=== PATIENT | male | born 1960 | race Caucasian/White ===

== ENCOUNTER 2017-12-21 18:37 | Observation (INO) | payer MEDICARE ==
[2017-12-21] MEDS ORDERED: NITRO-BID 2% UD PACKETS TOP ONE (19:12)
--- NOTE | 2017-12-21 19:18 | ERPHSYRPT ---
- History of Present Illness Time Seen by Provider: 12/21/17 19:06 Historian: patient Exam Limitations: no limitations Patient Subjective Stated Complaint: pt brought to ed from home by [facility] -pt reports sudden onset of sob and chest pain beginning a few hrs ago worsening with movement-pt reports he took nitro x 5 before calling ems Triage Nursing Assessment: pt pink warm and [id number] easy and nonlabored- pt speaking in complete sentences-lung sounds diminished but equal bilateral- cap refill wnl-radial pulse regular and strong Physician History: Pt started c/o right sided chest pressure about 1.5 hours ago, when watching TV. He states the pain was radiating to his jaw, developed SOB, denies productive cough, fever, nausea, vomiting, other complaints. He was picked up by EMS, he was recently hospitalized in [facility] for Pneumonia, currently on Levaquin.He took 5 NTG at home, before called 911, and 2 baby ASA, EMS gave him Morphine, relived him temporarily. H looks comfortable, not diaphoretic, no sign of severe distress. Timing/Duration: hour(s) (1,5) Activities at Onset: rest Quality: pressure Location: other (right anterior) Modifying Factors: Improves With: nothing Associated Symptoms: shortness of breath Prior Chest Pain/Cardiac Workup: recently seen/treated, recent hospitalization Nitro Today/Relief: 0.4 mg x 4, no relief Aspirin Treatment Today: 81 mg x 2 Allergies/Adverse Reactions: carisoprodol [Carisoprodol] Allergy (Unknown, Verified 12/21/17 18:50) ketorolac Allergy (Unknown, Verified 12/21/17 18:50) Home Medications: Furosemide 40 mg [Lasix 40 MG] 40 mg PO DAILY 11/28/11 [History] Alprazolam 1 mg [Xanax 1 mg] 1 mg PO Q6H PRN PRN 05/13/13 [History] Cyclobenzaprine HCl 10 mg [Cyclobenzaprine 10 MG] 10 mg PO [id number] PRN [History] Tamsulosin HCl 0.4 mg [Flomax 0.4 MG] 0.4 mg PO DAILY 05/13/13 [History] Fluticasone/Salmeterol [Advair 250-50 Diskus] 1 puff IH BID 07/11/13 [History] Omeprazole [Prilosec] 20 mg PO DAILY 07/11/13 [History] Aspirin [Aspirin EC] 81 mg PO DAILY 11/30/14 [History] Carvedilol 3.125 mg [Coreg 3.125 MG] 3.125 mg PO BID 11/30/14 [History] Digoxin 0.125 mg Tablet [Lanoxin 0.125MG TABLET] 125 mcg PO DAILY [History] Eplerenone 25 mg PO DAILY 11/30/14 [History] Lisinopril [Zestril] 2.5 mg PO DAILY 11/30/14 [History] Pravastatin Sodium 40 mg PO HS 11/30/14 [History] Apixaban [Eliquis] 5 mg PO BID 12/25/15 [History] Hydromorphone HCl 4 mg [Dilaudid 4 MG Tab] 4 mg PO Q4HPRN PRN 12/25/15 [ History] Hx Tetanus, Diphtheria Vaccination/Date Given: Yes Hx Influenza Vaccination/Date Given: No Hx Pneumococcal Vaccination/Date Given: No Immunizations Up to Date: Yes - Review of Systems Constitutional: No Symptoms Respiratory: Dyspnea Cardiac: Chest Pain, No Edema All Other Systems: Reviewed and Negative - Past Medical History Pertinent Past Medical History: Yes Neurological History: Migraines, Stroke, TIA ENT History: Cataracts Cardiac History: Arrhythmia, Congestive Heart Failure, Coronary Artery Disease, High Cholesterol, Hypertension, Myocardial Infarction ([place]) Respiratory History: Asthma, Bronchitis, CHF, COPD, Pneumonia, Pulmonary Embolism Endocrine Medical History: No Pertinent History Musculoskeletal History: No Pertinent History GI Medical History: No Pertinent History History: Other Psycho-Social History: Anxiety Male Reproductive Disorders: No Pertinent History, Prostate Problems Other Medical History: Renal Failure, Urinary retention - Past Surgical History Past Surgical History: Yes Neuro Surgical History: No Pertinent History Cardiac: CABG, Cardiac Catheterization, Cardiac Stent, Internal Defibrillator, Pacemaker Respiratory: No Pertinent History Gastrointestinal: Appendectomy Genitourinary: No Pertinent History Musculoskeletal: No Pertinent History Male Surgical History: No Pertinent History Other Surgical History: abscess I&D--RT AXILLA, bypass x2 - Social History Smoking Status: Current every day smoker How long have you smoked: "40 years" Exposure to second hand smoke: Yes Drug Use: none Patient Lives Alone: No - Nursing Vital Signs Nursing Vital Signs: Initial Vital Signs Temperature 98.5 F 12/21/17 18:45 Pulse Rate 72 12/21/17 18:45 Respiratory Rate 18 12/21/17 18:45 Blood Pressure 138/89 12/21/17 18:45 O2 Sat by Pulse Oximetry 95 12/21/17 18:45 Pain Scale Pain Intensity 7 - Physical Exam General Appearance: no apparent distress Eye Exam: eyes nml inspection Ears, Nose, Throat Exam: normal ENT inspection, moist mucous membranes Neck Exam: normal inspection, non-tender, supple, No carotid bruit, No JVD Respiratory Exam: normal breath sounds, lungs clear, airway intact, No chest tenderness, No respiratory distress Cardiovascular Exam: regular rate/rhythm, normal heart sounds, normal peripheral pulses, No murmur Gastrointestinal/Abdomen Exam: soft, normal bowel sounds, No tenderness, No distention, No mass, No guarding Back Exam: normal inspection, No CVA tenderness Extremity Exam: normal inspection, No calf tenderness, No rebeca's sign, No pedal edema Neurologic Exam: alert, oriented x 3, normal mood/affect Skin Exam: normal color, warm, dry, No rash Lymphatic Exam: No adenopathy SpO2 Interpretation: normal SpO2: 95 Oxygen Delivery: Room Air - Course Nursing assessment & vital signs reviewed: Yes EKG Interpreted by Me: RATE (69/min), Other (paced) - Radiology Exams Chest X-ray Interpretation: Interpreted by me, Negative - CT Exams Chest CT Interpretation: Negative, Tele-radiologist Report Ordered Tests: Active Orders 24 hr Category Date Time Status Office Electrician STAT Care 12/21/17 18:58 Active EKG-ER Only STAT Care 12/21/17 18:57 Active IV Insertion STAT Care 12/21/17 18:57 Active Pulse Oximetry (ED) STAT Care 12/21/17 18:57 Active CHEST 1 VIEW (PORTABLE) Stat Exams 12/21/17 18:58 Taken CHEST WITH CONTRAST [CT] Stat Exams 12/21/17 20:59 Taken CBC W DIFF Stat Lab 12/21/17 18:57 Completed CMP Stat Lab 12/21/17 19:45 Completed D-DIMER QUANTITATION Stat Lab 12/21/17 19:45 Completed Manual Differential NC Stat Lab 12/21/17 18:57 Completed NT PRO BNP Stat Lab 12/21/17 19:45 Completed PROTIME WITH INR Stat Lab 12/21/17 19:45 Completed PTT Stat Lab 12/21/17 19:45 Completed TROPONIN Q3H Lab 12/21/17 19:45 Completed TROPONIN Q3H Lab 12/21/17 22:00 Ordered TROPONIN Q3H Lab 12/22/17 01:00 Ordered TROPONIN Q3H Lab 12/22/17 04:00 Ordered TROPONIN Q3H Lab 12/22/17 07:00 Ordered Urine Triage Profile Stat Lab 12/21/17 20:44 Completed Medication Summary Generic Name Dose Route Start Last Admin Trade Name Freq PRN Reason Stop Dose Admin Aspirin 162 mg 12/22/17 10:00 Baby Aspirin 81 Mg Chew PO 01/21/18 09:59 QAM OWEN Discontinued Medications Generic Name Dose Route Start Last Admin Trade Name Freq PRN Reason Stop Dose Admin Fentanyl Citrate 75 mcg 12/21/17 19:40 12/21/17 20:02 Sublimaze 100 Mcg/2 Ml IV 12/21/17 19:41 75 mcg STAT ONE Administration Fentanyl Citrate Confirm 12/21/17 20:00 Sublimaze 100 Mcg/2 Ml Administered 12/21/17 20:01 Dose 100 mcg .ROUTE .STK-MED ONE Morphine Sulfate 4 mg 12/21/17 21:49 12/21/17 21:52 Morphine Sulfate 4 Mg Inj IV 12/21/17 21:50 4 mg STAT ONE Administration Morphine Sulfate Confirm 12/21/17 21:51 Morphine Sulfate 4 Mg Inj Administered 12/21/17 21:52 Dose 4 mg .ROUTE .STK-MED ONE Nitroglycerin 1 gm 12/21/17 19:12 12/21/17 19:32 Nitro-Bid 2% Ud Packets TOP 12/21/17 19:13 1 gm STAT ONE Administration Nitroglycerin Confirm 12/21/17 19:32 Nitro-Bid 2% Ud Packets Administered 12/21/17 19:33 Dose 1 gm .ROUTE .STK-MED ONE Lab/Rad Data: Laboratory Result Diagrams 12/21/17 18:57 12/21/17 19:45 Laboratory Results 12/21/17 12/21/17 12/21/17 Range/Units 20:44 19:45 19:45 WBC (4.0-10.5) K/mm3 RBC (4.1-5.6) M/mm3 Hgb (12.5-18.0) gm/dl Hct (42-50) % MCV (78-100) fl MCH (26-32) pg MCHC (32-36) g/dl RDW (11.5-14.0) % Plt Count (150-450) K/mm3 MPV (6-9.5) fl Absolute Granulocytes (1.4-6.9) PT 13.1 H (8.83-12.87) SECONDS INR 1.13 (0.8-3.0) APTT (24.1-36.1) SECONDS D-Dimer (215-500) ng/mL Sodium (137-145) mmol/L Potassium (3.5-5.1) mmol/L Chloride (98-107) mmol/L Carbon Dioxide (22-30) mmol/L Anion Gap (5-15) MEQ/L BUN (9-20) mg/dL Creatinine (0.66-1.25) mg/dL Estimated GFR ML/MIN Glucose (74-106) mg/dL Calcium (8.4-10.2) mg/dL Total Bilirubin (0.2-1.3) mg/dL AST (17-59) U/L ALT (0-50) U/L Alkaline Phosphatase (38-126) U/L Troponin I 0.012 (0.000-0.034) ng/mL NT-Pro-B Natriuret Pep (0-900) pg/mL Serum Total Protein (6.3-8.2) g/dL Albumin (3.5-5.0) g/dL Urine Opiates Level POSITIVE (NEGATIVE) Ur Methadone NEGATIVE (NEGATIVE) Urine Barbiturates NEGATIVE (NEGATIVE) Ur Phencyclidine (PCP) NEGATIVE (NEGATIVE) Urine Amphetamine NEGATIVE (NEGATIVE) U Benzodiazepine Level POSITIVE (NEGATIVE) Urine Cocaine NEGATIVE (NEGATIVE) Urine Marijuana (THC) NEGATIVE (NEGATIVE) 12/21/17 12/21/17 12/21/17 Range/Units 19:45 19:45 18:57 WBC 9.7 (4.0-10.5) K/mm3 RBC 5.80 H (4.1-5.6) M/mm3 Hgb 17.0 (12.5-18.0) gm/dl Hct 50.3 H (42-50) % MCV 86.7 (78-100) fl MCH 29.3 (26-32) pg MCHC 33.8 (32-36) g/dl RDW 16.8 H (11.5-14.0) % Plt Count 122 L (150-450) K/mm3 MPV 9.2 (6-9.5) fl Absolute Granulocytes 6.30 (1.4-6.9) PT (8.83-12.87) SECONDS INR (0.8-3.0) APTT 36.6 H (24.1-36.1) SECONDS D-Dimer 772 H* (215-500) ng/mL Sodium 139 (137-145) mmol/L Potassium 5.6 H (3.5-5.1) mmol/L Chloride 103 (98-107) mmol/L Carbon Dioxide 28 (22-30) mmol/L Anion Gap 13.2 (5-15) MEQ/L BUN 36 H (9-20) mg/dL Creatinine 1.30 H (0.66-1.25) mg/dL Estimated GFR > 60.0 ML/MIN Glucose 95 (74-106) mg/dL Calcium 9.8 (8.4-10.2) mg/dL Total Bilirubin 0.60 (0.2-1.3) mg/dL AST 29 (17-59) U/L ALT 24 (0-50) U/L Alkaline Phosphatase 62 (38-126) U/L Troponin I (0.000-0.034) ng/mL NT-Pro-B Natriuret Pep 593 (0-900) pg/mL Serum Total Protein 8.4 H (6.3-8.2) g/dL Albumin 4.5 (3.5-5.0) g/dL Urine Opiates Level (NEGATIVE) Ur Methadone (NEGATIVE) Urine Barbiturates (NEGATIVE) Ur Phencyclidine (PCP) (NEGATIVE) Urine Amphetamine (NEGATIVE) U Benzodiazepine Level (NEGATIVE) Urine Cocaine (NEGATIVE) Urine Marijuana (THC) (NEGATIVE) - Progress Progress: improved Air Movement: good Progress Note: 05/30/18 22:[address] Hoang Casper, discussed our findings and this patients current condition, he states he fired him from their practice, and asked me to contact the physician superintendent radio communications. I called Dr Hull discussed all these with him he agreed to admit him for observation, patient was informed and agreed, He was given Fentanyl and Morphine for his pain and 2 baby ASA. He has been stable. Blood Culture(s) Obtained: No Antibiotics given: No Discussed with DrNicole: Kurtis Frazier Will see patient in: hospital (observation) Counseled pt/family regarding: lab results, diagnosis, need for follow-up, rad results - Departure Time of Disposition: 22:55 Departure Disposition: Observation Clinical Impression: Atypical chest pain Condition: Stable Critical Care Time: No Referrals: MAHNAZ LEOS [Primary Care Provider] - Instructions: Atypical Chest Pain
[2017-12-21] MEDS ORDERED: NITRO-BID 2% UD PACKETS ONE (19:32)
[2017-12-21] MEDS ORDERED: SUBLIMAZE 100 MCG/2 ML IV ONE (19:40)
[2017-12-21 19:53] LABS: Hematocrit 50.3 % (42-50); Mean Cell Volume 86.7 fl (78-100); Mean Corpuscular Hemoglobin 29.3 pg (26-32); Mean Corpuscular Hgb Concent. 33.8 g/dl (32-36); Mean Platelet Volume 9.2 fl (6-9.5); Platelet Count 122 K/mm3 (150-450); Red Cell Distribution Width 16.8 % (11.5-14.0); White Blood Count 9.7 K/mm3 (4.0-10.5)
[2017-12-21] MEDS ORDERED: SUBLIMAZE 100 MCG/2 ML ONE (20:00)
[2017-12-21 20:36] LABS: INR 1.13 (0.8-3.0)
[2017-12-21 20:39] LABS: PTT 36.6 SECONDS (24.1-36.1)
[2017-12-21 20:45] LABS: ALBUMIN 4.5 g/dL (3.5-5.0); ALKALINE PHOSPHATASE 62 U/L (38-126); ANION GAP 13.2 MEQ/L (5-15); BLOOD UREA NITROGEN 36 mg/dL (9-20); CHLORIDE 103 mmol/L (98-107); Calcium 9.8 mg/dL (8.4-10.2); Carbon Dioxide 28 mmol/L (22-30); Glucose 95 mg/dL (74-106); Potassium 5.6 mmol/L (3.5-5.1); SGOT/AST 29 U/L (17-59); SGPT/ALT 24 U/L (0-50); SODIUM 139 mmol/L (137-145); Total Protein 8.4 g/dL (6.3-8.2)
[2017-12-21 20:54] LABS: NT PRO BNP 593 pg/mL (0-900)
[2017-12-21 21:24] LABS: Amphetamine,Urine NEGATIVE (NEGATIVE); Barbiturate,Urine NEGATIVE (NEGATIVE); Benzodiazepine,Urine POSITIVE (NEGATIVE); Cocaine,Urine NEGATIVE (NEGATIVE); Methadone,Urine NEGATIVE (NEGATIVE); Opiate,Urine POSITIVE (NEGATIVE); PCP,Urine NEGATIVE (NEGATIVE); THC,Urine NEGATIVE (NEGATIVE)
[2017-12-21] MEDS ORDERED: MORPHINE SULFATE 4 MG INJ IV ONE (21:49)
[2017-12-21] MEDS ORDERED: MORPHINE SULFATE 4 MG INJ ONE (21:51)
[2017-12-21] MEDS ORDERED: MILK OF MAGNESIA 30 ML PO PRN (22:56)
[2017-12-21] MEDS ORDERED: MAALOX ES 30 ML UNIT DOSE PO PRN (22:56)
[2017-12-21] MEDS ORDERED: Senokot-S Tablet PO PRN (22:56)
[2017-12-21] MEDS ORDERED: TYLENOL 325 MG PO PRN (22:56)
[2017-12-21] MEDS ORDERED: Zofran 4 MG/2 ML VIAL IV PRN (22:56)
[2017-12-21 23:35] LABS: BAND 4 % (0.0-2.0); Eosinophil 3 % (0.00-3.0); Lymphocytes 20 % (24-44); Monocyte 7 % (0.0-12.0); Neutrophils 66 % (36.-66.); Total Cells Counted 100
[2017-12-21 23:36] LABS: Platelet Estimate NORMAL (NORMAL)
[2017-12-22] MEDS: MORPHINE SULFATE 4 MG INJ IV PRN ×3 (01:58→10:07)
[2017-12-22] MEDS ORDERED: Nitrostat 0.4 MG Tablet SL PRN (04:17)
[2017-12-22 05:34] LABS: Risk Ratio 3.9
[2017-12-22 07:15] VITALS: BP 126/74; PULSE 77
[2017-12-22 07:21] VITALS: O2SAT 98
--- NOTE | 2017-12-22 08:35 | PCM.SSS ---
History of Present Illness - Chief Complaint Chief Complaint: Chest pain History of Present Illness: is a 57 year old male with no local physician who according to the ER doctor was recently dismissed by Dr Cheema for leaving [facility] , following leaving there he went to [facility] and was admitted for a lung infection according to patient. He developed chest pain last night at rest after dinner, there was no shortness of breath or diaphoresis, he denies nausea. Pain is better today, he described it as a tightness. He follows with Dr Salguero and has a history of CAD s/p CABG he claims has had CABG on 3 different occaisons. - Review of Systems Constitutional: No Fever, No Chills Respiratory: No Cough, No Short Of Breath Cardiac: Chest Pain Abdominal/Gastrointestinal: No Abdominal Pain, No Nausea, No Vomiting, No Diarrhea Genitourinary Symptoms: No Dysuria Skin: No Rash All Other Systems: Reviewed and Negative Medications & Allergies Home Medications: Home Medication List Furosemide 40 mg [Lasix 40 MG] 40 mg PO DAILY 11/28/11 [History Confirmed 12/21/17] Alprazolam 1 mg [Xanax 1 mg] 1 mg PO Q6H PRN PRN 05/13/13 [History Confirmed 12/21/17] Cyclobenzaprine HCl 10 mg [Cyclobenzaprine 10 MG] 10 mg PO [id number] PRN [History Confirmed 12/21/17] Tamsulosin HCl 0.4 mg [Flomax 0.4 MG] 0.4 mg PO DAILY 05/13/13 [History Confirmed 12/21/17] Fluticasone/Salmeterol [Advair 250-50 Diskus] 1 puff IH BID 07/11/13 [History Confirmed 12/21/17] Omeprazole [Prilosec] 20 mg PO DAILY 07/11/13 [History Confirmed 12/21/17] Aspirin [Aspirin EC] 81 mg PO DAILY 11/30/14 [History Confirmed 12/21/17] Carvedilol 3.125 mg [Coreg 3.125 MG] 3.125 mg PO BID 11/30/14 [History Confirmed 12/21/17] Digoxin 0.125 mg Tablet [Lanoxin 0.125MG TABLET] 125 mcg PO DAILY [History Confirmed 12/21/17] Eplerenone 25 mg PO DAILY 11/30/14 [History Confirmed 12/21/17] Lisinopril [Zestril] 2.5 mg PO DAILY 11/30/14 [History Confirmed 12/21/17] Pravastatin Sodium 40 mg PO HS 11/30/14 [History Confirmed 12/21/17] Apixaban [Eliquis 5 mg Tablet] 5 mg PO BID 12/25/15 [History Confirmed ] Hydromorphone HCl 4 mg [Dilaudid 4 MG Tab] 4 mg PO Q4HPRN PRN 12/25/15 [ History Confirmed 12/21/17] Allergies/Adverse Reactions: Allergies Allergy/AdvReac Type Severity Reaction Status Date / Time carisoprodol [Carisoprodol] Allergy Unknown Verified 12/21/17 18:50 ketorolac Allergy Unknown Verified 12/21/17 18:50 - Past Medical History Past Medical History: Yes Neurological History: Migraines, Stroke, TIA ENT History: Cataracts Cardiac History: Arrhythmia, Congestive Heart Failure, Coronary Artery Disease, High Cholesterol, Hypertension, Myocardial Infarction ([place]) Respiratory History: Asthma, Bronchitis, CHF, COPD, Pneumonia, Pulmonary Embolism Endocrine Medical History: No Pertinent History Musculoskelatal History: Arthritis GI Medical History: No Pertinent History History: No Pertinent History Pyscho-Social History: Anxiety, Depression Male Reproductive Disorders: No Pertinent History Comment: Renal Failure, Urinary retention - Past Surgical History Past Surgical History: Yes Neuro Surgical History: No Pertinent History Cardiac History: CABG, Cardiac Catheterization, Cardiac Stent, Internal Defibrillator, Pacemaker Respiratory Surgery: No Pertinent History GI Surgical History: Appendectomy Genitourinary Surgical Hx: No Pertinent History Musculskeletal Surgical Hx: No Pertinent History Male Surgical History: No Pertinent History Other Surgical History: bypass x 3 - Social History Smoking Status: Current every day smoker How long have you smoked: "40 years" Exposure to second hand smoke: Yes Alcohol: Rarely Drug Use: marijuana - Physical Exam Vital Signs: Vital Signs - 24 hr Temp Pulse Pulse Resp BP Pulse Ox 12/22/17 07:20 77 18 98 12/22/17 07:14 98 F 77 20 126/74 97 12/22/17 04:57 96 12/22/17 04:15 97.9 F 80 18 149/81 94 L 12/22/17 01:10 79 16 96 12/22/17 00:04 94 L 12/21/17 23:39 97.7 F 70 14 139/81 94 L 12/21/17 22:57 70 16 133/99 97 12/21/17 22:56 95 12/21/17 21:57 73 18 137/64 96 12/21/17 21:52 70 28 H 135/72 95 12/21/17 20:51 68 18 140/76 97 12/21/17 19:50 98.5 F 77 17 172/76 91 L 12/21/17 19:33 70 18 130/82 97 12/21/17 18:59 95 12/21/17 18:45 98.5 F 70 72 18 138/89 95 General Appearance: no apparent distress, alert Neurologic Exam: alert, oriented x 3, cooperative, normal mood/affect, nml cerebellar function, nml station & gait, sensation nml, No motor deficits Eye Exam: PERRL/EOMI, eyes nml inspection Respiratory Exam: normal breath sounds, lungs clear, No respiratory distress Cardiovascular Exam: regular rate/rhythm, normal heart sounds, normal peripheral pulses Gastrointestinal/Abdomen Exam: soft, normal bowel sounds, No tenderness, No mass Back Exam: normal inspection, normal range of motion, No CVA tenderness, No vertebral tenderness Extremity Exam: normal inspection, normal range of motion, pelvis stable Skin Exam: normal color, warm, dry, No rash Results - Labs Lab/Micro Results: Lab Results-Last 24 Hours 12/22/17 12/22/17 12/22/17 Range/Units 02:00 05:00 05:00 Troponin I 0.015 0.014 (0.000-0.034) ng/mL Triglycerides 75 (30-150) mg/dL Cholesterol 164 (50-200) mg/dL LDL Cholesterol 103 H (30-100) mg/dL HDL Cholesterol 42 (40-60) mg/dL Heart Disease Risk Ratio 3.9 - Other Procedures and Tests Respiratory Therapy 12/23/17 05:00 EKG ROUTINE 12/24/17 05:00 EKG ROUTINE 12/25/17 05:00 EKG ROUTINE Assessment/Plan (1) Atypical chest pain Current Visit: Yes Status: Acute Assessment & Plan: EKG with bifascicular block, no acute changes. NM has been ruled out and patient is feeling better at this time. advised he needs to followup with Dr Justina RUST for further care Code(s): R07.89 - OTHER CHEST PAIN (2) COPD (chronic obstructive pulmonary disease) Current Visit: No Status: Chronic (3) Chronic pain Current Visit: No Status: Chronic Qualifiers: Chronic pain type: chronic pain syndrome Qualified Code(s): G89.4 - Chronic pain syndrome Code(s): G89.29 - OTHER CHRONIC PAIN (4) Hypertension Current Visit: No Status: Chronic Qualifiers: Hypertension type: essential hypertension Qualified Code(s): I10 - Essential (primary) hypertension Code(s): I10 - ESSENTIAL (PRIMARY) HYPERTENSION Hospital Summary - Vitals & Intake/Output Vital Signs: Vital Signs Temperature 98 F 12/22/17 07:14 Pulse Rate 77 12/22/17 07:20 Respiratory Rate 18 12/22/17 07:20 Blood Pressure 126/74 12/22/17 07:14 O2 Sat by Pulse Oximetry 98 12/22/17 07:20 Intake & Output: Intake & Output 12/19/17 12/20/17 12/21/17 12/22/17 11:59 11:59 11:59 11:59 Intake Total 200 Output Total 700 Balance -500 Weight 77.8 kg - Lab Result Diagrams: 12/21/17 18:57 12/21/17 19:45 Lab Results-Last 24 Hrs: Lab Results-Last 24 Hours 12/22/17 12/22/17 12/22/17 Range/Units 02:00 05:00 05:00 Troponin I 0.015 0.014 (0.000-0.034) ng/mL Triglycerides 75 (30-150) mg/dL Cholesterol 164 (50-200) mg/dL LDL Cholesterol 103 H (30-100) mg/dL HDL Cholesterol 42 (40-60) mg/dL Heart Disease Risk Ratio 3.9 - Procedures and Test Procedures and Tests throughout Hospitalization: Therapy Orders & Screens 12/21/17 23:58 Smoking Cessation Education ONCE Comment: Diagnosis: Chest pain Smoking Status: Current every day smoker How long have you smoked: "40 years" Have you smoked in the past 12 months: Yes Approximately how many cigarettes per day: 4 Do you dip or chew tobacco: No If,Former Smoker,when did you quit: 6 WEEKS 12/22/17 02:42 EKG ROUTINE Comment: Diagnosis: Chest pain 12/23/17 05:00 EKG ROUTINE Comment: Diagnosis: Chest pain 12/24/17 05:00 EKG ROUTINE Comment: Diagnosis: Chest pain 12/25/17 05:00 EKG ROUTINE Comment: Diagnosis: Chest pain - Discharge Disposition: Home, Self-Care Condition: Stable Prescriptions: Continue Furosemide 40 mg [Lasix 40 MG] 40 mg PO DAILY Tamsulosin HCl 0.4 mg [Flomax 0.4 MG] 0.4 mg PO DAILY Cyclobenzaprine HCl 10 mg [Cyclobenzaprine 10 MG] 10 mg PO [id number] PRN PRN Reason: Muscle Spasms Alprazolam 1 mg [Xanax 1 mg] 1 mg PO Q6H PRN PRN PRN Reason: Anxiety Omeprazole [Prilosec] 20 mg PO DAILY Fluticasone/Salmeterol [Advair 250-50 Diskus] 1 puff IH BID Digoxin 0.125 mg Tablet [Lanoxin 0.125MG TABLET] 125 mcg PO DAILY Lisinopril [Zestril] 2.5 mg PO DAILY Carvedilol 3.125 mg [Coreg 3.125 MG] 3.125 mg PO BID Eplerenone 25 mg PO DAILY Aspirin [Aspirin EC] 81 mg PO DAILY Pravastatin Sodium 40 mg PO HS Apixaban [Eliquis 5 mg Tablet] 5 mg PO BID Hydromorphone HCl 4 mg [Dilaudid 4 MG Tab] 4 mg PO Q4HPRN PRN PRN Reason: Pain Additional Instructions: resume all home meds as directed, Dr Hull will not fill dilaudid or xanax prescriptions but if you would like to followup since you have no current primary physician he will see you in the office. otherwise you will need to find a new provider to fill these prescriptions. Follow up with: HELIO SALGUERO [CONSULTING PHYSICIAN] - 1 Week
--- NOTE | 2017-12-22 09:58 | XRAY ---
Exam: AP upright portable chest film from 12/21/2017. Comparison: AP upright portable chest film from 01/13/2016. Indication: Chest pain, previous CABG, pacemaker. Findings: The heart size is probably at the upper limits of normal on this AP portable film. There is evidence of prior CABG with midline sternotomy. I also see a cardiac valve replacement (probably aortic) representing no change. The edgardo and mediastinal structures appear unremarkable. A left-sided cardiac pacemaker/AICD is seen with [address], one lead tip in the projection of the right atrium and 2-lead tips in the projection of the right ventricle. This is unchanged. There is average inflation of the lungs. A few small scattered bilateral calcified granulomas are again seen. No vascular congestion, Judie B lines, or pleural fluid is seen. There is no pneumothorax. No acute osseous process is seen. A couple surgical clips are again seen just inferior to the lateral aspect of the right clavicle. EKG leads are noted in place. Impression: 1. The heart size appears towards the upper limits of normal representing no change from 01/13/2016. No heart failure, pneumonia, or other acute cardiopulmonary disease is seen. 2. Status post CABG and probable aortic valve replacement. Left-sided cardiac pacemaker/AICD is again seen representing no change. 3. Some small scattered calcified granulomas are seen within each lung field, stable.
[2017-12-22] MEDS ORDERED: ECOTRIN 81 MG PO SCH (10:00)
[2017-12-22] MEDS ORDERED: Ecotrin 325 MG PO SCH (10:00)
[2017-12-22] MEDS ORDERED: BABY ASPIRIN 81 MG CHEW PO SCH (10:00)
[2017-12-22] MEDS ORDERED: Pepcid 20 MG VIAL IV SCH (10:00)
--- NOTE | 2017-12-22 22:51 | XRAY ---
Exam: CT of the chest with IV contrast from 12/21/2017. Comparison: AP portable chest film from 12/21/[address] of the chest with IV contrast from 11/28/2011.. Indication: Chest pain, elevated d-dimer. Technique: Axial post IV contrast images were obtained through the chest both during and following automated injection of 80 cc of Isovue-370 contrast material using the PE protocol. Reconstructed coronal MIP images were created and reviewed. Findings: I again see evidence of prior CABG with midline sternotomy. There appears to be mitral valve replacement as well as a left-sided cardiac pacemaker/AICD with [address] The vessels enhance well. I see no filling defects within the pulmonary arteries to suggest clot/emboli. The thoracic aorta reveals no evidence of aneurysm or dissection. Coronary artery vascular calcification is seen. The main pulmonary artery trunk measures up to 3.5 cm in diameter. Correlate clinically regarding pulmonary artery hypertension. There is moderate atherosclerotic vascular disease within the distal descending thoracic aorta and proximal abdominal aorta. Small bilateral perihilar granulomatous calcifications are seen. There also some scattered bilateral peripheral calcified granulomas within the lung [place]. Small lymph nodes are seen within the edgardo which I believe are reactive. I see no air space infiltrates, vascular congestion, pneumothorax, or pleural fluid. No abnormal soft tissue lung nodules are seen. The trachea and major central branching bronchi appear open. The upper abdomen reveals no acute process. The adrenal glands appear of normal size. The spleen measures 13.5 cm in greatest transverse dimension which is borderline increased. Fluid and secretions are seen within the stomach lumen. The skeleton reveals no acute fractures or aggressive bone lesion. Impression: 1. No findings of acute pulmonary embolism are seen. 2. Status post CABG, mitral valve replacement, and left-sided cardiac pacemaker/AICD. 3. Old healed granulomatous disease. 4. The main pulmonary artery trunk appears prominent measuring up to 3.5 cm in diameter. Correlate clinically regarding pulmonary artery hypertension. 5. No active lung disease is seen. 6. Borderline splenomegaly.
== END 2017-12-22 10:25 | disposition home or self-care (01) ==
LOC: ED 18:37 → MED SURG 23:20
PROVIDERS: ADMIT Family Medicine; ATTEND Family Medicine
DX: R07.89 Other chest pain (principal); J44.9 Chronic obstructive pulmonary disease, unspecified; G89.4 Chronic pain syndrome; G89.29 Other chronic pain; I10 Essential (primary) hypertension; I25.810 Atherosclerosis of coronary artery bypass graft(s) without angina pectoris; Z79.899 Other long term (current) drug therapy; I50.9 Heart failure, unspecified; Z86.711 Personal history of pulmonary embolism; M19.90 Unspecified osteoarthritis, unspecified site; F41.8 Other specified anxiety disorders; Z79.01 Long term (current) use of anticoagulants
CPT/HCPCS: 36415; 71045; 71260; 80053; 80061; 80307; 83721; 83880; 84484; 85025; 85379; 85610; 85730; 93005; 93041; 93268; 94760; 96372; 96374; 96375; 99285; J2270; J3010; A9270-GY; G0378

== ENCOUNTER 2018-01-15 01:39 | Observation (INO) | payer MEDICARE ==
[2018-01-15] MEDS ORDERED: Nitrostat 0.4 MG (ED) SL ONE ×2 (02:47→02:52)
[2018-01-15 02:54] LABS: BASOPHIL % 0.4 % (0.0-0.4); Basophil (Absolute #) 0.03 (0-0.4); Eosinophil % 3.9 % (0.00-5.0); Eosinophil (Absolute #) 0.28 (0-0.5); Granulocyte Absolute (ANC) 5.09 (1.4-6.9); Granulocytes % 71.1 % (36.0-66.0); Hematocrit 43.3 % (42-50); Hemoglobin 14.7 gm/dl (12.5-18.0); Lymphocyte (Absolute #) 1.05 (1.0-4.6); Lymphocytes % 14.6 % (24.0-44.0); Mean Cell Volume 86.9 fl (78-100); Mean Corpuscular Hemoglobin 29.5 pg (26-32); Mean Corpuscular Hgb Concent. 33.9 g/dl (32-36); Mean Platelet Volume 9.5 fl (6-9.5); Monocyte (Absolute #) 0.72 (0.0-1.3); Platelet Count 132 K/mm3 (150-450); Red Blood Count 4.98 M/mm3 (4.1-5.6); Red Cell Distribution Width 15.1 % (11.5-14.0); White Blood Count 7.2 K/mm3 (4.0-10.5)
[2018-01-15 03:06] LABS: INR 1.27 (0.8-3.0)
[2018-01-15 03:10] LABS: ALBUMIN 4.5 g/dL (3.5-5.0); ALKALINE PHOSPHATASE 67 U/L (38-126); ANION GAP 14.2 MEQ/L (5-15); BLOOD UREA NITROGEN 18 mg/dL (9-20); CHLORIDE 107 mmol/L (98-107); CK-Creatinine Phosphokinase 28 U/L (55-170); Calcium 9.9 mg/dL (8.4-10.2); Carbon Dioxide 26 mmol/L (22-30); Creatinine 1 0.78 mg/dL (0.66-1.25); Glucose 96 mg/dL (74-106); Potassium 4.5 mmol/L (3.5-5.1); SGOT/AST 17 U/L (17-59); SGPT/ALT 13 U/L (0-50); SODIUM 142 mmol/L (137-145); Total Protein 8.3 g/dL (6.3-8.2)
[2018-01-15 03:18] LABS: NT PRO BNP 1250 pg/mL (0-900)
--- NOTE | 2018-01-15 03:44 | ERPHSYRPT ---
- History of Present Illness Time Seen by Provider: 01/15/18 02:22 Historian: patient Exam Limitations: no limitations Patient Subjective Stated Complaint: pt arrived to ED via ambulance. pt comes in with c/o left sided weakness. pt hx of stroke affecting the left sided. pt presents with left sided weakness. no facial droop. some left arm drift noted. left sided hand resolution rep weaker than right and left sided foot push weaker than right. pt is alert and oriented x3. some confusion noted but pt is oriented quickly. PERRLA. Triage Nursing Assessment: see above. Physician History: Pt states, he started c/o facial numbness, left arm weakness, and pain around his pacemaker 1.5 hours before coming. He took 2 SL NTG and called 911. He denies visual changes, no slurred speech, nausea, vomiting, SOB, other complaints. He smokes, has extensive cardiac history. He was admitted here 3 weeks ago with chest pain for observation. He states he has a history of subdural hematoma in the past, did not require surgery. Timing/Duration: hour(s) (1.5) Activities at Onset: rest Quality: sharpness Location: other (left chest, around pacemaker) Chest Pain Radiation: no radiation Severity of Pain-Max: moderate Severity of Pain-Current: moderate Modifying Factors: Improves With: nothing Associated Symptoms: weakness Prior Chest Pain/Cardiac Workup: cardiac cath Nitro Today/Relief: 0.4 mg x 2 Aspirin Treatment Today: no aspirin today Allergies/Adverse Reactions: carisoprodol [Carisoprodol] Allergy (Unknown, Verified 12/21/17 18:50) ketorolac Allergy (Unknown, Verified 12/21/17 18:50) Home Medications: Furosemide 40 mg [Lasix 40 MG] 40 mg PO DAILY 11/28/11 [History] Alprazolam 1 mg [Xanax 1 mg] 1 mg PO Q6H PRN PRN 05/13/13 [History] Cyclobenzaprine HCl 10 mg [Cyclobenzaprine 10 MG] 10 mg PO [id number] PRN [History] Tamsulosin HCl 0.4 mg [Flomax 0.4 MG] 0.4 mg PO DAILY 05/13/13 [History] Fluticasone/Salmeterol [Advair 250-50 Diskus] 1 puff IH BID 07/11/13 [History] Omeprazole [Prilosec] 20 mg PO DAILY 07/11/13 [History] Aspirin [Aspirin EC] 81 mg PO DAILY 11/30/14 [History] Carvedilol 3.125 mg [Coreg 3.125 MG] 3.125 mg PO BID 11/30/14 [History] Digoxin 0.125 mg Tablet [Lanoxin 0.125MG TABLET] 125 mcg PO DAILY [History] Eplerenone 25 mg PO DAILY 11/30/14 [History] Lisinopril [Zestril] 2.5 mg PO DAILY 11/30/14 [History] Pravastatin Sodium 40 mg PO HS 11/30/14 [History] Apixaban [Eliquis 5 mg Tablet] 5 mg PO BID 12/25/15 [History] Hydromorphone HCl 4 mg [Dilaudid 4 MG Tab] 4 mg PO Q4HPRN PRN 12/25/15 [ History] Hx Tetanus, Diphtheria Vaccination/Date Given: Yes Hx Influenza Vaccination/Date Given: No Hx Pneumococcal Vaccination/Date Given: No Immunizations Up to Date: Yes - Review of Systems Constitutional: No Symptoms Respiratory: No Symptoms Cardiac: Chest Pain Neurological: Parasthesia All Other Systems: Reviewed and Negative - Past Medical History Pertinent Past Medical History: Yes Neurological History: Migraines, Stroke, TIA ENT History: Cataracts Cardiac History: Arrhythmia, Congestive Heart Failure, Coronary Artery Disease, High Cholesterol, Hypertension, Myocardial Infarction ([place]) Respiratory History: Asthma, Bronchitis, CHF, COPD, Pneumonia, Pulmonary Embolism Endocrine Medical History: No Pertinent History Musculoskeletal History: Arthritis GI Medical History: No Pertinent History History: No Pertinent History Psycho-Social History: Anxiety, Depression Male Reproductive Disorders: No Pertinent History Other Medical History: Renal Failure, Urinary retention - Past Surgical History Past Surgical History: Yes Neuro Surgical History: No Pertinent History Cardiac: CABG, Cardiac Catheterization, Cardiac Stent, Internal Defibrillator, Pacemaker Respiratory: No Pertinent History Gastrointestinal: Appendectomy Genitourinary: No Pertinent History Musculoskeletal: No Pertinent History Male Surgical History: No Pertinent History Other Surgical History: bypass x 3 - Social History Smoking Status: Current every day smoker How long have you smoked: "40 years" Exposure to second hand smoke: Yes Drug Use: marijuana, methamphetamines Patient Lives Alone: Yes - Nursing Vital Signs Nursing Vital Signs: Initial Vital Signs Temperature 98.1 F 01/15/18 01:40 Pulse Rate 72 01/15/18 01:40 Respiratory Rate 20 01/15/18 01:40 Blood Pressure 161/98 01/15/18 01:40 O2 Sat by Pulse Oximetry 100 01/15/18 01:40 Pain Scale Pain Intensity 8 - Physical Exam General Appearance: no apparent distress Eye Exam: PERRL/EOMI, eyes nml inspection Ears, Nose, Throat Exam: normal ENT inspection, pharynx normal, moist mucous membranes Neck Exam: normal inspection, non-tender, supple, No mass, No carotid bruit, No JVD, No lymphadenopathy Respiratory Exam: normal breath sounds, lungs clear, airway intact, No chest tenderness Cardiovascular Exam: regular rate/rhythm, normal heart sounds, normal peripheral pulses, other (no chest wall tenderness, edema, or redness.), No murmur Gastrointestinal/Abdomen Exam: soft, normal bowel sounds, No tenderness, No distention, No mass, No guarding, No pulsatile mass Back Exam: normal inspection, No CVA tenderness Extremity Exam: normal inspection, No rebeca's sign, No pedal edema Neurologic Exam: alert, oriented x 3, cooperative, normal mood/affect Skin Exam: normal color, warm, dry, No rash Lymphatic Exam: No adenopathy SpO2 Interpretation: normal SpO2: 99 Oxygen Delivery: Room Air - Course Nursing assessment & vital signs reviewed: Yes EKG Interpreted by Me: RATE (70/min), Other (paced rhythm) - Radiology Exams Chest X-ray Interpretation: Interpreted by me, Negative - CT Exams Head CT Interpretation: Negative, Tele-radiologist Report Ordered Tests: Active Orders 24 hr Category Date Time Status Business Transformation Manager STAT Care 01/15/18 02:48 Active EKG-ER Only STAT Care 01/15/18 02:47 Active IV Insertion STAT Care 01/15/18 02:47 Active Oxygen-ED Only NASAL CANNULA 2 lpm Care 01/15/18 02:47 Active CHEST 1 VIEW (PORTABLE) Stat Exams 01/15/18 02:47 Taken HEAD WITHOUT CONTRAST [CT] Stat Exams 01/15/18 02:48 Taken CBC W DIFF Stat Lab 01/15/18 02:45 Completed CK-Creatinine Phosphokinase Stat Lab 01/15/18 02:45 Completed CMP Stat Lab 01/15/18 02:45 Completed Erythrocyte Sedimentation Rate Stat Lab 01/15/18 02:45 Completed NT PRO BNP Stat Lab 01/15/18 02:45 Completed PROTIME WITH INR Stat Lab 01/15/18 02:45 Completed TROPONIN Q3H Lab 01/15/18 02:45 Completed TROPONIN Q3H Lab 01/15/18 06:00 Ordered TROPONIN Q3H Lab 01/15/18 09:00 Ordered TROPONIN Q3H Lab 01/15/18 12:00 Ordered TROPONIN Q3H Lab 01/15/18 15:00 Ordered Urine Triage Profile Stat Lab 01/15/18 02:47 Uncollected Medication Summary Discontinued Medications Generic Name Dose Route Start Last Admin Trade Name Freq PRN Reason Stop Dose Admin Fentanyl Citrate 50 mcg 01/15/18 03:46 01/15/18 03:57 Sublimaze 100 Mcg/2 Ml IV 01/15/18 03:47 50 mcg STAT ONE Administration Fentanyl Citrate Confirm 01/15/18 03:52 Sublimaze 100 Mcg/2 Ml Administered 01/15/18 03:53 Dose 100 mcg .ROUTE .STK-MED ONE Nitroglycerin 0.4 mg 01/15/18 02:47 01/15/18 02:54 Nitrostat 0.4 Mg (Ed) SL 01/15/18 02:48 Not Given STAT ONE Nitroglycerin Confirm 01/15/18 02:52 Nitrostat 0.4 Mg (Ed) Administered 01/15/18 02:53 Dose 0.4 mg SL .STK-MED ONE Ondansetron HCl 4 mg 01/15/18 03:46 01/15/18 03:57 Zofran 4 Mg/2 Ml Vial IV 01/15/18 03:47 4 mg STAT ONE Administration Ondansetron HCl Confirm 01/15/18 03:51 Zofran 4 Mg/2 Ml Vial Administered 01/15/18 03:52 Dose 4 mg .ROUTE .STK-MED ONE Lab/Rad Data: Laboratory Result Diagrams 01/15/18 02:45 01/15/18 02:45 Laboratory Results 06/01/15/18 01/15/18 Range/Units 02:45 02:45 02:45 WBC (4.0-10.5) K/mm3 RBC (4.1-5.6) M/mm3 Hgb (12.5-18.0) gm/dl Hct (42-50) % MCV (78-100) fl MCH (26-32) pg MCHC (32-36) g/dl RDW (11.5-14.0) % Plt Count (150-450) K/mm3 MPV (6-9.5) fl Gran % (36.0-66.0) % Eos # (Auto) (0-0.5) Absolute Lymphs (auto) (1.0-4.6) Absolute Monos (auto) (0.0-1.3) Lymphocytes % (24.0-44.0) % Monocytes % (0.0-12.0) % Eosinophils % (0.00-5.0) % Basophils % (0.0-0.4) % Absolute Granulocytes (1.4-6.9) Basophils # (0-0.4) ESR 11 (0-15) mm/hr PT 14.8 H (8.83-12.87) SECONDS INR 1.27 (0.8-3.0) Sodium (137-145) mmol/L Potassium (3.5-5.1) mmol/L Chloride (98-107) mmol/L Carbon Dioxide (22-30) mmol/L Anion Gap (5-15) MEQ/L BUN (9-20) mg/dL Creatinine (0.66-1.25) mg/dL Estimated GFR ML/MIN Glucose (74-106) mg/dL Calcium (8.4-10.2) mg/dL Total Bilirubin (0.2-1.3) mg/dL AST (17-59) U/L ALT (0-50) U/L Alkaline Phosphatase (38-126) U/L Creatine Kinase (55-170) U/L Troponin I < 0.012 (0.000-0.034) ng/mL NT-Pro-B Natriuret Pep (0-900) pg/mL Serum Total Protein (6.3-8.2) g/dL Albumin (3.5-5.0) g/dL 01/15/18 01/15/18 Range/Units 02:45 02:45 WBC 7.2 (4.0-10.5) K/mm3 RBC 4.98 (4.1-5.6) M/mm3 Hgb 14.7 (12.5-18.0) gm/dl Hct 43.3 (42-50) % MCV 86.9 (78-100) fl MCH 29.5 (26-32) pg MCHC 33.9 (32-36) g/dl RDW 15.1 H (11.5-14.0) % Plt Count 132 L (150-450) K/mm3 MPV 9.5 (6-9.5) fl Gran % 71.1 H (36.0-66.0) % Eos # (Auto) 0.28 (0-0.5) Absolute Lymphs (auto) 1.05 (1.0-4.6) Absolute Monos (auto) 0.72 (0.0-1.3) Lymphocytes % 14.6 L (24.0-44.0) % Monocytes % 10.0 (0.0-12.0) % Eosinophils % 3.9 (0.00-5.0) % Basophils % 0.4 (0.0-0.4) % Absolute Granulocytes 5.09 (1.4-6.9) Basophils # 0.03 (0-0.4) ESR (0-15) mm/hr PT (8.83-12.87) SECONDS INR (0.8-3.0) Sodium 142 (137-145) mmol/L Potassium 4.5 (3.5-5.1) mmol/L Chloride 107 (98-107) mmol/L Carbon Dioxide 26 (22-30) mmol/L Anion Gap 14.2 (5-15) MEQ/L BUN 18 (9-20) mg/dL Creatinine 0.78 (0.66-1.25) mg/dL Estimated GFR > 60.0 ML/MIN Glucose 96 (74-106) mg/dL Calcium 9.9 (8.4-10.2) mg/dL Total Bilirubin 0.90 (0.2-1.3) mg/dL AST 17 (17-59) U/L ALT 13 (0-50) U/L Alkaline Phosphatase 67 (38-126) U/L Creatine Kinase 28 L (55-170) U/L Troponin I (0.000-0.034) ng/mL NT-Pro-B Natriuret Pep 1250 H (0-900) pg/mL Serum Total Protein 8.3 H (6.3-8.2) g/dL Albumin 4.5 (3.5-5.0) g/dL - Progress Progress: improved Air Movement: good Progress Note: 01/15/18 04:26 Pt is still c/o recurrent pain in his pacemaker area, no difficulty breathing, he remains nonfocal, he pulls himself up grabbing the bedrail, when sitting up. I called Dr Yusuf, covering Dr Hopkins, discussed our results and patient's current condition, he agreed to admit him for observation. Pt was informed, he agreed. Blood Culture(s) Obtained: No Antibiotics given: No Discussed with : Paramjit Will see patient in: hospital (observation) Counseled pt/family regarding: lab results, diagnosis, rad results - Departure Time of Disposition: 04:28 Departure Disposition: Observation Clinical Impression: Atypical chest pain TIA (transient ischemic attack) Qualifiers: Transient cerebral ischemia type: unspecified Qualified Code(s): G45.9 - Transient cerebral ischemic attack, unspecified Condition: Stable Critical Care Time: No Referrals: BONIFACIO HOPKINS MD [Primary Care Provider] -
[2018-01-15] MEDS ORDERED: Zofran 4 MG/2 ML VIAL IV ONE (03:46)
[2018-01-15] MEDS ORDERED: SUBLIMAZE 100 MCG/2 ML IV ONE (03:46)
[2018-01-15] MEDS ORDERED: Zofran 4 MG/2 ML VIAL ONE (03:51)
[2018-01-15] MEDS ORDERED: SUBLIMAZE 100 MCG/2 ML ONE (03:52)
[2018-01-15] MEDS ORDERED: TYLENOL 325 MG PO PRN (04:29)
[2018-01-15] MEDS ORDERED: MAALOX ES 30 ML UNIT DOSE PO PRN (04:29)
[2018-01-15] MEDS ORDERED: Zofran 4 MG/2 ML VIAL IV PRN (04:29)
[2018-01-15] MEDS ORDERED: Senokot-S Tablet PO PRN (04:29)
[2018-01-15] MEDS ORDERED: MILK OF MAGNESIA 30 ML PO PRN (04:29)
[2018-01-15 06:11] LABS: Amphetamine,Urine NEGATIVE (NEGATIVE); Barbiturate,Urine NEGATIVE (NEGATIVE); Benzodiazepine,Urine NEGATIVE (NEGATIVE); Cocaine,Urine NEGATIVE (NEGATIVE); Methadone,Urine NEGATIVE (NEGATIVE); Opiate,Urine NEGATIVE (NEGATIVE); PCP,Urine NEGATIVE (NEGATIVE); THC,Urine NEGATIVE (NEGATIVE)
--- NOTE | 2018-01-15 07:37 | XRAY ---
Indication: Left-sided weakness. Confusion. Multiple contiguous axial images obtained through the head without contrast. Comparison: November 26, 2014. No acute intracranial hemorrhage, abnormal extra-axial fluid collection, or mass effect. Fourth ventricle is midline without hydrocephalus. Bony calvarium intact. Visualized paranasal sinuses and mastoid air cells are clear. Impression: Stable negative CT head without contrast exam. Comment: Preliminary interpretation was made by [facility]. No discrepancy. CTDI 69.11
--- NOTE | 2018-01-15 07:39 | XRAY ---
Indication: Chest pain. Comparison: December 21, 2017. Portable chest remains clear with CABG surgery and left-sided AICD. Heart is not enlarged for AP portable technique. No new/acute findings.
[2018-01-15] MEDS: Advair Hfa 115/21 Common canister IH SCH ×2 (08:53→19:01)
[2018-01-15] MEDS ORDERED: Ecotrin 325 MG PO SCH (10:00)
[2018-01-15] MEDS ORDERED: TYLENOL EXTRA STRENGTH 500 MG PO PRN (10:45)
[2018-01-15] MEDS ORDERED: MOTRIN 600 MG PO PRN (11:20)
[2018-01-15] MEDS: ELIQUIS 2.5 MG TABLET PO SCH ×2 (11:31→22:05)
[2018-01-15] MEDS: Coreg 3.125 MG PO SCH ×2 (11:31→22:06)
[2018-01-15] MEDS: ENTRESTO 49 MG-51 MG TABLET PO SCH ×2 (11:35→22:04)
[2018-01-15] MEDS ORDERED: Flomax 0.4 MG PO SCH (12:00)
[2018-01-15] MEDS ORDERED: Lanoxin 0.125MG TABLET PO SCH (12:00)
[2018-01-15] MEDS ORDERED: ECOTRIN 81 MG PO SCH (12:00)
[2018-01-15] MEDS ORDERED: NON-FORMULARY ITEM (Sacubitril/Valsartan [Entresto 24 Mg-26 Mg Tablet] 1 EACH) PO SCH (22:00)
[2018-01-15] MEDS ORDERED: ZOCOR 20MG PO SCH (22:00)
[2018-01-15] MEDS ORDERED: NON-FORMULARY ITEM (Pravastatin Sodium [Pravastatin Sodium] 40 MG) PO SCH (22:00)
[2018-01-16 02:58] VITALS: O2SAT 96
[2018-01-16 04:57] VITALS: BP 126/62; PULSE 69
--- NOTE | 2018-01-16 10:52 | HP ---
CHIEF COMPLAINT: Left-sided weakness and chest pain. HISTORY OF PRESENT ILLNESS: The patient is a 57 year-old white male patient with history of previous CVA years ago which had left him with some minimal left-sided weakness. The patient reports he has been foggy headed recently and began having problems with increasing problems with weakness in the left arm and left leg as well as headache. He also reports he has been having problems with some chest discomfort. He reports previous history of having three different surgeries for bypass in the past beginning in 1997 when he was 37 years old. He reports a strong family history of coronary artery disease as well. The patient had taken two sublingual nitroglycerin at home and called 911 and was taken to the emergency room. After evaluation in the emergency room, the patient apparently told the emergency room physician that his numbness had resolved. He now tells me that that was not the case that his symptoms have continued since approximately midnight and it is now 1000 hours. The patient reports that he is somewhat dizzy and foggy headed at this point in time. He has not specifically told anything about any chest pain or pressure at this point. He is complaining of some left leg pain holding his left groin reporting that he is having pain all up and down his leg. PAST MEDICAL/SURGICAL HISTORY: Appendectomy. He has a defibrillator pacemaker implanted. He had problems previously with renal failure and urinary retention. HOME MEDICATIONS: Currently include alprazolam 1 mg every six hours PRN, Eliquis, aspirin, Coreg 3.125 mg b.i.d., cyclobenzaprine 10 mg every 12 hours PRN, digoxin 0.125 mg daily, Advair 250/50 mg, Lasix 40 mg daily, Dilaudid 4 mg every four hours PRN and Pravastatin 40 mg at night, Entresto 24/26 mg b.i.d., Tamsulosin 0.4 mg. ALLERGIES: CARISOPRODOL, KETOROLAC. FAMILY HISTORY: The patient reports he lives alone. He is disabled. SOCIAL HISTORY: The patient is a smoker who reports that he just drinks rarely now. The nurses tell me that the patient has history of methamphetamine use but he is currently negative on his urine drug screen. PHYSICAL EXAMINATION: His vital signs showed a temperature 98.1F, pulse 72, respiratory rate 20, blood pressure 161/98. O2 saturation 100%. HEENT: Appears to be normocephalic and atraumatic. Pupils equal round reactive to light. Extraocular movements appear to be intact. Oropharynx is slightly dry. His face appears to be symmetrical. NECK: Without lymphadenopathy or thyromegaly and appears to move well. CHEST: Currently clear to auscultation. HEART: Appears to be regular and on EKG it is a paced rhythm. ABDOMEN: Soft. No palpable masses are felt. EXTREMITIES: There is no obvious clubbing, cyanosis or edema. NEUROLOGIC: The patient is currently alert and oriented x3. He does have apparent left arm drift and upon lifting the leg from the bed he has apparent weakness in the left leg compared to the right. He is unable to reach his knee with his heel on the left leg but is able to on the right and cerebellar function on the right appears to be normal. The left is difficult to test due to his inability to get his heel on his knee. He is not tested for gait as he reports he has been having problems with falling. LAB DATA AND TESTS: Thus far show troponins less than 0.012. His urine drug screen was entirely negative including benzodiazepine and narcotics which apparently he takes at home. He may well be out of his medications as he has been fired by his usual primary care doctor, Dr. Na Cheema. His laboratory studies show glucose 96, BUN 18, creatinine 0.78. His electrolytes are normal. CPK 28. ProBNP was elevated at 1,250 with up to 900 being normal in our laboratory. The patient's international normalized ratio was 1.27. His CBC was normal with white blood cell count 7,200, hemoglobin 14.7 and PLT count slightly low 132,000. His CT scan of the brain was stable, negative without contrast exam. There is no mention of any previous lacunar infarcts or anything otherwise to indicate that he had a previous CVA. Chest x-ray shows changes with the AICD and coronary artery bypass graft changes. ASSESSMENT: A patient with left-sided partial hemiparesis whether the patient is malignant or not is difficult to say at this time. He reports he is trying to get in to see Dr. Hull to be his primary care doctor as he currently is without a physician as he has been fired by his previous doctor as mentioned above. We will attempt to obtain a tele-neurology consultation to assess damage present and any ongoing treatment plan. He is already on anticoagulant therapy. The patient cannot have MRI due to the hardware in his chest. We will continue his usual medications presently as stated above in his medicine list. We will check a digoxin level as I do not believe it had been checked earlier. We will monitor him for changes throughout his stay with neural status checks followed routinely. We will continue to monitor his troponins to be sure that there is no elevation there.
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
== END 2018-01-16 06:25 | disposition left against medical advice (07) ==
LOC: ED 01:39 → MED SURG 04:55
PROVIDERS: ADMIT Family Medicine; ATTEND Family Medicine
DX: G81.94 Hemiplegia, unspecified affecting left nondominant side (principal); I25.810 Atherosclerosis of coronary artery bypass graft(s) without angina pectoris; Z86.73 Personal history of transient ischemic attack (TIA), and cerebral infarction without residual deficits; R29.6 Repeated falls; Z95.810 Presence of automatic (implantable) cardiac defibrillator; Z79.01 Long term (current) use of anticoagulants; Z79.899 Other long term (current) drug therapy; R07.9 Chest pain, unspecified
CPT/HCPCS: 36000; 36415; 70450; 71045; 80053; 80162; 80307; 82550; 83880; 84484; 85025; 85610; 85652; 93005; 93041; 93268; 94640; 94760; 96374; 96375; 99285; J2405; J3010; A9270-GY; G0378

== ENCOUNTER 2018-09-18 10:51 | Inpatient (IN) | payer MEDICARE ==
[2018-09-18] MEDS ORDERED: DUONEB 0.5-3 MG/3 ml Neb IH ONE ×2 (11:20→11:28)
[2018-09-18 11:54] LABS: Lactic Acid 2.2 (0.4-2.0)
[2018-09-18] MEDS ORDERED: PROVENTIL 2.5 MG/3 ML NEB IH ONE ×2 (12:39→13:17)
[2018-09-18] MEDS ORDERED: Sodium Chloride 0.9% 1000 ML 1,000 ML IV STA (12:39)
[2018-09-18] MEDS ORDERED: solu-MEDROL 125 MG IV ONE (12:46)
--- NOTE | 2018-09-18 12:46 | ERPHSYRPT ---
- History of Present Illness Time Seen by Provider: 09/18/18 12:42 Source: patient Exam Limitations: no limitations Patient Subjective Stated Complaint: SHORTNESS OF BREATH, INCREASE IN COUGHING. STARTED GETTING WORSE YESTERDAY. PRODUCTIVE COUGH WITH YELLOW SPUTUM. ALL OVER ACHING AND FATIGUE. DENIES DIARRHEA. NAUSEA VOMITING SINCE YEST. EVENING. LAST VOMIT EARLIER THIS AM. Triage Nursing Assessment: PT WORKING TO BREATH, FREQUENT DRY COUGH, AUDIBLE WHEEZING. COARSE BREATH SOUNDS. Physician History: 57-year-old white male with history of migraines, CVA, TIA, cataracts, asthma, bronchitis, CHF. Arrives with complaint of chronic shortness of breath he states is worse since 2 days ago he was seen at [facility] yesterday states he continues to wheeze. He is not sure what medications he was prescribed he states he has not filled this. Past medical history includes migraines, stroke, TIA, cataracts, asthma, bronchitis, congestive heart failure, COPD, pneumonia, pulmonary embolism, arrhythmia, coronary artery disease, hyperlipidemia, myocardial infarction, arthritis, renal failure, urinary retention. Past surgical history includes CABG, cardiac catheter, cardiac stents, internal defibrillator, pacer, appendectomy, CABG 3, surgery left leg secondary to a brown recluse bite. Past surgical history includes marijuana and methamphetamines Timing/Duration: other (Chronic worse past 3 days) Activities at Onset: none Severity of Dyspnea-Max: moderate Severity of Dyspnea-Current: moderate Possible Cause: frequent episodes Modifying Factors: Improves With: nothing Associated Symptoms: constant, cough, wheezing, productive cough, No intermittent, No anxiety, No chest pain/discomfort, No edema, No fever, No insomnia, No loss of appetite, No lightheadedness, No weakness, No ankle swelling, No chills, No hemoptysis, No calf pain, No dizziness, No heaviness, No heart racing, No lightheadedness, No leg swelling, No muscle spasms feet, No muscle spasms hands, No painful breathing, No sweating, No tightness, No tingling face, No tingling hands International travel in last 2 weeks: No Allergies/Adverse Reactions: carisoprodol [Carisoprodol] Allergy (Unknown, Verified 12/21/17 18:50) ketorolac Allergy (Unknown, Verified 12/21/17 18:50) Home Medications: Furosemide 40 mg [Lasix 40 MG] 40 mg PO DAILY 11/28/11 [History] Alprazolam 1 mg [Xanax 1 mg] 1 mg PO Q6H PRN PRN 05/13/13 [History] Cyclobenzaprine HCl 10 mg [Cyclobenzaprine 10 MG] 10 mg PO [id number] PRN [History] Tamsulosin HCl 0.4 mg [Flomax 0.4 MG] 0.4 mg PO DAILY 05/13/13 [History] Fluticasone/Salmeterol [Advair 250-50 Diskus] 1 puff IH BID 07/11/13 [History] Aspirin [Aspirin EC] 81 mg PO DAILY 11/30/14 [History] Carvedilol 3.125 mg [Coreg 3.125 MG] 3.125 mg PO BID 11/30/14 [History] Digoxin 0.125 mg Tablet [Lanoxin 0.125MG TABLET] 125 mcg PO DAILY [History] Pravastatin Sodium 40 mg PO HS 11/30/14 [History] Apixaban [Eliquis 5 mg Tablet] 5 mg PO BID 12/25/15 [History] Hydromorphone HCl 4 mg [Dilaudid 4 MG Tab] 4 mg PO Q4HPRN PRN 12/25/15 [ History] Sacubitril/Valsartan [Entresto 24 mg-26 mg Tablet] 1 each PO BID 01/15/18 [ History] Hx Tetanus, Diphtheria Vaccination/Date Given: Yes Hx Influenza Vaccination/Date Given: No Hx Pneumococcal Vaccination/Date Given: No - Review of Systems Constitutional: No Fever, No Chills Eyes: No Symptoms Ears, Nose, & Throat: No Symptoms Respiratory: Cough, Dyspnea, Wheezing Cardiac: No Chest Pain, No Edema, No Syncope Abdominal/Gastrointestinal: No Abdominal Pain, No Nausea, No Vomiting, No Diarrhea Genitourinary Symptoms: No Dysuria Musculoskeletal: No Back Pain, No Neck Pain Skin: No Rash Neurological: No Dizziness, No Focal Weakness, No Sensory Changes Psychological: No Symptoms Endocrine: No Symptoms All Other Systems: Reviewed and Negative - Past Medical History Pertinent Past Medical History: Yes Neurological History: Migraines, Stroke, TIA ENT History: Cataracts Cardiac History: Arrhythmia, Congestive Heart Failure, Coronary Artery Disease, High Cholesterol, Hypertension, Myocardial Infarction (SD) Respiratory History: Asthma, Bronchitis, CHF, COPD, Pneumonia, Pulmonary Embolism Endocrine Medical History: No Pertinent History Musculoskeletal History: Arthritis GI Medical History: No Pertinent History History: No Pertinent History Psycho-Social History: No Pertinent History Male Reproductive Disorders: No Pertinent History Other Medical History: Renal Failure, Urinary retention - Past Surgical History Past Surgical History: Yes Neuro Surgical History: No Pertinent History Cardiac: CABG, Cardiac Catheterization, Cardiac Stent, Internal Defibrillator, Pacemaker Respiratory: No Pertinent History Gastrointestinal: Appendectomy Genitourinary: No Pertinent History Musculoskeletal: No Pertinent History Male Surgical History: No Pertinent History Other Surgical History: bypass x 3, surgery to left leg after bite from brown recluse - Social History Smoking Status: Current every day smoker How long have you smoked: "40 years" Exposure to second hand smoke: Yes Drug Use: marijuana, methamphetamines Patient Lives Alone: Yes - Nursing Vital Signs Nursing Vital Signs: Initial Vital Signs Temperature 98.5 F 09/18/18 10:53 Pulse Rate 72 09/18/18 10:53 Respiratory Rate 28 H 09/18/18 10:53 Blood Pressure 113/63 09/18/18 10:53 O2 Sat by Pulse Oximetry 96 09/18/18 10:53 Pain Scale Pain Intensity 4 - Physical Exam General Appearance: mild distress, alert Eye Exam: PERRL/EOMI Ears, Nose, Throat Exam: hearing grossly normal, normal ENT inspection, normal pharynx, No abnormal TM (R), No abnormal TM (L), No sinus pain/drainage, No hearing decreased, No nasal congestion, No pharyngeal erythema, No tonsillar exudate Neck Exam: normal inspection, supple Respiratory Exam: airway intact, diminished breath sounds, No chest tenderness, No lungs clear, No respiratory distress, No crackles/rales, No rhonchi, No wheezing, No pleural rub Cardiovascular/Chest Exam: normal heart sounds, regular rate/rhythm Abdominal/Gastrointestinal Exam: soft, No tenderness, No distention, No mass Extremity Exam: non-tender, normal range of motion, normal inspection, no calf tenderness, no pedal edema Peripheral Pulses Exam: dorsalis-pedis (R): 2+, dorsalis-pedis (L): 2+ Neurologic Exam: alert, oriented x 3, cooperative, client renewal specialist II-XII nml as tested, sensation nml, No motor deficits Skin Exam: normal color, warm, No dry SpO2 Interpretation: normal (96%) SpO2: 96 - Course Nursing assessment & vital signs reviewed: Yes EKG Interpreted by Me: RATE (70 bpm), Other (EKG: Atrial paced rhythm, 70 bpm, left axis garrison incomplete right bundleblock no acute ST or T wave changes, compared to January 15, 2018) - Radiology Exams Chest X-ray Interpretation: Discussed w/ radiologist (Chest x-ray: Impression: Stable nonacute chest with chronic features.) Ordered Tests: Active Orders 24 hr Category Date Time Status Linter Drier Operator STAT Care 09/18/18 12:40 Active EKG-ER Only STAT Care 09/18/18 12:39 Active IV Insertion STAT Care 09/18/18 12:39 Active CHEST 1 VIEW (PORTABLE) Stat Exams 09/18/18 12:40 Completed BLOOD CULTURE Stat Lab 09/18/18 13:40 Received CBC W DIFF Stat Lab 09/18/18 12:40 Completed CMP Stat Lab 09/18/18 12:40 Completed CULTURE,SPUTUM Stat Lab 09/18/18 12:40 Uncollected D-DIMER QUANTITATION Stat Lab 09/18/18 12:40 Completed Lactic Acid Stat Lab 09/18/18 11:52 Completed Lactic Acid Stat Lab 09/18/18 13:29 Results NT PRO BNP Stat Lab 09/18/18 12:40 Completed TROPONIN Q3H Lab 09/18/18 12:40 Completed TROPONIN Q3H Lab 09/18/18 15:45 Ordered TROPONIN Q3H Lab 09/18/18 18:45 Ordered TROPONIN Q3H Lab 09/18/18 21:45 Ordered TROPONIN Q3H Lab 09/19/18 00:45 Ordered VENOUS BLOOD GAS Stat Lab 09/18/18 13:29 Completed Pulse Oximetry ROUTINE RT 09/18/18 11:37 Active Respiratory Nebulizer STAT RT 09/18/18 12:41 Completed Respiratory Therapy Assessment DAILY RT 09/19/18 11:20 Active Medication Summary Discontinued Medications Generic Name Dose Route Start Last Admin Trade Name Freq PRN Reason Stop Dose Admin Albuterol Sulfate 2.5 mg 09/18/18 12:39 09/18/18 13:23 Proventil 2.5 Mg/3 Ml Neb IH 09/18/18 12:40 2.5 mg STAT ONE Administration Albuterol Sulfate Confirm 09/18/18 13:17 Proventil 2.5 Mg/3 Ml Neb Administered 09/18/18 13:18 Dose 2.5 mg IH .STK-MED ONE Albuterol/Ipratropium Confirm 09/18/18 11:28 Duoneb 0.5-3 Mg/3 Ml Neb Administered 09/18/18 11:29 Dose 3 ml IH .STK-MED ONE Albuterol/Ipratropium 3 ml 09/18/18 11:20 09/18/18 11:38 Duoneb 0.5-3 Mg/3 Ml Neb IH 09/18/18 11:21 3 ml STAT ONE Administration Sodium Chloride 1,000 mls @ 999 mls/hr 09/18/18 12:39 09/18/18 14:49 Sodium Chloride 0.9% 1000 Ml IV 09/18/18 13:39 Infused .Q1H1M STA Infusion Sodium Chloride Confirm 09/18/18 13:28 Sodium Chloride 0.9% 1000 Ml Administered 09/18/18 13:29 Dose 1,000 mls @ ud .ROUTE .STK-MED ONE Ceftriaxone Sodium/Dextrose 1 g in 50 mls @ 100 mls/hr 09/18/18 13:32 14:49 Rocephin 1 Gm-D5w 50 Ml Bag IV 09/18/18 14:01 Infused STAT STA Infusion Ceftriaxone Sodium/Dextrose Confirm 09/18/18 13:52 Rocephin 1 Gm-D5w 50 Ml Bag Administered 09/18/18 13:53 Dose 1 g in 50 mls @ ud IV .STK-MED ONE Methylprednisolone Sodium Succinate 125 mg 09/18/18 12:46 09/18/18 13:29 Solu-Medrol 125 Mg IV 09/18/18 12:47 125 mg STAT ONE Administration Methylprednisolone Sodium Succinate Confirm 09/18/18 13:28 Solu-Medrol 125 Mg Administered 09/18/18 13:29 Dose 125 mg .ROUTE .STK-MED ONE Lab/Rad Data: Laboratory Result Diagrams 09/18/18 12:40 09/18/18 12:40 Laboratory Results 09/18/18 09/18/18 09/18/18 Range/Units 13:29 13:29 12:40 WBC (4.0-10.5) K/mm3 RBC (4.1-5.6) M/mm3 Hgb (12.5-18.0) gm/dl Hct (42-50) % MCV (78-100) fl MCH (26-32) pg MCHC (32-36) g/dl RDW (11.5-14.0) % Plt Count (150-450) K/mm3 MPV (6-9.5) fl Gran % (36.0-66.0) % Eos # (Auto) (0-0.5) Absolute Lymphs (auto) (1.0-4.6) Absolute Monos (auto) (0.0-1.3) Lymphocytes % (24.0-44.0) % Monocytes % (0.0-12.0) % Eosinophils % (0.00-5.0) % Basophils % (0.0-0.4) % Absolute Granulocytes (1.4-6.9) Basophils # (0-0.4) D-Dimer (215-500) ng/mL pO2/FiO2 Ratio 21.0 % VBG pH 7.37 (7.32-7.42) VBG pCO2 at Pat Temp 38 L (42-55) mm/Hg VBG pO2 at Pat Temp 33 (25-40) mm/Hg VBG HCO3 22.0 (22-28) meq/L VBG O2 Sat (Vicki) 70.9 L (95-100) VBG Base Excess -2.9 L (-2.0-2.0) VBG Hemoglobin 13.0 VBG Carboxyhemoglobin 4.4 (0.0-6.9) % T HGB POC Potassium 4.5 (3.5-5.1) Sodium (137-145) mmol/L Potassium (3.5-5.1) mmol/L Chloride (98-107) mmol/L Carbon Dioxide (22-30) mmol/L Anion Gap (5-15) MEQ/L BUN (9-20) mg/dL Creatinine (0.66-1.25) mg/dL Estimated GFR ML/MIN Glucose (74-106) mg/dL Lactic Acid 1.9 (0.4-2.0) Calcium (8.4-10.2) mg/dL Total Bilirubin (0.2-1.3) mg/dL AST (17-59) U/L ALT (0-50) U/L Alkaline Phosphatase (38-126) U/L Troponin I 0.013 (0.000-0.034) ng/mL NT-Pro-B Natriuret Pep (0-900) pg/mL Serum Total Protein (6.3-8.2) g/dL Albumin (3.5-5.0) g/dL 09/18/18 09/18/18 09/18/18 Range/Units 12:40 12:40 12:40 WBC 4.6 (4.0-10.5) K/mm3 RBC 4.51 (4.1-5.6) M/mm3 Hgb 12.4 L (12.5-18.0) gm/dl Hct 38.5 L (42-50) % MCV 85.4 (78-100) fl MCH 27.4 (26-32) pg MCHC 32.2 (32-36) g/dl RDW 15.6 H (11.5-14.0) % Plt Count 102 L (150-450) K/mm3 MPV 9.7 H (6-9.5) fl Gran % 67.1 H (36.0-66.0) % Eos # (Auto) 0.12 (0-0.5) Absolute Lymphs (auto) 0.68 L (1.0-4.6) Absolute Monos (auto) 0.67 (0.0-1.3) Lymphocytes % 14.9 L (24.0-44.0) % Monocytes % 14.7 H (0.0-12.0) % Eosinophils % 2.6 (0.00-5.0) % Basophils % 0.7 (0.0-0.4) % Absolute Granulocytes 3.06 (1.4-6.9) Basophils # 0.03 (0-0.4) D-Dimer 745 H* (215-500) ng/mL pO2/FiO2 Ratio % VBG pH (7.32-7.42) VBG pCO2 at Pat Temp (42-55) mm/Hg VBG pO2 at Pat Temp (25-40) mm/Hg VBG HCO3 (22-28) meq/L VBG O2 Sat (Vicki) (95-100) VBG Base Excess (-2.0-2.0) VBG Hemoglobin VBG Carboxyhemoglobin (0.0-6.9) % T HGB POC Potassium (3.5-5.1) Sodium 133 L (137-145) mmol/L Potassium 4.6 (3.5-5.1) mmol/L Chloride 101 (98-107) mmol/L Carbon Dioxide 21 L (22-30) mmol/L Anion Gap 15.8 H (5-15) MEQ/L BUN 19 (9-20) mg/dL Creatinine 0.69 (0.66-1.25) mg/dL Estimated GFR > 60.0 ML/MIN Glucose 85 (74-106) mg/dL Lactic Acid (0.4-2.0) Calcium 8.9 (8.4-10.2) mg/dL Total Bilirubin 1.10 (0.2-1.3) mg/dL AST 29 (17-59) U/L ALT 22 (0-50) U/L Alkaline Phosphatase 67 (38-126) U/L Troponin I (0.000-0.034) ng/mL NT-Pro-B Natriuret Pep 1890 H (0-900) pg/mL Serum Total Protein 7.4 (6.3-8.2) g/dL Albumin 3.9 (3.5-5.0) g/dL 09/18/18 Range/Units 11:52 WBC (4.0-10.5) K/mm3 RBC (4.1-5.6) M/mm3 Hgb (12.5-18.0) gm/dl Hct (42-50) % MCV (78-100) fl MCH (26-32) pg MCHC (32-36) g/dl RDW (11.5-14.0) % Plt Count (150-450) K/mm3 MPV (6-9.5) fl Gran % (36.0-66.0) % Eos # (Auto) (0-0.5) Absolute Lymphs (auto) (1.0-4.6) Absolute Monos (auto) (0.0-1.3) Lymphocytes % (24.0-44.0) % Monocytes % (0.0-12.0) % Eosinophils % (0.00-5.0) % Basophils % (0.0-0.4) % Absolute Granulocytes (1.4-6.9) Basophils # (0-0.4) D-Dimer (215-500) ng/mL pO2/FiO2 Ratio % VBG pH (7.32-7.42) VBG pCO2 at Pat Temp (42-55) mm/Hg VBG pO2 at Pat Temp (25-40) mm/Hg VBG HCO3 (22-28) meq/L VBG O2 Sat (Vicki) (95-100) VBG Base Excess (-2.0-2.0) VBG Hemoglobin VBG Carboxyhemoglobin (0.0-6.9) % T HGB POC Potassium (3.5-5.1) Sodium (137-145) mmol/L Potassium (3.5-5.1) mmol/L Chloride (98-107) mmol/L Carbon Dioxide (22-30) mmol/L Anion Gap (5-15) MEQ/L BUN (9-20) mg/dL Creatinine (0.66-1.25) mg/dL Estimated GFR ML/MIN Glucose (74-106) mg/dL Lactic Acid 2.2 H (0.4-2.0) Calcium (8.4-10.2) mg/dL Total Bilirubin (0.2-1.3) mg/dL AST (17-59) U/L ALT (0-50) U/L Alkaline Phosphatase (38-126) U/L Troponin I (0.000-0.034) ng/mL NT-Pro-B Natriuret Pep (0-900) pg/mL Serum Total Protein (6.3-8.2) g/dL Albumin (3.5-5.0) g/dL - Progress Progress: improved Air Movement: fair Progress Note: 09/18/18 13:34 Patient with mildly elevated d-dimer of 750. Patient's CTA of the chest is reviewed from [facility] obtained yesterday impression no pulmonary embolism. Patient with venous ultrasound of the leg on the left done yesterday at [facility] impression no femoral or popliteal venous thrombosis patient's impression at [facility] yesterday chest pain described as pressure, acute bronchitis, acute nontraumatic pain in the left lower extremity, COPD, depression, high blood pressure Patient was prescribed Zithromax and Tessalon Perles he was instructed to follow -up with his family physician today Patient has been given Solu-Medrol here in the emergency room today chest x-ray no acute disease processes noted patient with a frequent cough he was given DuoNeb albuterol treatment. Patient with EKG with no acute changes labs essentially normal except elevated BNP of 1890 patient does not exhibit failure on chest x-ray troponin was within normal limits as well as chemistry with the exception of a mild sodium of 133. Will reevaluate patient after breathing treatment he does not appear to be in acute distress but exhibits coughing when I walk in and try to examine him. 09/18/18 13:38 Patient did have an elevated lactate of 2.2 in the emergency room however he ate does not appear to be septic he is afebrile he has good vitals good perfusion to all extremities pulse oximetry is 94%. 09/18/18 14:51 Patient appears to be improved after DuoNeb treatment and Solu-Medrol and IV fluids lactate is down to 1.9. Patient was coughing rather loudly he stated that his a cough and shortness of breath or causing his abdomen to hurt he does have a history of substance abuse. I listened to the patient he discussed it seemed to be more clear at this time he does not appear to be in acute distress but states he is a short of breath. I've discussed the case with Dr. Dueñas will place the patient on observation continue IV antibiotics, Zithromax, continue Solu-Medrol, continue duo neb treatments. Admission Will be shortness of breath and COPD with exacerbation. - Departure Time of Disposition: 14:52 Departure Disposition: Observation Clinical Impression: Shortness of breath COPD (chronic obstructive pulmonary disease) Qualifiers: COPD type: COPD with acute exacerbation Qualified Code(s): J44.1 - Chronic obstructive pulmonary disease with (acute) exacerbation Condition: Fair Critical Care Time: No Referrals: DOCTOR,NO FAMILY [Primary Care Provider] - Instructions: Chronic Obstructive Pulmonary Disease
[2018-09-18 13:02] LABS: BASOPHIL % 0.7 % (0.0-0.4); Basophil (Absolute #) 0.03 (0-0.4); Eosinophil % 2.6 % (0.00-5.0); Eosinophil (Absolute #) 0.12 (0-0.5); Granulocyte Absolute (ANC) 3.06 (1.4-6.9); Granulocytes % 67.1 % (36.0-66.0); Hematocrit 38.5 % (42-50); Hemoglobin 12.4 gm/dl (12.5-18.0); Lymphocyte (Absolute #) 0.68 (1.0-4.6); Lymphocytes % 14.9 % (24.0-44.0); Mean Cell Volume 85.4 fl (78-100); Mean Corpuscular Hgb Concent. 32.2 g/dl (32-36); Mean Platelet Volume 9.7 fl (6-9.5); Monocyte (Absolute #) 0.67 (0.0-1.3); Monocytes % 14.7 % (0.0-12.0); Platelet Count 102 K/mm3 (150-450); Red Blood Count 4.51 M/mm3 (4.1-5.6); Red Cell Distribution Width 15.6 % (11.5-14.0); White Blood Count 4.6 K/mm3 (4.0-10.5)
--- NOTE | 2018-09-18 13:07 | XRAY ---
Indication: Severe cough and short of breath. Comparison: January 15, 2018. Portable chest remains clear again with incidental calcified granulomas. Heart is not enlarged for AP portable technique again demonstrating cardiothoracic surgery and left-sided AICD. Bony thorax intact again with right clavicular surgical clips. No new/acute findings. Impression: Stable nonacute chest with chronic features.
[2018-09-18 13:08] LABS: Mean Corpuscular Hemoglobin 27.4 pg (26-32)
[2018-09-18 13:14] LABS: ALBUMIN 3.9 g/dL (3.5-5.0); ALKALINE PHOSPHATASE 67 U/L (38-126); ANION GAP 15.8 MEQ/L (5-15); BLOOD UREA NITROGEN 19 mg/dL (9-20); CHLORIDE 101 mmol/L (98-107); Calcium 8.9 mg/dL (8.4-10.2); Carbon Dioxide 21 mmol/L (22-30); Creatinine 1 0.69 mg/dL (0.66-1.25); Glucose 85 mg/dL (74-106); NT PRO BNP 1890 pg/mL (0-900); Potassium 4.6 mmol/L (3.5-5.1); SGOT/AST 29 U/L (17-59); SGPT/ALT 22 U/L (0-50); SODIUM 133 mmol/L (137-145); Total Protein 7.4 g/dL (6.3-8.2)
[2018-09-18] MEDS ORDERED: Sodium Chloride 0.9% 1000 ML 1,000 ML ONE (13:28)
[2018-09-18] MEDS ORDERED: solu-MEDROL 125 MG ONE (13:28)
[2018-09-18] MEDS ORDERED: ROCEPHIN 1 Gm-D5w 50 ml Bag** 1 G/50 ML IVPB IV STA (13:32)
[2018-09-18] MEDS ORDERED: ROCEPHIN 1 Gm-D5w 50 ml Bag** 1 G/50 ML IVPB IV ONE (13:52)
[2018-09-18 13:53] LABS: VBG BASE EXCESS -2.9 (-2.0-2.0); VBG CARBOXYHEMOGLOBIN 4.4 % T HGB (0.0-6.9); VBG O2 SATURATION 70.9 (95-100); VBG POTASSIUM 4.5 (3.5-5.1); VBG pH 7.37 (7.32-7.42)
[2018-09-18 13:58] LABS: Lactic Acid 1.9 (0.4-2.0)
[2018-09-18] MEDS: DUONEB 0.5-3 MG/3 ml Neb IH SCH ×3 (15:30→22:57)
[2018-09-18] MEDS: Robitussin 100 MG/5 ML PO PRN ×2 (16:32→21:04)
[2018-09-18] MEDS ORDERED: Ambien 5 MG Tablet PO PRN (17:01)
[2018-09-18] MEDS ORDERED: Dilaudid 4 MG Tab PO PRN (17:14)
[2018-09-18] MEDS ORDERED: Cyclobenzaprine 10 MG PO PRN (17:14)
[2018-09-18] MEDS: TYLENOL 325 MG PO PRN (17:51)
[2018-09-18] MEDS: Tessalon Perles 100 MG PO PRN (17:52)
[2018-09-18] MEDS: solu-MEDROL 125 MG IV SCH (17:52)
[2018-09-18] MEDS ORDERED: ADVAIR 250-50 DISKUS 14 DOSE IH SCH (22:00)
[2018-09-18] MEDS ORDERED: ELIQUIS 2.5 MG TABLET PO SCH (22:00)
[2018-09-18] MEDS ORDERED: NON-FORMULARY ITEM (Pravastatin Sodium [Pravastatin Sodium] 40 MG) PO SCH (22:00)
[2018-09-18] MEDS ORDERED: NON-FORMULARY ITEM (Apixaban*** [Eliquis 5 Mg Tablet***] 5 MG) PO SCH (22:00)
[2018-09-18] MEDS ORDERED: NON-FORMULARY ITEM (Sacubitril/Valsartan [Entresto 24 Mg-26 Mg Tablet] 1 EACH) PO SCH (22:00)
[2018-09-18] MEDS: Coreg 3.125 MG PO SCH (22:05)
[2018-09-18] MEDS: ZOCOR 20MG PO SCH (22:06)
[2018-09-18] MEDS: ENTRESTO 49 MG-51 MG TABLET PO SCH (22:06)
[2018-09-18] MEDS: Advair Hfa 115/21 Common canister IH SCH (22:56)
[2018-09-19] MEDS: solu-MEDROL 125 MG IV SCH ×4 (00:43→17:42)
[2018-09-19] MEDS: Robitussin 100 MG/5 ML PO PRN ×4 (01:30→17:42)
[2018-09-19] MEDS: Tessalon Perles 100 MG PO PRN ×3 (02:29→19:38)
[2018-09-19] MEDS: DUONEB 0.5-3 MG/3 ml Neb IH SCH ×6 (03:37→23:14)
[2018-09-19 05:55] LABS: Hematocrit 36.8 % (42-50); Hemoglobin 11.7 gm/dl (12.5-18.0); Mean Cell Volume 86.4 fl (78-100); Mean Corpuscular Hgb Concent. 31.8 g/dl (32-36); Mean Platelet Volume 9.9 fl (6-9.5); Platelet Count 84 K/mm3 (150-450); Red Blood Count 4.26 M/mm3 (4.1-5.6); White Blood Count 2.9 K/mm3 (4.0-10.5)
[2018-09-19 06:02] LABS: Mean Corpuscular Hemoglobin 27.4 pg (26-32)
[2018-09-19 06:09] LABS: ALBUMIN 3.7 g/dL (3.5-5.0); ALKALINE PHOSPHATASE 59 U/L (38-126); ANION GAP 12.2 MEQ/L (5-15); BLOOD UREA NITROGEN 16 mg/dL (9-20); CHLORIDE 103 mmol/L (98-107); Calcium 8.8 mg/dL (8.4-10.2); Carbon Dioxide 25 mmol/L (22-30); Glucose 161 mg/dL (74-106); Potassium 4.6 mmol/L (3.5-5.1); SGOT/AST 27 U/L (17-59); SGPT/ALT 24 U/L (0-50); SODIUM 136 mmol/L (137-145)
[2018-09-19] MEDS: TYLENOL 325 MG PO PRN ×3 (06:33→19:38)
[2018-09-19 07:27] LABS: Slide Review YES
--- NOTE | 2018-09-19 07:49 | HP ---
HISTORY OF PRESENT ILLNESS: This is a 57 year-old patient who presented to the emergency department who does not have a local physician and I am covering for patients who do not have a local physician. The emergency room doctor reported he had a cough that was severe, some tachypnea that improved with treatment in the emergency department. The patient reports he has had symptoms for months. The emergency room doctor reported he was in the [facility] yesterday and had a negative contrasted chest CT as well as negative Doppler's of his lower extremities there. The patient reports that his primary care doctor is Dr. Marissa Espinal in [place] but that he has not seen her in a while. He reports the cough got worse and is nonstop that he reports as nonproductive. He reports when asked if he had a fever that he is burning up and then freezing. He has had no sick contacts. He lives alone. He continues to smoke five to six cigarettes per day. He declines a nicotine patch at this time. He reports he is disabled due to his heart condition and his chemical inspector is Dr. Horn. He is unsure when he took all of his medications but states he had some leftover from a hospital stay but is due to have some filled now. REVIEW OF SYSTEMS: He reports some vomiting, normal urination. He reports the continued cough and shortness of breath. He reports chest pain with the cough as well as abdominal pain where he has an umbilical hernia when he coughs. He is asking for Tylenol for the pain. PAST MEDICAL HISTORY: Coronary artery disease status post bypass. According to his chest x-ray he has a defibrillator in place. He is on medications that are consistent with him having congestive heart failure. Chronic obstructive pulmonary disease. Hyperlipidemia. PAST SURGICAL HISTORY: Bypass three different times he reports. Appendectomy. SOCIAL HISTORY: He denies alcohol. He said he smokes five cigarettes a day. He lives alone on Disability. FAMILY HISTORY: His mother is and had heart problems. His father is living and has heart problems. PHYSICAL EXAMINATION: VITAL SIGNS: Temperature current 98.4F, temperature max 98.5F, heart rate 70 to 79, respiratory rate 22 to 38 currently 26, blood pressure 113 to 153 over 63 to 72, weight 79.2 kg. Oxygen saturation 94 to 96% on room air to 2 liters nasal cannula. GENERAL: The patient is sitting up in bed. He has his supper in front of him. He is taking bites of this and in between his bites he is coughing. No coughing was appreciated before I entered the room or after I left the room. At times his speech is hard to understand but then he will slow down and I can understand what he is saying. CVS: He has a regular rate and rhythm. No murmurs, gallops or rubs are appreciated. CHEST: Distant breath sounds. No crackles. No wheezes. Equal breath sounds. Mild tachypnea. No retractions. ABDOMEN: Soft, hypoactive bowel sounds. He has an umbilical hernia that is palpable. EXTREMITIES: No clubbing, cyanosis or edema. SKIN: Warm, dry and intact. LABORATORY DATA AND TESTS: White blood cell count 4.6, hemoglobin 12.4, PLT count 102,000. D-dimer 745. Venous blood gas pH 7.37, pCO2 38. Sodium 133, carbon dioxide 21. Two troponins have been negative. BNP 1,890. Chest x-ray was read as no acute disease. Please see the radiologist dictation for that full report. EKG was a paced rhythm with a rate of 70. ASSESSMENT AND PLAN: 1) CHRONIC OBSTRUCTIVE PULMONARY DISEASE: He has been started on ceftriaxone, IV steroids, breathing treatments, oxygen, will continue with supportive care. I have also ordered cough medicine for him. Overall the patient's prognosis is poor and guarded due to his chronic condition and noncompliance. 2) CORONARY ARTERY DISEASE: His chemical inspector, Dr. Horn, was contacted. Per the nurses confirmed that he was on the current cardiac medications that are on his medication list and will plan to continue those. Will check a digoxin level. 3) TOBACCO ABUSE: The patient will need to be counseled the need to quit smoking.
--- NOTE | 2018-09-19 08:32 | PCM.NOTE ---
Date and Time: 09/19/18825 Subjective Assessment: Patient reports he was coughing last night when he got up to use the bathroom and fell and hit his head. He had a CT of his head that was negative for any acute change. He denies constipation. He is asking for cough medication with codiene. He does not think the ambien contributed to his fall. He reports he coughed up some sputum finally and collected that and gave it to the nurse. He was able to eat a little breakfast and then "lost his air". - Review of Systems Constitutional: No Symptoms Eyes: No Symptoms Ears, Nose, & Throat: No Symptoms Respiratory: Cough, Short Of Breath Cardiac: No Symptoms Abdominal/Gastrointestinal: No Symptoms Genitourinary Symptoms: No Symptoms Skin: Other (multiple excoriated lesions on his forearms bilat) Objective Exam General Appearance: no apparent distress, alert Neurologic Exam: alert, cooperative, normal mood/affect Skin Exam: normal color, warm, dry, other (multiple excoriations on forearms bilat) Respiratory Exam: other (distant breath sounds, very frequent cough), No respiratory distress, No accessory muscle use, No crackles/rales, No rhonchi, No wheezing, No stridor Cardiovascular Exam: regular rate/rhythm, No murmur, No friction rub, No gallop Gastrointestinal/Abdomen Exam: soft, normal bowel sounds, No tenderness, No distention, No mass Extremity Exam: normal inspection, other (no c/c/e) OBJECTIVE DATA Vital Signs: Vital Signs - 24 hr Temp Pulse Resp BP Pulse Ox 09/19/18 07:08 97.8 F 72 20 116/65 99 09/19/18 04:00 20 09/19/18 03:58 97.1 F 69 28 H 133/71 92 L 09/19/18 00:00 97.8 F 72 28 H 142/74 96 09/18/18 20:00 97.6 F 73 32 H 136/71 92 L 09/18/18 18:56 94 L 09/18/18 17:49 96 09/18/18 16:00 98.9 F 81 24 156/80 93 L 09/18/18 15:37 79 26 H 94 L 09/18/18 15:22 98.4 F 79 26 H 128/72 94 L 09/18/18 14:53 96 09/18/18 14:51 79 38 H 128/72 92 L 09/18/18 14:23 69 24 100 09/18/18 13:09 98.4 F 72 18 153/88 92 L 09/18/18 11:59 73 22 113/63 09/18/18 11:43 98.5 F 70 30 H 113/63 96 09/18/18 11:37 70 30 H 96 09/18/18 10:53 98.5 F 72 28 H 113/63 96 Oxygen-Last 24 hours O2 Percentage 3 Liters = 32% O2 Percentage 2 Liters = 28% Pain Assessment - Last Documented Pain Intensity 6 Pain Scale Used 0-10 Pain Scale Intake and Output: Intake & Output 09/17/18 09/18/18 09/19/18 09/20/18 06:59 06:59 06:59 06:59 Intake Total 1119 Output Total 350 Balance 769 Weight 79.5 kg Lab Results: Lab Results-Last 24 Hours 09/18/18 09/18/18 09/18/18 Range/Units 11:52 12:40 12:40 WBC 4.6 (4.0-10.5) K/mm3 RBC 4.51 (4.1-5.6) M/mm3 Hgb 12.4 L (12.5-18.0) gm/dl Hct 38.5 L (42-50) % MCV 85.4 (78-100) fl MCH 27.4 (26-32) pg MCHC 32.2 (32-36) g/dl RDW 15.6 H (11.5-14.0) % Plt Count 102 L (150-450) K/mm3 MPV 9.7 H (6-9.5) fl Gran % 67.1 H (36.0-66.0) % Eos # (Auto) 0.12 (0-0.5) Absolute Lymphs (auto) 0.68 L (1.0-4.6) Absolute Monos (auto) 0.67 (0.0-1.3) Lymphocytes % 14.9 L (24.0-44.0) % Monocytes % 14.7 H (0.0-12.0) % Eosinophils % 2.6 (0.00-5.0) % Basophils % 0.7 (0.0-0.4) % Absolute Granulocytes 3.06 (1.4-6.9) Basophils # 0.03 (0-0.4) D-Dimer (215-500) ng/mL pO2/FiO2 Ratio % VBG pH (7.32-7.42) VBG pCO2 at Pat Temp (42-55) mm/Hg VBG pO2 at Pat Temp (25-40) mm/Hg VBG HCO3 (22-28) meq/L VBG O2 Sat (Vicki) (95-100) VBG Base Excess (-2.0-2.0) VBG Hemoglobin VBG Carboxyhemoglobin (0.0-6.9) % T HGB POC Potassium (3.5-5.1) Sodium 133 L (137-145) mmol/L Potassium 4.6 (3.5-5.1) mmol/L Chloride 101 (98-107) mmol/L Carbon Dioxide 21 L (22-30) mmol/L Anion Gap 15.8 H (5-15) MEQ/L BUN 19 (9-20) mg/dL Creatinine 0.69 (0.66-1.25) mg/dL Estimated GFR > 60.0 ML/MIN Glucose 85 (74-106) mg/dL Lactic Acid 2.2 H (0.4-2.0) Calcium 8.9 (8.4-10.2) mg/dL Total Bilirubin 1.10 (0.2-1.3) mg/dL AST 29 (17-59) U/L ALT 22 (0-50) U/L Alkaline Phosphatase 67 (38-126) U/L Troponin I (0.000-0.034) ng/mL NT-Pro-B Natriuret Pep 1890 H (0-900) pg/mL Serum Total Protein 7.4 (6.3-8.2) g/dL Albumin 3.9 (3.5-5.0) g/dL Digoxin (0.8-1.9) ng/mL Slides for Path Review 09/18/18 09/18/18 09/18/18 Range/Units 12:40 12:40 13:29 WBC (4.0-10.5) K/mm3 RBC (4.1-5.6) M/mm3 Hgb (12.5-18.0) gm/dl Hct (42-50) % MCV (78-100) fl MCH (26-32) pg MCHC (32-36) g/dl RDW (11.5-14.0) % Plt Count (150-450) K/mm3 MPV (6-9.5) fl Gran % (36.0-66.0) % Eos # (Auto) (0-0.5) Absolute Lymphs (auto) (1.0-4.6) Absolute Monos (auto) (0.0-1.3) Lymphocytes % (24.0-44.0) % Monocytes % (0.0-12.0) % Eosinophils % (0.00-5.0) % Basophils % (0.0-0.4) % Absolute Granulocytes (1.4-6.9) Basophils # (0-0.4) D-Dimer 745 H* (215-500) ng/mL pO2/FiO2 Ratio 21.0 % VBG pH 7.37 (7.32-7.42) VBG pCO2 at Pat Temp 38 L (42-55) mm/Hg VBG pO2 at Pat Temp 33 (25-40) mm/Hg VBG HCO3 22.0 (22-28) meq/L VBG O2 Sat (Vicki) 70.9 L (95-100) VBG Base Excess -2.9 L (-2.0-2.0) VBG Hemoglobin 13.0 VBG Carboxyhemoglobin 4.4 (0.0-6.9) % T HGB POC Potassium 4.5 (3.5-5.1) Sodium (137-145) mmol/L Potassium (3.5-5.1) mmol/L Chloride (98-107) mmol/L Carbon Dioxide (22-30) mmol/L Anion Gap (5-15) MEQ/L BUN (9-20) mg/dL Creatinine (0.66-1.25) mg/dL Estimated GFR ML/MIN Glucose (74-106) mg/dL Lactic Acid (0.4-2.0) Calcium (8.4-10.2) mg/dL Total Bilirubin (0.2-1.3) mg/dL AST (17-59) U/L ALT (0-50) U/L Alkaline Phosphatase (38-126) U/L Troponin I 0.013 (0.000-0.034) ng/mL NT-Pro-B Natriuret Pep (0-900) pg/mL Serum Total Protein (6.3-8.2) g/dL Albumin (3.5-5.0) g/dL Digoxin (0.8-1.9) ng/mL Slides for Path Review 09/18/18 09/18/18 09/18/18 Range/Units 13:29 15:45 18:53 WBC (4.0-10.5) K/mm3 RBC (4.1-5.6) M/mm3 Hgb (12.5-18.0) gm/dl Hct (42-50) % MCV (78-100) fl MCH (26-32) pg MCHC (32-36) g/dl RDW (11.5-14.0) % Plt Count (150-450) K/mm3 MPV (6-9.5) fl Gran % (36.0-66.0) % Eos # (Auto) (0-0.5) Absolute Lymphs (auto) (1.0-4.6) Absolute Monos (auto) (0.0-1.3) Lymphocytes % (24.0-44.0) % Monocytes % (0.0-12.0) % Eosinophils % (0.00-5.0) % Basophils % (0.0-0.4) % Absolute Granulocytes (1.4-6.9) Basophils # (0-0.4) D-Dimer (215-500) ng/mL pO2/FiO2 Ratio % VBG pH (7.32-7.42) VBG pCO2 at Pat Temp (42-55) mm/Hg VBG pO2 at Pat Temp (25-40) mm/Hg VBG HCO3 (22-28) meq/L VBG O2 Sat (Vicki) (95-100) VBG Base Excess (-2.0-2.0) VBG Hemoglobin VBG Carboxyhemoglobin (0.0-6.9) % T HGB POC Potassium (3.5-5.1) Sodium (137-145) mmol/L Potassium (3.5-5.1) mmol/L Chloride (98-107) mmol/L Carbon Dioxide (22-30) mmol/L Anion Gap (5-15) MEQ/L BUN (9-20) mg/dL Creatinine (0.66-1.25) mg/dL Estimated GFR ML/MIN Glucose (74-106) mg/dL Lactic Acid 1.9 (0.4-2.0) Calcium (8.4-10.2) mg/dL Total Bilirubin (0.2-1.3) mg/dL AST (17-59) U/L ALT (0-50) U/L Alkaline Phosphatase (38-126) U/L Troponin I 0.013 < 0.012 (0.000-0.034) ng/mL NT-Pro-B Natriuret Pep (0-900) pg/mL Serum Total Protein (6.3-8.2) g/dL Albumin (3.5-5.0) g/dL Digoxin (0.8-1.9) ng/mL Slides for Path Review 09/18/18 09/18/18 09/19/18 Range/Units 18:53 22:30 00:53 WBC (4.0-10.5) K/mm3 RBC (4.1-5.6) M/mm3 Hgb (12.5-18.0) gm/dl Hct (42-50) % MCV (78-100) fl MCH (26-32) pg MCHC (32-36) g/dl RDW (11.5-14.0) % Plt Count (150-450) K/mm3 MPV (6-9.5) fl Gran % (36.0-66.0) % Eos # (Auto) (0-0.5) Absolute Lymphs (auto) (1.0-4.6) Absolute Monos (auto) (0.0-1.3) Lymphocytes % (24.0-44.0) % Monocytes % (0.0-12.0) % Eosinophils % (0.00-5.0) % Basophils % (0.0-0.4) % Absolute Granulocytes (1.4-6.9) Basophils # (0-0.4) D-Dimer (215-500) ng/mL pO2/FiO2 Ratio % VBG pH (7.32-7.42) VBG pCO2 at Pat Temp (42-55) mm/Hg VBG pO2 at Pat Temp (25-40) mm/Hg VBG HCO3 (22-28) meq/L VBG O2 Sat (Vicki) (95-100) VBG Base Excess (-2.0-2.0) VBG Hemoglobin VBG Carboxyhemoglobin (0.0-6.9) % T HGB POC Potassium (3.5-5.1) Sodium (137-145) mmol/L Potassium (3.5-5.1) mmol/L Chloride (98-107) mmol/L Carbon Dioxide (22-30) mmol/L Anion Gap (5-15) MEQ/L BUN (9-20) mg/dL Creatinine (0.66-1.25) mg/dL Estimated GFR ML/MIN Glucose (74-106) mg/dL Lactic Acid (0.4-2.0) Calcium (8.4-10.2) mg/dL Total Bilirubin (0.2-1.3) mg/dL AST (17-59) U/L ALT (0-50) U/L Alkaline Phosphatase (38-126) U/L Troponin I < 0.012 < 0.012 (0.000-0.034) ng/mL NT-Pro-B Natriuret Pep (0-900) pg/mL Serum Total Protein (6.3-8.2) g/dL Albumin (3.5-5.0) g/dL Digoxin < 0.4 L (0.8-1.9) ng/mL Slides for Path Review 09/19/18 09/19/18 Range/Units 05:34 05:34 WBC 2.9 L (4.0-10.5) K/mm3 RBC 4.26 (4.1-5.6) M/mm3 Hgb 11.7 L (12.5-18.0) gm/dl Hct 36.8 L (42-50) % MCV 86.4 (78-100) fl MCH 27.4 (26-32) pg MCHC 31.8 L (32-36) g/dl RDW 15.0 H (11.5-14.0) % Plt Count 84 L (150-450) K/mm3 MPV 9.9 H (6-9.5) fl Gran % (36.0-66.0) % Eos # (Auto) (0-0.5) Absolute Lymphs (auto) (1.0-4.6) Absolute Monos (auto) (0.0-1.3) Lymphocytes % (24.0-44.0) % Monocytes % (0.0-12.0) % Eosinophils % (0.00-5.0) % Basophils % (0.0-0.4) % Absolute Granulocytes (1.4-6.9) Basophils # (0-0.4) D-Dimer (215-500) ng/mL pO2/FiO2 Ratio % VBG pH (7.32-7.42) VBG pCO2 at Pat Temp (42-55) mm/Hg VBG pO2 at Pat Temp (25-40) mm/Hg VBG HCO3 (22-28) meq/L VBG O2 Sat (Vicki) (95-100) VBG Base Excess (-2.0-2.0) VBG Hemoglobin VBG Carboxyhemoglobin (0.0-6.9) % T HGB POC Potassium (3.5-5.1) Sodium 136 L (137-145) mmol/L Potassium 4.6 (3.5-5.1) mmol/L Chloride 103 (98-107) mmol/L Carbon Dioxide 25 (22-30) mmol/L Anion Gap 12.2 (5-15) MEQ/L BUN 16 (9-20) mg/dL Creatinine 0.60 L (0.66-1.25) mg/dL Estimated GFR > 60.0 ML/MIN Glucose 161 H (74-106) mg/dL Lactic Acid (0.4-2.0) Calcium 8.8 (8.4-10.2) mg/dL Total Bilirubin 0.70 (0.2-1.3) mg/dL AST 27 (17-59) U/L ALT 24 (0-50) U/L Alkaline Phosphatase 59 (38-126) U/L Troponin I (0.000-0.034) ng/mL NT-Pro-B Natriuret Pep (0-900) pg/mL Serum Total Protein 7.0 (6.3-8.2) g/dL Albumin 3.7 (3.5-5.0) g/dL Digoxin (0.8-1.9) ng/mL Slides for Path Review YES Radiology Exams: Radiology Procedures Category Date Time Status CHEST 1 VIEW (PORTABLE) Stat Exams 09/18/18 12:40 Completed HEAD WITHOUT CONTRAST [CT] Stat Exams 09/19/18 01:35 Taken Assessment/Plan (1) COPD with exacerbation Current Visit: Yes Status: Acute Assessment & Plan: Continue ceftriaxone; check pertussis PCR and Legionella Ab. Continue IV steriods. After pertussis PCR obtained, will start azithromycin. He was prescribed azithromycin in ER at [facility] on 09/17/18 but it is unclear if he started this medication; Continue breathing treatments and oxygen. Consult laser set up operator. Prognosis is guarded given severity of medical problems and history of noncompliance. Code(s): J44.1 - CHRONIC OBSTRUCTIVE PULMONARY DISEASE W (ACUTE) EXACERBATION (2) CAD (coronary artery disease) Current Visit: Yes Status: Acute Assessment & Plan: Nurses report they called Dr. Horn yesterday and he confirmed his cardiac medications. Case discussed with Dr. Horn today. Code(s): I25.10 - ATHSCL HEART DISEASE OF [place] CORONARY ARTERY W/O ANG PCTRS (3) Chronic anticoagulation Current Visit: Yes Status: Acute Assessment & Plan: Holding eliquis today and most likely will restart tomorrow. Code(s): Z79.01 - INTERMEDIATE (CURRENT) USE OF ANTICOAGULANTS (4) Fall Current Visit: Yes Status: Acute Assessment & Plan: Head CT negative; patient now wearing bed alarm and is agreeable to asking for help when he gets up. Code(s): W19.XXXA - UNSPECIFIED FALL, INITIAL ENCOUNTER (5) Thrombocytopenia Current Visit: Yes Status: Acute Assessment & Plan: Will hold his Eliquis today with recent fall and thrombocytopenia and plan to restart tomorrow. Discussed with his auxiliary engineer, Dr. Horn. (6) Leukopenia Current Visit: Yes Status: Acute Qualifiers: Neutropenia type: due to infection Assessment & Plan: Most likely due to infection. Will continue to monitor. Code(s): D72.819 - DECREASED WHITE BLOOD CELL COUNT, UNSPECIFIED (7) Anemia Current Visit: Yes Status: Acute Qualifiers: Anemia type: unspecified type Qualified Code(s): D64.9 - Anemia, unspecified Code(s): D64.9 - ANEMIA, UNSPECIFIED
--- NOTE | 2018-09-19 08:42 | XRAY ---
Indication: Forehead injury following fall. Multiple contiguous axial images obtained through the head without contrast. Comparison: January 15, 2018. Stable age-related global atrophy and minimal periventricular degenerative micro-ischemia. No acute intracranial hemorrhage, abnormal extra-axial fluid collection, or mass effect. Fourth ventricle is midline without hydrocephalus. Bony calvarium intact. Visualized paranasal sinuses and mastoid air cells are clear. Impression: Normal aging brain including atrophy and degenerative micro-ischemia. No new or acute intracranial abnormalities. Comment: Preliminary interpretation was made by [facility]. No discrepancy. CT DI 50.38
[2018-09-19] MEDS ORDERED: BABY ASPIRIN 81 MG CHEW PO SCH (10:00)
[2018-09-19] MEDS ORDERED: Flomax 0.4 MG PO SCH (10:00)
[2018-09-19] MEDS: Flomax 0.4 MG PO SCH (10:32)
[2018-09-19] MEDS: ROCEPHIN 1 Gm-D5w 50 ml Bag** 1 G/50 ML IVPB IV SCH (10:32)
[2018-09-19] MEDS: Zithromax 500 MG/ 250 ML NaCl Premix 500 MG/250 ML IVPB IV SCH (10:32)
[2018-09-19] MEDS: Coreg 3.125 MG PO SCH ×2 (10:33→20:55)
[2018-09-19] MEDS: Lanoxin 0.125MG TABLET PO SCH (10:34)
[2018-09-19] MEDS: Aldactone 25 MG PO SCH (10:34)
[2018-09-19] MEDS: ECOTRIN 81 MG PO SCH (10:34)
[2018-09-19] MEDS: Lasix 40 MG PO SCH (10:35)
[2018-09-19] MEDS: Advair Hfa 115/21 Common canister IH SCH ×2 (10:37→20:05)
[2018-09-19] MEDS: ENTRESTO 49 MG-51 MG TABLET PO SCH ×2 (11:03→20:56)
[2018-09-19] MEDS ORDERED: BUSPAR 5 MG PO ONE (15:16)
[2018-09-19] MEDS: ZOCOR 20MG PO SCH (20:55)
[2018-09-19] MEDS ORDERED: Tums EX 750 MG PO SCH (22:00)
[2018-09-19] MEDS ORDERED: Tums EX 750 MG ONE (22:04)
[2018-09-19] MEDS: Pepcid 20 MG PO SCH (22:05)
[2018-09-19] MEDS ORDERED: Tums EX 750 MG PO PRN (22:10)
[2018-09-20] MEDS: solu-MEDROL 125 MG IV SCH ×5 (02:04→23:57)
[2018-09-20] MEDS: DUONEB 0.5-3 MG/3 ml Neb IH SCH ×6 (02:09→22:45)
[2018-09-20] MEDS: Robitussin 100 MG/5 ML PO PRN ×2 (03:25→10:24)
[2018-09-20 06:20] LABS: BASOPHIL % 0.2 % (0.0-0.4); Basophil (Absolute #) 0.01 (0-0.4); Eosinophil (Absolute #) 0 (0-0.5); Granulocyte Absolute (ANC) 5.59 (1.4-6.9); Granulocytes % 85.3 % (36.0-66.0); Hematocrit 39.5 % (42-50); Hemoglobin 12.4 gm/dl (12.5-18.0); Lymphocyte (Absolute #) 0.49 (1.0-4.6); Lymphocytes % 7.5 % (24.0-44.0); Mean Cell Volume 86.6 fl (78-100); Mean Corpuscular Hgb Concent. 31.4 g/dl (32-36); Mean Platelet Volume 10.1 fl (6-9.5); Monocyte (Absolute #) 0.46 (0.0-1.3); Platelet Count 103 K/mm3 (150-450); Red Blood Count 4.56 M/mm3 (4.1-5.6); White Blood Count 6.6 K/mm3 (4.0-10.5)
[2018-09-20 06:23] LABS: Mean Corpuscular Hemoglobin 27.1 pg (26-32)
[2018-09-20 06:31] LABS: ANION GAP 11.5 MEQ/L (5-15); BLOOD UREA NITROGEN 19 mg/dL (9-20); CHLORIDE 102 mmol/L (98-107); Calcium 8.9 mg/dL (8.4-10.2); Carbon Dioxide 26 mmol/L (22-30); Creatinine 1 0.58 mg/dL (0.66-1.25); Glucose 179 mg/dL (74-106); Potassium 4.4 mmol/L (3.5-5.1); SODIUM 135 mmol/L (137-145)
[2018-09-20] MEDS: Advair Hfa 115/21 Common canister IH SCH ×2 (06:47→18:54)
[2018-09-20] MEDS: TYLENOL 325 MG PO PRN (06:54)
--- NOTE | 2018-09-20 08:40 | PCM.NOTE ---
Date and Time: 09/20/18834 Subjective Assessment: Patient reports that he continues to have a dry nonproductive cough. He reported to RT that he has oxygen 3 L NC that he wears at home as needed. I was not aware of this before. He can't tell me who prescribes this for him. He reports he is going to be looking for a new doctor. He denies any pain of his head or headache after his fall [address] Cheema has been consulted and staff reports he may be here today to see the patient. RT reports he is wearing oxymask instead of nasal cannula because this is what he prefers to wear. - Review of Systems Constitutional: No Symptoms Eyes: No Symptoms Ears, Nose, & Throat: No Symptoms Respiratory: Cough, Short Of Breath Cardiac: No Symptoms Abdominal/Gastrointestinal: Other (pain around his umbilical hernia when he coughs) Genitourinary Symptoms: No Symptoms Musculoskeletal: No Symptoms Skin: No Symptoms Neurological: No Symptoms Objective Exam General Appearance: no apparent distress, alert Neurologic Exam: alert, cooperative, normal mood/affect Skin Exam: normal color, warm, dry, No rash Respiratory Exam: other (few scattered wheezes, distant breath sounds, no crackles, no tachypnea, no retractions, on oxy mask), No respiratory distress, No accessory muscle use, No stridor Cardiovascular Exam: regular rate/rhythm, No murmur, No friction rub, No gallop Gastrointestinal/Abdomen Exam: soft, normal bowel sounds, No tenderness, No distention, No mass Extremity Exam: normal inspection, other (no c/c/e; sintia hose in place) OBJECTIVE DATA Vital Signs: Vital Signs - 24 hr Temp Pulse Resp BP BP Pulse Ox 09/20/18 08:00 97.8 F 78 24 143/64 98 09/20/18 06:52 78 24 98 09/20/18 04:00 24 09/20/18 03:57 97.9 F 69 26 H 121/61 94 L 09/20/18 02:10 69 26 H 94 L 09/20/18 00:00 18 09/19/18 20:05 70 26 H 95 09/19/18 20:00 97.7 F 80 18 101/56 99 09/19/18 16:00 16 09/19/18 15:56 97.7 F 77 16 126/57 94 L 09/19/18 14:00 99 09/19/18 12:00 22 09/19/18 11:23 97.5 F 72 93 H 115/57 91 L 09/19/18 10:34 72 116/65 09/19/18 10:25 71 18 95 Oxygen-Last 24 hours O2 Percentage 4 Liters = 36% O2 Percentage 4 Liters = 36% O2 Percentage 3 Liters = 32% O2 Percentage 4 Liters = 36% Oxygen Flowrate (L/min)-RT 4 Pain Assessment - Last Documented Pain Intensity 6 Pain Scale Used FLACC Intake and Output: Intake & Output 09/18/18 09/19/18 09/20/18 09/21/18 06:59 06:59 06:59 06:59 Intake Total 1119 2200 500 Output Total 350 2498 Balance 769 -298 500 Weight 79.5 kg Lab Results: Lab Results-Last 24 Hours 09/20/18 09/20/18 Range/Units 05:52 05:52 WBC 6.6 (4.0-10.5) K/mm3 RBC 4.56 (4.1-5.6) M/mm3 Hgb 12.4 L (12.5-18.0) gm/dl Hct 39.5 L (42-50) % MCV 86.6 (78-100) fl MCH 27.1 (26-32) pg MCHC 31.4 L (32-36) g/dl RDW 15.0 H (11.5-14.0) % Plt Count 103 L (150-450) K/mm3 MPV 10.1 H (6-9.5) fl Gran % 85.3 H (36.0-66.0) % Eos # (Auto) 0 (0-0.5) Absolute Lymphs (auto) 0.49 L (1.0-4.6) Absolute Monos (auto) 0.46 (0.0-1.3) Lymphocytes % 7.5 L (24.0-44.0) % Monocytes % 7.0 (0.0-12.0) % Eosinophils % 0.0 (0.00-5.0) % Basophils % 0.2 (0.0-0.4) % Absolute Granulocytes 5.59 (1.4-6.9) Basophils # 0.01 (0-0.4) Sodium 135 L (137-145) mmol/L Potassium 4.4 (3.5-5.1) mmol/L Chloride 102 (98-107) mmol/L Carbon Dioxide 26 (22-30) mmol/L Anion Gap 11.5 (5-15) MEQ/L BUN 19 (9-20) mg/dL Creatinine 0.58 L (0.66-1.25) mg/dL Estimated GFR > 60.0 ML/MIN Glucose 179 H (74-106) mg/dL Calcium 8.9 (8.4-10.2) mg/dL Radiology Exams: Radiology Procedures Category Date Time Status CHEST 1 VIEW (PORTABLE) Stat Exams 09/18/18 12:40 Completed HEAD WITHOUT CONTRAST [CT] Stat Exams 09/19/18 01:35 Completed Multi-Disciplinary Progress Notes: Multi-Disciplinary Progress Notes 09/19/18 09:04 Pharmacy Note by CLEAN OUT DRILLER HELPER,PHARM Please be aware of interaction between azithromycin and digoxin. Coadministration may increase digoxin levels. Current level is low at <0.04 ( 0.8-1.9). Yordan Atwood - mixer pigment. Initialized on 09/19/18 09:04 - END OF NOTE Assessment/Plan (1) COPD with exacerbation Current Visit: Yes Status: Acute Assessment & Plan: Continue with ceftriaxone Day 3 and azithromycin Day 2; continue with IV steroids; continue with oxygen; continue with breathing treatments; pertussis pcr sent out and legionella antigen sent out; Chest CT from OSH on 09/17/18 was read as tree-in-bud opacity in both lower lobes as well as the right middle lobe and mild centrilobular and paraseptal pulmonary emphysema (the full report is his paper chart). Dr. Jeromy Cheema has been consulted. Code(s): J44.1 - CHRONIC OBSTRUCTIVE PULMONARY DISEASE W (ACUTE) EXACERBATION (2) CAD (coronary artery disease) Current Visit: Yes Status: Acute Assessment & Plan: Restart Eliquis today and continue other home medications for CAD per Dr. Horn. Code(s): I25.10 - ATHSCL HEART DISEASE OF [place] CORONARY ARTERY W/O ANG PCTRS (3) Chronic anticoagulation Current Visit: Yes Status: Acute Code(s): Z79.01 - DEVOPS CONSULTANT (CURRENT) USE OF ANTICOAGULANTS (4) Fall Current Visit: Yes Status: Acute Assessment & Plan: Continue fall precautions. Code(s): W19.XXXA - UNSPECIFIED FALL, INITIAL ENCOUNTER (5) Thrombocytopenia Current Visit: Yes Status: Acute Assessment & Plan: Improved today so will restart Eliquis. (6) Leukopenia Current Visit: Yes Status: Acute Qualifiers: Neutropenia type: due to infection Code(s): D72.819 - DECREASED WHITE BLOOD CELL COUNT, UNSPECIFIED (7) Anemia Current Visit: Yes Status: Acute Qualifiers: Anemia type: unspecified type Qualified Code(s): D64.9 - Anemia, unspecified Assessment & Plan: Stable; will follow CBC's daily. Code(s): D64.9 - ANEMIA, UNSPECIFIED (8) Paroxysmal A-fib Current Visit: Yes Status: Acute Assessment & Plan: Rate controlled. Restarting Eliquis today. Code(s): I48.0 - PAROXYSMAL ATRIAL FIBRILLATION
[2018-09-20] MEDS: Tessalon Perles 100 MG PO PRN ×2 (08:58→20:28)
[2018-09-20] MEDS: BUSPAR 5 MG PO PRN ×2 (08:58→20:27)
[2018-09-20 09:07] LABS: Bordetella Pertussis Source: Naso Swb
[2018-09-20 10:20] LABS: Slide Review 1 YES
[2018-09-20] MEDS: ELIQUIS 2.5 MG TABLET PO SCH ×2 (10:21→20:28)
[2018-09-20] MEDS: Lanoxin 0.125MG TABLET PO SCH (10:21)
[2018-09-20] MEDS: ECOTRIN 81 MG PO SCH (10:22)
[2018-09-20] MEDS: ENTRESTO 49 MG-51 MG TABLET PO SCH ×2 (10:22→20:28)
[2018-09-20] MEDS: Lasix 40 MG PO SCH (10:22)
[2018-09-20] MEDS: Flomax 0.4 MG PO SCH (10:22)
[2018-09-20] MEDS: Pepcid 20 MG PO SCH ×2 (10:22→20:28)
[2018-09-20] MEDS: Aldactone 25 MG PO SCH (10:22)
[2018-09-20] MEDS: ROCEPHIN 1 Gm-D5w 50 ml Bag** 1 G/50 ML IVPB IV SCH (10:22)
[2018-09-20] MEDS: Coreg 3.125 MG PO SCH ×2 (10:23→20:28)
[2018-09-20] MEDS: Zithromax 500 MG/ 250 ML NaCl Premix 500 MG/250 ML IVPB IV SCH (11:23)
[2018-09-20 14:10] LABS: Bordetella Pertussis Negative (Negative)
[2018-09-20] MEDS: Ativan 1 MG PO PRN ×2 (14:50→21:08)
[2018-09-20] MEDS: NORCO 5/325 MG PO PRN ×2 (14:56→21:08)
[2018-09-20] MEDS: ZOCOR 20MG PO SCH (20:28)
[2018-09-21] MEDS: DUONEB 0.5-3 MG/3 ml Neb IH SCH ×7 (02:56→23:01)
[2018-09-21] MEDS: Ativan 1 MG PO PRN ×2 (03:02→09:04)
[2018-09-21] MEDS: NORCO 5/325 MG PO PRN ×2 (03:02→09:04)
[2018-09-21 06:01] LABS: Hematocrit 38.6 % (42-50); Hemoglobin 12.2 gm/dl (12.5-18.0); Mean Cell Volume 86.2 fl (78-100); Mean Corpuscular Hemoglobin 27.2 pg (26-32); Mean Corpuscular Hgb Concent. 31.6 g/dl (32-36); Mean Platelet Volume 10.3 fl (6-9.5); Platelet Count 100 K/mm3 (150-450); Red Blood Count 4.48 M/mm3 (4.1-5.6); White Blood Count 6.4 K/mm3 (4.0-10.5)
[2018-09-21] MEDS: solu-MEDROL 125 MG IV SCH ×4 (06:14→23:53)
[2018-09-21 06:19] LABS: ANION GAP 11.2 MEQ/L (5-15); BLOOD UREA NITROGEN 23 mg/dL (9-20); CHLORIDE 102 mmol/L (98-107); Calcium 8.8 mg/dL (8.4-10.2); Carbon Dioxide 27 mmol/L (22-30); Creatinine 1 0.56 mg/dL (0.66-1.25); Glucose 154 mg/dL (74-106); Potassium 4.2 mmol/L (3.5-5.1); SODIUM 136 mmol/L (137-145)
[2018-09-21] MEDS: Advair Hfa 115/21 Common canister IH SCH ×3 (07:06→23:01)
[2018-09-21 07:59] LABS: BAND 4 % (0.0-2.0); Lymphocytes 7 % (24-44); Monocyte 7 % (0.0-12.0); Neutrophils 82 % (36.-66.); Nucleated Red Blood Cell 1 %; Total Cells Counted 100
[2018-09-21 08:00] LABS: Platelet Estimate DECREASED (NORMAL)
[2018-09-21] MEDS: Robitussin 100 MG/5 ML PO PRN (08:12)
--- NOTE | 2018-09-21 08:28 | CONS ---
CONSULT DATE: 09/20/2018 REASON FOR CONSULT: Evaluation of shortness of breath, chronic obstructive pulmonary disease. HISTORY: Maciej Fleming is a 57 year-old male with long history of chronic obstructive pulmonary disease, who has been hospitalized with complaints of cough, shortness of breath and wheezing. The patient reports that he was treated at [facility] Emergency Room two days prior to this admission. He was treated in the usual manner with some clinical improvement. However his symptoms became worse leading to another hospitalization. The patient has been having intractable episodes of dry nonproductive cough with wheezing. He does report significant chest pain from prolonged coughing bouts. Despite being on medication he continued to remain shortness of breath at rest. PAST MEDICAL HISTORY: Positive chronic obstructive pulmonary disease, coronary artery disease for which he sees Dr. Horn. He has had a defibrillator placed. History of hyperlipidemia. PAST SURGICAL HISTORY: Appendectomy. Open heart surgery. PERSONAL AND SOCIAL HISTORY: Patient unfortunately continues to smoke half a pack of cigarettes per day. MEDICATIONS: Home and current medications are reviewed. ALLERGIES: ALLERGIES REVIEWED. PHYSICAL EXAMINATION: This is a middle aged male who appears uncomfortable due to pleuritic pain and ongoing coughing episodes. Vital signs noted. HEENT: Normocephalic. Oral exam is limited. NECK: Supple. CVS: First and second heart sounds are normal, regular, rhythmic. RESPIRATORY: Shows diminished breath sounds, bilateral rhonchi are heard. ABDOMEN: Soft. EXTREMITIES: No edema is noted. LABORATORY DATA AND TESTS: White blood cell count 6.6, hemoglobin 12.4, hematocrit 39.5, PLT 108,000. Sodium 135, potassium 4.4, chloride 102, bicarb 26, glucose 179, BUN [address] head was noted. Chest x-ray 09/18/2018 did not show any acute details. ASSESSMENT: This is a 57 year old man admitted with: 1) Chronic obstructive pulmonary disease with exacerbation. 2) Acute bronchitis. 3) Hypoxemia. 4) Coronary artery disease. 5) Nicotine addiction. RECOMMENDATIONS: I agree with present treatment. Place the patient on BiPAP to alleviate work of breathing. Will start the patient is on Ativan 1 mg every six hours PRN to improve compliance with BiPAP. [place] 5/325 mg 1 tablet p.o. every six hours PRN for pleuritic pain. Need for complete smoking cessation was stressed. Continue other supportive care, will continue to follow. PFT as an outpatient at a later date. Thank you for allowing me to participate in the care of Maciej Fleming.
--- NOTE | 2018-09-21 08:36 | PCM.NOTE ---
Date and Time: 09/21/18829 Subjective Assessment: Dr. Cheema saw the patient yesterday and started him on bipap. He reports this seemed to help overnight. He was started on norco and ativan by Dr. Cheema. His nurse from yesterday reports he was asking for something stronger than [place]. He reports his appetite is good and no constipation. He continues to have a dry cough that his hard to stop. - Review of Systems Constitutional: No Symptoms Eyes: No Symptoms Ears, Nose, & Throat: No Symptoms Respiratory: Cough, Short Of Breath, Wheezing Cardiac: No Symptoms Abdominal/Gastrointestinal: No Symptoms Genitourinary Symptoms: No Symptoms Musculoskeletal: No Symptoms Skin: No Symptoms Objective Exam General Appearance: no apparent distress, alert Neurologic Exam: alert, cooperative, normal mood/affect Skin Exam: normal color, warm, dry, No rash Respiratory Exam: other (distant equal breath sounds with scattered wheezes, no crackles, no rhonchi) Cardiovascular Exam: regular rate/rhythm, normal heart sounds, No murmur, No friction rub, No gallop Gastrointestinal/Abdomen Exam: soft, normal bowel sounds, other (umbilical hernia), No tenderness OBJECTIVE DATA Vital Signs: Vital Signs - 24 hr Temp Pulse Resp BP BP Pulse Ox 09/21/18 07:59 70 18 137/72 93 L 09/21/18 07:56 18 09/21/18 07:10 70 18 98 09/21/18 05:52 99 09/21/18 04:00 97.6 F 70 13 163/92 99 09/21/18 03:12 70 17 99 09/21/18 01:34 96 09/21/18 00:00 97.8 F 69 22 136/81 96 09/20/18 23:12 72 22 99 09/20/18 22:00 95 09/20/18 20:00 97.6 F 72 22 115/56 95 09/20/18 18:55 70 20 92 L 09/20/18 16:00 98.1 F 80 22 126/71 95 09/20/18 15:11 69 22 98 09/20/18 14:00 93 L 09/20/18 12:00 98 F 83 24 135/69 93 L 09/20/18 10:50 83 24 93 L 09/20/18 10:21 78 143/68 09/20/18 10:00 98 Oxygen-Last 24 hours O2 Percentage 3 Liters = 32% O2 Percentage 3 Liters = 32% O2 Percentage 4 Liters = 36% Oxygen Flowrate (L/min)-RT 3 Oxygen Flowrate (L/min)-RT 4 Oxygen Flowrate (L/min)-RT 4 Pain Assessment - Last Documented Pain Intensity 6 Pain Scale Used 0-10 Pain Scale,FLACC Intake and Output: Intake & Output 09/19/18 09/20/18 09/21/18 09/22/18 06:59 06:59 06:59 06:59 Intake Total 1119 2200 2300 240 Output Total 350 2498 1100 Balance 769 -298 1200 240 Weight 79.5 kg 82 kg 83.7 kg Lab Results: Lab Results-Last 24 Hours 09/19/18 09/20/18 09/21/18 Range/Units 10:46 05:52 05:40 WBC 6.4 (4.0-10.5) K/mm3 RBC 4.48 (4.1-5.6) M/mm3 Hgb 12.2 L (12.5-18.0) gm/dl Hct 38.6 L (42-50) % MCV 86.2 (78-100) fl MCH 27.2 (26-32) pg MCHC 31.6 L (32-36) g/dl RDW 15.0 H (11.5-14.0) % Plt Count 100 L (150-450) K/mm3 MPV 10.3 H (6-9.5) fl Segmented Neutrophils 82 H (36.-66.) % Band Neutrophils 4 H (0.0-2.0) % Lymphocytes (Manual) 7 L (24-44) % Monocytes (Manual) 7 (0.0-12.0) % Nucleated RBCs 1 % Platelet Estimate DECREASED (NORMAL) RBC Morphology NORMAL Sodium (137-145) mmol/L Potassium (3.5-5.1) mmol/L Chloride (98-107) mmol/L Carbon Dioxide (22-30) mmol/L Anion Gap (5-15) MEQ/L BUN (9-20) mg/dL Creatinine (0.66-1.25) mg/dL Estimated GFR ML/MIN Glucose (74-106) mg/dL Calcium (8.4-10.2) mg/dL [place] pertussis Spec Source [place] Swb B. pertussis DNA (PCR) Negative (Negative) Slides for Path Review YES 09/21/18 Range/Units 05:40 WBC (4.0-10.5) K/mm3 RBC (4.1-5.6) M/mm3 Hgb (12.5-18.0) gm/dl Hct (42-50) % MCV (78-100) fl MCH (26-32) pg MCHC (32-36) g/dl RDW (11.5-14.0) % Plt Count (150-450) K/mm3 MPV (6-9.5) fl Segmented Neutrophils (36.-66.) % Band Neutrophils (0.0-2.0) % Lymphocytes (Manual) (24-44) % Monocytes (Manual) (0.0-12.0) % Nucleated RBCs % Platelet Estimate (NORMAL) RBC Morphology Sodium 136 L (137-145) mmol/L Potassium 4.2 (3.5-5.1) mmol/L Chloride 102 (98-107) mmol/L Carbon Dioxide 27 (22-30) mmol/L Anion Gap 11.2 (5-15) MEQ/L BUN 23 H (9-20) mg/dL Creatinine 0.56 L (0.66-1.25) mg/dL Estimated GFR > 60.0 ML/MIN Glucose 154 H (74-106) mg/dL Calcium 8.8 (8.4-10.2) mg/dL [place] pertussis Spec Source B. pertussis DNA (PCR) (Negative) Slides for Path Review Assessment/Plan (1) COPD with exacerbation Current Visit: Yes Status: Acute Assessment & Plan: Continue cetfriaxone Day 4 and azithromycin Day 3. His pertussis test came back negative. Legionella test is still pending. Continue IV steroids, breathing treatments and oxygen. Continue bipap per Dr. Cheema's recommendation. Is overall prognosis is guarded and poor given his chronic multiple medical problems and history of noncompliance as well as continued tobacco use. Code(s): J44.1 - CHRONIC OBSTRUCTIVE PULMONARY DISEASE W (ACUTE) EXACERBATION (2) CAD (coronary artery disease) Current Visit: Yes Status: Acute Assessment & Plan: Continue home medications; patient reports he will need refills on his cardiac medications. 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 Code(s): W19.XXXA - UNSPECIFIED FALL, INITIAL ENCOUNTER (5) Thrombocytopenia Current Visit: Yes Status: Acute Assessment & Plan: Platelet count stable at 100,000. No signs of bleeding. (6) Leukopenia Current Visit: Yes Status: Resolved Qualifiers: Neutropenia type: due to infection Assessment & Plan: WBC count is in normal range now. Code(s): D72.819 - DECREASED WHITE BLOOD CELL COUNT, UNSPECIFIED (7) Anemia Current Visit: Yes Status: Acute Qualifiers: Anemia type: unspecified type Qualified Code(s): D64.9 - Anemia, unspecified Assessment & Plan: Stable at this time. Code(s): D64.9 - ANEMIA, UNSPECIFIED (8) Paroxysmal A-fib Current Visit: Yes Status: Acute Assessment & Plan: Continue anticoagulation. Code(s): I48.0 - PAROXYSMAL ATRIAL FIBRILLATION
[2018-09-21] MEDS: Aldactone 25 MG PO SCH (09:05)
[2018-09-21] MEDS: Pepcid 20 MG PO SCH ×2 (09:05→21:26)
[2018-09-21] MEDS: Lanoxin 0.125MG TABLET PO SCH (09:06)
[2018-09-21] MEDS: ELIQUIS 2.5 MG TABLET PO SCH ×2 (09:06→21:26)
[2018-09-21] MEDS: Flomax 0.4 MG PO SCH (09:06)
[2018-09-21] MEDS: Coreg 3.125 MG PO SCH ×2 (09:06→21:26)
[2018-09-21] MEDS: ECOTRIN 81 MG PO SCH (09:06)
[2018-09-21] MEDS: Lasix 40 MG PO SCH (09:06)
[2018-09-21] MEDS: ENTRESTO 49 MG-51 MG TABLET PO SCH ×2 (09:07→21:26)
[2018-09-21] MEDS: Colace 100 MG PO SCH ×2 (09:07→21:30)
[2018-09-21] MEDS: Zithromax 500 MG/ 250 ML NaCl Premix 500 MG/250 ML IVPB IV SCH (09:08)
[2018-09-21] MEDS: ROCEPHIN 1 Gm-D5w 50 ml Bag** 1 G/50 ML IVPB IV SCH (09:08)
[2018-09-21] MEDS: Tessalon Perles 100 MG PO PRN (13:00)
--- NOTE | 2018-09-21 14:40 | PROG NOTE ---
HISTORY: The patient was seen yesterday treated with BiPAP. He did use BiPAP for about six hours last night and reports improvement in shortness of breath. Pleuritic pain has also resolved. Sitting in chair, awake, comfortable. PHYSICAL EXAMINATION: Vital signs noted. CVS: First and second heart sounds are normal, regular, rhythmic. RESPIRATORY: Shows diminished breath sounds. ABDOMEN: Soft. ASSESSMENT: This is a 57 year old male admitted with: 1) Acute on chronic respiratory failure. 2) Chronic obstructive pulmonary disease with exacerbation. 3) Acute bronchitis. RECOMMENDATIONS: 1) Advised to discontinue Ativan and [place]. 2) Continue bronchodilators, reduce steroids, increase ambulation. The patient is not keen on using BiPAP anymore. Will plan to discharge when okay with primary care physician possibly in the next day or so.
[2018-09-21] MEDS: TYLENOL 325 MG PO PRN (15:25)
[2018-09-21] MEDS: BUSPAR 5 MG PO PRN (21:26)
[2018-09-21] MEDS: ZOCOR 20MG PO SCH (21:26)
[2018-09-22] MEDS: Robitussin 100 MG/5 ML PO PRN ×2 (02:48→08:01)
[2018-09-22] MEDS: DUONEB 0.5-3 MG/3 ml Neb IH SCH (03:32)
[2018-09-22] MEDS: solu-MEDROL 125 MG IV SCH (04:58)
[2018-09-22 07:30] VITALS: BP 118/72; PULSE 69; O2SAT 95
[2018-09-22] MEDS: BUSPAR 5 MG PO PRN (08:00)
--- NOTE | 2018-09-22 08:32 | PCM.DCORD ---
- Discharge Discharge Date: 09/22/18 Disposition: Home, Self-Care Condition: Good Prescriptions: New Apixaban [Eliquis] 5 mg PO BID #14 tablet Cefdinir [Omnicef] 300 mg PO BID #12 capsule Pravastatin Sodium [Pravachol] 40 mg PO DAILY #7 tablet Acetaminophen 325 mg [Tylenol 325 mg] 650 mg PO Q4H PRN PRN tablet PRN Reason: Pain And/Or Fever Continue Tamsulosin HCl 0.4 mg [Flomax 0.4 MG] 0.4 mg PO DAILY Cyclobenzaprine HCl 10 mg [Cyclobenzaprine 10 MG] 10 mg PO [id number] PRN PRN Reason: Muscle Spasms Fluticasone/Salmeterol [Advair 250-50 Diskus] 1 puff IH BID Aspirin [Aspirin EC] 81 mg PO DAILY Spironolactone 25 mg [Aldactone 25 MG] 25 mg PO DAILY #7 tablet Carvedilol 3.125 mg [Coreg 3.125 MG] 3.125 mg PO BID #14 tablet Sacubitril/Valsartan [Entresto 24 mg-26 mg Tablet] 1 each PO BID #14 tablet Digoxin 0.125 mg Tablet [Lanoxin 0.125MG TABLET] 125 mcg PO DAILY #7 tablet Furosemide 40 mg [Lasix 40 MG] 40 mg PO DAILY #7 tablet Discontinued Pravastatin Sodium 40 mg PO HS Apixaban [Eliquis 5 mg Tablet] 5 mg PO BID Hydromorphone HCl 4 mg [Dilaudid 4 MG Tab] 4 mg PO Q4HPRN PRN PRN Reason: Pain Instructions: Quitting Smoking, Exacerbation of COPD (DC) Follow up with: HELIO SALGUERO [CONSULTING PHYSICIAN] - 1 Week JORGE LEOS [ACTIVE STAFF] - 1 Week ROSITA SANTIAGO MD [NON-STAFF PHY W/O PRIVILEGES] - 1 Week
[2018-09-22] MEDS: Zithromax 500 MG/ 250 ML NaCl Premix 500 MG/250 ML IVPB IV SCH (09:24)
[2018-09-22] MEDS: ROCEPHIN 1 Gm-D5w 50 ml Bag** 1 G/50 ML IVPB IV SCH (09:24)
[2018-09-22] MEDS: Lasix 40 MG PO SCH (09:31)
[2018-09-22] MEDS: Lanoxin 0.125MG TABLET PO SCH (09:31)
[2018-09-22] MEDS: ENTRESTO 49 MG-51 MG TABLET PO SCH (09:31)
[2018-09-22] MEDS: Colace 100 MG PO SCH (09:31)
[2018-09-22] MEDS: ECOTRIN 81 MG PO SCH (09:31)
[2018-09-22] MEDS: Flomax 0.4 MG PO SCH (09:31)
[2018-09-22] MEDS: Pepcid 20 MG PO SCH (09:31)
[2018-09-22] MEDS: Aldactone 25 MG PO SCH (09:32)
[2018-09-22] MEDS: Coreg 3.125 MG PO SCH (09:32)
[2018-09-22] MEDS: ELIQUIS 2.5 MG TABLET PO SCH (09:32)
--- NOTE | 2018-09-22 14:55 | DS ---
DISCHARGE DIAGNOSES: 1) CHRONIC OBSTRUCTIVE PULMONARY DISEASE WITH EXACERBATION. 2) CORONARY ARTERY DISEASE. 3) CHRONIC ANTICOAGULATION. 4) FALL. 5) THROMBOCYTOPENIA. 6) LEUKOPENIA. 7) ANEMIA. 8) PAROXYSMAL ATRIAL FIBRILLATION. 9) TOBACCO ABUSE. DISCHARGE PHYSICAL EXAMINATION: VITALS: Temperature current 97.9F, temperature max 98.2F, heart rate 67 to 73, respiratory rate 18 to 20, blood pressure 118 to 122 over 65 to 72. Oxygen saturation 95 to 97% on room air. GENERAL: The patient was sitting up in his chair in no acute distress. He was alert, oriented and answering questions. He had some coughing after taking deep breaths for his lung sounds. CVS: His heart had a regular rate and rhythm. No murmurs, gallops or rubs are appreciated. CHEST: Scattered expiratory wheezes throughout but equal breath sounds. No tachypnea. No retractions. ABDOMEN: Soft, nontender, nondistended with normal bowel sounds. EXTREMITIES: No clubbing, cyanosis or edema. SKIN: Warm, dry and intact. HOSPITAL COURSE: 1) CHRONIC OBSTRUCTIVE PULMONARY DISEASE WITH EXACERBATION: He has been on IV steroids since his admission as well as breathing treatments and oxygen as needed. After Dr. Agustin Cheema, Traffic Signal Technician, was consulted and saw the patient ordered BiPAP which according to Dr. Cheema's notes he tolerated for about six hours. The patient has also been on ceftriaxone at the start of his hospitalization and then on the second day they added azithromycin. I am sending him home to finish a course of Cefdinir. I offered prednisone for the patient as an outpatient but he stated that this never helps and he has bottles of this at home and he will just throw it away if I give it to him. The patient was placed on BiPAP. Dr. Agustin Cheema had ordered hydrocodone as well as benzodiazepine but this was discontinued yesterday. The patient said that he is not receiving any pain medicine. The patient had told us that he has oxygen at home so he may use that as needed. 2) CORONARY ARTERY DISEASE: I did speak to the patient's risk management intern, Dr. Horn, and he confirmed that he is on his current medications. The patient reports he does not have any of these medications left and he is needing refills. I told him I could give him a seven day supply and he would need to follow up with his risk management intern, 3) CHRONIC ANTICOAGULATION: He is on this for paroxysmal atrial fibrillation. His Eliquis was held for one day when his platelet count was down to 84,000 and then came back up to 103,000 which is where he runs normally. The patient refused blood work on the day of discharge. 4) FALL: During his hospitalization he had a fall. He was noncompliant when wearing his monitor and got up to use the bathroom by himself. Because he was anticoagulated and had hit his head he had a head CT that did not read any acute abnormality. He had no further falls during his hospitalization. 5) THROMBOCYTOPENIA: His platelet count was stable at 100,000 with no signs of bleeding. 6) LEUKOPENIA: His white blood cell count was back in the normal range the day before discharge. 7) ANEMIA: His hemoglobin was 12.2 on 09/21/2018. 8) PAROXYSMAL ATRIAL FIBRILLATION: He has an atrial pacemaker. His rate was controlled during the hospitalization. He was continued on his home medication. His digoxin level was low on admission so we are unsure if was actually taking this medicine at home but Dr. Horn states he is supposed to be on it at home so again I sent seven days' worth of his cardiac medications and he will need to follow up with Dr. Horn. 9) HISTORY OF ILLICIT DRUG USE: At the time of discharge the patient was upset that he was not getting any pain medicine. He had asked for Toradol but I explained to him that he is on a blood thinner so we cannot give him Toradol because it is a nonsteroidal anti-inflammatory. Dr. Cheema discontinued the hydrocodone that he had ordered for while he was on the BiPAP. The patient was upset and stated that he would just go down the street and buy heroin there. I did not discuss this with him further as the patient was agitated and the patient was stable for discharge today. Dr. Cheema noted when he saw him yesterday that he could be discharged when the primary care doctor felt like he was ready to be discharged. 10) TOBACCO ABUSE: The patient was counseled that it would be best for his breathing if stopped smoking. DISCHARGE MEDICATIONS: Please see the discharge order. FOLLOW UP: He is to follow up with his primary care doctor, Dr. Cheema and Dr. Horn. DISPOSITION: The patient was discharged to home in good condition.
== END 2018-09-22 09:35 | disposition home or self-care (01) | DRG 190 ==
LOC: ED 10:51 → MED SURG 15:20 → OBSVTOIN 09-20 08:35
PROVIDERS: ADMIT Internal Medicine; ATTEND Internal Medicine
DX: J44.1 Chronic obstructive pulmonary disease with (acute) exacerbation (principal); J96.20 Acute and chronic respiratory failure, unspecified whether with hypoxia or hypercapnia; I50.9 Heart failure, unspecified; J20.9 Acute bronchitis, unspecified; I25.10 Atherosclerotic heart disease of native coronary artery without angina pectoris; G43.909 Migraine, unspecified, not intractable, without status migrainosus; Z86.73 Personal history of transient ischemic attack (TIA), and cerebral infarction without residual deficits; F17.200 Nicotine dependence, unspecified, uncomplicated; Z79.899 Other long term (current) drug therapy; Z79.01 Long term (current) use of anticoagulants; R79.1 Abnormal coagulation profile; Z95.0 Presence of cardiac pacemaker; R07.9 Chest pain, unspecified; R10.9 Unspecified abdominal pain; D69.6 Thrombocytopenia, unspecified; D64.9 Anemia, unspecified; D72.819 Decreased white blood cell count, unspecified; E78.5 Hyperlipidemia, unspecified; I48.0 Paroxysmal atrial fibrillation; K42.9 Umbilical hernia without obstruction or gangrene; W01.10XA Fall on same level from slipping, tripping and stumbling with subsequent striking against unspecified object, initial encounter; Y93.E8 Activity, other personal hygiene; Y92.230 Patient room in hospital as the place of occurrence of the external cause; Z95.1 Presence of aortocoronary bypass graft
CPT/HCPCS: 36000; 36415; 70450; 71045; 80048; 80053; 80162; 82805; 83605; 83880; 84484; 85025; 85027; 85379; 87040; 87070; 87798; 87899; 93005; 93041; 93268; 94002; 94003; 94150; 94640; 94760; 94762; 96360; 96361; 96365; 96374; 96375; 99285; G0378; J0456; J0696; J2930; J7609; A9270-GY

== ENCOUNTER 2019-02-03 17:30 | Emergency (ER) | payer MEDICARE ==
[2019-02-03] MEDS ORDERED: DUONEB 0.5-3 MG/3 ml Neb IH ONE ×2 (17:33→18:01)
[2019-02-03] MEDS ORDERED: BABY ASPIRIN 81 MG CHEW PO ONE (17:47)
[2019-02-03] MEDS ORDERED: Nitrostat 0.4 MG (ED) SL ONE ×4 (17:47→19:13)
[2019-02-03 17:49] LABS: A-aADO2 68; ABG HEMOGLOBIN 15.9; ABG POTASSIUM 4.5 (3.5-5.1); ABG SITE RIGHT BRACHIAL; ARTERIAL BLD GAS O2 SATURATION 100.2 % (95-100); ARTERIAL BLOOD GAS FIO2 40 %; ARTERIAL BLOOD GAS PCO2 38 mmHg (35-45); ARTERIAL BLOOD GAS PO2 170 mmHg (75-100); ARTERIAL BLOOD GAS pH 7.43 (7.35-7.45); CARBOXYHEMOGLOBIN 4.9 % THgb (0.0-6.9); HCO3- 25.2 (22-28); HGB O2 SAT 93.9 g/dF (94-100); Methhemoglobin 1.4 % (1.4-1.5); paO2 pAO1 0.71
[2019-02-03 17:53] VITALS: PULSE 70
[2019-02-03 17:54] LABS: BASOPHIL % 0.9 % (0.0-0.4); Basophil (Absolute #) 0.08 (0-0.4); Eosinophil % 2.8 % (0.00-5.0); Eosinophil (Absolute #) 0.24 (0-0.5); Granulocyte Absolute (ANC) 5.42 (1.4-6.9); Granulocytes % 62.6 % (36.0-66.0); Hematocrit 46.8 % (42-50); Hemoglobin 15.5 gm/dl (12.5-18.0); Lymphocyte (Absolute #) 1.81 (1.0-4.6); Lymphocytes % 20.9 % (24.0-44.0); Mean Corpuscular Hgb Concent. 33.1 g/dl (32-36); Mean Platelet Volume 8.9 fl (6-9.5); Monocyte (Absolute #) 1.11 (0.0-1.3); Monocytes % 12.8 % (0.0-12.0); Platelet Count 105 K/mm3 (150-450); Red Blood Count 5.64 M/mm3 (4.1-5.6); Red Cell Distribution Width 16.2 % (11.5-14.0); White Blood Count 8.7 K/mm3 (4.0-10.5)
[2019-02-03] MEDS ORDERED: Sodium Chloride 0.9% 1000 ML 1,000 ML IV SCH (18:00)
[2019-02-03 18:13] LABS: Mean Corpuscular Hemoglobin 27.4 pg (26-32)
[2019-02-03 18:16] LABS: INR 1.2 (0.8-3.0); PROTIME 13.6 SECONDS (8.83-12.87)
[2019-02-03] MEDS ORDERED: Sodium Chloride 0.9% 1000 ML 1,000 ML ONE (18:16)
[2019-02-03] MEDS ORDERED: BABY ASPIRIN 81 MG CHEW ONE (18:16)
[2019-02-03 18:27] LABS: ALBUMIN 4.5 g/dL (3.5-5.0); ALKALINE PHOSPHATASE 57 U/L (38-126); ANION GAP 12.7 MEQ/L (5-15); BLOOD UREA NITROGEN 17 mg/dL (9-20); CHLORIDE 109 mmol/L (98-107); Calcium 9.6 mg/dL (8.4-10.2); Carbon Dioxide 23 mmol/L (22-30); Creatinine 1 0.61 mg/dL (0.66-1.25); Glucose 113 mg/dL (74-106); NT PRO BNP 675 pg/mL (0-900); Potassium 4.6 mmol/L (3.5-5.1); SGOT/AST 51 U/L (17-59); SGPT/ALT 29 U/L (0-50); SODIUM 141 mmol/L (137-145); Total Protein 8.3 g/dL (6.3-8.2)
[2019-02-03] MEDS ORDERED: NITRO-BID 2% UD PACKETS TOP ONE (18:56)
[2019-02-03 19:10] LABS: Appearance CLEAR (CLEAR); Bilirubin NEGATIVE (NEGATIVE); Blood NEGATIVE Ery/ul (0-5); Glucose NEGATIVE (NEGATIVE); Ketones NEGATIVE (NEGATIVE); Leukocyte Esterase NEGATIVE (NEGATIVE); Nitrite NEGATIVE (NEGATIVE); Protein,Urine Dip NEGATIVE (Negative); Specific Gravity 1.015 (1.005-1.025); Urobilinogen 2 mg/dL (0-1)
[2019-02-03] MEDS ORDERED: NITRO-BID 2% UD PACKETS ONE (19:13)
[2019-02-03 19:15] LABS: Bacteria NONE SEEN /HPF (NEGATIVE)
[2019-02-03] MEDS ORDERED: Zofran 4 MG/2 ML VIAL IV ONE (19:16)
[2019-02-03] MEDS ORDERED: MORPHINE SULFATE 2 MG INJ IV ONE (19:17)
[2019-02-03 19:22] LABS: Amphetamine,Urine NEGATIVE (NEGATIVE); Barbiturate,Urine NEGATIVE (NEGATIVE); Benzodiazepine,Urine NEGATIVE (NEGATIVE); Cocaine,Urine NEGATIVE (NEGATIVE); Methadone,Urine NEGATIVE (NEGATIVE); Opiate,Urine POSITIVE (NEGATIVE); PCP,Urine NEGATIVE (NEGATIVE); THC,Urine NEGATIVE (NEGATIVE)
[2019-02-03] MEDS ORDERED: Zofran 4 MG/2 ML VIAL ONE (19:32)
[2019-02-03] MEDS ORDERED: MORPHINE SULFATE 2 MG INJ ONE (19:33)
[2019-02-03 20:25] VITALS: BP 112/68; O2SAT 96
--- NOTE | 2019-02-03 20:46 | ERPHSYRPT ---
- History of Present Illness Time Seen by Provider: 02/03/19 18:15 Source: patient Exam Limitations: clinical condition Patient Subjective Stated Complaint: SOB Triage Nursing Assessment: Patient brought back to ED via W/C and transferred self to bed. Patient complains of SOB for 45 minutes prior to coming in. Patient also complains of chest pain 5/10 with numbness to right arm. Patient's lungs clear a/p syd. Accessory muscle use. JVD noted. Heart tones audible. Physician History: PATIENT WITH A HISTORY OF COPD, CHF, PULMONARY EMBOLISM, CORONARY ARTERY DISEASE , INSERTION CORONARY STENTS, PACEMAKER, DEFIBRILLATORY COMPLAINS OF ACUTE ONSET OF DYSPNEA AND A PRODUCTIVE COUGH, ASSOCIATED WITH ANTERIOR CHEST PAIN PAIN SCALE 5/10. TOOK NITROGLYCERIN X 1 AT HOME. RECENTLY HOSPITALIZED AT [facility] 1 WEEK AGO FOR CONGESTIVE HEART FAILURE AND CHEST PAIN. HAS HISTORY OF CVA WITH LEFT SIDED RESIDUAL WEAKNESS. NOW COMPLAINS OF LEFT SIDED NUMBNESS, DENIES SLURRED SPEECH, OR BLURRED VISION. Timing/Duration: today Activities at Onset: none Severity of Dyspnea-Max: moderate Severity of Dyspnea-Current: moderate Possible Cause: occasional episodes Modifying Factors: Improves With: activity Associated Symptoms: chest pain/discomfort, heaviness (LEFT SIDED NUMBNESS) International travel in last 2 weeks: No Allergies/Adverse Reactions: carisoprodol [Carisoprodol] Allergy (Unknown, Verified 02/03/19 17:38) ketorolac Allergy (Unknown, Verified 02/03/19 17:38) Home Medications: Cyclobenzaprine HCl 10 mg [Cyclobenzaprine 10 MG] 10 mg PO [id number] PRN [History] Tamsulosin HCl 0.4 mg [Flomax 0.4 MG] 0.4 mg PO DAILY 05/13/13 [History] Fluticasone/Salmeterol [Advair 250-50 Diskus] 1 puff IH BID 07/11/13 [History] Aspirin [Aspirin EC] 81 mg PO DAILY 11/30/14 [History] Hx Tetanus, Diphtheria Vaccination/Date Given: Yes Hx Influenza Vaccination/Date Given: No Hx Pneumococcal Vaccination/Date Given: No Immunizations Up to Date: Yes - Review of Systems Constitutional: No Fever, No Chills Eyes: No Symptoms Ears, Nose, & Throat: No Symptoms Respiratory: Cough, Dyspnea Cardiac: Chest Pain, No Edema, No Syncope Abdominal/Gastrointestinal: No Symptoms, No Abdominal Pain, No Nausea, No Vomiting, No Diarrhea Genitourinary Symptoms: No Symptoms, No Dysuria Musculoskeletal: No Symptoms, No Back Pain, No Neck Pain Skin: No Symptoms, No Rash Neurological: Sensory Changes, No Dizziness, No Focal Weakness Psychological: No Symptoms Endocrine: No Symptoms All Other Systems: Reviewed and Negative - Past Medical History Pertinent Past Medical History: Yes Neurological History: Migraines, Stroke, TIA ENT History: Cataracts Cardiac History: Arrhythmia, Congestive Heart Failure, Coronary Artery Disease, High Cholesterol, Hypertension, Myocardial Infarction ([place]) Respiratory History: Asthma, Bronchitis, CHF, COPD, Pneumonia, Pulmonary Embolism Endocrine Medical History: No Pertinent History Musculoskeletal History: Arthritis GI Medical History: No Pertinent History History: No Pertinent History Psycho-Social History: Anxiety, Depression Male Reproductive Disorders: No Pertinent History Other Medical History: CABG , FEM POP IN THE LAST 10 YRS - Past Surgical History Past Surgical History: Yes Neuro Surgical History: No Pertinent History Cardiac: CABG, Cardiac Catheterization, Cardiac Stent, Internal Defibrillator, Pacemaker Respiratory: No Pertinent History Gastrointestinal: Appendectomy Genitourinary: No Pertinent History Musculoskeletal: No Pertinent History Male Surgical History: No Pertinent History Other Surgical History: bypass x 3, surgery to left leg after bite from brown recluse - Social History Smoking Status: Current every day smoker How long have you smoked: years Exposure to second hand smoke: Yes Drug Use: marijuana Patient Lives Alone: Yes - Nursing Vital Signs Nursing Vital Signs: Initial Vital Signs Temperature 98.1 F 02/03/19 17:44 Pulse Rate 70 02/03/19 17:44 Respiratory Rate 20 02/03/19 17:44 Blood Pressure 143/80 02/03/19 17:44 O2 Sat by Pulse Oximetry 97 02/03/19 17:44 Pain Scale Pain Intensity 0 - Physical Exam General Appearance: no apparent distress, alert Eye Exam: PERRL/EOMI Ears, Nose, Throat Exam: hearing grossly normal Neck Exam: normal inspection, supple Respiratory Exam: normal breath sounds, other (NO WHEEZES OR RHONCHI) Cardiovascular/Chest Exam: normal heart sounds, regular rate/rhythm Abdominal/Gastrointestinal Exam: soft, normal bowel sounds, No tenderness, No distention, No mass Extremity Exam: non-tender, normal range of motion, normal inspection, no calf tenderness, no pedal edema Peripheral Pulses Exam: carotid (R): 2+, carotid (L): 2+, femoral (R): 2+, femoral (L): 2+, dorsalis-pedis (R): 2+, dorsalis-pedis (L): 2+ Neurologic Exam: alert, oriented x 3, cooperative, [employer] principal II-XII nml as tested, sensation nml, other (NIH STROKE SCALE 1, NO SENSORY OR MOTOR DEFICITS), No motor deficits Skin Exam: normal color, warm, No dry SpO2 Interpretation: normal SpO2: 96 - Course EKG Interpreted by Me: RATE, Sinus Rhythm (ATRIAL PACEMAKER RATE 70) - Radiology Exams Chest X-ray Interpretation: Interpreted by me (VENOUS HILAR CONGESTION, NO INFILTRATES ) - CT Exams Head CT Interpretation: Tele-radiologist Report, No/Intracranial Hemorrhag Ordered Tests: Active Orders 24 hr Category Date Time Status Certified Bench Jeweler Technician STAT Care 02/03/19 17:48 Active EKG-ER Only STAT Care 02/03/19 17:47 Active Oxygen-ED Only Nasal Cannula 2 lpm Care 02/03/19 17:47 Active CHEST 1 VIEW (PORTABLE) Stat Exams 02/03/19 17:48 Taken HEAD WITHOUT CONTRAST [CT] Stat Exams 02/03/19 17:49 Taken ABG [ARTERIAL BLOOD GASES] Stat Lab 02/03/19 17:43 Completed CBC W DIFF Stat Lab 02/03/19 17:50 Completed CMP Stat Lab 02/03/19 17:50 Completed NT PRO BNP Stat Lab 02/03/19 17:50 Completed PROTIME WITH INR Stat Lab 02/03/19 17:50 Completed TROPONIN Q3H Lab 02/03/19 17:50 Completed TROPONIN Q3H Lab 02/03/19 21:00 Ordered TROPONIN Q3H Lab 02/04/19 00:00 Ordered TROPONIN Q3H Lab 02/04/19 03:00 Ordered TROPONIN Q3H Lab 02/04/19 06:00 Ordered UA W/RFX UR CULTURE Stat Lab 02/03/19 19:04 Completed Urine Triage Profile Stat Lab 02/03/19 19:04 Completed Peak Expiratory Flow Rate ONCE RT 02/03/19 18:02 Completed Respiratory Therapy Assessment DAILY RT 02/03/19 18:02 Completed Medication Summary Generic Name Dose Route Start Last Admin Trade Name Freq PRN Reason Stop Dose Admin Sodium Chloride 1,000 mls @ 50 mls/hr 02/03/19 18:00 02/03/19 18:20 Sodium Chloride 0.9% 1000 Ml IV 03/05/19 17:59 50 mls/hr .Q20H OWEN Administration Discontinued Medications Generic Name Dose Route Start Last Admin Trade Name Freq PRN Reason Stop Dose Admin Albuterol/Ipratropium Confirm 02/03/19 17:33 Duoneb 0.5-3 Mg/3 Ml Neb Administered 02/03/19 17:34 Dose 3 ml IH .STK-MED ONE Albuterol/Ipratropium 3 ml 02/03/19 18:01 Duoneb 0.5-3 Mg/3 Ml Neb IH 02/03/19 18:02 STAT ONE Aspirin 324 mg 02/03/19 17:47 02/03/19 18:22 Baby Aspirin 81 Mg Chew PO 02/03/19 17:48 324 mg STAT ONE Administration Aspirin Confirm 02/03/19 18:16 Baby Aspirin 81 Mg Chew Administered 02/03/19 18:17 Dose 324 mg .ROUTE .STK-MED ONE Morphine Sulfate 1 mg 02/03/19 19:17 02/03/19 19:37 Morphine Sulfate 2 Mg Inj IV 02/03/19 19:18 1 mg STAT ONE Administration Morphine Sulfate Confirm 02/03/19 19:33 Morphine Sulfate 2 Mg Inj Administered 02/03/19 19:34 Dose 2 mg .ROUTE .STK-MED ONE Nitroglycerin 0.4 mg 02/03/19 17:47 02/03/19 18:23 Nitrostat 0.4 Mg (Ed) SL 02/03/19 17:48 0.4 mg STAT ONE Administration Nitroglycerin Confirm 02/03/19 18:16 Nitrostat 0.4 Mg (Ed) Administered 02/03/19 18:17 Dose 0.4 mg SL .STK-MED ONE Nitroglycerin 0.4 mg 02/03/19 18:56 02/03/19 19:17 Nitrostat 0.4 Mg (Ed) SL 02/03/19 18:57 0.4 mg STAT ONE Administration Nitroglycerin 1 gm 02/03/19 18:56 02/03/19 19:16 Nitro-Bid 2% Ud Packets TOP 02/03/19 18:57 1 gm STAT ONE Administration Nitroglycerin Confirm 02/03/19 19:13 Nitro-Bid 2% Ud Packets Administered 02/03/19 19:14 Dose 1 gm .ROUTE .STK-MED ONE Nitroglycerin Confirm 02/03/19 19:13 Nitrostat 0.4 Mg (Ed) Administered 02/03/19 19:14 Dose 0.4 mg SL .STK-MED ONE Ondansetron HCl 4 mg 02/03/19 19:16 02/03/19 19:38 Zofran 4 Mg/2 Ml Vial IV 02/03/19 19:17 4 mg STAT ONE Administration Ondansetron HCl Confirm 02/03/19 19:32 Zofran 4 Mg/2 Ml Vial Administered 02/03/19 19:33 Dose 4 mg .ROUTE .STK-MED ONE Lab/Rad Data: Laboratory Result Diagrams 02/03/19 17:50 02/03/19 17:50 Laboratory Results 02/03/19 02/03/19 02/03/19 Range/Units 19:04 19:04 17:50 WBC (4.0-10.5) K/mm3 RBC (4.1-5.6) M/mm3 Hgb (12.5-18.0) gm/dl Hct (42-50) % MCV (78-100) fl MCH (26-32) pg MCHC (32-36) g/dl RDW (11.5-14.0) % Plt Count (150-450) K/mm3 MPV (6-9.5) fl Gran % (36.0-66.0) % Eos # (Auto) (0-0.5) Absolute Lymphs (auto) (1.0-4.6) Absolute Monos (auto) (0.0-1.3) Lymphocytes % (24.0-44.0) % Monocytes % (0.0-12.0) % Eosinophils % (0.00-5.0) % Basophils % (0.0-0.4) % Absolute Granulocytes (1.4-6.9) Basophils # (0-0.4) PT (8.83-12.87) SECONDS INR (0.8-3.0) Puncture Site pCO2 (35-45) mmHg pO2 (75-100) mmHg Base Excess (-2.0-2.0) O2 Saturation (94-100) g/dF ABG pH (7.35-7.45) ABG HCO3 (22-28) ABG O2 Sat (Measured) (95-100) % Lorenzo Test A-a Gradient a/A Ratio Hemoglobin Carboxyhemoglobin (0.0-6.9) % THgb Methemoglobin (1.4-1.5) % Potassium (3.5-5.1) Temperature C POC O2 Flow Rate % Sodium (137-145) mmol/L Chloride (98-107) mmol/L Carbon Dioxide (22-30) mmol/L Anion Gap (5-15) MEQ/L BUN (9-20) mg/dL Creatinine (0.66-1.25) mg/dL Estimated GFR ML/MIN Glucose (74-106) mg/dL Calcium (8.4-10.2) mg/dL Total Bilirubin (0.2-1.3) mg/dL AST (17-59) U/L ALT (0-50) U/L Alkaline Phosphatase (38-126) U/L Troponin I < 0.012 (0.000-0.034) ng/mL NT-Pro-B Natriuret Pep (0-900) pg/mL Serum Total Protein (6.3-8.2) g/dL Albumin (3.5-5.0) g/dL Urine Color YELLOW (YELLOW) Urine Appearance CLEAR (CLEAR) Urine pH 7.0 (5-6) Ur Specific [place] 1.015 (1.005-1.025) Urine Protein NEGATIVE (Negative) Urine Ketones NEGATIVE (NEGATIVE) Urine Blood NEGATIVE (0-5) Jono/ul Urine Nitrite NEGATIVE (NEGATIVE) Urine Bilirubin NEGATIVE (NEGATIVE) Urine Urobilinogen 2 (0-1) mg/dL Ur Leukocyte Esterase NEGATIVE (NEGATIVE) Urine WBC (Auto) NONE (0-5) /HPF Urine RBC (Auto) NONE (0-2) /HPF U Epithel Cells (Auto) NONE (FEW) /HPF Urine Bacteria (Auto) NONE SEEN (NEGATIVE) /HPF Urine Culture Reflexed NO (NO) Urine Glucose NEGATIVE (NEGATIVE) mg/dL Urine Opiates Level POSITIVE (NEGATIVE) Ur Methadone NEGATIVE (NEGATIVE) Urine Barbiturates NEGATIVE (NEGATIVE) Ur Phencyclidine (PCP) NEGATIVE (NEGATIVE) Urine Amphetamine NEGATIVE (NEGATIVE) U Benzodiazepine Level NEGATIVE (NEGATIVE) Urine Cocaine NEGATIVE (NEGATIVE) Urine Marijuana (THC) NEGATIVE (NEGATIVE) 02/03/19 02/03/19 02/03/19 Range/Units 17:50 17:50 17:50 WBC 8.7 (4.0-10.5) K/mm3 RBC 5.64 H (4.1-5.6) M/mm3 Hgb 15.5 (12.5-18.0) gm/dl Hct 46.8 (42-50) % MCV 83.0 (78-100) fl MCH 27.4 (26-32) pg MCHC 33.1 (32-36) g/dl RDW 16.2 H (11.5-14.0) % Plt Count 105 L (150-450) K/mm3 MPV 8.9 (6-9.5) fl Gran % 62.6 (36.0-66.0) % Eos # (Auto) 0.24 (0-0.5) Absolute Lymphs (auto) 1.81 (1.0-4.6) Absolute Monos (auto) 1.11 (0.0-1.3) Lymphocytes % 20.9 L (24.0-44.0) % Monocytes % 12.8 H (0.0-12.0) % Eosinophils % 2.8 (0.00-5.0) % Basophils % 0.9 (0.0-0.4) % Absolute Granulocytes 5.42 (1.4-6.9) Basophils # 0.08 (0-0.4) PT 13.6 H (8.83-12.87) SECONDS INR 1.20 (0.8-3.0) Puncture Site pCO2 (35-45) mmHg pO2 (75-100) mmHg Base Excess (-2.0-2.0) O2 Saturation (94-100) g/dF ABG pH (7.35-7.45) ABG HCO3 (22-28) ABG O2 Sat (Measured) (95-100) % Lorenzo Test A-a Gradient a/A Ratio Hemoglobin Carboxyhemoglobin (0.0-6.9) % THgb Methemoglobin (1.4-1.5) % Potassium 4.6 (3.5-5.1) Temperature C POC O2 Flow Rate % Sodium 141 (137-145) mmol/L Chloride 109 H (98-107) mmol/L Carbon Dioxide 23 (22-30) mmol/L Anion Gap 12.7 (5-15) MEQ/L BUN 17 (9-20) mg/dL Creatinine 0.61 L (0.66-1.25) mg/dL Estimated GFR > 60.0 ML/MIN Glucose 113 H (74-106) mg/dL Calcium 9.6 (8.4-10.2) mg/dL Total Bilirubin 0.80 (0.2-1.3) mg/dL AST 51 (17-59) U/L ALT 29 (0-50) U/L Alkaline Phosphatase 57 (38-126) U/L Troponin I (0.000-0.034) ng/mL NT-Pro-B Natriuret Pep 675 (0-900) pg/mL Serum Total Protein 8.3 H (6.3-8.2) g/dL Albumin 4.5 (3.5-5.0) g/dL Urine Color (YELLOW) Urine Appearance (CLEAR) Urine pH (5-6) Ur Specific [place] (1.005-1.025) Urine Protein (Negative) Urine Ketones (NEGATIVE) Urine Blood (0-5) Jono/ul Urine Nitrite (NEGATIVE) Urine Bilirubin (NEGATIVE) Urine Urobilinogen (0-1) mg/dL Ur Leukocyte Esterase (NEGATIVE) Urine WBC (Auto) (0-5) /HPF Urine RBC (Auto) (0-2) /HPF U Epithel Cells (Auto) (FEW) /HPF Urine Bacteria (Auto) (NEGATIVE) /HPF Urine Culture Reflexed (NO) Urine Glucose (NEGATIVE) mg/dL Urine Opiates Level (NEGATIVE) Ur Methadone (NEGATIVE) Urine Barbiturates (NEGATIVE) Ur Phencyclidine (PCP) (NEGATIVE) Urine Amphetamine (NEGATIVE) U Benzodiazepine Level (NEGATIVE) Urine Cocaine (NEGATIVE) Urine Marijuana (THC) (NEGATIVE) 02/03/19 Range/Units 17:43 WBC (4.0-10.5) K/mm3 RBC (4.1-5.6) M/mm3 Hgb (12.5-18.0) gm/dl Hct (42-50) % MCV (78-100) fl MCH (26-32) pg MCHC (32-36) g/dl RDW (11.5-14.0) % Plt Count (150-450) K/mm3 MPV (6-9.5) fl Gran % (36.0-66.0) % Eos # (Auto) (0-0.5) Absolute Lymphs (auto) (1.0-4.6) Absolute Monos (auto) (0.0-1.3) Lymphocytes % (24.0-44.0) % Monocytes % (0.0-12.0) % Eosinophils % (0.00-5.0) % Basophils % (0.0-0.4) % Absolute Granulocytes (1.4-6.9) Basophils # (0-0.4) PT (8.83-12.87) SECONDS INR (0.8-3.0) Puncture Site RIGHT BRACHIAL pCO2 38 (35-45) mmHg pO2 170 H* (75-100) mmHg Base Excess 1.0 (-2.0-2.0) O2 Saturation 93.9 L (94-100) g/dF ABG pH 7.43 (7.35-7.45) ABG HCO3 25.2 (22-28) ABG O2 Sat (Measured) 100.2 H (95-100) % Lorenzo Test NOT APPLICABLE A-a Gradient 68 a/A Ratio 0.71 Hemoglobin 15.9 Carboxyhemoglobin 4.9 (0.0-6.9) % THgb Methemoglobin 1.4 (1.4-1.5) % Potassium 4.5 (3.5-5.1) Temperature 37.0 C POC O2 Flow Rate 40 % Sodium (137-145) mmol/L Chloride (98-107) mmol/L Carbon Dioxide (22-30) mmol/L Anion Gap (5-15) MEQ/L BUN (9-20) mg/dL Creatinine (0.66-1.25) mg/dL Estimated GFR ML/MIN Glucose (74-106) mg/dL Calcium (8.4-10.2) mg/dL Total Bilirubin (0.2-1.3) mg/dL AST (17-59) U/L ALT (0-50) U/L Alkaline Phosphatase (38-126) U/L Troponin I (0.000-0.034) ng/mL NT-Pro-B Natriuret Pep (0-900) pg/mL Serum Total Protein (6.3-8.2) g/dL Albumin (3.5-5.0) g/dL Urine Color (YELLOW) Urine Appearance (CLEAR) Urine pH (5-6) Ur Specific [place] (1.005-1.025) Urine Protein (Negative) Urine Ketones (NEGATIVE) Urine Blood (0-5) Jono/ul Urine Nitrite (NEGATIVE) Urine Bilirubin (NEGATIVE) Urine Urobilinogen (0-1) mg/dL Ur Leukocyte Esterase (NEGATIVE) Urine WBC (Auto) (0-5) /HPF Urine RBC (Auto) (0-2) /HPF U Epithel Cells (Auto) (FEW) /HPF Urine Bacteria (Auto) (NEGATIVE) /HPF Urine Culture Reflexed (NO) Urine Glucose (NEGATIVE) mg/dL Urine Opiates Level (NEGATIVE) Ur Methadone (NEGATIVE) Urine Barbiturates (NEGATIVE) Ur Phencyclidine (PCP) (NEGATIVE) Urine Amphetamine (NEGATIVE) U Benzodiazepine Level (NEGATIVE) Urine Cocaine (NEGATIVE) Urine Marijuana (THC) (NEGATIVE) - Progress Progress: improved Progress Note: 02/03/19 20:49 ALL LAB TEST REVIEWED AND ARE NORMAL, ARTERIAL BLOOD GAS, NEGATIVE TROPONIN, Discussed with DrNicole: Other (DISCUSSED WITH DR LEMA AT 1945 ACCEPTS TRANSFER TO [facility]IA [facility]) - Departure Departure Disposition: Transfer Clinical Impression: ACUTE CHEST PAIN, EXACERBATION COPD, TRANSIENT ISCHEMIC ATTACK Clinical Impression: (Ruled Out): TIA due to embolism Condition: Stable Critical Care Time: No Referrals: HELIO SALGUERO [Primary Care Provider] -
--- NOTE | 2019-02-04 07:33 | XRAY ---
Indication: Left-sided numbness. Short of breath. Multiple contiguous axial images obtained through the head without contrast. Comparison: September 19, 2018. Minimal motion artifact. Stable age-appropriate global atrophy, minimal periventricular degenerative micro-ischemia, and small focus inferior right temporal lobe encephalomalacia. No acute intracranial hemorrhage, abnormal extra-axial fluid collection, or mass effect. Fourth ventricle is midline without hydrocephalus. Bony calvarium intact. Visualized paranasal sinuses and mastoid air cells are clear. Impression: Stable aging brain including atrophy and degenerative micro-ischemia. Also stable inferior right temporal lobe encephalomalacia either from old injury or infarct. No new or acute intracranial abnormalities. Comment: Preliminary interpretation was made by [facility]. No discrepancy. CTDI 69.11
--- NOTE | 2019-02-04 07:35 | XRAY ---
Indication: Short of breath. Comparison: September 18, 2018. Portable apical lordotic chest remains clear again with incidental calcified granulomas. Heart is not enlarged for AP portable technique again demonstrating cardiac valvular replacement surgery and left-sided AICD. No new/acute findings.
== END 2019-02-03 21:18 | disposition short-term general hospital (02) ==
LOC: ED 17:30
DX: R07.89 Other chest pain (principal); J44.1 Chronic obstructive pulmonary disease with (acute) exacerbation; G45.9 Transient cerebral ischemic attack, unspecified; F41.8 Other specified anxiety disorders; I50.9 Heart failure, unspecified; E78.00 Pure hypercholesterolemia, unspecified; Z86.711 Personal history of pulmonary embolism; M19.90 Unspecified osteoarthritis, unspecified site; Z79.899 Other long term (current) drug therapy
CPT/HCPCS: 36415; 36600; 70450; 71045; 80053; 80307; 81001; 82375; 82803; 83880; 84484; 85025; 85610; 93005; 93041; 94150; 94640; 96360; 96361; 96374; 96375; 99285; J2270; J2405; A9270-GY

== ENCOUNTER 2019-08-22 05:43 | Emergency (ER) | payer MEDICARE ==
[2019-08-22] MEDS ORDERED: DUONEB 0.5-3 MG/3 ml Neb IH ONE ×2 (05:54→05:58)
[2019-08-22] MEDS ORDERED: PROVENTIL 2.5 MG/3 ML NEB IH ONE ×3 (05:54→06:04)
[2019-08-22] MEDS ORDERED: DELTASONE 20 MG PO ONE (06:05)
--- NOTE | 2019-08-22 06:05 | ERPHSYRPT ---
- History of Present Illness Time Seen by Provider: 08/22/19 06:01 Source: patient, EMS Exam Limitations: no limitations Physician History: The patient is a 58-year-old man with a past medical history significant for COPD, ongoing cigarette use which he currently is smoking 6 cigarettes a day, CAD, atrial fibrillation, anemia, leukopenia, thrombocytopenia, chronic falls and anti-coagulation with a pacer than presents with a chief complaint of dyspnea. Onset reported as last night. He had secondary complaints of abdominal pain in addition to a syncopal episode and fall this evening. Of note, the patient was transported by EMS and reportedly picked him up from home. He recently had some unspecified abdominal surgery which is believed to be a hernia repair on July 31, 2019. He became short of breath using his supplemental oxygen, specifically 2 L per minute via nasal cannula. He also endorses having a productive cough and when she's been coughing of yellow 10 sputum. He denies fever, chills, chest pain but reports that he passed out at least twice a night once moving from a chair to their a counter of bed. Of note, the patient was a poor historian. He complained of abdominal pain mainly to his surgical wound and is unknown he supposed to followup to have the veronique removed. Informed me that they send him home with only "11 pills" which she finished and reportedly has not been taking any pain medicine at home after this because it "doesn't work". Allergies/Adverse Reactions: carisoprodol [Carisoprodol] Allergy (Unknown, Verified 08/22/19 05:47) ketorolac Allergy (Unknown, Verified 08/22/19 05:47) Home Medications: Cyclobenzaprine HCl 10 mg [Cyclobenzaprine 10 MG] 10 mg PO [id number] PRN [History] Tamsulosin HCl 0.4 mg [Flomax 0.4 MG] 0.4 mg PO DAILY 05/13/13 [History] Fluticasone/Salmeterol [Advair 250-50 Diskus] 1 puff IH BID 07/11/13 [History] Aspirin [Aspirin EC] 81 mg PO DAILY 11/30/14 [History] Hx Tetanus, Diphtheria Vaccination/Date Given: Yes Hx Influenza Vaccination/Date Given: No Hx Pneumococcal Vaccination/Date Given: No - Review of Systems Constitutional: No Fever, No Chills Eyes: No Symptoms Respiratory: Cough, Dyspnea, Dyspnea on Exertion ([place]) Cardiac: Syncope, No Chest Pain, No Edema, No Palpitations Abdominal/Gastrointestinal: Abdominal Pain, No Nausea, No Vomiting, No Constipation, No Hematemesis, No Hematochezia Genitourinary Symptoms: No Symptoms Musculoskeletal: No Symptoms Skin: No Symptoms Neurological: No Symptoms Psychological: No Symptoms Endocrine: No Symptoms Hematologic/Lymphatic: No Symptoms Immunological/Allergic: No Symptoms All Other Systems: Reviewed and Negative - Past Medical History Pertinent Past Medical History: Yes Neurological History: Migraines, Stroke, TIA ENT History: Cataracts Cardiac History: Arrhythmia, Congestive Heart Failure, Coronary Artery Disease, High Cholesterol, Hypertension, Myocardial Infarction ([place]) Respiratory History: Asthma, Bronchitis, CHF, COPD, Pneumonia, Pulmonary Embolism Endocrine Medical History: No Pertinent History Musculoskeletal History: Arthritis GI Medical History: No Pertinent History History: No Pertinent History Psycho-Social History: Anxiety, Depression Male Reproductive Disorders: No Pertinent History Other Medical History: CABG , FEM POP IN THE LAST 10 YRS - Past Surgical History Past Surgical History: Yes Neuro Surgical History: No Pertinent History Cardiac: CABG, Cardiac Catheterization, Cardiac Stent, Internal Defibrillator, Pacemaker Respiratory: No Pertinent History Gastrointestinal: Appendectomy Genitourinary: No Pertinent History Musculoskeletal: No Pertinent History Male Surgical History: No Pertinent History Other Surgical History: bypass x 3, surgery to left leg after bite from brown recluse - Social History Smoking Status: Current every day smoker How long have you smoked: years Exposure to second hand smoke: Yes Drug Use: marijuana Patient Lives Alone: Yes - Nursing Vital Signs Nursing Vital Signs: Initial Vital Signs Temperature 98.1 F 08/22/19 05:48 Pulse Rate 70 08/22/19 05:48 Respiratory Rate 22 08/22/19 05:48 Blood Pressure 146/93 08/22/19 05:48 O2 Sat by Pulse Oximetry 99 08/22/19 05:48 Pain Scale Pain Intensity 8 - Physical Exam General Appearance: mild distress Eye Exam: PERRL/EOMI, EOM palsy/anisocoria Ears, Nose, Throat Exam: normal ENT inspection, TMs normal, pharyngeal erythema , tonsillar exudate, No TM abnormal (L) Neck Exam: normal inspection, non-tender, supple, No meningismus Respiratory Exam: respiratory distress, diminished breath sounds, wheezing ( Tachypnea, diminished lung sounds bilaterally with fine expiratory wheezing bilaterally), No chest tenderness Cardiovascular Exam: regular rate/rhythm, normal heart sounds, normal peripheral pulses, capillary refill <2 sec, No murmur, No friction rub, No edema Gastrointestinal/Abdomen Exam: soft, tenderness, other (4-5 cm surical wound noted to midline abdominal wall with surgical veronique present. Mild surronding erythma with no fluctuance or purulent drainage noted.) Extremity Exam: normal inspection, other (No asymmetric lower extremity edema, calf tenderness, or swelling to suggest DVT), No joint swelling, No tenderness Neurologic Exam: alert, oriented x 3, cooperative Skin Exam: normal color, warm, dry, No rash O2 Delivery: Room Air - Course EKG Interpreted by Me: RATE, Other (Paced rhythm, vent rate 70 bpm, DC interval 208 ms, QRS duration 114 ms, QT/QTc 424/455 ms) - CT Exams Head CT Interpretation: Other (No acute findings other than mild paranasal sinus disease. Stable small right temporal lobe encephalomalacia from old infarct/ injury. No acute findings. ) Ordered Tests: Medication Summary Discontinued Medications Generic Name Dose Route Start Last Admin Trade Name Freq PRN Reason Stop Dose Admin Hydrocodone Bitart/Acetaminophen 2 tab 08/22/19 06:06 08/22/19 06:10 [place] 5/325 Mg PO 08/22/19 06:07 2 tab STAT ONE Administration Hydrocodone Bitart/Acetaminophen Confirm 08/22/19 06:09 [place] 5/325 Mg Administered 08/22/19 06:10 Dose 2 tab .ROUTE .STK-MED ONE Albuterol Sulfate Confirm 08/22/19 05:54 Proventil 2.5 Mg/3 Ml Neb Administered 08/22/19 05:55 Dose 5 mg IH .STK-MED ONE Albuterol Sulfate 2.5 mg 08/22/19 05:58 08/22/19 06:05 Proventil 2.5 Mg/3 Ml Neb IH 08/22/19 05:59 2.5 mg STAT ONE Administration Albuterol Sulfate 2.5 mg 08/22/19 06:04 08/22/19 06:05 Proventil 2.5 Mg/3 Ml Neb IH 08/22/19 06:05 2.5 mg STAT ONE Administration Albuterol/Ipratropium Confirm 08/22/19 05:54 Duoneb 0.5-3 Mg/3 Ml Neb Administered 08/22/19 05:55 Dose 3 ml IH .STK-MED ONE Albuterol/Ipratropium 3 ml 08/22/19 05:58 08/22/19 05:58 Duoneb 0.5-3 Mg/3 Ml Neb IH 08/22/19 05:59 3 ml STAT ONE Administration Doxycycline Hyclate 100 mg 08/22/19 06:06 08/22/19 06:10 Vibramycin 100 Mg PO 08/22/19 06:07 100 mg STAT ONE Administration Doxycycline Hyclate Confirm 08/22/19 06:09 Vibramycin 100 Mg Administered 08/22/19 06:10 Dose 100 mg .ROUTE .STK-MED ONE Prednisone 40 mg 08/22/19 06:05 08/22/19 06:10 Deltasone 20 Mg PO 08/22/19 06:06 40 mg STAT ONE Administration Prednisone Confirm 08/22/19 06:09 Deltasone 20 Mg Administered 08/22/19 06:10 Dose 40 mg .ROUTE .STK-MED ONE Lab/Rad Data: Laboratory Result Diagrams 08/22/19 06:15 08/22/19 06:15 Laboratory Results 08/22/19 08/22/19 Range/Units 06:15 06:15 WBC 3.8 L (4.0-10.5) K/mm3 RBC 4.32 (4.1-5.6) M/mm3 Hgb 12.5 (12.5-18.0) gm/dl Hct 38.1 L (42-50) % MCV 88.2 (78-100) fl MCH 28.9 (26-32) pg MCHC 32.8 (32-36) g/dl RDW 16.8 H (11.5-14.0) % Plt Count 80 L (150-450) K/mm3 MPV 10.9 (7.5-11.0) fl Gran % 56.6 (36.0-66.0) % Eos # (Auto) 0.39 (0-0.5) Absolute Lymphs (auto) 0.66 L (1.0-4.6) Absolute Monos (auto) 0.55 (0.0-1.3) Lymphocytes % 17.6 L (24.0-44.0) % Monocytes % 14.6 H (0.0-12.0) % Eosinophils % 10.4 H (0.00-5.0) % Basophils % 0.8 (0.0-0.4) % Absolute Granulocytes 2.13 (1.4-6.9) Segmented Neutrophils 63 (36.-66.) % Band Neutrophils 4 H (0.0-2.0) % Lymphocytes (Manual) 13 L (24-44) % Monocytes (Manual) 10 (0.0-12.0) % Eosinophils (Manual) 9 H (0.00-3.0) % Basophils (Manual) 1 (0.0-1.0) % Basophils # 0.03 (0-0.4) Toxic Granulation 1+ Platelet Estimate DECREASED (NORMAL) RBC Morphology ABNORMAL Anisocytosis 1+ Sodium 141 (137-145) mmol/L Potassium 4.3 (3.5-5.1) mmol/L Chloride 107 (98-107) mmol/L Carbon Dioxide 29 (22-30) mmol/L Anion Gap 10.2 (5-15) MEQ/L BUN 11 (9-20) mg/dL Creatinine 0.67 (0.66-1.25) mg/dL Estimated GFR > 60.0 ML/MIN Glucose 86 (74-106) mg/dL Calcium 9.1 (8.4-10.2) mg/dL Troponin I < 0.012 (0.000-0.034) ng/mL NT-Pro-B Natriuret Pep 3800 H (0-900) pg/mL - Progress Progress: improved Progress Note: 08/22/19 06:52 the patient's nurse informing that the patient is refusing his CT of his chest and is refusing to wear his oxygen. I spoke to the patient about this and he is angry that he is not getting any "stronger" pain medication and then when he was given, specifically are clear. He was experiencing abdominal pain and I told him it was likely from his COPD exacerbation and cough and the fact that his tachypnea and a fever to wear his oxygen he would be short of breath and therefore he would have to breathes fast and therefore he would hurt so bad. The patient seemed to become agitated and is said "I'm done with this" and started to rip off his leads and monitoring devices. He stated he wanted to leave and was willing to leave the emergency department against medical advice. 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 He agreed that his IV and jumped up out of the bed and quickly put his shoes on after getting dressed. I tried to speak with the patient about completing his workup and discussing risks of him refusing his workup to include . The patient did not want any of it. He then walked out of the emergency department lobby yelling obscenities at me. Until he gets in the lobby quietly but he waited for the nurse to contact his [id number] who he provided a contact information for her to provide transportation. I informed him that if he change his mind and wanted to complete his workup in the emergency department he could do so. I reviewed his EMR and it appears he had a hospital admission in 08/2018-2018 in which a similar incident was described regarding pain medication. 08/22/19 07:29 [facility] records from [facility] were faxed to our facility. It appears the patient had an exploratory laparotomy and repair of an umbilical hernia on July 31, 2019. This is deep to the evidence of a strangulate hernia seen on CT that was performed in then emergency department. insect was reviewed it appears the patient had 11 oxycodone prescribed on August 04, 2019. 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 08/23/19 16:07 Counseled pt/family regarding: rad results - Departure Departure Disposition: AMA Clinical Impression: COPD with exacerbation, Post-operative pain, Syncope, Leukopenia, Thrombocytopenia Condition: Stable Critical Care Time: No Referrals: HELIO SALGUERO [Primary Care Provider] - Instructions: Chronic Obstructive Pulmonary Disease
[2019-08-22] MEDS ORDERED: NORCO 5/325 MG PO ONE (06:06)
[2019-08-22] MEDS ORDERED: Vibramycin 100 MG PO ONE (06:06)
[2019-08-22] MEDS ORDERED: Vibramycin 100 MG ONE (06:09)
[2019-08-22] MEDS ORDERED: DELTASONE 20 MG ONE (06:09)
[2019-08-22] MEDS ORDERED: NORCO 5/325 MG ONE (06:09)
[2019-08-22 06:27] LABS: Absolute Neutrophil Ct (ANC) 2.13 (1.4-6.9); BASOPHIL % 0.8 % (0.0-0.4); Basophil (Absolute #) 0.03 (0-0.4); Eosinophil % 10.4 % (0.00-5.0); Eosinophil (Absolute #) 0.39 (0-0.5); Hematocrit 38.1 % (42-50); Hemoglobin 12.5 gm/dl (12.5-18.0); Lymphocyte (Absolute #) 0.66 (1.0-4.6); Lymphocytes % 17.6 % (24.0-44.0); Mean Cell Volume 88.2 fl (78-100); Mean Corpuscular Hemoglobin 28.9 pg (26-32); Mean Corpuscular Hgb Concent. 32.8 g/dl (32-36); Mean Platelet Volume 10.9 fl (7.5-11.0); Monocyte (Absolute #) 0.55 (0.0-1.3); Monocytes % 14.6 % (0.0-12.0); Neutrophil % 56.6 % (36.0-66.0); Platelet Count 80 K/mm3 (150-450); Red Blood Count 4.32 M/mm3 (4.1-5.6); Red Cell Distribution Width 16.8 % (11.5-14.0); White Blood Count 3.8 K/mm3 (4.0-10.5)
[2019-08-22 06:51] VITALS: BP 151/86; PULSE 70; O2SAT 94
[2019-08-22 06:51] LABS: ANION GAP 10.2 MEQ/L (5-15); BLOOD UREA NITROGEN 11 mg/dL (9-20); CHLORIDE 107 mmol/L (98-107); Calcium 9.1 mg/dL (8.4-10.2); Carbon Dioxide 29 mmol/L (22-30); Creatinine 1 0.67 mg/dL (0.66-1.25); Glucose 86 mg/dL (74-106); NT PRO BNP 3800 pg/mL (0-900); Potassium 4.3 mmol/L (3.5-5.1); SODIUM 141 mmol/L (137-145)
[2019-08-22 06:52] LABS: TROPONIN < 0.012 ng/mL (0.000-0.034)
[2019-08-22 07:10] LABS: ANISOCYTOSIS 1+; BAND 4 % (0.0-2.0); Basophil 1 % (0.0-1.0); Eosinophil 9 % (0.00-3.0); Lymphocytes 13 % (24-44); Monocyte 10 % (0.0-12.0); Neutrophils 63 % (36.-66.); Platelet Estimate DECREASED (NORMAL); Total Cells Counted 100; Toxic Granulation 1+
--- NOTE | 2019-08-22 08:42 | XRAY ---
Indication: Status post fall. Current blood thinner therapy. Multiple contiguous axial images obtained through the head without contrast. Comparison: February 03, 2019. Stable age-appropriate global atrophy, minimal periventricular degenerative micro-ischemia, and small focus inferior right temporal lobe encephalomalacia. No acute intracranial hemorrhage, abnormal extra-axial fluid collection, or mass effect. Fourth ventricle is midline without hydrocephalus. Bony calvarium intact. There is now mild mucosal thickening of both ethmoid and both maxillary sinuses without fluid leveling. Mastoid air cells are clear. Impression: 1. New paranasal sinus disease. 2. No acute intracranial abnormalities. 3. Stable atrophy and degenerative micro-ischemia within normal limits for patient's age. 4. Stable right temporal lobe encephalomalacia from old injury/infarct.
== END 2019-08-22 07:11 | disposition left against medical advice (07) ==
LOC: ED 05:43
DX: J44.1 Chronic obstructive pulmonary disease with (acute) exacerbation (principal); G89.18 Other acute postprocedural pain; R55 Syncope and collapse; D72.819 Decreased white blood cell count, unspecified; D69.6 Thrombocytopenia, unspecified; Z72.0 Tobacco use; I25.10 Atherosclerotic heart disease of native coronary artery without angina pectoris; Z86.79 Personal history of other diseases of the circulatory system; R29.6 Repeated falls; I50.9 Heart failure, unspecified; E78.00 Pure hypercholesterolemia, unspecified; Z95.810 Presence of automatic (implantable) cardiac defibrillator; Z79.82 Long term (current) use of aspirin; Z79.899 Other long term (current) drug therapy; Z86.73 Personal history of transient ischemic attack (TIA), and cerebral infarction without residual deficits
CPT/HCPCS: 36000; 36415; 70450; 80048; 83880; 84484; 85025; 93005; 93041; 94640; 94760; 99284; J7609; A9270-GY

== ENCOUNTER 2020-05-06 11:55 | Emergency (ER) | payer MEDICARE ==
[2020-05-06] MEDS ORDERED: BRETHINE 1 MG/ML ONE (11:58)
[2020-05-06] MEDS ORDERED: DUONEB 0.5-3 MG/3 ml Neb IH ONE (12:02)
[2020-05-06] MEDS ORDERED: solu-MEDROL 125 MG IV ONE (12:03)
[2020-05-06] MEDS ORDERED: PROVENTIL 2.5 MG/3 ML NEB IH ONE (12:06)
[2020-05-06] MEDS ORDERED: solu-MEDROL 125 MG ONE (12:25)
[2020-05-06 12:29] LABS: A-aADO2 592; ABG HEMOGLOBIN 16.2; ABG POTASSIUM 4.2 (3.5-5.1); ARTERIAL BLD GAS O2 SATURATION 68.3 % (95-100); ARTERIAL BLOOD GAS BASE EXCESS 3.6 (-2.0-2.0); ARTERIAL BLOOD GAS FIO2 100 %; ARTERIAL BLOOD GAS PCO2 63 mmHg (35-45); CARBOXYHEMOGLOBIN 3.9 % THgb (0.0-6.9); HCO3- 31.7 (22-28); HGB O2 SAT 65.1 g/dF (94-100); Methhemoglobin 0.8 % (1.4-1.5); paO2 pAO1 0.07
[2020-05-06] MEDS ORDERED: Lasix 40 MG/4 ML IV ONE (12:29)
[2020-05-06] MEDS ORDERED: Lasix 40 MG/4 ML ONE (12:29)
[2020-05-06 12:30] LABS: ARTERIAL BLOOD GAS PO2 42 mmHg (75-100)
[2020-05-06 12:31] LABS: ARTERIAL BLOOD GAS pH 7.31 (7.35-7.45)
[2020-05-06] MEDS ORDERED: Ntg 0.2MG/Ml in D5W GLASS*** 250 ML IV PRN (12:32)
[2020-05-06] MEDS ORDERED: Ntg 0.2MG/Ml in D5W GLASS*** 250 ML IV ONE (12:32)
[2020-05-06] MEDS ORDERED: PROVENTIL Solution 2.5 MG/0.5 ML IH ONE (12:34)
[2020-05-06 12:43] LABS: Absolute Neutrophil Ct (ANC) 11.88 (1.4-6.9); BASOPHIL % 0.3 % (0.0-0.4); Basophil (Absolute #) 0.04 (0-0.4); Eosinophil (Absolute #) 0.15 (0-0.5); Hematocrit 49.1 % (42-50); Hemoglobin 15.2 gm/dl (12.5-18.0); Mean Cell Volume 90.6 fl (78-100); Monocyte (Absolute #) 1.01 (0.0-1.3); Neutrophil % 82.7 % (36.0-66.0); Platelet Count 106 K/mm3 (150-450); Red Blood Count 5.42 M/mm3 (4.1-5.6); Red Cell Distribution Width 18.4 % (11.5-14.0); White Blood Count 14.4 K/mm3 (4.0-10.5)
[2020-05-06] MEDS ORDERED: BRETHINE 1 MG/ML SQ ONE (12:52)
--- NOTE | 2020-05-06 12:55 | XRAY ---
Indication: Short of breath. Comparison: February 03, 2019. Portable chest now demonstrates cardiomegaly, central vascular prominence, diffuse pulmonary edema, and small bibasilar effusions favoring cardiac decompensation. Superimposed pneumonia not completely excluded. Again incidental mitral valve replacement surgery and left AICD.
[2020-05-06 13:02] LABS: ALBUMIN 4.7 g/dL (3.5-5.0); ALKALINE PHOSPHATASE 75 U/L (38-126); ANION GAP 13.5 MEQ/L (5-15); BLOOD UREA NITROGEN 22 mg/dL (9-20); CHLORIDE 103 mmol/L (98-107); Calcium 9.3 mg/dL (8.4-10.2); Carbon Dioxide 28 mmol/L (22-30); Creatinine 1 0.76 mg/dL (0.66-1.25); EST GLOMERULAR FILTRATION RATE > 60.0 ML/MIN; Glucose 149 mg/dL (74-106); MAGNESIUM 1.9 mg/dL (1.6-2.3); NT PRO BNP 3600 pg/mL (0-900); Potassium 4.2 mmol/L (3.5-5.1); SGOT/AST 27 U/L (17-59); SGPT/ALT 16 U/L (0-50); SODIUM 140 mmol/L (137-145); Total Protein 8.7 g/dL (6.3-8.2)
[2020-05-06 13:03] LABS: INFLUENZA A NEGATIVE (NEGATIVE); INFLUENZA B NEGATIVE (NEGATIVE); RESPIRATORY SYNCTIAL VIRUS NEGATIVE (Negative)
[2020-05-06] MEDS ORDERED: MORPHINE SULFATE 4 MG INJ IV ONE (13:11)
[2020-05-06] MEDS ORDERED: MORPHINE SULFATE 4 MG INJ ONE (13:11)
--- NOTE | 2020-05-06 13:12 | ERPHSYRPT ---
- History of Present Illness Time Seen by Provider: 05/06/20 12:00 Source: patient Patient Subjective Stated Complaint: shortness of breath Triage Nursing Assessment: Pt brought in by EMS, pt sob, pt sitting on side of bed and is agitated and very uncooperative, reports having pain in between the back shoulder blades and in his left chest, lung sounds wheezy and crackles, skin n/w/d, tachycardic, hypertensive, tachypnea Physician History: Patient is a 59-year-old male presents to our ED for evaluation of shortness of breath. Patient presented to our ED via EMS. Patient states shortness of breath started approximately 2 days ago and progressively worsened. Patient has a history of congestive heart failure. He is currently on Eliquis. Symptoms are moderate in intensity. EMS administered DuoNeb which slightly improved symptoms. Patient is very agitated. Patient is moving around in room and difficult to perform assessment and obtain HPI. HPI therefore limited. Symptoms are moderate in intensity. Exertion worsens symptoms. Patient voices pain to left chest area. Pain radiating to back. No trauma. No fever. No nausea or vomiting. Patient is a smoker. Timing/Duration: day(s) (2 days ago) Severity: moderate Modifying Factors: Improves With: movement Associated Symptoms: shortness of breath, cough, chest pain, No rash, No syncope Allergies/Adverse Reactions: carisoprodol [Carisoprodol] Allergy (Unknown, Verified 08/22/19 05:47) ketorolac Allergy (Unknown, Verified 08/22/19 05:47) Home Medications: Cyclobenzaprine HCl 10 mg [Cyclobenzaprine 10 MG] 10 mg PO [id number] PRN 05/13/13 [History] Tamsulosin HCl 0.4 mg [Flomax 0.4 MG] 0.4 mg PO DAILY 05/13/13 [History] Fluticasone/Salmeterol [Advair 250-50 Diskus] 1 puff IH BID 07/11/13 [History] Aspirin [Aspirin EC] 81 mg PO DAILY 11/30/14 [History] Hx Tetanus, Diphtheria Vaccination/Date Given: Yes Hx Influenza Vaccination/Date Given: No Hx Pneumococcal Vaccination/Date Given: No Travel Risk - International Travel Have you traveled outside of the country in past 3 weeks: No - Coronavirus Screening Are you exhibiting any of the following symptoms?: Yes Symptoms: Fever, Cough: New Onset Close contact with a COVID-19 positive Pt in past 14-21 Days: No - Review of Systems All Other Systems: Unable due to condition - Past Medical History Pertinent Past Medical History: Yes Neurological History: Migraines, Stroke, TIA ENT History: Cataracts Cardiac History: Arrhythmia, Congestive Heart Failure, Coronary Artery Disease, High Cholesterol, Hypertension, Myocardial Infarction ([place]) Respiratory History: Asthma, Bronchitis, CHF, COPD, Pneumonia, Pulmonary Embolism Endocrine Medical History: No Pertinent History Musculoskeletal History: Arthritis GI Medical History: No Pertinent History History: No Pertinent History Psycho-Social History: Anxiety, Depression Male Reproductive Disorders: No Pertinent History Other Medical History: CABG , FEM POP IN THE LAST 10 YRS - Past Surgical History Past Surgical History: Yes Neuro Surgical History: No Pertinent History Cardiac: CABG, Cardiac Catheterization, Cardiac Stent, Internal Defibrillator, Pacemaker Respiratory: No Pertinent History Gastrointestinal: Appendectomy Genitourinary: No Pertinent History Musculoskeletal: No Pertinent History Male Surgical History: No Pertinent History Other Surgical History: bypass x 3, surgery to left leg after bite from brown recluse - Social History Smoking Status: Current every day smoker How long have you smoked: years Exposure to second hand smoke: Yes Drug Use: marijuana Patient Lives Alone: Yes - Nursing Vital Signs Nursing Vital Signs: Initial Vital Signs Temperature 99.2 F 05/06/20 11:59 Pulse Rate 74 05/06/20 11:59 Respiratory Rate 52 H 05/06/20 11:59 Blood Pressure 207/136 05/06/20 11:59 O2 Sat by Pulse Oximetry 95 05/06/20 11:59 Pain Scale Pain Intensity 10 - Physical Exam General Appearance: moderate distress, alert Eye Exam: PERRL/EOMI, eyes nml inspection Ears, Nose, Throat Exam: normal ENT inspection, TMs normal, pharynx normal, moist mucous membranes Neck Exam: normal inspection, non-tender, supple, full range of motion Respiratory Exam: normal breath sounds, lungs clear, No respiratory distress Cardiovascular Exam: regular rate/rhythm, normal heart sounds, normal peripheral pulses Gastrointestinal/Abdomen Exam: soft, normal bowel sounds, No tenderness, No mass Back Exam: normal inspection, normal range of motion, No CVA tenderness, No vert ebral tenderness Extremity Exam: normal inspection, normal range of motion, pelvis stable, other (Negative Homans sign. 1+ pitting edema bilaterally.) Neurologic Exam: alert, oriented x 3, cooperative, normal mood/affect, nml cerebellar function, nml station & gait, sensation nml, No motor deficits Skin Exam: normal color, warm, dry, No rash Lymphatic Exam: No adenopathy SpO2 Interpretation: normal SpO2: 95 O2 Delivery: Non-rebreather - Course Nursing assessment & vital signs reviewed: Yes EKG Interpreted by Me: RATE ([id number]), Sinus Rhythm, Left Trinidad Deviation, NORMAL INTERVALS, Other (ECG time was somewhat delayed as patient was moving and uncooperative with initial ECGs.) Ordered Tests: Active Orders 24 hr Category Date Time Status Form Coverer STAT Care 05/06/20 12:01 Active EKG-ER Only STAT Care 05/06/20 12:00 Active IV Insertion STAT Care 05/06/20 12:00 Active Pulse Oximetry (ED) STAT Care 05/06/20 12:00 Active CHEST 1 VIEW (PORTABLE) Stat Exams 05/06/20 12:01 Completed ARTERIAL BLOOD GASES Stat Lab 05/06/20 12:00 Results BLOOD CULTURE Stat Lab 05/06/20 12:23 Received CBC W DIFF Stat Lab 05/06/20 12:15 Completed CMP Stat Lab 05/06/20 12:15 Completed D-DIMER QUANTITATIVE Stat Lab 05/06/20 12:15 Completed MAGNESIUM Stat Lab 05/06/20 12:15 Completed NT PRO BNP Stat Lab 05/06/20 12:15 Completed TROPONIN Q3H Lab 05/06/20 12:15 Completed TROPONIN Q3H Lab 05/06/20 15:00 Ordered TROPONIN Q3H Lab 05/06/20 18:00 Ordered TROPONIN Q3H Lab 05/06/20 21:00 Ordered TROPONIN Q3H Lab 05/07/20 00:00 Ordered UA W/RFX UR CULTURE Stat Lab 05/06/20 12:15 Completed Respiratory Therapy Assessment DAILY RT 05/06/20 12:34 Active Medication Summary Generic Name Dose Route Start Last Admin Trade Name Freq PRN Reason Stop Dose Admin Nitroglycerin/Dextrose 250 mls @ 1.5 mls/hr 05/06/20 12:32 05/06/20 13:33 Ntg 0.2mg/Ml In D5w Glass IV 06/05/20 12:31 5 mcg/min .Q24H PRN 1.5 mls/hr CHEST PAIN Titration Protocol 5 MCG/MIN Discontinued Medications Generic Name Dose Route Start Last Admin Trade Name Ludivina PRN Reason Stop Dose Admin Albuterol Sulfate Confirm 05/06/20 12:06 Proventil 2.5 Mg/3 Ml Neb Administered 05/06/20 12:07 Dose 2.5 mg IH .STK-MED ONE Albuterol Sulfate 2.5 mg 05/06/20 12:34 05/06/20 12:35 Proventil Solution 2.5 Mg/0.5 Ml IH 05/06/20 12:35 2.5 mg STAT ONE Administration Albuterol/Ipratropium 3 ml 05/06/20 12:02 05/06/20 12:56 Duoneb 0.5-3 Mg/3 Ml Neb IH 05/06/20 12:03 Not Given STAT ONE Furosemide 40 mg 05/06/20 12:29 05/06/20 12:44 Lasix 40 Mg/4 Ml IV 05/06/20 12:30 40 mg STAT ONE Administration Furosemide Confirm 05/06/20 12:29 Lasix 40 Mg/4 Ml Administered 05/06/20 12:30 Dose 40 mg .ROUTE .STK-MED ONE Methylprednisolone Sodium Succinate 125 mg 05/06/20 12:03 05/06/20 12:27 Solu-Medrol 125 Mg IV 05/06/20 12:04 125 mg STAT ONE Administration Methylprednisolone Sodium Succinate Confirm 05/06/20 12:25 Solu-Medrol 125 Mg Administered 05/06/20 12:26 Dose 125 mg .ROUTE .STK-MED ONE Morphine Sulfate 4 mg 05/06/20 13:11 05/06/20 13:13 Morphine Sulfate 4 Mg Inj IV 05/06/20 13:12 4 mg STAT ONE Administration Morphine Sulfate Confirm 05/06/20 13:11 Morphine Sulfate 4 Mg Inj Administered 05/06/20 13:12 Dose 4 mg .ROUTE .STK-MED ONE Terbutaline Sulfate 0.25 mg 05/06/20 12:52 05/06/20 12:55 Brethine 1 Mg/Ml SQ 05/06/20 12:53 0.25 mg STAT ONE Administration Lab/Rad Data: Laboratory Result Diagrams 05/06/20 12:15 05/06/20 12:15 Laboratory Results 05/06/20 05/06/20 05/06/20 Range/Units 12:15 12:15 12:15 WBC (4.0-10.5) K/mm3 RBC (4.1-5.6) M/mm3 Hgb (12.5-18.0) gm/dl Hct (42-50) % MCV (78-100) fl MCH (26-32) pg MCHC (32-36) g/dl RDW (11.5-14.0) % Plt Count (150-450) K/mm3 MPV (7.5-11.0) fl Gran % (36.0-66.0) % Eos # (Auto) (0-0.5) Absolute Lymphs (auto) (1.0-4.6) Absolute Monos (auto) (0.0-1.3) Lymphocytes % (24.0-44.0) % Monocytes % (0.0-12.0) % Eosinophils % (0.00-5.0) % Basophils % (0.0-0.4) % Absolute Granulocytes (1.4-6.9) Basophils # (0-0.4) D-Dimer 2629 H* (215-500) ng/mL Puncture Site pCO2 (35-45) mmHg pO2 (75-100) mmHg Base Excess (-2.0-2.0) O2 Saturation (94-100) g/dF ABG pH (7.35-7.45) ABG HCO3 (22-28) ABG O2 Sat (Measured) (95-100) % Lorenzo Test A-a Gradient a/A Ratio Hemoglobin Carboxyhemoglobin (0.0-6.9) % THgb Methemoglobin (1.4-1.5) % Potassium (3.5-5.1) Temperature C POC O2 Flow Rate % Sodium (137-145) mmol/L Chloride (98-107) mmol/L Carbon Dioxide (22-30) mmol/L Anion Gap (5-15) MEQ/L BUN (9-20) mg/dL Creatinine (0.66-1.25) mg/dL Estimated GFR ML/MIN Glucose (74-106) mg/dL Calcium (8.4-10.2) mg/dL Magnesium (1.6-2.3) mg/dL Total Bilirubin (0.2-1.3) mg/dL AST (17-59) U/L ALT (0-50) U/L Alkaline Phosphatase (38-126) U/L Troponin I (0.000-0.034) ng/mL NT-Pro-B Natriuret Pep (0-900) pg/mL Serum Total Protein (6.3-8.2) g/dL Albumin (3.5-5.0) g/dL Urine Color YELLOW (YELLOW) Urine Appearance CLEAR (CLEAR) Urine pH 5.0 (5-6) Ur Specific Pyote 1.010 (1.005-1.025) Urine Protein NEGATIVE (Negative) Urine Ketones NEGATIVE (NEGATIVE) Urine Blood MODERATE (0-5) Jono/ul Urine Nitrite NEGATIVE (NEGATIVE) Urine Bilirubin NEGATIVE (NEGATIVE) Urine Urobilinogen NEGATIVE (0-1) mg/dL Ur Leukocyte Esterase NEGATIVE (NEGATIVE) Urine WBC (Auto) 0-2 (0-5) /HPF Urine RBC (Auto) NONE (0-2) /HPF U Epithel Cells (Auto) NONE (FEW) /HPF Urine Bacteria (Auto) NONE (NEGATIVE) /HPF Urine Mucus (Auto) SLIGHT (NEGATIVE) /HPF Urine Culture Reflexed NO (NO) Urine Glucose NEGATIVE (NEGATIVE) mg/dL Influenza Type A Ag NEGATIVE (NEGATIVE) Influenza Type B Ag NEGATIVE (NEGATIVE) RSV (PCR) NEGATIVE (Negative) 05/06/20 05/06/20 05/06/20 Range/Units 12:15 12:15 12:15 WBC 14.4 H (4.0-10.5) K/mm3 RBC 5.42 (4.1-5.6) M/mm3 Hgb 15.2 (12.5-18.0) gm/dl Hct 49.1 (42-50) % MCV 90.6 (78-100) fl MCH 28.0 (26-32) pg MCHC 31.0 L (32-36) g/dl RDW 18.4 H (11.5-14.0) % Plt Count 106 L (150-450) K/mm3 MPV 10.0 (7.5-11.0) fl Gran % 82.7 H (36.0-66.0) % Eos # (Auto) 0.15 (0-0.5) Absolute Lymphs (auto) 1.30 (1.0-4.6) Absolute Monos (auto) 1.01 (0.0-1.3) Lymphocytes % 9.0 L (24.0-44.0) % Monocytes % 7.0 (0.0-12.0) % Eosinophils % 1.0 (0.00-5.0) % Basophils % 0.3 (0.0-0.4) % Absolute Granulocytes 11.88 H (1.4-6.9) Basophils # 0.04 (0-0.4) D-Dimer (215-500) ng/mL Puncture Site pCO2 (35-45) mmHg pO2 (75-100) mmHg Base Excess (-2.0-2.0) O2 Saturation (94-100) g/dF ABG pH (7.35-7.45) ABG HCO3 (22-28) ABG O2 Sat (Measured) (95-100) % Lorenzo Test A-a Gradient a/A Ratio Hemoglobin Carboxyhemoglobin (0.0-6.9) % THgb Methemoglobin (1.4-1.5) % Potassium 4.2 (3.5-5.1) Temperature C POC O2 Flow Rate % Sodium 140 (137-145) mmol/L Chloride 103 (98-107) mmol/L Carbon Dioxide 28 (22-30) mmol/L Anion Gap 13.5 (5-15) MEQ/L BUN 22 H (9-20) mg/dL Creatinine 0.76 (0.66-1.25) mg/dL Estimated GFR > 60.0 ML/MIN Glucose 149 H (74-106) mg/dL Calcium 9.3 (8.4-10.2) mg/dL Magnesium 1.9 (1.6-2.3) mg/dL Total Bilirubin 1.10 (0.2-1.3) mg/dL AST 27 (17-59) U/L ALT 16 (0-50) U/L Alkaline Phosphatase 75 (38-126) U/L Troponin I < 0.012 (0.000-0.034) ng/mL NT-Pro-B Natriuret Pep 3600 H (0-900) pg/mL Serum Total Protein 8.7 H (6.3-8.2) g/dL Albumin 4.7 (3.5-5.0) g/dL Urine Color (YELLOW) Urine Appearance (CLEAR) Urine pH (5-6) Ur Specific Pyote (1.005-1.025) Urine Protein (Negative) Urine Ketones (NEGATIVE) Urine Blood (0-5) Jono/ul Urine Nitrite (NEGATIVE) Urine Bilirubin (NEGATIVE) Urine Urobilinogen (0-1) mg/dL Ur Leukocyte Esterase (NEGATIVE) Urine WBC (Auto) (0-5) /HPF Urine RBC (Auto) (0-2) /HPF U Epithel Cells (Auto) (FEW) /HPF Urine Bacteria (Auto) (NEGATIVE) /HPF Urine Mucus (Auto) (NEGATIVE) /HPF Urine Culture Reflexed (NO) Urine Glucose (NEGATIVE) mg/dL Influenza Type A Ag (NEGATIVE) Influenza Type B Ag (NEGATIVE) RSV (PCR) (Negative) 05/06/20 Range/Units 12:00 WBC (4.0-10.5) K/mm3 RBC (4.1-5.6) M/mm3 Hgb (12.5-18.0) gm/dl Hct (42-50) % MCV (78-100) fl MCH (26-32) pg MCHC (32-36) g/dl RDW (11.5-14.0) % Plt Count (150-450) K/mm3 MPV (7.5-11.0) fl Gran % (36.0-66.0) % Eos # (Auto) (0-0.5) Absolute Lymphs (auto) (1.0-4.6) Absolute Monos (auto) (0.0-1.3) Lymphocytes % (24.0-44.0) % Monocytes % (0.0-12.0) % Eosinophils % (0.00-5.0) % Basophils % (0.0-0.4) % Absolute Granulocytes (1.4-6.9) Basophils # (0-0.4) D-Dimer (215-500) ng/mL Puncture Site Pending pCO2 63 H* (35-45) mmHg pO2 42 L* (75-100) mmHg Base Excess 3.6 H (-2.0-2.0) O2 Saturation 65.1 L (94-100) g/dF ABG pH 7.31 L (7.35-7.45) ABG HCO3 31.7 H* (22-28) ABG O2 Sat (Measured) 68.3 L (95-100) % Lorenzo Test Pending A-a Gradient 592 a/A Ratio 0.07 Hemoglobin 16.2 Carboxyhemoglobin 3.9 (0.0-6.9) % THgb Methemoglobin 0.8 L (1.4-1.5) % Potassium 4.2 (3.5-5.1) Temperature 37.0 C POC O2 Flow Rate 100 % Sodium (137-145) mmol/L Chloride (98-107) mmol/L Carbon Dioxide (22-30) mmol/L Anion Gap (5-15) MEQ/L BUN (9-20) mg/dL Creatinine (0.66-1.25) mg/dL Estimated GFR ML/MIN Glucose (74-106) mg/dL Calcium (8.4-10.2) mg/dL Magnesium (1.6-2.3) mg/dL Total Bilirubin (0.2-1.3) mg/dL AST (17-59) U/L ALT (0-50) U/L Alkaline Phosphatase (38-126) U/L Troponin I (0.000-0.034) ng/mL NT-Pro-B Natriuret Pep (0-900) pg/mL Serum Total Protein (6.3-8.2) g/dL Albumin (3.5-5.0) g/dL Urine Color (YELLOW) Urine Appearance (CLEAR) Urine pH (5-6) Ur Specific Pyote (1.005-1.025) Urine Protein (Negative) Urine Ketones (NEGATIVE) Urine Blood (0-5) Jono/ul Urine Nitrite (NEGATIVE) Urine Bilirubin (NEGATIVE) Urine Urobilinogen (0-1) mg/dL Ur Leukocyte Esterase (NEGATIVE) Urine WBC (Auto) (0-5) /HPF Urine RBC (Auto) (0-2) /HPF U Epithel Cells (Auto) (FEW) /HPF Urine Bacteria (Auto) (NEGATIVE) /HPF Urine Mucus (Auto) (NEGATIVE) /HPF Urine Culture Reflexed (NO) Urine Glucose (NEGATIVE) mg/dL Influenza Type A Ag (NEGATIVE) Influenza Type B Ag (NEGATIVE) RSV (PCR) (Negative) - Progress Progress: improved Progress Note: 05/06/20 14:01 Patient improved after administration of Lasix and nitroglycerin drip. Troponin negative. 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 Chest x-ray shows pulmonary congestion and cardiomegaly. D-dimer positive however patient on Eliquis. We attempted to do a CTA of his chest however patient unable to lay flat due to orthopnea. Mild thrombocytopenia. Case discussed with Dr. Pérez at [facility] who accepts transfer. Plan of care discussed with patient. He agrees to transfer to [facility] for further evaluation and treatment. Counseled pt/family regarding: lab results, diagnosis, rad results, smoking cessation - Departure Departure Disposition: Transfer Clinical Impression: CHF (congestive heart failure), Respiratory distress, Elevated d-dimer, Leukocytosis, Cardiomegaly, Pulmonary edema, Thrombocytopenia Condition: Stable Critical Care Time: Yes Critical Care Time(excluding separately billable procedures): Critical 75-104 mins Referrals: HELIO SALGUERO [Primary Care Provider] - Instructions: Heart Failure
[2020-05-06 13:19] VITALS: BP 167/113; PULSE 99
[2020-05-06 13:31] LABS: Appearance CLEAR (CLEAR); Bilirubin NEGATIVE (NEGATIVE); Blood MODERATE Ery/ul (0-5); Glucose NEGATIVE (NEGATIVE); Ketones NEGATIVE (NEGATIVE); Leukocyte Esterase NEGATIVE (NEGATIVE); Mucus SLIGHT /HPF (NEGATIVE); Nitrite NEGATIVE (NEGATIVE); Protein,Urine Dip NEGATIVE (Negative); Urobilinogen NEGATIVE mg/dL (0-1); WBC 0-2 /HPF (0-5)
[2020-05-06 13:38] VITALS: O2SAT 95
[2020-05-12 11:47] LABS: ABG SITE UNKNOW
[2020-05-12 11:48] LABS: ALLEN TEST OK? NO
== END 2020-05-06 13:56 | disposition home or self-care (01) ==
LOC: ED 11:55
DX: I50.9 Heart failure, unspecified (principal); R06.03 Acute respiratory distress; R79.89 Other specified abnormal findings of blood chemistry; D72.829 Elevated white blood cell count, unspecified; I51.7 Cardiomegaly; R05 Cough; J81.1 Chronic pulmonary edema; R07.9 Chest pain, unspecified; D69.6 Thrombocytopenia, unspecified; Z72.0 Tobacco use; Z79.899 Other long term (current) drug therapy; Z95.810 Presence of automatic (implantable) cardiac defibrillator; Z79.01 Long term (current) use of anticoagulants
CPT/HCPCS: 36000; 36415; 36600; 71045; 80053; 81001; 82375; 82803; 83735; 83880; 84484; 85025; 85379; 87040; 87631; 93005; 93041; 94640; 94760; 96365; 96374; 96375; 99285; J1940; J2270; J2930; J7609; U0003; A9270-GY

== ENCOUNTER 2020-05-21 09:15 | Emergency (ER) | payer MEDICARE ==
[2020-05-21] MEDS ORDERED: Nitrostat 0.4 MG (ED) SL ONE ×2 (09:21→09:43)
--- NOTE | 2020-05-21 09:21 | ERPHSYRPT ---
- History of Present Illness Time Seen by Provider: 05/21/20 09:20 Source: patient Exam Limitations: clinical condition Physician History: This is a 59-year-old white male who presents agitated slightly uncooperative with shortness of air and chest pain complaints. Patient was seen here on 05/06/2020 with similar complaints and was transferred to [facility] in [facility] for diagnosis of chest pain and respiratory distress. Patient states that his symptoms have recurred and worsened over the last few days. He complains of left anterior chest pain without radiation and shortness of air. Patient is on Eliquis. Patient has a history of congestive heart failure, COPD, peripheral vascular disease, CVA, TIA, coronary artery disease, hypertension and myocardial infarction as well as pulmonary embolism. Patient underwent a CABG in 1997 and again in 2009. He had cardiac stents in place. He is undergone a femoralpopliteal bypass within the last 10 years. Patient continues to smoke cigarettes daily. His microwave remote sensing scientist is Dr. Salguero Timing/Duration: day(s) (Few days) Activities at Onset: none Severity of Dyspnea-Max: moderate Severity of Dyspnea-Current: moderate Possible Cause: occasional episodes, smoke exposure Modifying Factors: Improves With: coughing Associated Symptoms: cough, chest pain/discomfort Allergies/Adverse Reactions: carisoprodol [Carisoprodol] Allergy (Unknown, Verified 05/21/20 09:26) ketorolac Allergy (Unknown, Verified 05/21/20 09:26) Home Medications: Cyclobenzaprine HCl 10 mg [Cyclobenzaprine 10 MG] 10 mg PO [id number] PRN 05/13/13 [History] Tamsulosin HCl 0.4 mg [Flomax 0.4 MG] 0.4 mg PO DAILY 05/13/13 [History] Fluticasone/Salmeterol [Advair 250-50 Diskus] 1 puff IH BID 07/11/13 [History] Aspirin [Aspirin EC] 81 mg PO DAILY 11/30/14 [History] Hx Tetanus, Diphtheria Vaccination/Date Given: Yes Hx Influenza Vaccination/Date Given: No Hx Pneumococcal Vaccination/Date Given: No Travel Risk - International Travel Have you traveled outside of the country in past 3 weeks: No - Coronavirus Screening Are you exhibiting any of the following symptoms?: No Symptoms: Cough: New Onset, Shortness of Breath Close contact with a COVID-19 positive Pt in past 14-21 Days: No - Review of Systems Constitutional: No Symptoms Eyes: No Symptoms Ears, Nose, & Throat: No Symptoms Respiratory: Cough, Dyspnea Cardiac: Chest Pain Abdominal/Gastrointestinal: No Symptoms Genitourinary Symptoms: No Symptoms Musculoskeletal: No Symptoms Skin: No Symptoms Neurological: No Symptoms Psychological: No Symptoms Endocrine: No Symptoms Hematologic/Lymphatic: No Symptoms Immunological/Allergic: No Symptoms All Other Systems: Reviewed and Negative - Past Medical History Pertinent Past Medical History: Yes Neurological History: Migraines, Stroke, TIA ENT History: Cataracts Cardiac History: Arrhythmia, Congestive Heart Failure, Coronary Artery Disease, High Cholesterol, Hypertension, Myocardial Infarction (DC) Respiratory History: Asthma, Bronchitis, CHF, COPD, Pneumonia, Pulmonary Embolism Endocrine Medical History: No Pertinent History Musculoskeletal History: Arthritis GI Medical History: No Pertinent History History: No Pertinent History Psycho-Social History: Anxiety, Depression Male Reproductive Disorders: No Pertinent History Other Medical History: CABG , FEM POP IN THE LAST 10 YRS - Past Surgical History Past Surgical History: Yes Neuro Surgical History: No Pertinent History Cardiac: CABG, Cardiac Catheterization, Cardiac Stent, Internal Defibrillator, Pacemaker Respiratory: No Pertinent History Gastrointestinal: Appendectomy Genitourinary: No Pertinent History Musculoskeletal: No Pertinent History Male Surgical History: No Pertinent History Other Surgical History: bypass x 3, surgery to left leg after bite from brown recluse - Social History Smoking Status: Current every day smoker How long have you smoked: years Exposure to second hand smoke: Yes Drug Use: marijuana Patient Lives Alone: Yes - Nursing Vital Signs Nursing Vital Signs: Initial Vital Signs Temperature 97.6 F 05/21/20 09:17 Pulse Rate 70 05/21/20 09:17 Respiratory Rate 38 H 05/21/20 09:17 Blood Pressure 137/76 05/21/20 09:17 O2 Sat by Pulse Oximetry 97 05/21/20 09:17 Pain Scale Pain Intensity 5 - Physical Exam General Appearance: moderate distress, alert, anxiety Eye Exam: PERRL/EOMI, eyes nml inspection Ears, Nose, Throat Exam: hearing grossly normal, normal ENT inspection, normal pharynx Neck Exam: normal inspection, non-tender, supple, full range of motion Respiratory Exam: normal breath sounds, chest tenderness, lungs clear, respiratory distress, airway intact Cardiovascular/Chest Exam: normal heart sounds, regular rate/rhythm, normal peripheral pulses Abdominal/Gastrointestinal Exam: soft, normal bowel sounds, No tenderness Rectal Exam: not done Extremity Exam: non-tender, normal range of motion, normal inspection Neurologic Exam: alert, oriented x 3, cooperative, inventory technician II-XII nml as tested, normal mood/affect, nml cerebellar function, nml station & gait, sensation nml Skin Exam: normal color, warm, dry Lymphatic Exam: No adenopathy SpO2 Interpretation: normal O2 Delivery: Room Air - Course Nursing assessment & vital signs reviewed: Yes EKG Interpreted by Me: RATE (70), Other (Atrial paced complexes. Nonspecific interventricular conduction delay. Nonspecific T abnormalities in the lateral leads. When compared to EKG dated 05/06/2020, there is resolution of ta chycardia, resolution of left axis deviation and resolution of Q waves in the lateral leads.) Ordered Tests: Active Orders 24 hr Category Date Time Status Property Insurance Inspector STAT Care 05/21/20 09:25 Active EKG-ER Only STAT Care 05/21/20 09:21 Active IV Insertion STAT Care 05/21/20 09:21 Active Pulse Oximetry (ED) STAT Care 05/21/20 09:21 Active CHEST 1 VIEW (PORTABLE) Stat Exams 05/21/20 09:24 Completed CHEST WITH CONTRAST [CT] Stat Exams 05/21/20 12:11 Completed BLOOD CULTURE Stat Lab 05/21/20 09:50 Received CBC W DIFF Stat Lab 05/21/20 09:25 Completed CMP Stat Lab 05/21/20 09:25 Completed D-DIMER QUANTITATIVE Stat Lab 05/21/20 09:25 Completed Lactic Acid Stat Lab 05/21/20 09:28 Completed MAGNESIUM Stat Lab 05/21/20 09:25 Completed NT PRO BNP Stat Lab 05/21/20 09:25 Completed PROTIME WITH INR Stat Lab 05/21/20 09:25 Completed TROPONIN Q3H Lab 05/21/20 11:15 Completed TROPONIN Q3H Lab 05/21/20 13:15 Completed TROPONIN Q3H Lab 05/21/20 17:45 Ordered TROPONIN Q3H Lab 05/21/20 20:45 Ordered TROPONIN Q3H Lab 05/21/20 23:45 Ordered VENOUS BLOOD GAS Stat Lab 05/21/20 09:28 Completed BiPap/CPAP STAT RT 05/21/20 09:56 Active Respiratory MDI UD RT 05/21/20 09:59 Active Respiratory Therapy Assessment DAILY RT 05/21/20 09:57 Active Medication Summary Generic Name Dose Route Start Last Admin Trade Name Ludivina PRN Reason Stop Dose Admin Albuterol Sulfate 4 puff 05/21/20 09:55 05/21/20 09:20 Ventolin Common Canister IH 06/20/20 09:54 4 puff Q4H PRN PRN Administration SHORTNESS OF BREATH/WHEEZING Discontinued Medications Generic Name Dose Route Start Last Admin Trade Name Freq PRN Reason Stop Dose Admin Furosemide 40 mg 05/21/20 10:34 05/21/20 10:49 Lasix 40 Mg/4 Ml IV 05/21/20 10:35 40 mg STAT ONE Administration Furosemide Confirm 05/21/20 10:47 Lasix 40 Mg/4 Ml Administered 05/21/20 10:48 Dose 40 mg .ROUTE .STK-MED ONE Morphine Sulfate 4 mg 05/21/20 09:43 05/21/20 09:56 Morphine Sulfate 4 Mg Inj IV 05/21/20 09:44 4 mg STAT ONE Administration Morphine Sulfate Confirm 05/21/20 09:53 Morphine Sulfate 4 Mg Inj Administered 05/21/20 09:54 Dose 4 mg .ROUTE .STK-MED ONE Morphine Sulfate 4 mg 05/21/20 10:43 05/21/20 10:50 Morphine Sulfate 4 Mg Inj IV 05/21/20 10:44 4 mg STAT ONE Administration Morphine Sulfate Confirm 05/21/20 10:46 Morphine Sulfate 4 Mg Inj Administered 05/21/20 10:47 Dose 4 mg .ROUTE .STK-MED ONE Nitroglycerin 0.4 mg 05/21/20 09:21 05/21/20 09:41 Nitrostat 0.4 Mg (Ed) SL 05/21/20 09:22 0.4 mg STAT ONE Administration Nitroglycerin Confirm 05/21/20 09:43 Nitrostat 0.4 Mg (Ed) Administered 05/21/20 09:44 Dose 0.4 mg SL .STK-MED ONE Ondansetron HCl 4 mg 05/21/20 09:43 05/21/20 09:56 Zofran 4 Mg/2 Ml Vial IV 05/21/20 09:44 4 mg STAT ONE Administration Ondansetron HCl Confirm 05/21/20 09:53 Zofran 4 Mg/2 Ml Vial Administered 05/21/20 09:54 Dose 4 mg .ROUTE .STK-MED ONE Lab/Rad Data: Laboratory Result Diagrams 05/21/20 09:25 05/21/20 09:25 Laboratory Results 05/21/20 05/21/20 05/21/20 Range/Units 13:15 11:15 09:28 WBC (4.0-10.5) K/mm3 RBC (4.1-5.6) M/mm3 Hgb (12.5-18.0) gm/dl Hct (42-50) % MCV (78-100) fl MCH (26-32) pg MCHC (32-36) g/dl RDW (11.5-14.0) % Plt Count (150-450) K/mm3 MPV (7.5-11.0) fl Gran % (36.0-66.0) % Eos # (Auto) (0-0.5) Absolute Lymphs (auto) (1.0-4.6) Absolute Monos (auto) (0.0-1.3) Lymphocytes % (24.0-44.0) % Monocytes % (0.0-12.0) % Eosinophils % (0.00-5.0) % Basophils % (0.0-0.4) % Absolute Granulocytes (1.4-6.9) Basophils # (0-0.4) PT (8.83-12.87) SECONDS INR (0.8-3.0) D-Dimer (215-500) ng/mL pO2/FiO2 Ratio 21.0 % VBG pH 7.40 (7.32-7.42) VBG pCO2 at Pat Temp 41 L (42-55) mm/Hg VBG pO2 at Pat Temp 37 (25-40) mm/Hg VBG HCO3 25.4 (22-28) meq/L VBG O2 Sat (Vicki) 66.4 L (95-100) VBG Base Excess 0.5 (-2.0-2.0) VBG Hemoglobin 12.2 VBG Carboxyhemoglobin 4.4 (0.0-6.9) % T HGB POC Potassium 4.1 (3.5-5.1) Sodium (137-145) mmol/L Potassium (3.5-5.1) mmol/L Chloride (98-107) mmol/L Carbon Dioxide (22-30) mmol/L Anion Gap (5-15) MEQ/L BUN (9-20) mg/dL Creatinine (0.66-1.25) mg/dL Estimated GFR ML/MIN Glucose (74-106) mg/dL Lactic Acid (0.4-2.0) Calcium (8.4-10.2) mg/dL Magnesium (1.6-2.3) mg/dL Total Bilirubin (0.2-1.3) mg/dL AST (17-59) U/L ALT (0-50) U/L Alkaline Phosphatase (38-126) U/L Troponin I 0.012 0.015 (0.000-0.034) ng/mL NT-Pro-B Natriuret Pep (0-900) pg/mL Serum Total Protein (6.3-8.2) g/dL Albumin (3.5-5.0) g/dL Slides for Path Review 05/21/20 05/21/20 05/21/20 Range/Units 09:28 09:25 09:25 WBC (4.0-10.5) K/mm3 RBC (4.1-5.6) M/mm3 Hgb (12.5-18.0) gm/dl Hct (42-50) % MCV (78-100) fl MCH (26-32) pg MCHC (32-36) g/dl RDW (11.5-14.0) % Plt Count (150-450) K/mm3 MPV (7.5-11.0) fl Gran % (36.0-66.0) % Eos # (Auto) (0-0.5) Absolute Lymphs (auto) (1.0-4.6) Absolute Monos (auto) (0.0-1.3) Lymphocytes % (24.0-44.0) % Monocytes % (0.0-12.0) % Eosinophils % (0.00-5.0) % Basophils % (0.0-0.4) % Absolute Granulocytes (1.4-6.9) Basophils # (0-0.4) PT 15.0 H (8.83-12.87) SECONDS INR 1.32 (0.8-3.0) D-Dimer 854 H* (215-500) ng/mL pO2/FiO2 Ratio % VBG pH (7.32-7.42) VBG pCO2 at Pat Temp (42-55) mm/Hg VBG pO2 at Pat Temp (25-40) mm/Hg VBG HCO3 (22-28) meq/L VBG O2 Sat (Vicki) (95-100) VBG Base Excess (-2.0-2.0) VBG Hemoglobin VBG Carboxyhemoglobin (0.0-6.9) % T HGB POC Potassium (3.5-5.1) Sodium 136 L (137-145) mmol/L Potassium 4.2 (3.5-5.1) mmol/L Chloride 106 (98-107) mmol/L Carbon Dioxide 24 (22-30) mmol/L Anion Gap 10.4 (5-15) MEQ/L BUN 15 (9-20) mg/dL Creatinine 0.80 (0.66-1.25) mg/dL Estimated GFR > 60.0 ML/MIN Glucose 106 (74-106) mg/dL Lactic Acid 1.2 (0.4-2.0) Calcium 9.0 (8.4-10.2) mg/dL Magnesium 2.0 (1.6-2.3) mg/dL Total Bilirubin 1.00 (0.2-1.3) mg/dL AST 23 (17-59) U/L ALT 17 (0-50) U/L Alkaline Phosphatase 69 (38-126) U/L Troponin I (0.000-0.034) ng/mL NT-Pro-B Natriuret Pep 2360 H (0-900) pg/mL Serum Total Protein 6.9 (6.3-8.2) g/dL Albumin 3.7 (3.5-5.0) g/dL Slides for Path Review 05/21/20 Range/Units 09:25 WBC 6.6 (4.0-10.5) K/mm3 RBC 4.08 L (4.1-5.6) M/mm3 Hgb 11.5 L (12.5-18.0) gm/dl Hct 36.4 L (42-50) % MCV 89.2 (78-100) fl MCH 28.2 (26-32) pg MCHC 31.6 L (32-36) g/dl RDW 16.4 H (11.5-14.0) % Plt Count 76 L (150-450) K/mm3 MPV 9.2 (7.5-11.0) fl Gran % 71.3 H (36.0-66.0) % Eos # (Auto) 0.13 (0-0.5) Absolute Lymphs (auto) 0.82 L (1.0-4.6) Absolute Monos (auto) 0.88 (0.0-1.3) Lymphocytes % 12.4 L (24.0-44.0) % Monocytes % 13.4 H (0.0-12.0) % Eosinophils % 2.0 (0.00-5.0) % Basophils % 0.9 (0.0-0.4) % Absolute Granulocytes 4.70 (1.4-6.9) Basophils # 0.06 (0-0.4) PT (8.83-12.87) SECONDS INR (0.8-3.0) D-Dimer (215-500) ng/mL pO2/FiO2 Ratio % VBG pH (7.32-7.42) VBG pCO2 at Pat Temp (42-55) mm/Hg VBG pO2 at Pat Temp (25-40) mm/Hg VBG HCO3 (22-28) meq/L VBG O2 Sat (Vicki) (95-100) VBG Base Excess (-2.0-2.0) VBG Hemoglobin VBG Carboxyhemoglobin (0.0-6.9) % T HGB POC Potassium (3.5-5.1) Sodium (137-145) mmol/L Potassium (3.5-5.1) mmol/L Chloride (98-107) mmol/L Carbon Dioxide (22-30) mmol/L Anion Gap (5-15) MEQ/L BUN (9-20) mg/dL Creatinine (0.66-1.25) mg/dL Estimated GFR ML/MIN Glucose (74-106) mg/dL Lactic Acid (0.4-2.0) Calcium (8.4-10.2) mg/dL Magnesium (1.6-2.3) mg/dL Total Bilirubin (0.2-1.3) mg/dL AST (17-59) U/L ALT (0-50) U/L Alkaline Phosphatase (38-126) U/L Troponin I (0.000-0.034) ng/mL NT-Pro-B Natriuret Pep (0-900) pg/mL Serum Total Protein (6.3-8.2) g/dL Albumin (3.5-5.0) g/dL Slides for Path Review YES - Progress Progress: improved, re-examined Air Movement: good Progress Note: 05/21/20 12:45 Chest x-ray shows diminished vascular congestion, diminished pulmonary edema, diminished bibasilar effusions when compared to x-ray that was performed within the last 2 weeks 05/21/20 13:24 CAT scan of the chest with contrast reveals negative pulmonary emboli. cardiomegaly, pulmonary edema and bilateral pleural effusions are present. Clinically, the patient states he is improving. 05/21/20 14:[address] Salguero, the microwave remote sensing scientist that the patient states is his microwave remote sensing scientist. I reviewed the patient history, condition, laboratory results and x-ray and CTA of the chest findings. Medical Support Specialist states that if the patient feels comfortable going home he feels that that is reasonable. Patient has had 2 troponins within the normal limits. The patient's symptoms have significantly improved. He has no significant pain at this time per his report. His vital signs are stable. He is oxygenating well on room air. It is recommended that the patient increase his Lasix to 40 mg orally twice a day. He is to call his microwave remote sensing scientist office tomorrow to make arrangements for follow-up appointment. Blood Culture(s) Obtained: No Antibiotics given: No Counseled pt/family regarding: lab results, diagnosis, rad results - Departure Departure Disposition: Home Clinical Impression: Chest pain, CHF (congestive heart failure) Condition: Stable Critical Care Time: No Referrals: HELIO SALGUERO [CONSULTING PHYSICIAN] - Instructions: Heart Failure Additional Instructions: Increase your furosemide (Lasix) to 40 mg orally twice a day. Call your microwave remote sensing scientist office tomorrow morning and make arranges for follow-up appointment. Return to the emergency department if symptoms worsen. Take all your other medications as prescribed.
[2020-05-21 09:34] LABS: VBG BASE EXCESS 0.5 (-2.0-2.0); VBG CARBOXYHEMOGLOBIN 4.4 % T HGB (0.0-6.9); VBG HCO3- 25.4 meq/L (22-28); VBG HEMOGLOBIN 12.2; VBG O2 SATURATION 66.4 (95-100); VBG POTASSIUM 4.1 (3.5-5.1); VBG pH 7.4 (7.32-7.42)
[2020-05-21] MEDS ORDERED: Zofran 4 MG/2 ML VIAL IV ONE (09:43)
[2020-05-21] MEDS ORDERED: MORPHINE SULFATE 4 MG INJ IV ONE ×2 (09:43→10:43)
[2020-05-21 09:47] LABS: BASOPHIL % 0.9 % (0.0-0.4); Basophil (Absolute #) 0.06 (0-0.4); Eosinophil (Absolute #) 0.13 (0-0.5); Hematocrit 36.4 % (42-50); Hemoglobin 11.5 gm/dl (12.5-18.0); Lymphocyte (Absolute #) 0.82 (1.0-4.6); Lymphocytes % 12.4 % (24.0-44.0); Mean Cell Volume 89.2 fl (78-100); Mean Corpuscular Hemoglobin 28.2 pg (26-32); Mean Corpuscular Hgb Concent. 31.6 g/dl (32-36); Mean Platelet Volume 9.2 fl (7.5-11.0); Monocyte (Absolute #) 0.88 (0.0-1.3); Monocytes % 13.4 % (0.0-12.0); Neutrophil % 71.3 % (36.0-66.0); Platelet Count 76 K/mm3 (150-450); Red Blood Count 4.08 M/mm3 (4.1-5.6); Red Cell Distribution Width 16.4 % (11.5-14.0); White Blood Count 6.6 K/mm3 (4.0-10.5)
[2020-05-21 09:53] LABS: INR 1.32 (0.8-3.0)
[2020-05-21] MEDS ORDERED: Zofran 4 MG/2 ML VIAL ONE (09:53)
[2020-05-21] MEDS ORDERED: MORPHINE SULFATE 4 MG INJ ONE ×2 (09:53→10:46)
[2020-05-21] MEDS ORDERED: VENTOLIN COMMON CANISTER IH PRN (09:55)
--- NOTE | 2020-05-21 09:56 | XRAY ---
Indication: Chest pain and short of breath. Comparison: May 06, 2020. Portable chest again demonstrates cardiomegaly with mitral valve replacement surgery and left AICD. Interval diminished vascular congestion, pulmonary edema, and bibasilar effusions with small residual left effusion. No new cardiopulmonary abnormalities.
[2020-05-21 10:06] LABS: ALBUMIN 3.7 g/dL (3.5-5.0); ALKALINE PHOSPHATASE 69 U/L (38-126); ANION GAP 10.4 MEQ/L (5-15); BLOOD UREA NITROGEN 15 mg/dL (9-20); CHLORIDE 106 mmol/L (98-107); Carbon Dioxide 24 mmol/L (22-30); EST GLOMERULAR FILTRATION RATE > 60.0 ML/MIN; Glucose 106 mg/dL (74-106); NT PRO BNP 2360 pg/mL (0-900); Potassium 4.2 mmol/L (3.5-5.1); SGOT/AST 23 U/L (17-59); SGPT/ALT 17 U/L (0-50); SODIUM 136 mmol/L (137-145); Slide Review 1 YES; Total Protein 6.9 g/dL (6.3-8.2)
[2020-05-21] MEDS ORDERED: Lasix 40 MG/4 ML IV ONE (10:34)
[2020-05-21] MEDS ORDERED: Lasix 40 MG/4 ML ONE (10:47)
--- NOTE | 2020-05-21 13:14 | XRAY ---
Indication: Short of breath and chest pain. Elevated d-dimer. Multiple contiguous axial images obtained through the chest using 80 cc Isovue 370 contrast and PE protocol. Comparison: December 21, 2017. There is good opacification of the pulmonary arteries to include the lobar and segmental branches. Again no pulmonary embolus. Heart remains enlarged again with mitral valve replacement surgery and left-sided AICD. Aorta remains mildly atherosclerotic without aneurysm/dissection. Stable mediastinal and bilateral hilar calcified nodes. No pathologic mediastinal/hilar lymphadenopathy. Lungs demonstrates new diffuse pulmonary edema and small bilateral effusions. There remains stable incidental tiny calcified granulomas bilaterally. Bony thorax intact again with sternotomy wires and bilateral gynecomastia. Limited upper abdomen again demonstrate splenomegaly today measuring 15 cm. Impression: 1. Continued negative pulmonary embolus. 2. New cardiomegaly, pulmonary edema, and bilateral effusions favoring cardiac decompensation. Superimposed pneumonia not completely excluded. 3. Again incidental postsurgical changes, bilateral gynecomastia, splenomegaly, and old granulomatous disease.
[2020-05-21 14:42] VITALS: BP 156/90; PULSE 68; O2SAT 94
== END 2020-05-21 15:02 | disposition home or self-care (01) ==
LOC: ED 09:15
DX: R07.9 Chest pain, unspecified (principal); I50.9 Heart failure, unspecified; I25.10 Atherosclerotic heart disease of native coronary artery without angina pectoris; Z95.810 Presence of automatic (implantable) cardiac defibrillator
CPT/HCPCS: 36000; 36415; 71045; 71260; 80053; 82805; 83605; 83735; 83880; 84484; 85025; 85379; 85610; 87040; 93005; 93041; 94002; 94640; 94760; 96374; 96375; 96376; 99284; J1940; J2270; J2405; A9270-GY

== ENCOUNTER 2020-07-20 05:44 | Observation (INO) | payer MEDICARE ==
--- NOTE | 2020-07-20 06:14 | ERPHSYRPT ---
- History of Present Illness Source: patient Exam Limitations: no limitations Patient Subjective Stated Complaint: "I can't breath." Triage Nursing Assessment: Patient reported a three day onset of shortness of breath and cough. Patient reported significant cardiac history along with significant respiratory history. Reported a dry hacking cough with associated chest pressure. Denied any sputum production. Reports Timing/Duration: day(s) Cough Quality/Degree: dry cough Possible Cause: occasional episodes Modifying Factors: Improves With: albuterol inhaler, coughing, oxygen Associated Symptoms: cough, shortness of breath Hx Tetanus, Diphtheria Vaccination/Date Given: Yes Hx Influenza Vaccination/Date Given: No Hx Pneumococcal Vaccination/Date Given: No <MARTY KERR - Last Filed: 07/20/20 06:52> <SUNDAY EPPS - Last Filed: 07/20/20 16:50> - History of Present Illness Time Seen by Provider: 07/20/20 06:09 Physician History: pt has had three day hx of cough with SObreath , and also has chest pressure and hx CAD and COPD , no known COvid or exposures; (MARTY KERR) Allergies/Adverse Reactions: carisoprodol [Carisoprodol] Allergy (Unknown, Verified 07/20/20 05:51) ketorolac Allergy (Unknown, Verified 07/20/20 05:51) Home Medications: Tamsulosin HCl 0.4 mg [Flomax 0.4 MG] 0.4 mg PO DAILY 05/13/13 [History] Fluticasone/Salmeterol [Advair 250-50 Diskus] 1 puff IH BID 07/11/13 [History] Aspirin [Aspirin EC] 81 mg PO DAILY 11/30/14 [History] Albuterol Common Canister [Ventolin Common Canister] 2 puff IH Q4HPRN PRN 07/20/20 [History] Atorvastatin Calcium 40 mg PO HS 07/20/20 [History] Cyclobenzaprine HCl [Flexeril] 10 mg PO HS 07/20/20 [History] Duloxetine HCl 60 mg PO DAILY 07/20/20 [History] Furosemide 40 mg [Lasix 40 MG] 40 mg PO BID 07/20/20 [History] Isosorbide Mononitrate 30 mg [Imdur 30 MG] 30 mg PO DAILY 07/20/20 [History] Lisinopril 5 mg [Zestril 5 MG] 5 mg PO DAILY 07/20/20 [History] Meclizine HCl 25 mg [Antivert 25 mg] 25 mg PO Q8H 07/20/20 [History] Nitroglycerin 0.4 mg Tablet [Nitrostat 0.4 MG Tablet] 0.4 mg SL UD PRN 07/20/20 [History] Omeprazole 40 mg PO DAILY 07/20/20 [History] Quetiapine Fumarate 25 mg [Seroquel 25 MG] 0.5 tab PO HS 07/20/20 [History] Spironolactone 25 mg [Aldactone 25 MG] 0.5 tab PO DAILY 07/20/20 [History] Thiamine HCl [B-1] 100 mg PO DAILY 07/20/20 [History] Travel Risk - International Travel Have you traveled outside of the country in past 3 weeks: No - Coronavirus Screening Are you exhibiting any of the following symptoms?: No Close contact with a COVID-19 positive Pt in past 14-21 Days: No <MARTY KERR - Last Filed: 07/20/20 06:52> - Review of Systems Constitutional: No Fever, No Chills Eyes: No Symptoms Ears, Nose, & Throat: No Symptoms Respiratory: Cough, Dyspnea Cardiac: Chest Pain, No Edema, No Syncope Abdominal/Gastrointestinal: No Abdominal Pain, No Nausea, No Vomiting, No Diarrhea Genitourinary Symptoms: No Dysuria Musculoskeletal: No Back Pain, No Neck Pain Skin: No Rash Neurological: No Dizziness, No Focal Weakness, No Sensory Changes Psychological: No Symptoms Endocrine: No Symptoms All Other Systems: Reviewed and Negative <MARTY KERR - Last Filed: 07/20/20 06:52> - Past Medical History Pertinent Past Medical History: Yes Neurological History: Migraines, Stroke, TIA ENT History: Cataracts Cardiac History: Arrhythmia, Congestive Heart Failure, Coronary Artery Disease, High Cholesterol, Hypertension, Myocardial Infarction (VT) Respiratory History: Asthma, Bronchitis, CHF, COPD, Pneumonia, Pulmonary Embolism Endocrine Medical History: No Pertinent History Musculoskeletal History: Arthritis GI Medical History: No Pertinent History History: No Pertinent History Psycho-Social History: Anxiety, Depression Male Reproductive Disorders: No Pertinent History Other Medical History: CABG 1997/2009, FEM POP IN THE LAST 10 YRS - Past Surgical History Past Surgical History: Yes Neuro Surgical History: No Pertinent History Cardiac: CABG, Cardiac Catheterization, Cardiac Stent, Internal Defibrillator, Pacemaker Respiratory: No Pertinent History Gastrointestinal: Appendectomy, Hernia Repair Genitourinary: No Pertinent History Musculoskeletal: No Pertinent History Male Surgical History: No Pertinent History Other Surgical History: bypass x 3, surgery to left leg after bite from brown recluse - Social History Smoking Status: Current every day smoker How long have you smoked: 45 years Exposure to second hand smoke: Yes Drug Use: methamphetamines Patient Lives Alone: No <MARTY KERR - Last Filed: 07/20/20 06:52> - Physical Exam General Appearance: mild distress, alert Eye Exam: PERRL/EOMI, eyes nml inspection Ears, Nose, Throat Exam: normal ENT inspection, TMs normal, pharynx normal, moist mucous membranes Neck Exam: normal inspection, non-tender, supple, full range of motion Respiratory Exam: normal breath sounds, lungs clear, No respiratory distress Cardiovascular Exam: regular rate/rhythm, normal heart sounds Gastrointestinal/Abdomen Exam: soft, No tenderness Rectal Exam: deferred Back Exam: normal inspection, No CVA tenderness, No vertebral tenderness Extremity Exam: normal inspection, normal range of motion Neurologic Exam: alert, oriented x 3, cooperative, normal mood/affect, sensation nml, No motor deficits Skin Exam: normal color, warm, dry, No rash Lymphatic Exam: No adenopathy SpO2: 95 <MARTY KERR - Last Filed: 07/20/20 06:52> - Nursing Vital Signs Nursing Vital Signs: Initial Vital Signs Pulse Rate 86 07/20/20 05:44 Respiratory Rate 30 H 07/20/20 05:44 Blood Pressure 179/90 07/20/20 05:44 O2 Sat by Pulse Oximetry 93 L 07/20/20 05:44 Pain Scale Pain Intensity 6 - Course Nursing assessment & vital signs reviewed: Yes EKG Interpreted by Me: Sinus Rhythm, Left [place] Deviation, Non-specific ST Changes <MARTY KERR - Last Filed: 07/20/20 06:52> - Course EKG Interpreted by Me: RATE (EKG(Nivia reading)NSR/prolonged QTc/IVCD/nonspecific T waves() - CT Exams Chest CT Interpretation: Discussed w/radiologist (Large B pleural effusions/No PE or infiltrates) <SUNDAY EPPS - Last Filed: 07/20/20 16:50> Ordered Tests: Active Orders 24 hr Category Date Time Status EKG-ER Only STAT Care 07/20/20 06:15 Completed IV Insertion STAT Care 07/20/20 06:15 Completed Oxygen-ED Only Nasal Cannula 3 lpm Care 07/20/20 06:51 Completed Low Sodium (1.5-2gram Sodium) Diet 07/20/20 Dinner Active CHEST 1 VIEW (PORTABLE) Stat Exams 07/20/20 06:17 Completed CHEST WITH CONTRAST [CT] Stat Exams 07/20/20 06:51 Completed CBC AM.LAB Lab 07/21/20 04:00 Ordered CBC W DIFF Stat Lab 07/20/20 06:15 Completed CMP AM.LAB Lab 07/22/20 04:00 Ordered CMP Routine Lab 07/20/20 06:30 Completed D-DIMER QUANTITATIVE Stat Lab 07/20/20 06:30 Completed Lactic Acid Stat Lab 07/20/20 06:15 Completed Lactic Acid Stat Lab 07/20/20 09:06 Completed NT PRO BNP AM.LAB Lab 07/21/20 04:00 Ordered NT PRO BNP Routine Lab 07/20/20 06:30 Completed TROPONIN Q3H Lab 07/20/20 06:30 Completed TROPONIN Q3H Lab 07/20/20 09:30 Completed TROPONIN Q3H Lab 07/20/20 12:25 Completed TROPONIN Q3H Lab 07/20/20 15:30 Completed TROPONIN Q3H Lab 07/20/20 18:30 Ordered UA W/RFX UR CULTURE Stat Lab 07/20/20 09:22 Completed Transfer Order Routine Transfer 07/20/20 Completed Medication Summary Generic Name Dose Route Start Last Admin Trade Name Freq PRN Reason Stop Dose Admin Albuterol Sulfate 4 puff 07/20/20 14:46 Ventolin Common Canister IH 08/19/20 14:45 Q4H PRN PRN SHORTNESS OF BREATH/WHEEZING Apixaban 5 mg 07/20/20 22:00 Eliquis 2.5 Mg Tablet PO 08/19/20 21:59 BID OWEN Aspirin 81 mg 07/21/20 10:00 Ecotrin 81 Mg PO 08/20/20 09:59 DAILY OWEN Carvedilol 3.125 mg 07/20/20 22:00 Coreg 3.125 Mg PO 08/19/20 21:59 BID OWEN Cyclobenzaprine HCl 10 mg 07/20/20 22:00 Cyclobenzaprine 10 Mg PO 08/19/20 21:59 HS OWEN Duloxetine HCl 60 mg 07/20/20 15:00 07/20/20 16:05 Cymbalta 30 Mg Capsule PO 08/19/20 14:59 60 mg DAILY OWEN Administration Furosemide 40 mg 07/20/20 17:00 07/20/20 16:05 Lasix 40 Mg PO 08/19/20 16:59 40 mg BID DIURETIC OWEN Administration Sodium Chloride 1,000 mls @ 100 mls/hr 07/20/20 06:15 07/20/20 06:27 Sodium Chloride 0.9% 1000 Ml IV 08/19/20 06:14 100 mls/hr .Q10H OWEN Administration Isosorbide Mononitrate 30 mg 07/20/20 15:00 07/20/20 16:05 Imdur 30 Mg PO 08/19/20 14:59 30 mg DAILY OWEN Administration Lisinopril 5 mg 07/20/20 15:00 07/20/20 16:05 Zestril 5 Mg PO 08/19/20 14:59 5 mg DAILY OWEN Administration Meclizine HCl 25 mg 07/20/20 15:00 07/20/20 16:05 Antivert 25 Mg PO 08/19/20 14:59 25 mg Q8HT OWEN Administration Nitroglycerin 0.4 mg 07/20/20 14:50 Nitrostat 0.4 Mg Tablet SL 08/19/20 14:49 UD PRN CHEST PAIN Pantoprazole Sodium 40 mg 07/20/20 15:00 07/20/20 16:05 Protonix 40mg Tablet PO 08/19/20 14:59 40 mg DAILY OWEN Administration Quetiapine Fumarate 12.5 mg 07/20/20 22:00 Seroquel 25 Mg PO 08/19/20 21:59 HS OWEN Fluticasone/Salmeterol 2 puff 07/20/20 19:00 Advair Hfa 115/21 Common Canister* IH 08/19/20 18:59 BIDRT OWEN Simvastatin 40 mg 07/20/20 22:00 Zocor 20mg PO 08/19/20 21:59 HS OWEN Spironolactone 12.5 mg 07/20/20 15:00 07/20/20 16:05 Aldactone 25 Mg PO 08/19/20 14:59 12.5 mg DAILY OWEN Administration Tamsulosin HCl 0.4 mg 07/20/20 15:00 07/20/20 16:05 Flomax 0.4 Mg PO 08/19/20 14:59 0.4 mg DAILY OWEN Administration Thiamine HCl 100 mg 07/20/20 15:00 07/20/20 16:04 Vitamin B-1 100 Mg PO 08/19/20 14:59 100 mg DAILY OWEN Administration Discontinued Medications Generic Name Dose Route Start Last Admin Trade Name Markq PRN Reason Stop Dose Admin Hydrocodone Bitart/Acetaminophen 10 ml 07/20/20 07:53 07/20/20 07:56 Hydrocodone-Acetamin 2.5-108/5 Ml Solution PO 07/20/20 07:54 10 ml STAT STA Administration Hydrocodone Bitart/Acetaminophen Confirm 07/20/20 07:55 Hydrocodone-Acetamin 2.5-108/5 Ml Solution Administered 07/20/20 07:56 Dose 10 ml .ROUTE .STK-MED ONE Aspirin Confirm 07/20/20 06:41 Baby Aspirin 81 Mg Chew Administered 07/20/20 06:42 Dose 324 mg .ROUTE .STK-MED ONE Aspirin 324 mg 07/20/20 06:50 07/20/20 06:54 Baby Aspirin 81 Mg Chew PO 07/20/20 06:51 324 mg STAT ONE Administration Carvedilol 6.25 mg 07/20/20 22:00 Coreg 6.25 Mg PO 08/19/20 21:59 BID OWEN Clonidine 0.2 mg 07/20/20 08:45 07/20/20 08:49 Catapres 0.1 Mg PO 07/20/20 08:46 0.2 mg STAT ONE Administration Clonidine Confirm 07/20/20 08:46 Catapres 0.1 Mg Administered 07/20/20 08:47 Dose 0.2 mg .ROUTE .STK-MED ONE Digoxin 0.5 mg 07/20/20 09:47 07/20/20 10:05 Lanoxin 0.5 Mg/2 Ml Injection IV 07/20/20 09:48 Not Given STAT ONE Digoxin Confirm 07/20/20 09:51 Lanoxin 0.5 Mg/2 Ml Injection Administered 07/20/20 09:52 Dose 0.5 mg .ROUTE .STK-MED ONE Digoxin 0.25 mg 07/20/20 09:54 07/20/20 09:56 Lanoxin 0.5 Mg/2 Ml Injection IV 07/20/20 09:55 0.25 mg STAT ONE Administration Diphenhydramine HCl 25 mg 07/20/20 06:23 07/20/20 07:17 Benadryl 50 Mg/Ml IV 07/20/20 06:24 Not Given STAT ONE Diphenhydramine HCl Confirm 07/20/20 06:29 Benadryl 50 Mg/Ml Administered 07/20/20 06:30 Dose 50 mg .ROUTE .STK-MED ONE Furosemide 20 mg 07/20/20 07:55 07/20/20 07:57 Lasix 20 Mg/2 Ml IV 07/20/20 07:56 20 mg ONCE STA Administration Furosemide Confirm 07/20/20 07:56 Lasix 40 Mg/4 Ml Administered 07/20/20 07:57 Dose 40 mg .ROUTE .STK-MED ONE Furosemide 40 mg 07/20/20 17:00 Lasix 40 Mg/4 Ml IV 08/19/20 16:59 BID DIURETIC OWEN Lorazepam 1 mg 07/20/20 07:28 07/20/20 07:33 Ativan 2 Mg/1 Ml Vial IV 07/20/20 07:29 1 mg STAT ONE Administration Lorazepam Confirm 07/20/20 07:30 Ativan 2 Mg/1 Ml Vial Administered 07/20/20 07:31 Dose 2 mg .ROUTE .STK-MED ONE Morphine Sulfate 4 mg 07/20/20 06:23 07/20/20 06:30 Morphine Sulfate 4 Mg Inj IV 07/20/20 06:24 4 mg STAT ONE Administration Morphine Sulfate Confirm 07/20/20 06:29 Morphine Sulfate 4 Mg Inj Administered 07/20/20 06:30 Dose 4 mg .ROUTE .STK-MED ONE Nitroglycerin 0.4 mg 07/20/20 06:22 07/20/20 06:28 Nitrostat 0.4 Mg (Ed) SL 07/20/20 06:23 0.4 mg STAT ONE Administration Nitroglycerin Confirm 07/20/20 06:24 Nitrostat 0.4 Mg (Ed) Administered 07/20/20 06:25 Dose 0.4 mg SL .STK-MED ONE Lab/Rad Data: Laboratory Result Diagrams 07/20/20 06:15 07/20/20 06:30 Laboratory Results 07/20/20 07/20/20 07/20/20 Range/Units 12:25 10:51 09:30 WBC (4.0-10.5) K/mm3 RBC (4.1-5.6) M/mm3 Hgb (12.5-18.0) gm/dl Hct (42-50) % MCV (78-100) fl MCH (26-32) pg MCHC (32-36) g/dl RDW (11.5-14.0) % Plt Count (150-450) K/mm3 MPV (7.5-11.0) fl Gran % (36.0-66.0) % Eos # (Auto) (0-0.5) Absolute Lymphs (auto) (1.0-4.6) Absolute Monos (auto) (0.0-1.3) Lymphocytes % (24.0-44.0) % Monocytes % (0.0-12.0) % Eosinophils % (0.00-5.0) % Basophils % (0.0-0.4) % Absolute Granulocytes (1.4-6.9) Basophils # (0-0.4) D-Dimer (215-500) ng/mL Sodium (137-145) mmol/L Potassium (3.5-5.1) mmol/L Chloride (98-107) mmol/L Carbon Dioxide (22-30) mmol/L Anion Gap (5-15) MEQ/L BUN (9-20) mg/dL Creatinine (0.66-1.25) mg/dL Estimated GFR ML/MIN Glucose (74-106) mg/dL Lactic Acid (0.4-2.0) Calcium (8.4-10.2) mg/dL Total Bilirubin (0.2-1.3) mg/dL AST (17-59) U/L ALT (0-50) U/L Alkaline Phosphatase (38-126) U/L Troponin I < 0.012 < 0.012 (0.000-0.034) ng/mL NT-Pro-B Natriuret Pep (0-900) pg/mL Serum Total Protein (6.3-8.2) g/dL Albumin (3.5-5.0) g/dL Urine Color (YELLOW) Urine Appearance (CLEAR) Urine pH (5-6) Ur Specific [place] (1.005-1.025) Urine Protein (Negative) Urine Ketones (NEGATIVE) Urine Blood (0-5) Jono/ul Urine Nitrite (NEGATIVE) Urine Bilirubin (NEGATIVE) Urine Urobilinogen (0-1) mg/dL Ur Leukocyte Esterase (NEGATIVE) Urine WBC (Auto) (0-5) /HPF Urine RBC (Auto) (0-2) /HPF U Hyaline Cast (Auto) (0-2) /LPF U Epithel Cells (Auto) (FEW) /HPF Urine Bacteria (Auto) (NEGATIVE) /HPF Urine Culture Reflexed (NO) Urine Glucose (NEGATIVE) mg/dL Digoxin (0.8-1.9) ng/mL SARS-CoV-2 (PCR) NEGATIVE (NEGATIVE) 07/20/20 07/20/20 07/20/20 Range/Units 09:22 09:06 06:30 WBC (4.0-10.5) K/mm3 RBC (4.1-5.6) M/mm3 Hgb (12.5-18.0) gm/dl Hct (42-50) % MCV (78-100) fl MCH (26-32) pg MCHC (32-36) g/dl RDW (11.5-14.0) % Plt Count (150-450) K/mm3 MPV (7.5-11.0) fl Gran % (36.0-66.0) % Eos # (Auto) (0-0.5) Absolute Lymphs (auto) (1.0-4.6) Absolute Monos (auto) (0.0-1.3) Lymphocytes % (24.0-44.0) % Monocytes % (0.0-12.0) % Eosinophils % (0.00-5.0) % Basophils % (0.0-0.4) % Absolute Granulocytes (1.4-6.9) Basophils # (0-0.4) D-Dimer (215-500) ng/mL Sodium (137-145) mmol/L Potassium (3.5-5.1) mmol/L Chloride (98-107) mmol/L Carbon Dioxide (22-30) mmol/L Anion Gap (5-15) MEQ/L BUN (9-20) mg/dL Creatinine (0.66-1.25) mg/dL Estimated GFR ML/MIN Glucose (74-106) mg/dL Lactic Acid 1.3 (0.4-2.0) Calcium (8.4-10.2) mg/dL Total Bilirubin (0.2-1.3) mg/dL AST (17-59) U/L ALT (0-50) U/L Alkaline Phosphatase (38-126) U/L Troponin I (0.000-0.034) ng/mL NT-Pro-B Natriuret Pep (0-900) pg/mL Serum Total Protein (6.3-8.2) g/dL Albumin (3.5-5.0) g/dL Urine Color STRAW (YELLOW) Urine Appearance CLEAR (CLEAR) Urine pH 5.0 (5-6) Ur Specific [place] 1.014 (1.005-1.025) Urine Protein NEGATIVE (Negative) Urine Ketones NEGATIVE (NEGATIVE) Urine Blood MODERATE (0-5) Jono/ul Urine Nitrite NEGATIVE (NEGATIVE) Urine Bilirubin NEGATIVE (NEGATIVE) Urine Urobilinogen NEGATIVE (0-1) mg/dL Ur Leukocyte Esterase NEGATIVE (NEGATIVE) Urine WBC (Auto) NONE (0-5) /HPF Urine RBC (Auto) 0-2 (0-2) /HPF U Hyaline Cast (Auto) 3-5 (0-2) /LPF U Epithel Cells (Auto) NONE (FEW) /HPF Urine Bacteria (Auto) NONE (NEGATIVE) /HPF Urine Culture Reflexed NO (NO) Urine Glucose NEGATIVE (NEGATIVE) mg/dL Digoxin < 0.4 L (0.8-1.9) ng/mL SARS-CoV-2 (PCR) (NEGATIVE) 07/20/20 07/20/20 07/20/20 Range/Units 06:30 06:30 06:15 WBC (4.0-10.5) K/mm3 RBC (4.1-5.6) M/mm3 Hgb (12.5-18.0) gm/dl Hct (42-50) % MCV (78-100) fl MCH (26-32) pg MCHC (32-36) g/dl RDW (11.5-14.0) % Plt Count (150-450) K/mm3 MPV (7.5-11.0) fl Gran % (36.0-66.0) % Eos # (Auto) (0-0.5) Absolute Lymphs (auto) (1.0-4.6) Absolute Monos (auto) (0.0-1.3) Lymphocytes % (24.0-44.0) % Monocytes % (0.0-12.0) % Eosinophils % (0.00-5.0) % Basophils % (0.0-0.4) % Absolute Granulocytes (1.4-6.9) Basophils # (0-0.4) D-Dimer 1459 H* (215-500) ng/mL Sodium 139 (137-145) mmol/L Potassium 4.0 (3.5-5.1) mmol/L Chloride 106 (98-107) mmol/L Carbon Dioxide 24 (22-30) mmol/L Anion Gap 13.5 (5-15) MEQ/L BUN 13 (9-20) mg/dL Creatinine 0.75 (0.66-1.25) mg/dL Estimated GFR > 60.0 ML/MIN Glucose 123 H (74-106) mg/dL Lactic Acid 2.2 H (0.4-2.0) Calcium 9.5 (8.4-10.2) mg/dL Total Bilirubin 1.20 (0.2-1.3) mg/dL AST 24 (17-59) U/L ALT 15 (0-50) U/L Alkaline Phosphatase 78 (38-126) U/L Troponin I < 0.012 (0.000-0.034) ng/mL NT-Pro-B Natriuret Pep 2750 H (0-900) pg/mL Serum Total Protein 8.8 H (6.3-8.2) g/dL Albumin 4.6 (3.5-5.0) g/dL Urine Color (YELLOW) Urine Appearance (CLEAR) Urine pH (5-6) Ur Specific [place] (1.005-1.025) Urine Protein (Negative) Urine Ketones (NEGATIVE) Urine Blood (0-5) Jono/ul Urine Nitrite (NEGATIVE) Urine Bilirubin (NEGATIVE) Urine Urobilinogen (0-1) mg/dL Ur Leukocyte Esterase (NEGATIVE) Urine WBC (Auto) (0-5) /HPF Urine RBC (Auto) (0-2) /HPF U Hyaline Cast (Auto) (0-2) /LPF U Epithel Cells (Auto) (FEW) /HPF Urine Bacteria (Auto) (NEGATIVE) /HPF Urine Culture Reflexed (NO) Urine Glucose (NEGATIVE) mg/dL Digoxin (0.8-1.9) ng/mL SARS-CoV-2 (PCR) (NEGATIVE) 07/20/20 Range/Units 06:15 WBC 7.2 (4.0-10.5) K/mm3 RBC 4.94 (4.1-5.6) M/mm3 Hgb 13.5 (12.5-18.0) gm/dl Hct 43.0 (42-50) % MCV 87.0 (78-100) fl MCH 27.3 (26-32) pg MCHC 31.4 L (32-36) g/dl RDW 17.0 H (11.5-14.0) % Plt Count 115 L (150-450) K/mm3 MPV 9.6 (7.5-11.0) fl Gran % 70.8 H (36.0-66.0) % Eos # (Auto) 0.27 (0-0.5) Absolute Lymphs (auto) 1.00 (1.0-4.6) Absolute Monos (auto) 0.78 (0.0-1.3) Lymphocytes % 13.9 L (24.0-44.0) % Monocytes % 10.9 (0.0-12.0) % Eosinophils % 3.8 (0.00-5.0) % Basophils % 0.6 (0.0-0.4) % Absolute Granulocytes 5.08 (1.4-6.9) Basophils # 0.04 (0-0.4) D-Dimer (215-500) ng/mL Sodium (137-145) mmol/L Potassium (3.5-5.1) mmol/L Chloride (98-107) mmol/L Carbon Dioxide (22-30) mmol/L Anion Gap (5-15) MEQ/L BUN (9-20) mg/dL Creatinine (0.66-1.25) mg/dL Estimated GFR ML/MIN Glucose (74-106) mg/dL Lactic Acid (0.4-2.0) Calcium (8.4-10.2) mg/dL Total Bilirubin (0.2-1.3) mg/dL AST (17-59) U/L ALT (0-50) U/L Alkaline Phosphatase (38-126) U/L Troponin I (0.000-0.034) ng/mL NT-Pro-B Natriuret Pep (0-900) pg/mL Serum Total Protein (6.3-8.2) g/dL Albumin (3.5-5.0) g/dL Urine Color (YELLOW) Urine Appearance (CLEAR) Urine pH (5-6) Ur Specific [place] (1.005-1.025) Urine Protein (Negative) Urine Ketones (NEGATIVE) Urine Blood (0-5) Jono/ul Urine Nitrite (NEGATIVE) Urine Bilirubin (NEGATIVE) Urine Urobilinogen (0-1) mg/dL Ur Leukocyte Esterase (NEGATIVE) Urine WBC (Auto) (0-5) /HPF Urine RBC (Auto) (0-2) /HPF U Hyaline Cast (Auto) (0-2) /LPF U Epithel Cells (Auto) (FEW) /HPF Urine Bacteria (Auto) (NEGATIVE) /HPF Urine Culture Reflexed (NO) Urine Glucose (NEGATIVE) mg/dL Digoxin (0.8-1.9) ng/mL SARS-CoV-2 (PCR) (NEGATIVE) - Progress Progress: improved, re-examined Air Movement: good Blood Culture(s) Obtained: No Antibiotics given: Yes Counseled pt/family regarding: lab results, diagnosis, need for follow-up, rad results <MARTY KERR - Last Filed: 07/20/20 06:52> - Progress Progress: improved Air Movement: good Antibiotics given: No <SUNDAY EPPS - Last Filed: 07/20/20 16:50> - Progress Progress Note: 07/20/20 06:52 pt was given NTG 0.4 x 1 in ER without improvement. Pt was given 4 x 81 mg ASA in ER. pt is being handed over to Dr. Sullivan at change of shift for completion of workup and disposition after discussion of pending studies , and pt intro. (MARTY KERR) 07/20/20 09:11 Assumed care of pt at shift change w dyspnea/cough/pleuritic chest pain. Pt has a h/o COPD/O2 at home/CABG/tobacco abuse. EKG demonstrates NSR/prolonged QTc/IVCD/nonspecific T waves/Trop neg x1/BNP elevated. 07/20/20 10:[address] Chun. Wants CV19 testing. 07/20/20 16:49 Pt improved after 20mg IV Lasix. BP improved after 0.2mg po clonidine (SUNDAY EPPS) <MARTY KERR - Last Filed: 07/20/20 06:52> - Departure Departure Disposition: Observation Critical Care Time: No <SUNDAY EPPS - Last Filed: 07/20/20 16:50> - Departure Clinical Impression: CHF (congestive heart failure) Condition: Stable
[2020-07-20] MEDS ORDERED: Nitrostat 0.4 MG (ED) SL ONE ×2 (06:22→06:24)
[2020-07-20] MEDS ORDERED: MORPHINE SULFATE 4 MG INJ IV ONE (06:23)
[2020-07-20] MEDS: Sodium Chloride 0.9% 1000 ML 1,000 ML IV SCH ×2 (06:27→17:24)
[2020-07-20] MEDS ORDERED: BENADRYL 50 MG/ML ONE (06:29)
[2020-07-20] MEDS ORDERED: MORPHINE SULFATE 4 MG INJ ONE (06:29)
[2020-07-20 06:30] LABS: Absolute Neutrophil Ct (ANC) 5.08 (1.4-6.9); BASOPHIL % 0.6 % (0.0-0.4); Basophil (Absolute #) 0.04 (0-0.4); Eosinophil % 3.8 % (0.00-5.0); Eosinophil (Absolute #) 0.27 (0-0.5); Hemoglobin 13.5 gm/dl (12.5-18.0); Lymphocytes % 13.9 % (24.0-44.0); Mean Corpuscular Hemoglobin 27.3 pg (26-32); Mean Corpuscular Hgb Concent. 31.4 g/dl (32-36); Mean Platelet Volume 9.6 fl (7.5-11.0); Monocyte (Absolute #) 0.78 (0.0-1.3); Monocytes % 10.9 % (0.0-12.0); Neutrophil % 70.8 % (36.0-66.0); Platelet Count 115 K/mm3 (150-450); Red Blood Count 4.94 M/mm3 (4.1-5.6); White Blood Count 7.2 K/mm3 (4.0-10.5)
[2020-07-20] MEDS: BENADRYL 50 MG/ML IV ONE ×2 (06:30→07:17)
[2020-07-20] MEDS ORDERED: BABY ASPIRIN 81 MG CHEW ONE (06:41)
[2020-07-20] MEDS ORDERED: BABY ASPIRIN 81 MG CHEW PO ONE (06:50)
[2020-07-20 06:56] LABS: ALBUMIN 4.6 g/dL (3.5-5.0); ALKALINE PHOSPHATASE 78 U/L (38-126); ANION GAP 13.5 MEQ/L (5-15); BLOOD UREA NITROGEN 13 mg/dL (9-20); CHLORIDE 106 mmol/L (98-107); Calcium 9.5 mg/dL (8.4-10.2); Carbon Dioxide 24 mmol/L (22-30); Creatinine 1 0.75 mg/dL (0.66-1.25); EST GLOMERULAR FILTRATION RATE > 60.0 ML/MIN; Glucose 123 mg/dL (74-106); NT PRO BNP 2750 pg/mL (0-900); SGOT/AST 24 U/L (17-59); SGPT/ALT 15 U/L (0-50); SODIUM 139 mmol/L (137-145); TROPONIN < 0.012 ng/mL (0.000-0.034); Total Protein 8.8 g/dL (6.3-8.2)
[2020-07-20] MEDS ORDERED: Ativan 2 MG/1 ML VIAL IV ONE (07:28)
[2020-07-20] MEDS ORDERED: Ativan 2 MG/1 ML VIAL ONE (07:30)
[2020-07-20] MEDS ORDERED: HYDROCODONE-ACETAMIN 2.5-108/5 ML SOLUTION PO STA (07:53)
[2020-07-20] MEDS ORDERED: HYDROCODONE-ACETAMIN 2.5-108/5 ML SOLUTION ONE (07:55)
[2020-07-20] MEDS ORDERED: Lasix 20 MG/2 ML IV STA (07:55)
[2020-07-20] MEDS ORDERED: Lasix 40 MG/4 ML ONE (07:56)
[2020-07-20] MEDS ORDERED: Catapres 0.1 MG PO ONE (08:45)
[2020-07-20] MEDS ORDERED: Catapres 0.1 MG ONE (08:46)
[2020-07-20] MEDS ORDERED: Lanoxin 0.5 MG/2 ML INJECTION IV ONE ×2 (09:47→09:54)
[2020-07-20] MEDS ORDERED: Lanoxin 0.5 MG/2 ML INJECTION ONE (09:51)
[2020-07-20 10:20] LABS: Appearance CLEAR (CLEAR); Bilirubin NEGATIVE (NEGATIVE); Blood MODERATE Ery/ul (0-5); Glucose NEGATIVE (NEGATIVE); Ketones NEGATIVE (NEGATIVE); Leukocyte Esterase NEGATIVE (NEGATIVE); Nitrite NEGATIVE (NEGATIVE); Protein,Urine Dip NEGATIVE (Negative); RBC 0-2 /HPF (0-2); Specific Gravity 1.014 (1.005-1.025); Urobilinogen NEGATIVE mg/dL (0-1)
--- NOTE | 2020-07-20 10:36 | XRAY ---
Indication: Chest pain. Elevated d-dimer. COPD.. Multiple contiguous axial images obtained through the chest using 100 cc Isovue 370 contrast and PE protocol. Comparison: May 21, 2020 There is good opacification of the pulmonary arteries including lobar and segmental branches. Again no pulmonary embolus. Heart remains enlarged again with mitral valve replacement and left AICD. Aorta remains mildly calcified without aneurysm/dissection. Stable tiny mediastinal/hilar calcified nodes. No pathologic mediastinal/hilar lymphadenopathy. Lungs demonstrates worsening pulmonary edema and marked increasing bilateral pleural effusions with bibasilar compressive atelectasis. Bony thorax intact again with sternotomy wires and bilateral gynecomastia. Limited upper abdomen again demonstrates 15 cm splenomegaly. Impression: 1. Continued negative pulmonary embolus. 2. Again cardiomegaly with worsening pulmonary edema and worsening bilateral pleural effusions favoring worsening cardiac decompensation/CHF. 3. Again incidental gynecomastia and splenomegaly. Comment: Preliminary interpretation was made by [facility]. No critical discrepancy.
--- NOTE | 2020-07-20 10:38 | XRAY ---
Indication: Short of breath. Comparison: May 21, 2020. Portable chest again demonstrates cardiomegaly with mitral valve replacement and left AICD. Worsening central vascular congestion, pulmonary edema, and bibasilar effusions favoring cardiac decompensation/CHF. Superimposed pneumonia not completely excluded.
[2020-07-20] MEDS ORDERED: VENTOLIN COMMON CANISTER IH PRN (14:46)
[2020-07-20] MEDS ORDERED: Nitrostat 0.4 MG Tablet SL PRN (14:50)
[2020-07-20] MEDS: VITAMIN B-1 100 MG PO SCH (16:04)
[2020-07-20] MEDS: Imdur 30 MG PO SCH (16:05)
[2020-07-20] MEDS: Flomax 0.4 MG PO SCH (16:05)
[2020-07-20] MEDS: ANTIVERT 25 MG PO SCH ×2 (16:05→22:39)
[2020-07-20] MEDS: Aldactone 25 MG PO SCH (16:05)
[2020-07-20] MEDS: Zestril 5 MG PO SCH (16:05)
[2020-07-20] MEDS: Cymbalta 30 MG Capsule PO SCH (16:05)
[2020-07-20] MEDS: Protonix 40MG Tablet PO SCH (16:05)
[2020-07-20] MEDS: Lasix 40 MG PO SCH (16:05)
[2020-07-20] MEDS ORDERED: Lasix 40 MG/4 ML IV SCH (17:00)
[2020-07-20] MEDS ORDERED: Cyclobenzaprine 10 MG ONE (17:50)
[2020-07-20] MEDS: Cyclobenzaprine 10 MG PO SCH (17:52)
[2020-07-20] MEDS ORDERED: GI COCKTAIL 45 ML (Maalox/Lidocaine) PO ONE (17:57)
[2020-07-20] MEDS ORDERED: XYLOCAINE VISCOUS 2% 20 ML CUP ONE (18:07)
[2020-07-20] MEDS ORDERED: MAALOX ES 30 ML UNIT DOSE ONE (18:07)
[2020-07-20] MEDS: Advair Hfa 115/21 Common canister IH SCH (19:18)
[2020-07-20] MEDS ORDERED: NON-FORMULARY ITEM (Cyclobenzaprine Hcl [Flexeril] 10 MG) PO SCH (22:00)
[2020-07-20] MEDS ORDERED: LIPITOR 40MG PO SCH (22:00)
[2020-07-20] MEDS ORDERED: Coreg 6.25 MG PO SCH (22:00)
[2020-07-20] MEDS ORDERED: NON-FORMULARY ITEM (Apixaban [Eliquis] 5 MG) PO SCH (22:00)
[2020-07-20] MEDS: TYLENOL EXTRA STRENGTH 500 MG PO PRN (22:37)
[2020-07-20] MEDS: Coreg 3.125 MG PO SCH (22:39)
[2020-07-20] MEDS: ZOCOR 20MG PO SCH (22:39)
[2020-07-20] MEDS: ELIQUIS 2.5 MG TABLET PO SCH (22:39)
[2020-07-20] MEDS: Seroquel 25 MG PO SCH (22:39)
[2020-07-21] MEDS: Sodium Chloride 0.9% 1000 ML 1,000 ML IV SCH (04:51)
[2020-07-21 04:57] LABS: Hematocrit 37.5 % (42-50); Hemoglobin 11.6 gm/dl (12.5-18.0); Mean Cell Volume 87.8 fl (78-100); Mean Corpuscular Hemoglobin 27.2 pg (26-32); Mean Corpuscular Hgb Concent. 30.9 g/dl (32-36); Mean Platelet Volume 9.5 fl (7.5-11.0); Platelet Count 87 K/mm3 (150-450); Red Blood Count 4.27 M/mm3 (4.1-5.6); Red Cell Distribution Width 16.4 % (11.5-14.0); White Blood Count 5.2 K/mm3 (4.0-10.5)
[2020-07-21 06:03] LABS: Slide Review YES
[2020-07-21] MEDS: ANTIVERT 25 MG PO SCH ×3 (06:35→22:43)
[2020-07-21] MEDS: Advair Hfa 115/21 Common canister IH SCH ×2 (06:59→19:20)
--- NOTE | 2020-07-21 09:37 | XRAY ---
Indication: Chest pain left greater than right. Comparison: CT chest one day earlier. 2 view left and right ribs remain negative for acute fracture, dislocation, or suspicious bony lesions. Stable appearing left-sided AICD, cardiomegaly with CABG/mitral valve replacement, small bilateral effusions, and scattered calcified granulomas.
[2020-07-21] MEDS ORDERED: NON-FORMULARY ITEM (Duloxetine Hcl [Duloxetine Hcl] 60 MG) PO SCH (10:00)
[2020-07-21] MEDS ORDERED: NON-FORMULARY ITEM (Omeprazole [Omeprazole] 40 MG) PO SCH ×2 (10:00)
[2020-07-21] MEDS: Coreg 3.125 MG PO SCH ×2 (10:17→22:44)
[2020-07-21] MEDS: Aldactone 25 MG PO SCH (10:17)
[2020-07-21] MEDS: Cymbalta 30 MG Capsule PO SCH (10:17)
[2020-07-21] MEDS: VITAMIN B-1 100 MG PO SCH (10:18)
[2020-07-21] MEDS: Flomax 0.4 MG PO SCH (10:18)
[2020-07-21] MEDS: Imdur 30 MG PO SCH (10:18)
[2020-07-21] MEDS: ELIQUIS 2.5 MG TABLET PO SCH ×2 (10:18→22:44)
[2020-07-21] MEDS: ECOTRIN 81 MG PO SCH (10:18)
[2020-07-21] MEDS: Protonix 40MG Tablet PO SCH (10:18)
[2020-07-21] MEDS: Lasix 40 MG PO SCH ×2 (10:18→16:30)
[2020-07-21] MEDS: Zestril 5 MG PO SCH (10:19)
--- NOTE | 2020-07-21 10:55 | XRAY ---
Indication: Chest pain. Two-dimensional gallbladder sonogram performed. Comparison: December 25, 2013. Gallbladder partially contracted with again borderline wall thickening measuring 2.8 mm. No gallstones or pericholecystic fluid. Common bile duct measures 3 mm. No intrahepatic biliary distention. Visualized portions of the liver now demonstrates fatty echogenicities without focal solid/cystic mass. No ascites. Remaining visualized pancreas and right kidney sonographically unremarkable. Right kidney measures 10 cm in length. Impression: 1. Again borderline gallbladder wall thickening without cholelithiasis or acute cholecystitis. Nuclear medicine HIDA scan may yield further information. 2. New fatty liver. 3. Remaining gallbladder sonogram is negative.
[2020-07-21] MEDS: TYLENOL EXTRA STRENGTH 500 MG PO PRN (13:07)
[2020-07-21] MEDS: Ativan 0.5 MG PO PRN (20:15)
[2020-07-21] MEDS: Seroquel 25 MG PO SCH (22:43)
[2020-07-21] MEDS: ZOCOR 20MG PO SCH (22:44)
[2020-07-21] MEDS: Cyclobenzaprine 10 MG PO SCH (22:44)
--- NOTE | 2020-07-21 22:58 | PCM.SSS ---
History of Present Illness - Chief Complaint Chief Complaint: Congestive Heart Failure Date: 07/21/20 History of Present Illness: is a 59 year old male who presented to ER C/O sob and cough and chest pressure. PMHx CAD,HTN,CHF,COPD oxygen dependent. Medications & Allergies Home Medications: Home Medication List Tamsulosin HCl 0.4 mg [Flomax 0.4 MG] 0.4 mg PO DAILY 05/13/13 [History Confirmed 07/20/20] Fluticasone/Salmeterol [Advair 250-50 Diskus] 1 puff IH BID 07/11/13 [History Confirmed 07/20/20] Aspirin [Aspirin EC] 81 mg PO DAILY 11/30/14 [History Confirmed 07/20/20] Apixaban [Eliquis] 5 mg PO BID #14 tablet 09/22/18 [Rx Confirmed 07/20/20] Carvedilol 3.125 mg [Coreg 3.125 MG] 3.125 mg PO BID #14 tablet 09/22/18 [Rx Confirmed 07/20/20] Albuterol Common Canister [Ventolin Common Canister] 2 puff IH Q4HPRN PRN 07/20/20 [History Confirmed 07/20/20] Atorvastatin Calcium 40 mg PO HS 07/20/20 [History Confirmed 07/20/20] Cyclobenzaprine HCl [Flexeril] 10 mg PO HS 07/20/20 [History Confirmed 07/20/20] Duloxetine HCl 60 mg PO DAILY 07/20/20 [History Confirmed 07/20/20] Furosemide 40 mg [Lasix 40 MG] 40 mg PO BID 07/20/20 [History Confirmed 07/20/20] Isosorbide Mononitrate 30 mg [Imdur 30 MG] 30 mg PO DAILY 07/20/20 [History Confirmed 07/20/20] Lisinopril 5 mg [Zestril 5 MG] 5 mg PO DAILY 07/20/20 [History Confirmed 07/20/20] Meclizine HCl 25 mg [Antivert 25 mg] 25 mg PO Q8H 07/20/20 [History Confirmed 07/20/20] Nitroglycerin 0.4 mg Tablet [Nitrostat 0.4 MG Tablet] 0.4 mg SL UD PRN 07/20/20 [History Confirmed 07/20/20] Omeprazole 40 mg PO DAILY 07/20/20 [History Confirmed 07/20/20] Quetiapine Fumarate 25 mg [Seroquel 25 MG] 0.5 tab PO HS 07/20/20 [History Confirmed 07/20/20] Spironolactone 25 mg [Aldactone 25 MG] 0.5 tab PO DAILY 07/20/20 [History Confirmed 07/20/20] Thiamine HCl [B-1] 100 mg PO DAILY 07/20/20 [History Confirmed 07/20/20] Allergies/Adverse Reactions: Allergies Allergy/AdvReac Type Severity Reaction Status Date / Time carisoprodol [Carisoprodol] Allergy Unknown Verified 07/20/20 05:51 ketorolac Allergy Unknown Verified 07/20/20 05:51 - Past Medical History Past Medical History: Yes Neurological History: Migraines, Stroke, TIA ENT History: Cataracts Cardiac History: Arrhythmia, Congestive Heart Failure, Coronary Artery Disease, High Cholesterol, Hypertension, Myocardial Infarction ([place]) Respiratory History: Asthma, Bronchitis, CHF, COPD, Pneumonia, Pulmonary Embolism Endocrine Medical History: No Pertinent History Musculoskelatal History: Arthritis GI Medical History: No Pertinent History History: No Pertinent History Pyscho-Social History: Anxiety, Depression Male Reproductive Disorders: No Pertinent History Comment: CABG , FEM POP IN THE LAST 10 YRS - Past Surgical History Past Surgical History: Yes Neuro Surgical History: No Pertinent History Cardiac History: CABG, Cardiac Catheterization, Cardiac Stent, Internal Defibrillator, Pacemaker Respiratory Surgery: No Pertinent History GI Surgical History: Appendectomy, Hernia Repair Genitourinary Surgical Hx: No Pertinent History Musculskeletal Surgical Hx: No Pertinent History Male Surgical History: No Pertinent History Other Surgical History: bypass x 3, surgery to left leg after bite from brown recluse - Social History Smoking Status: Current every day smoker How long have you smoked: 45 years Exposure to second hand smoke: Yes Alcohol: None Drug Use: methamphetamines - Physical Exam Vital Signs: Vital Signs - 24 hr Temp Pulse Resp BP Pulse Ox 12/28/20 20:00 97.8 F 70 24 136/70 96 07/21/20 19:20 69 20 94 L 07/21/20 16:00 98.2 F 80 21 127/73 97 07/21/20 12:00 97.8 F 70 18 139/72 97 07/21/20 08:00 98.2 F 74 22 169/100 97 07/21/20 07:01 96 07/21/20 04:00 97.6 F 69 20 134/75 91 L 07/21/20 00:00 98.0 F 69 20 112/65 91 L Results - Labs Lab/Micro Results: Lab Results-Last 24 Hours 07/21/20 07/21/20 07/21/20 Range/Units 04:37 04:37 04:37 WBC 5.2 (4.0-10.5) K/mm3 RBC 4.27 (4.1-5.6) M/mm3 Hgb 11.6 L (12.5-18.0) gm/dl Hct 37.5 L (42-50) % MCV 87.8 (78-100) fl MCH 27.2 (26-32) pg MCHC 30.9 L (32-36) g/dl RDW 16.4 H (11.5-14.0) % Plt Count 87 L (150-450) K/mm3 MPV 9.5 (7.5-11.0) fl NT-Pro-B Natriuret Pep 1270 H (0-900) pg/mL Digoxin < 0.4 L (0.8-1.9) ng/mL Slides for Path Review YES - Radiology Impressions Radiology Exams & Impressions: Radiology Procedures Category Date Time Status CHEST 1 VIEW (PORTABLE) Stat Exams 07/20/20 06:17 Completed CHEST WITH CONTRAST [CT] Stat Exams 07/20/20 06:51 Completed GALLBLADDER [US] Routine Exams 07/21/20 08:00 Completed HIDA-GALL BLADDER [NUCMED] Routine Exams 07/22/20 08:00 Ordered RIBS BILATERAL (MIN 3 VIEWS) Routine Exams 07/21/20 08:00 Completed Assessment/Plan (1) Chest pain Current Visit: No Status: Resolved Assessment & Plan: serial troponins negative Code(s): R07.9 - CHEST PAIN, UNSPECIFIED (2) CHF (congestive heart failure) Current Visit: Yes Status: Acute Code(s): I50.9 - HEART FAILURE, UNSPECIFIED (3) COPD with exacerbation Current Visit: No Status: Acute Code(s): J44.1 - CHRONIC OBSTRUCTIVE PULMONARY DISEASE W (ACUTE) EXACERBATION Hospital Summary - Hospital Course Hospital Course: Patient was admitted through ER with Chest pain . Serial troponins were not elevated. Upper abdomen was tender RUQ and epigastrum and GBUS showed no stones but chronic changes. Hida scan to be done as an outpatient. Patient is asking for IV pain meds through out his stay. He is on O2 @2/NC but required 3L/NC during his stay- COPD and CHF. He has some malfunction of his oxygen at home per his roommate . Arabella has been notified and he will be sent home on portable O2 for the trip home. He fell this morning on his way to the bathroom and nurse helped him up off the floor. He state his back hurts and left knee but he refused telling the tech he won't do the xray because they are not giving me IV pain meds... PT evaluated patient and walked with him with a walker. He has a walker and cane at home. He did well per PT. Now he says he could not do the xray because he cannot lay flat due to his breathing. - Vitals & Intake/Output Vital Signs: Vital Signs Temperature 97.8 F 07/21/20 20:00 Pulse Rate 70 07/21/20 20:00 Respiratory Rate 24 07/21/20 20:00 Blood Pressure 136/70 07/21/20 20:00 O2 Sat by Pulse Oximetry 96 07/21/20 20:00 Intake & Output: Intake & Output 07/19/20 07/20/20 07/21/20 07/22/20 11:59 11:59 11:59 11:59 Intake Total 2085 800 Output Total 850 800 Balance 1235 0 Weight 79.8 kg 80 kg - Lab Result Diagrams: 07/22/20 04:00 07/22/20 11:00 Lab Results-Last 24 Hrs: Lab Results-Last 24 Hours 07/21/20 07/21/20 07/21/20 Range/Units 04:37 04:37 04:37 WBC 5.2 (4.0-10.5) K/mm3 RBC 4.27 (4.1-5.6) M/mm3 Hgb 11.6 L (12.5-18.0) gm/dl Hct 37.5 L (42-50) % MCV 87.8 (78-100) fl MCH 27.2 (26-32) pg MCHC 30.9 L (32-36) g/dl RDW 16.4 H (11.5-14.0) % Plt Count 87 L (150-450) K/mm3 MPV 9.5 (7.5-11.0) fl NT-Pro-B Natriuret Pep 1270 H (0-900) pg/mL Digoxin < 0.4 L (0.8-1.9) ng/mL Slides for Path Review YES - Radiology Exams Ordered Rad Exams-Entire Visit: Radiology Procedures Category Date Time Status CHEST 1 VIEW (PORTABLE) Stat Exams 07/20/20 06:17 Completed CHEST WITH CONTRAST [CT] Stat Exams 07/20/20 06:51 Completed GALLBLADDER [US] Routine Exams 07/21/20 08:00 Completed HIDA-GALL BLADDER [NUCMED] Routine Exams 07/22/20 08:00 Ordered RIBS BILATERAL (MIN 3 VIEWS) Routine Exams 07/21/20 08:00 Completed - Procedures and Test Procedures and Tests throughout Hospitalization: Therapy Orders & Screens 07/20/20 11:53 Oxygen NASAL CANNULA 2 lpm Comment: Diagnosis: CHF 07/20/20 13:23 Respiratory Therapy Assessment DAILY Comment: Diagnosis: CHF 07/20/20 13:49 OT Screen per Nursing Assess ONCE Comment: Protocol Order Physician Instructions: Greater than 3 points order OT Admission Screening Reason For Exam: Triggered on Admission Diagnosis: Congestive Heart Failure Open Wound/Cellutlitis/Pressure Ulcers: No Acute Fx/ORIF/Change in wt bearing status: No Severe MUSCULOSKELETAL pain: No ADL Dysfunction: Yes Acute CVA w/Hemiparesis/Hemiplegia: No Decreased Functional Mobility/Strength: Yes Sprain/Strain: No Acute Post-op Mobility Dysfunction: No Total Points: 4 PT Screen per Nursing Assess ONCE Comment: Protocol Order Physician Instructions: Greater than 3 points order PT Admission Screenin Reason For Exam: Triggered on Admission Diagnosis: Congestive Heart Failure Open Wound/Cellutlitis/Pressure Ulcers: No Acute Fx/ORIF/Change in wt bearing status: No Severe MUSCULOSKELETAL pain: No ADL Dysfunction: Yes Acute CVA w/Hemiparesis/Hemiplegia: No Decreased Functional Mobility/Strength: Yes Sprain/Strain: No Acute Post-op Mobility Dysfunction: No Total Points: 4 RT Screen per Nursing Assess ONCE Comment: Protocol Order Physician Instructions: Greater than 3 points order RT Admission Screen Reason For Exam: Triggered on Admission Diagnosis: Congestive Heart Failure Diagnosis: Congestive Heart Failure Pneumonia: No Home O2: Yes Asthma: No CHF: Yes Home CPAP/BIPAP: No Home Nebs/MDI: Yes Total Points: 13 Smoking Cessation Education ONCE Comment: Diagnosis: Congestive Heart Failure Smoking Status: Current every day smoker How long have you smoked: 45 years Have you smoked in the past 12 months: Yes Approximately how many cigarettes per day: 5 Do you dip or chew tobacco: No If,Former Smoker,when did you quit: 6 WEEKS - Discharge Disposition: Home, Self-Care Condition: Stable Prescriptions: No Action Tamsulosin HCl 0.4 mg [Flomax 0.4 MG] 0.4 mg PO DAILY Fluticasone/Salmeterol [Advair 250-50 Diskus] 1 puff IH BID Aspirin [Aspirin EC] 81 mg PO DAILY Apixaban [Eliquis] 5 mg PO BID #14 tablet Carvedilol 3.125 mg [Coreg 3.125 MG] 3.125 mg PO BID #14 tablet Quetiapine Fumarate 25 mg [Seroquel 25 MG] 0.5 tab PO HS Lisinopril 5 mg [Zestril 5 MG] 5 mg PO DAILY Nitroglycerin 0.4 mg Tablet [Nitrostat 0.4 MG Tablet] 0.4 mg SL UD PRN PRN Reason: Chest Pain Thiamine HCl [B-1] 100 mg PO DAILY Meclizine HCl 25 mg [Antivert 25 mg] 25 mg PO Q8H Cyclobenzaprine HCl [Flexeril] 10 mg PO HS Omeprazole 40 mg PO DAILY Isosorbide Mononitrate 30 mg [Imdur 30 MG] 30 mg PO DAILY Duloxetine HCl 60 mg PO DAILY Albuterol Common Canister [Ventolin Common Canister] 2 puff IH Q4HPRN PRN PRN Reason: Shortness Of Breath Spironolactone 25 mg [Aldactone 25 MG] 0.5 tab PO DAILY Furosemide 40 mg [Lasix 40 MG] 40 mg PO BID Atorvastatin Calcium 40 mg PO HS Outpatient Orders: HIDA-GALL BLADDER [NUCMED] Time Frame: 07/24/20, Facility: [facility], Location: RADIOLOGY Additional Instructions: YOU NEED TO CONTINUE TO WEAR 3L/NC. ARABELLA WILL BE IN CONTACT TO ASSESS YOUR OXYGEN CONCENTRATOR. MIRYAMMARLIU'S PHONE NUMBER IS [phone] Pt is scheduled for OPS [facility] at [facility] on 07/24/20 @ 9:00a.m. NPO after midnight. No narcotics 12 hours prior to test. Follow up with: DOCTOR,NO FAMILY [Primary Care Provider] -
[2020-07-22] MEDS: TYLENOL EXTRA STRENGTH 500 MG PO PRN ×2 (04:38→08:34)
[2020-07-22] MEDS: ANTIVERT 25 MG PO SCH ×2 (05:14→13:16)
[2020-07-22] MEDS ORDERED: ULTRAM 50 MG PO PRN (06:29)
[2020-07-22] MEDS: Advair Hfa 115/21 Common canister IH SCH (06:55)
[2020-07-22] MEDS: Lasix 40 MG PO SCH (08:33)
[2020-07-22] MEDS: Coreg 3.125 MG PO SCH (08:33)
[2020-07-22] MEDS: ECOTRIN 81 MG PO SCH (08:33)
[2020-07-22] MEDS: Flomax 0.4 MG PO SCH (08:33)
[2020-07-22] MEDS: Imdur 30 MG PO SCH (08:33)
[2020-07-22] MEDS: Cymbalta 30 MG Capsule PO SCH (08:33)
[2020-07-22] MEDS: ELIQUIS 2.5 MG TABLET PO SCH (08:33)
[2020-07-22] MEDS: Ativan 0.5 MG PO PRN (08:33)
[2020-07-22] MEDS: VITAMIN B-1 100 MG PO SCH (08:34)
[2020-07-22] MEDS: Protonix 40MG Tablet PO SCH (08:34)
[2020-07-22] MEDS: Aldactone 25 MG PO SCH (08:34)
[2020-07-22] MEDS: Zestril 5 MG PO SCH (08:34)
[2020-07-22 11:29] LABS: ALBUMIN 3.9 g/dL (3.5-5.0); ALKALINE PHOSPHATASE 62 U/L (38-126); ANION GAP 11.3 MEQ/L (5-15); BLOOD UREA NITROGEN 21 mg/dL (9-20); CHLORIDE 101 mmol/L (98-107); Calcium 8.9 mg/dL (8.4-10.2); Carbon Dioxide 28 mmol/L (22-30); Creatinine 1 0.95 mg/dL (0.66-1.25); EST GLOMERULAR FILTRATION RATE > 60.0 ML/MIN; Glucose 137 mg/dL (74-106); NT PRO BNP 1170 pg/mL (0-900); Potassium 3.7 mmol/L (3.5-5.1); SGOT/AST 21 U/L (17-59); SGPT/ALT 12 U/L (0-50); SODIUM 136 mmol/L (137-145); Total Protein 7.4 g/dL (6.3-8.2)
[2020-07-22 11:31] LABS: Hematocrit 39.3 % (42-50); Hemoglobin 12.3 gm/dl (12.5-18.0); Mean Cell Volume 87.3 fl (78-100); Mean Corpuscular Hemoglobin 27.3 pg (26-32); Mean Corpuscular Hgb Concent. 31.3 g/dl (32-36); Mean Platelet Volume 9.3 fl (7.5-11.0); Platelet Count 98 K/mm3 (150-450); Red Cell Distribution Width 16.3 % (11.5-14.0); White Blood Count 5.2 K/mm3 (4.0-10.5)
[2020-07-22 15:17] LABS: Slide Review YES
[2020-07-22 16:40] VITALS: BP 138/70; PULSE 78; O2SAT 96
== END 2020-07-22 17:50 | disposition home or self-care (01) ==
LOC: ED 05:44 → MED SURG 12:34
PROVIDERS: ADMIT Family Medicine; ATTEND Family Medicine
DX: R07.9 Chest pain, unspecified (principal); I50.9 Heart failure, unspecified; J44.1 Chronic obstructive pulmonary disease with (acute) exacerbation; Z99.81 Dependence on supplemental oxygen; Z79.899 Other long term (current) drug therapy; Z79.01 Long term (current) use of anticoagulants; E78.00 Pure hypercholesterolemia, unspecified; I25.10 Atherosclerotic heart disease of native coronary artery without angina pectoris; Z86.711 Personal history of pulmonary embolism
CPT/HCPCS: 36000; 36415; 71045; 71110; 71260; 76705; 80053; 80162; 81001; 83605; 83880; 84484; 85025; 85027; 85379; 93005; 94640; 94760; 94762; 96374; 96375; 97161; 99285; U0003; 93268; J1160; J1200; J1940; J2060; J2270; A9270-GY; G0378

== ENCOUNTER 2020-09-01 16:04 | Emergency (ER) | payer MEDICARE ==
[2020-09-01] MEDS ORDERED: DUONEB 0.5-3 MG/3 ml Neb IH ONE ×2 (16:29→16:42)
--- NOTE | 2020-09-01 16:29 | ERPHSYRPT ---
- History of Present Illness Time Seen by Provider: 09/01/20 16:18 Source: patient Exam Limitations: no limitations Physician History: Is a 5-year-old male with a past medical history significant for COPD, chronic supplemental oxygen use, and ongoing cigarette smoking presents with a chief complaint of shortness of breath. Onset reportedly was months ago. The patient also endorsed having a cough. His cough is nonproductive. He denies any chest pain, fever, chills, nausea, vomiting. He states he does not have a primary care provider. Of note, the patient is a poor historian Associated Symptoms: shortness of breath, cough, No nausea, No vomiting, No abdominal pain, No chest pain, No fever, No headaches Allergies/Adverse Reactions: carisoprodol [Carisoprodol] Allergy (Unknown, Verified 09/01/20 16:29) ketorolac Allergy (Unknown, Verified 09/01/20 16:29) Home Medications: Tamsulosin HCl 0.4 mg [Flomax 0.4 MG] 0.4 mg PO DAILY 05/13/13 [History] Fluticasone/Salmeterol [Advair 250-50 Diskus] 1 puff IH BID 07/11/13 [History] Aspirin [Aspirin EC] 81 mg PO DAILY 11/30/14 [History] Albuterol Common Canister [Ventolin Common Canister] 2 puff IH Q4HPRN PRN 07/20/20 [History] Atorvastatin Calcium 40 mg PO HS 07/20/20 [History] Cyclobenzaprine HCl [Flexeril] 10 mg PO HS 07/20/20 [History] Duloxetine HCl 60 mg PO DAILY 07/20/20 [History] Furosemide 40 mg [Lasix 40 MG] 40 mg PO BID 07/20/20 [History] Isosorbide Mononitrate 30 mg [Imdur 30 MG] 30 mg PO DAILY 07/20/20 [History] Lisinopril 5 mg [Zestril 5 MG] 5 mg PO DAILY 07/20/20 [History] Meclizine HCl 25 mg [Antivert 25 mg] 25 mg PO Q8H 07/20/20 [History] Nitroglycerin 0.4 mg Tablet [Nitrostat 0.4 MG Tablet] 0.4 mg SL UD PRN 07/20/20 [History] Omeprazole 40 mg PO DAILY 07/20/20 [History] Quetiapine Fumarate 25 mg [Seroquel 25 MG] 0.5 tab PO HS 07/20/20 [History] Spironolactone 25 mg [Aldactone 25 MG] 0.5 tab PO DAILY 07/20/20 [History] Thiamine HCl [B-1] 100 mg PO DAILY 07/20/20 [History] Hx Tetanus, Diphtheria Vaccination/Date Given: Yes Hx Influenza Vaccination/Date Given: No Hx Pneumococcal Vaccination/Date Given: No - Review of Systems Constitutional: No Fever, No Chills Eyes: No Symptoms Respiratory: Cough, Dyspnea, Dyspnea on Exertion (MONTOYA) Cardiac: No Chest Pain, No Edema, No Palpitations, No Syncope Abdominal/Gastrointestinal: No Symptoms, No Abdominal Pain, No Nausea, No Vomiting, No Diarrhea Genitourinary Symptoms: No Symptoms Musculoskeletal: No Symptoms Skin: No Symptoms Neurological: No Symptoms Psychological: No Symptoms Endocrine: No Symptoms Hematologic/Lymphatic: No Symptoms Immunological/Allergic: No Symptoms All Other Systems: Reviewed and Negative - Past Medical History Pertinent Past Medical History: Yes Neurological History: Migraines, Stroke, TIA ENT History: Cataracts Cardiac History: Arrhythmia, Congestive Heart Failure, Coronary Artery Disease, High Cholesterol, Hypertension, Myocardial Infarction ([place]) Respiratory History: Asthma, Bronchitis, CHF, COPD, Pneumonia, Pulmonary Embolism Endocrine Medical History: No Pertinent History Musculoskeletal History: Arthritis GI Medical History: No Pertinent History History: No Pertinent History Psycho-Social History: Anxiety, Depression Male Reproductive Disorders: No Pertinent History Other Medical History: CABG , FEM POP IN THE LAST 10 YRS - Past Surgical History Past Surgical History: Yes Neuro Surgical History: No Pertinent History Cardiac: CABG, Cardiac Catheterization, Cardiac Stent, Internal Defibrillator, Pacemaker Respiratory: No Pertinent History Gastrointestinal: Appendectomy, Hernia Repair Genitourinary: No Pertinent History Musculoskeletal: No Pertinent History Male Surgical History: No Pertinent History Other Surgical History: bypass x 3, surgery to left leg after bite from brown recluse - Social History Smoking Status: Current every day smoker How long have you smoked: 45 years Exposure to second hand smoke: Yes Drug Use: methamphetamines Patient Lives Alone: No - Nursing Vital Signs Nursing Vital Signs: Initial Vital Signs Temperature 97.7 F 09/01/20 16:13 Pulse Rate 87 09/01/20 16:13 Respiratory Rate 30 H 09/01/20 16:13 Blood Pressure 147/94 09/01/20 16:13 O2 Sat by Pulse Oximetry 90 L 09/01/20 16:13 Pain Scale Pain Intensity 7 - Physical Exam General Appearance: no apparent distress, alert Eye Exam: PERRL/EOMI, scleral icterus, No pale conjunctivae, No photophobia Ears, Nose, Throat Exam: other (Edentulous) Neck Exam: normal inspection, non-tender, supple, No JVD Respiratory Exam: lungs clear, diminished breath sounds, No chest tenderness, No respiratory distress, No wheezing, No pleural rub Cardiovascular Exam: regular rate/rhythm, normal peripheral pulses, capillary refill <2 sec, No murmur, No friction rub, No gallop Gastrointestinal/Abdomen Exam: soft, No tenderness, No distention, No mass, No guarding Back Exam: normal inspection Extremity Exam: normal inspection Neurologic Exam: alert, oriented x 3, cooperative Skin Exam: normal color, warm, dry, rash, No petechiae, No jaundice O2 Delivery: Nasal Cannula - Course EKG Interpreted by Me: RATE, NORMAL AXIS, NORMAL INTERVALS, NORMAL QRS, Other (No evidence of acute myocardial ischemia or injury) - Radiology Exams Chest X-ray Interpretation: Reviewed by me, Other (Cardiomegaly, central vascular congestion, pulmonary edema, and small bibasilar effusions. Evidence of mitral valve replacement and left sided AICD) Ordered Tests: Active Orders 24 hr Category Date Time Status Binder Fixer STAT Care 09/01/20 16:25 Active EKG-ER Only STAT Care 09/01/20 16:25 Active IV Insertion STAT Care 09/01/20 16:25 Active CHEST 2 VIEWS (PA AND LAT) Stat Exams 09/01/20 16:24 Completed BMP Stat Lab 09/01/20 16:42 Completed CBC W DIFF Stat Lab 09/01/20 16:42 Completed NT PRO BNP Stat Lab 09/01/20 16:42 Completed TROPONIN Q3H Lab 09/01/20 16:42 Completed TROPONIN Q3H Lab 09/01/20 19:30 Ordered TROPONIN Q3H Lab 09/01/20 22:30 Ordered TROPONIN Q3H Lab 09/02/20 01:30 Ordered TROPONIN Q3H Lab 09/02/20 04:30 Ordered Respiratory Therapy Assessment DAILY RT 09/01/20 17:08 Completed Medication Summary Generic Name Dose Route Start Last Admin Trade Name Ludivina PRN Reason Stop Dose Admin Prednisone 40 mg 09/02/20 10:00 09/01/20 16:38 Deltasone 20 Mg PO 10/02/20 09:59 40 mg DAILY OWEN Administration Discontinued Medications Generic Name Dose Route Start Last Admin Trade Name Ludivina PRN Reason Stop Dose Admin Albuterol Sulfate Confirm 09/01/20 17:03 Proventil 2.5 Mg/3 Ml Neb Administered 09/01/20 17:04 Dose 2.5 mg IH .STK-MED ONE Albuterol Sulfate 2.5 mg 09/01/20 17:07 09/01/20 17:08 Proventil 2.5 Mg/3 Ml Neb IH 09/01/20 17:08 2.5 mg STAT ONE Administration Albuterol/Ipratropium 3 ml 09/01/20 16:29 09/01/20 16:55 Duoneb 0.5-3 Mg/3 Ml Neb IH 09/01/20 16:30 3 ml STAT ONE Administration Albuterol/Ipratropium Confirm 09/01/20 16:42 Duoneb 0.5-3 Mg/3 Ml Neb Administered 09/01/20 16:43 Dose 3 ml IH .STK-MED ONE Doxycycline Hyclate 100 mg 09/01/20 16:30 09/01/20 16:38 Vibramycin 100 Mg PO 09/01/20 16:31 100 mg STAT ONE Administration Doxycycline Hyclate Confirm 09/01/20 16:36 Vibramycin 100 Mg Administered 09/01/20 16:37 Dose 100 mg .ROUTE .STK-MED ONE Furosemide 40 mg 09/01/20 17:18 Lasix 40 Mg/4 Ml IV 09/01/20 17:19 STAT ONE Prednisone Confirm 09/01/20 16:36 Deltasone 20 Mg Administered 09/01/20 16:37 Dose 40 mg .ROUTE .STK-MED ONE Lab/Rad Data: Laboratory Result Diagrams 09/01/20 16:42 09/01/20 16:42 Laboratory Results 09/01/20 09/01/20 09/01/20 Range/Units 16:42 16:42 16:42 WBC 6.9 (4.0-10.5) K/mm3 RBC 4.55 (4.1-5.6) M/mm3 Hgb 12.2 L (12.5-18.0) gm/dl Hct 39.7 L (42-50) % MCV 87.3 (78-100) fl MCH 26.8 (26-32) pg MCHC 30.7 L (32-36) g/dl RDW 16.9 H (11.5-14.0) % Plt Count 84 L (150-450) K/mm3 MPV 9.8 (7.5-11.0) fl Gran % 69.8 H (36.0-66.0) % Eos # (Auto) 0.23 (0-0.5) Absolute Lymphs (auto) 0.99 L (1.0-4.6) Absolute Monos (auto) 0.82 (0.0-1.3) Lymphocytes % 14.4 L (24.0-44.0) % Monocytes % 11.9 (0.0-12.0) % Eosinophils % 3.3 (0.00-5.0) % Basophils % 0.6 (0.0-0.4) % Absolute Granulocytes 4.79 (1.4-6.9) Basophils # 0.04 (0-0.4) Sodium 135 L (137-145) mmol/L Potassium 4.1 (3.5-5.1) mmol/L Chloride 101 (98-107) mmol/L Carbon Dioxide 26 (22-30) mmol/L Anion Gap 12.1 (5-15) MEQ/L BUN 16 (9-20) mg/dL Creatinine 0.75 (0.66-1.25) mg/dL Estimated GFR > 60.0 ML/MIN Glucose 118 H (74-106) mg/dL Calcium 9.2 (8.4-10.2) mg/dL Troponin I < 0.012 (0.000-0.034) ng/mL NT-Pro-B Natriuret Pep 2790 H (0-900) pg/mL - Progress Progress Note: 09/01/20 16:37 I reviewed the patient's EMR and it appears she had a full admission and August 2018. He has documented leukopenia, thrombocytopenia, chronic anticoagulation, CAD, COPD, and paroxysmal atrial fibrillation. The patient is on Eliquis during that admission. 09/01/20 17:19 I reviewed the patient's EMR and it appears his baseline BMP runs anywhere between the 1100s to the high 3000s and even 6000. His last BMP was in June 2020 at appear to be 1170 09/01/20 17:37 She went to start an IV and the patient pulled back and got very angry and then demanded to leave AGAINST MEDICAL ADVICE. I spoke to the patient directly and he stated "I should have just went to [facility]" he cannot explain exactly why he was leaving he said that his "nerves were shot". I did ask if he has been taking his Lasix and he said he has been taking it every day twice a day. I try to convince the patient to stay to complete his work-up and treatment however he adamantly refused and then ripped the nasal cannula off of his face. Then gestured that he wanted to sign the paperwork so he can call his friend to give him a ride to another hospital. I instructed the patient that if he changes mind and wanted to complete his work-up and treatment he could always come back to do so. The patient does have the competence and capacity to make this decision for himself. He was informed that his decision could likely lead to increase morbidity and. The patient understood a decision. Counseled pt/family regarding: lab results, diagnosis, need for follow-up, rad results - Departure Departure Disposition: In-patient Admission Clinical Impression: Acute exacerbation of congestive heart failure, History of COPD, Chronic respiratory failure Condition: Stable Critical Care Time: No Referrals: DOCTOR,NO FAMILY [Primary Care Provider] - Instructions: Heart Failure, Shortness of Breath (Dyspnea) (DC), Heart Failure, Adult (DC) Additional Instructions: Medications as prescribed. Return to the emergency department immediately if you change your mind and want to complete your work-up and treatment.
[2020-09-01] MEDS ORDERED: Vibramycin 100 MG PO ONE (16:30)
[2020-09-01] MEDS ORDERED: Vibramycin 100 MG ONE (16:36)
[2020-09-01] MEDS ORDERED: DELTASONE 20 MG ONE (16:36)
[2020-09-01 16:56] LABS: Absolute Neutrophil Ct (ANC) 4.79 (1.4-6.9); BASOPHIL % 0.6 % (0.0-0.4); Basophil (Absolute #) 0.04 (0-0.4); Eosinophil % 3.3 % (0.00-5.0); Eosinophil (Absolute #) 0.23 (0-0.5); Hematocrit 39.7 % (42-50); Hemoglobin 12.2 gm/dl (12.5-18.0); Lymphocyte (Absolute #) 0.99 (1.0-4.6); Lymphocytes % 14.4 % (24.0-44.0); Mean Cell Volume 87.3 fl (78-100); Mean Corpuscular Hemoglobin 26.8 pg (26-32); Mean Corpuscular Hgb Concent. 30.7 g/dl (32-36); Mean Platelet Volume 9.8 fl (7.5-11.0); Monocyte (Absolute #) 0.82 (0.0-1.3); Monocytes % 11.9 % (0.0-12.0); Neutrophil % 69.8 % (36.0-66.0); Platelet Count 84 K/mm3 (150-450); Red Blood Count 4.55 M/mm3 (4.1-5.6); Red Cell Distribution Width 16.9 % (11.5-14.0); White Blood Count 6.9 K/mm3 (4.0-10.5)
--- NOTE | 2020-09-01 17:02 | XRAY ---
Indication: Cough. Dyspnea. COPD. Impression: July 20, 2020. AP/lateral chest again demonstrates cardiomegaly with central vascular congestion, pulmonary edema, and small bibasilar effusions favoring cardiac decompensation/CHF. Superimposed pneumonia not completely excluded. Again incidental mitral valve replacement and left-sided AICD.
[2020-09-01] MEDS ORDERED: PROVENTIL 2.5 MG/3 ML NEB IH ONE ×2 (17:03→17:07)
[2020-09-01 17:04] LABS: Potassium 4.1 mmol/L (3.5-5.1)
[2020-09-01 17:11] LABS: BLOOD UREA NITROGEN 16 mg/dL (9-20); CHLORIDE 101 mmol/L (98-107); Calcium 9.2 mg/dL (8.4-10.2); Carbon Dioxide 26 mmol/L (22-30); Creatinine 1 0.75 mg/dL (0.66-1.25); EST GLOMERULAR FILTRATION RATE > 60.0 ML/MIN; Glucose 118 mg/dL (74-106); NT PRO BNP 2790 pg/mL (0-900); SODIUM 135 mmol/L (137-145)
[2020-09-01 17:13] VITALS: BP 179/99
[2020-09-01 17:14] LABS: ANION GAP 12.1 MEQ/L (5-15)
[2020-09-01] MEDS ORDERED: Lasix 40 MG/4 ML IV ONE (17:18)
[2020-09-01 17:19] VITALS: PULSE 89; O2SAT 96
[2020-09-01 22:05] LABS: Slide Review 1 YES
[2020-09-02] MEDS ORDERED: DELTASONE 20 MG PO SCH (10:00)
== END 2020-09-01 16:39 | disposition left against medical advice (07) ==
LOC: ED 16:04
DX: I50.9 Heart failure, unspecified (principal); J44.9 Chronic obstructive pulmonary disease, unspecified; J96.10 Chronic respiratory failure, unspecified whether with hypoxia or hypercapnia; Z99.81 Dependence on supplemental oxygen; F17.210 Nicotine dependence, cigarettes, uncomplicated; Z79.899 Other long term (current) drug therapy; R05 Cough; I25.10 Atherosclerotic heart disease of native coronary artery without angina pectoris; E78.00 Pure hypercholesterolemia, unspecified; I10 Essential (primary) hypertension; I25.2 Old myocardial infarction; Z98.61 Coronary angioplasty status; Z95.1 Presence of aortocoronary bypass graft; Z95.810 Presence of automatic (implantable) cardiac defibrillator
CPT/HCPCS: 36415; 71046; 80048; 83880; 84484; 85025; 93005; 93041; 94640; 99284; J7609; A9270-GY

== ENCOUNTER 2020-11-23 15:45 | Emergency (ER) | payer MEDICARE ==
[2020-11-23] MEDS ORDERED: Furosemide 100mg/10 ml Vial IV ONE (15:54)
[2020-11-23 16:01] LABS: Basophil (Absolute #) 0.06 (0-0.4); Eosinophil % 3.1 % (0.00-5.0); Eosinophil (Absolute #) 0.18 (0-0.5); Hematocrit 40.3 % (42-50); Hemoglobin 12.6 gm/dl (12.5-18.0); Lymphocyte (Absolute #) 0.83 (1.0-4.6); Lymphocytes % 14.3 % (24.0-44.0); Mean Cell Volume 87.6 fl (78-100); Mean Corpuscular Hemoglobin 27.4 pg (26-32); Mean Corpuscular Hgb Concent. 31.3 g/dl (32-36); Mean Platelet Volume 8.6 fl (7.5-11.0); Monocyte (Absolute #) 0.73 (0.0-1.3); Monocytes % 12.6 % (0.0-12.0); Platelet Count 96 K/mm3 (150-450); Red Cell Distribution Width 19.8 % (11.5-14.0); White Blood Count 5.8 K/mm3 (4.0-10.5)
[2020-11-23 16:02] VITALS: O2SAT 95
[2020-11-23] MEDS ORDERED: Furosemide 100mg/10 ml Vial ONE (16:08)
--- NOTE | 2020-11-23 16:16 | ERPHSYRPT ---
- History of Present Illness Source: patient Exam Limitations: other (Poor historian) Patient Subjective Stated Complaint: Pt has been becoming increasingly short of breath for the past week, pt states that his defibrilator has been going off a lot lately with as recent as today Triage Nursing Assessment: Pt was brought to the ER by his friend, hypertensive, abdomen distended, edema to the testicles and penis, pt moaning, states that he has a lot of pressure in the left chest, skin is dark in color, legs are reddish purple Physician History: 60 yo wm w h/o COPD/CHF/NM presents w dyspnea x 1wk. He is 3L O2 dep at home. Pt is a very poor historian but states that he is dyspneic w exertion and lying flat. He has abdominal/scrotal edema and states that he has had a cough and subjective fever. Pt has been having some mid-sternal CP wo radiation. He denies fever/cough. Timing/Duration: other (1wk) Activities at Onset: rest Severity of Dyspnea-Max: moderate Severity of Dyspnea-Current: moderate Possible Cause: frequent episodes Modifying Factors: Improves With: activity, lying down Associated Symptoms: cough, chest pain/discomfort, edema, fever, weakness, prod uctive cough, No insomnia, No loss of appetite, No lightheadedness, No wheezing, No ankle swelling, No chills, No hemoptysis, No calf pain, No dizziness, No heaviness, No heart racing, No lightheadedness, No leg swelling, No muscle spasms feet, No muscle spasms hands, No painful breathing, No sweating, No tightness, No tingling face Allergies/Adverse Reactions: carisoprodol [Carisoprodol] Allergy (Unknown, Verified 11/23/20 16:02) ketorolac Allergy (Unknown, Verified 11/23/20 16:02) Home Medications: Tamsulosin HCl 0.4 mg [Flomax 0.4 MG] 0.4 mg PO DAILY 05/13/13 [History] Fluticasone/Salmeterol [Advair 250-50 Diskus] 1 puff IH BID 07/11/13 [History] Aspirin [Aspirin EC] 81 mg PO DAILY 11/30/14 [History] Albuterol Common Canister [Ventolin Common Canister] 2 puff IH Q4HPRN PRN 07/20/20 [History] Atorvastatin Calcium 40 mg PO HS 07/20/20 [History] Cyclobenzaprine HCl [Flexeril] 10 mg PO HS 07/20/20 [History] Duloxetine HCl 60 mg PO DAILY 07/20/20 [History] Furosemide 40 mg [Lasix 40 MG] 40 mg PO BID 07/20/20 [History] Isosorbide Mononitrate 30 mg [Imdur 30 MG] 30 mg PO DAILY 07/20/20 [History] Lisinopril 5 mg [Zestril 5 MG] 5 mg PO DAILY 07/20/20 [History] Meclizine HCl 25 mg [Antivert 25 mg] 25 mg PO Q8H 07/20/20 [History] Nitroglycerin 0.4 mg Tablet [Nitrostat 0.4 MG Tablet] 0.4 mg SL UD PRN 07/20/20 [History] Omeprazole 40 mg PO DAILY 07/20/20 [History] Quetiapine Fumarate 25 mg [Seroquel 25 MG] 0.5 tab PO HS 07/20/20 [History] Spironolactone 25 mg [Aldactone 25 MG] 0.5 tab PO DAILY 07/20/20 [History] Thiamine HCl [B-1] 100 mg PO DAILY 07/20/20 [History] Hx Tetanus, Diphtheria Vaccination/Date Given: Yes Hx Influenza Vaccination/Date Given: No Hx Pneumococcal Vaccination/Date Given: No Travel Risk - International Travel Have you traveled outside of the country in past 3 weeks: No - Coronavirus Screening Are you exhibiting any of the following symptoms?: No Close contact with a COVID-19 positive Pt in past 14-21 Days: No - Vaccine Status Have you recieved a Covid-19 vaccination: No - Review of Systems Constitutional: Fever Eyes: No Symptoms Ears, Nose, & Throat: No Symptoms Respiratory: Cough, Dyspnea, Dyspnea on Exertion (MONTOYA) Cardiac: Chest Pain, Edema Abdominal/Gastrointestinal: No Nausea, No Vomiting, No Diarrhea Genitourinary Symptoms: No Symptoms Musculoskeletal: No Symptoms Skin: No Symptoms Neurological: No Symptoms Psychological: No Symptoms Endocrine: No Symptoms Hematologic/Lymphatic: No Symptoms Immunological/Allergic: No Symptoms - Past Medical History Pertinent Past Medical History: Yes Neurological History: Migraines, Stroke, TIA ENT History: Cataracts Cardiac History: Arrhythmia, Congestive Heart Failure, Coronary Artery Disease, High Cholesterol, Hypertension, Myocardial Infarction ([place]) Respiratory History: Asthma, Bronchitis, CHF, COPD, Pneumonia, Pulmonary Embolism Endocrine Medical History: No Pertinent History Musculoskeletal History: Arthritis GI Medical History: No Pertinent History History: No Pertinent History Psycho-Social History: Anxiety, Depression Male Reproductive Disorders: No Pertinent History Other Medical History: CABG , FEM POP IN THE LAST 10 YRS - Past Surgical History Past Surgical History: Yes Neuro Surgical History: No Pertinent History Cardiac: CABG, Cardiac Catheterization, Cardiac Stent, Internal Defibrillator, Pacemaker Respiratory: No Pertinent History Gastrointestinal: Appendectomy, Hernia Repair Genitourinary: No Pertinent History Musculoskeletal: No Pertinent History Male Surgical History: No Pertinent History Other Surgical History: bypass x 3, surgery to left leg after bite from brown recluse - Social History Smoking Status: Current every day smoker How long have you smoked: 45 years Exposure to second hand smoke: Yes Drug Use: methamphetamines Patient Lives Alone: No Significant Family History: no pertinent family hx - Nursing Vital Signs Nursing Vital Signs: Initial Vital Signs Pulse Rate 80 11/23/20 15:46 Respiratory Rate 14 11/23/20 15:46 Blood Pressure 147/92 11/23/20 15:46 O2 Sat by Pulse Oximetry 94 L 11/23/20 15:46 Pain Scale Pain Intensity 8 - Physical Exam General Appearance: no apparent distress Ears, Nose, Throat Exam: hearing grossly normal, normal ENT inspection, normal pharynx Neck Exam: normal inspection, non-tender, supple, full range of motion, No Brudzinski, No Kernig's, No meningismus Respiratory Exam: airway intact, diminished breath sounds (Decreased BS at bases B/scattered wheezes-rhonchi), No respiratory distress Cardiovascular/Chest Exam: regular rate/rhythm, murmur (2/6 EMIGDIO) Abdominal/Gastrointestinal Exam: distention Rectal Exam: deferred Extremity Exam: non-tender, normal range of motion Neurologic Exam: alert, oriented x 3, cooperative, admitting officer II-XII nml as tested, normal mood/affect, sensation nml, No motor deficits, No sensory deficit Skin Exam: normal color, warm Lymphatic Exam: No adenopathy SpO2 Interpretation: normal SpO2: 95 O2 Delivery: Room Air - Course Nursing assessment & vital signs reviewed: Yes EKG Interpreted by Me: RATE (NSR/R86/LVH/Prolonged QTc/Nonspecific ST-T wave changes/IVCD) Ordered Tests: Active Orders 24 hr Category Date Time Status EKG-ER Only STAT Care 11/23/20 15:48 Completed CHEST 1 VIEW (PORTABLE) Stat Exams 11/23/20 16:06 Completed CBC W DIFF Stat Lab 11/23/20 15:48 Completed CMP Stat Lab 11/23/20 15:48 Completed NT PRO BNP Stat Lab 11/23/20 15:48 Completed PROTIME WITH INR Stat Lab 11/23/20 15:48 Completed PTT Stat Lab 11/23/20 15:48 Completed TROPONIN Q3H Lab 11/23/20 16:00 Completed Medication Summary Discontinued Medications Generic Name Dose Route Start Last Admin Trade Name Freq PRN Reason Stop Dose Admin Acetaminophen 1,000 mg 11/23/20 17:08 11/23/20 17:12 Tylenol 325 Mg PO 11/23/20 17:09 Not Given STAT STA Acetaminophen Confirm 11/23/20 17:09 Tylenol Extra Strength 500 Mg Administered 11/23/20 17:10 Dose 1,000 mg .ROUTE .STK-MED ONE Furosemide 100 mg 11/23/20 15:54 11/23/20 16:11 Furosemide 100mg/10 Ml Vial IV 11/23/20 15:55 100 mg STAT ONE Administration Furosemide Confirm 11/23/20 16:08 Furosemide 100mg/10 Ml Vial Administered 11/23/20 16:09 Dose 100 mg .ROUTE .STK-MED ONE Lab/Rad Data: Laboratory Result Diagrams 11/23/20 15:48 11/23/20 15:48 Laboratory Results 11/23/20 11/23/20 11/23/20 Range/Units 16:00 15:48 15:48 WBC (4.0-10.5) K/mm3 RBC (4.1-5.6) M/mm3 Hgb (12.5-18.0) gm/dl Hct (42-50) % MCV (78-100) fl MCH (26-32) pg MCHC (32-36) g/dl RDW (11.5-14.0) % Plt Count (150-450) K/mm3 MPV (7.5-11.0) fl Gran % (36.0-66.0) % Eos # (Auto) (0-0.5) Absolute Lymphs (auto) (1.0-4.6) Absolute Monos (auto) (0.0-1.3) Lymphocytes % (24.0-44.0) % Monocytes % (0.0-12.0) % Eosinophils % (0.00-5.0) % Basophils % (0.0-0.4) % Absolute Granulocytes (1.4-6.9) Basophils # (0-0.4) PT 16.4 H (8.83-12.87) SECONDS INR 1.45 (0.8-3.0) APTT 34.4 (24.1-36.1) SECONDS Sodium 137 (137-145) mmol/L Potassium 4.0 (3.5-5.1) mmol/L Chloride 102 (98-107) mmol/L Carbon Dioxide 26 (22-30) mmol/L Anion Gap 12.9 (5-15) MEQ/L BUN 14 (9-20) mg/dL Creatinine 0.73 (0.66-1.25) mg/dL Estimated GFR > 60.0 ML/MIN Glucose 108 H (74-106) mg/dL Calcium 9.8 (8.4-10.2) mg/dL Total Bilirubin 1.60 H (0.2-1.3) mg/dL AST 28 (17-59) U/L ALT 6 (0-50) U/L Alkaline Phosphatase 86 (38-126) U/L Troponin I < 0.012 (0.000-0.034) ng/mL NT-Pro-B Natriuret Pep 9500 H (0-900) pg/mL Serum Total Protein 8.2 (6.3-8.2) g/dL Albumin 4.2 (3.5-5.0) g/dL 11/23/20 Range/Units 15:48 WBC 5.8 (4.0-10.5) K/mm3 RBC 4.60 (4.1-5.6) M/mm3 Hgb 12.6 (12.5-18.0) gm/dl Hct 40.3 L (42-50) % MCV 87.6 (78-100) fl MCH 27.4 (26-32) pg MCHC 31.3 L (32-36) g/dl RDW 19.8 H (11.5-14.0) % Plt Count 96 L (150-450) K/mm3 MPV 8.6 (7.5-11.0) fl Gran % 69.0 H (36.0-66.0) % Eos # (Auto) 0.18 (0-0.5) Absolute Lymphs (auto) 0.83 L (1.0-4.6) Absolute Monos (auto) 0.73 (0.0-1.3) Lymphocytes % 14.3 L (24.0-44.0) % Monocytes % 12.6 H (0.0-12.0) % Eosinophils % 3.1 (0.00-5.0) % Basophils % 1.0 (0.0-0.4) % Absolute Granulocytes 4.00 (1.4-6.9) Basophils # 0.06 (0-0.4) PT (8.83-12.87) SECONDS INR (0.8-3.0) APTT (24.1-36.1) SECONDS Sodium (137-145) mmol/L Potassium (3.5-5.1) mmol/L Chloride (98-107) mmol/L Carbon Dioxide (22-30) mmol/L Anion Gap (5-15) MEQ/L BUN (9-20) mg/dL Creatinine (0.66-1.25) mg/dL Estimated GFR ML/MIN Glucose (74-106) mg/dL Calcium (8.4-10.2) mg/dL Total Bilirubin (0.2-1.3) mg/dL AST (17-59) U/L ALT (0-50) U/L Alkaline Phosphatase (38-126) U/L Troponin I (0.000-0.034) ng/mL NT-Pro-B Natriuret Pep (0-900) pg/mL Serum Total Protein (6.3-8.2) g/dL Albumin (3.5-5.0) g/dL - Progress Progress: improved Progress Note: 11/23/20 17:[address] [facility] w 1L urine output 11/23/20 18:20 Pt stable when care assumed by EMS Pt refused 1gm tylenol for pain 11/23/20 23:31 - Departure Departure Disposition: Transfer Clinical Impression: CHF (congestive heart failure) Condition: Stable Critical Care Time: No Referrals: DOCTOR,NO FAMILY [Primary Care Provider] - Instructions: Heart Failure
[2020-11-23 16:18] LABS: INR 1.45 (0.8-3.0); PROTIME 16.4 SECONDS (8.83-12.87)
[2020-11-23 16:20] LABS: PTT 34.4 SECONDS (24.1-36.1)
[2020-11-23 16:31] LABS: ALBUMIN 4.2 g/dL (3.5-5.0); ALKALINE PHOSPHATASE 86 U/L (38-126); ANION GAP 12.9 MEQ/L (5-15); BLOOD UREA NITROGEN 14 mg/dL (9-20); CHLORIDE 102 mmol/L (98-107); Calcium 9.8 mg/dL (8.4-10.2); Carbon Dioxide 26 mmol/L (22-30); Creatinine 1 0.73 mg/dL (0.66-1.25); EST GLOMERULAR FILTRATION RATE > 60.0 ML/MIN; Glucose 108 mg/dL (74-106); NT PRO BNP 9500 pg/mL (0-900); SGOT/AST 28 U/L (17-59); SGPT/ALT 6 U/L (0-50); SODIUM 137 mmol/L (137-145); Total Protein 8.2 g/dL (6.3-8.2)
[2020-11-23] MEDS ORDERED: TYLENOL EXTRA STRENGTH 500 MG ONE (17:09)
[2020-11-23] MEDS: TYLENOL 325 MG PO STA ×2 (17:10→17:12)
--- NOTE | 2020-11-23 19:10 | XRAY ---
Indication: Dyspnea. Comparison: September 01, 2020. Portable chest again demonstrates cardiomegaly, vascular congestion, pulmonary edema, and tiny bibasilar effusions favoring cardiac decompensation/CHF. Superimposed pneumonia not completely excluded. Stable mitral valve replacement and left AICD.
[2020-11-23 19:15] VITALS: BP 176/104; PULSE 84
== END 2020-11-23 19:18 | disposition short-term general hospital (02) ==
LOC: ED 15:45
DX: I50.9 Heart failure, unspecified (principal); Z79.899 Other long term (current) drug therapy; I25.10 Atherosclerotic heart disease of native coronary artery without angina pectoris; J44.9 Chronic obstructive pulmonary disease, unspecified; Z86.711 Personal history of pulmonary embolism
CPT/HCPCS: 36000; 36415; 71045; 80053; 83880; 84484; 85025; 85610; 85730; 93005; 96374; 99284; J1940; A9270-GY

== ENCOUNTER 2020-12-18 18:51 | Emergency (ER) | payer MEDICARE ==
--- NOTE | 2020-12-18 19:10 | ERPHSYRPT ---
- History of Present Illness Time Seen by Provider: 12/18/20 19:06 Historian: patient Exam Limitations: no limitations Physician History: This is a 60-year-old white male who is noncompliant and has a history of CHF, coronary artery disease, hypertension, myocardial infarction, CVA, TIAs, COPD, pulmonary embolism, gastroesophageal reflux disease, arrhythmia (on Eliquis) anxiety and depression. He also has a history of an internal defibrillator/pacemaker placed. This was replaced for an unknown reason 2 weeks ago. Patient also has had a CABG in 1997 and in 2009. He has a history of peripheral vascular disease. He continues to smoke cigarettes and admits to us ing methamphetamines a few days ago. He had his pacemaker/defibrillator replaced by Dr. Horn 2 weeks ago at [facility] in [facility]. He did not follow-up. He even attempted to remove sutures on his own. He presents with a few day history of left anterior chest wall pain in the area of the pacemaker. Timing/Duration: day(s) (A few days) Activities at Onset: none Quality: burning, sharpness Location: other (Left anterior chest wall) Chest Pain Radiation: no radiation Severity of Pain-Max: moderate Severity of Pain-Current: moderate Modifying Factors: Improves With: nothing Associated Symptoms: No chills, No fever Prior Chest Pain/Cardiac Workup: no prior chest pain, cardiac cath, echocardiography, heart attack, pulmonary embolism, recently seen/treated, recent hospitalization Nitro Today/Relief: no nitro taken today Aspirin Treatment Today: no aspirin today Allergies/Adverse Reactions: carisoprodol [Carisoprodol] Allergy (Unknown, Verified 12/18/20 18:52) ketorolac Allergy (Unknown, Verified 12/18/20 18:52) Home Medications: Tamsulosin HCl 0.4 mg [Flomax 0.4 MG] 0.4 mg PO DAILY 05/13/13 [History] Fluticasone/Salmeterol [Advair 250-50 Diskus] 1 puff IH BID 07/11/13 [History] Aspirin [Aspirin EC] 81 mg PO DAILY 11/30/14 [History] Albuterol Common Canister [Ventolin Common Canister] 2 puff IH Q4HPRN PRN 07/20/20 [History] Atorvastatin Calcium 40 mg PO HS 07/20/20 [History] Cyclobenzaprine HCl [Flexeril] 10 mg PO HS 07/20/20 [History] Duloxetine HCl 60 mg PO DAILY 07/20/20 [History] Furosemide 40 mg [Lasix 40 MG] 40 mg PO BID 07/20/20 [History] Isosorbide Mononitrate 30 mg [Imdur 30 MG] 30 mg PO DAILY 07/20/20 [History] Lisinopril 5 mg [Zestril 5 MG] 5 mg PO DAILY 07/20/20 [History] Meclizine HCl 25 mg [Antivert 25 mg] 25 mg PO Q8H 07/20/20 [History] Nitroglycerin 0.4 mg Tablet [Nitrostat 0.4 MG Tablet] 0.4 mg SL UD PRN 07/20/20 [History] Omeprazole 40 mg PO DAILY 07/20/20 [History] Quetiapine Fumarate 25 mg [Seroquel 25 MG] 0.5 tab PO HS 07/20/20 [History] Spironolactone 25 mg [Aldactone 25 MG] 0.5 tab PO DAILY 07/20/20 [History] Thiamine HCl [B-1] 100 mg PO DAILY 07/20/20 [History] Hx Tetanus, Diphtheria Vaccination/Date Given: Yes Hx Influenza Vaccination/Date Given: No Hx Pneumococcal Vaccination/Date Given: No Travel Risk - International Travel Have you traveled outside of the country in past 3 weeks: No - Coronavirus Screening Are you exhibiting any of the following symptoms?: No Close contact with a COVID-19 positive Pt in past 14-21 Days: No - Vaccine Status Have you recieved a Covid-19 vaccination: No - Review of Systems Constitutional: No Symptoms Eyes: No Symptoms Ears, Nose, & Throat: No Symptoms Respiratory: No Symptoms Cardiac: Chest Pain Abdominal/Gastrointestinal: No Symptoms Genitourinary Symptoms: No Symptoms Musculoskeletal: No Symptoms Skin: No Symptoms Neurological: No Symptoms Psychological: No Symptoms Endocrine: No Symptoms Hematologic/Lymphatic: No Symptoms Immunological/Allergic: No Symptoms All Other Systems: Reviewed and Negative - Past Medical History Pertinent Past Medical History: Yes Neurological History: Migraines, Stroke, TIA ENT History: Cataracts Cardiac History: Arrhythmia, Congestive Heart Failure, Coronary Artery Disease, High Cholesterol, Hypertension, Myocardial Infarction ([place]) Respiratory History: Asthma, Bronchitis, CHF, COPD, Pneumonia, Pulmonary Embolism Endocrine Medical History: No Pertinent History Musculoskeletal History: Arthritis GI Medical History: No Pertinent History History: No Pertinent History Psycho-Social History: Anxiety, Depression Male Reproductive Disorders: No Pertinent History Other Medical History: CABG , FEM POP IN THE LAST 10 YRS - Past Surgical History Past Surgical History: Yes Neuro Surgical History: No Pertinent History Cardiac: CABG, Cardiac Catheterization, Cardiac Stent, Internal Defibrillator, Pacemaker Respiratory: No Pertinent History Gastrointestinal: Appendectomy, Hernia Repair Genitourinary: No Pertinent History Musculoskeletal: No Pertinent History Male Surgical History: No Pertinent History Other Surgical History: bypass x 3, surgery to left leg after bite from brown recluse - Social History Smoking Status: Current every day smoker How long have you smoked: 45 years Exposure to second hand smoke: Yes Drug Use: methamphetamines Patient Lives Alone: No Significant Family History: no pertinent family hx - Nursing Vital Signs Nursing Vital Signs: Initial Vital Signs Pulse Rate 79 12/18/20 18:54 Respiratory Rate 26 H 12/18/20 18:54 Blood Pressure 134/73 12/18/20 18:54 Pain Scale Pain Intensity 6 - Physical Exam General Appearance: no apparent distress, alert, anxiety Eye Exam: PERRL/EOMI, eyes nml inspection Ears, Nose, Throat Exam: normal ENT inspection, moist mucous membranes Neck Exam: normal inspection, non-tender, supple, full range of motion Respiratory Exam: normal breath sounds, chest tenderness (Left anterior chest), lungs clear, airway intact, No respiratory distress Cardiovascular Exam: regular rate/rhythm, normal heart sounds, normal peripheral pulses, edema Gastrointestinal/Abdomen Exam: soft, normal bowel sounds, No tenderness Male Genitalia Exam: other (Scrotal edema) Rectal Exam: not done Extremity Exam: normal range of motion, pelvis stable, pedal edema (Lateral feet and ankles) Skin Exam: other (Left anterior chest wall incision site with veronique in place. A few are missing. It is red the area has ecchymosis and appears infected. There is no particular odor present and no drainage but it is ballotable.) Lymphatic Exam: No adenopathy SpO2 Interpretation: borderline oxygenation O2 Delivery: Room Air - Course Nursing assessment & vital signs reviewed: Yes EKG Interpreted by Me: RATE (79), Sinus Rhythm, Left Stuart Deviation, prolonged QT interval (Borderline), Non-specific ST Changes, Other (When compared to the EKG performed on 11/23/2020, the prolonged TN interval has resolved. ST elevation has also resolved. The borderline prolonged QT interval is persistent. No evidence of acute ischemic changes on today's EKG.) Ordered Tests: Active Orders 24 hr Category Date Time Status Clean Catch Urine Specimen STAT Care 12/18/20 19:15 Active EKG-ER Only STAT Care 12/18/20 19:15 Active IV Insertion STAT Care 12/18/20 19:15 Active Pulse Oximetry (ED) STAT Care 12/18/20 19:15 Active CHEST 1 VIEW (PORTABLE) Stat Exams 12/18/20 19:16 Taken CBC W DIFF Stat Lab 12/18/20 19:22 Completed CMP Stat Lab 12/18/20 19:22 Completed D-DIMER QUANTITATIVE Stat Lab 12/18/20 19:22 Completed Lactic Acid Stat Lab 12/18/20 19:40 Completed NT PRO BNP Stat Lab 12/18/20 19:22 Completed PROTIME WITH INR Stat Lab 12/18/20 19:22 Completed TROPONIN Q3H Lab 12/18/20 19:22 Completed TROPONIN Q3H Lab 12/18/20 22:30 Ordered TROPONIN Q3H Lab 12/19/20 01:30 Ordered TROPONIN Q3H Lab 12/19/20 04:30 Ordered TROPONIN Q3H Lab 12/19/20 07:30 Ordered Urine Triage Profile Stat Lab 12/18/20 19:16 Ordered Medication Summary Generic Name Dose Route Start Last Admin Trade Name Freq PRN Reason Stop Dose Admin Sodium Chloride 1,000 mls @ 100 mls/hr 12/18/20 19:15 12/18/20 19:28 Sodium Chloride 0.9% 1000 Ml IV 01/17/21 19:14 100 mls/hr .Q10H OWEN Administration Discontinued Medications Generic Name Dose Route Start Last Admin Trade Name Freq PRN Reason Stop Dose Admin Meropenem 1 g/ Sodium Chloride 100 mls @ 200 mls/hr 12/18/20 19:18 12/18/20 19:28 IV 12/18/20 19:47 200 mls/hr STAT ONE Administration Sodium Chloride Confirm 12/18/20 19:23 Sodium Chloride 100ml Mini-Bag Plus Administered 12/18/20 19:24 Dose 100 mls @ ud IV .STK-MED ONE Meropenem Confirm 12/18/20 19:23 Merrem 1 Gm Administered 12/18/20 19:24 Dose 1 g IV .STK-MED ONE Lab/Rad Data: Laboratory Result Diagrams 12/18/20 19:22 12/18/20 19:22 Laboratory Results 12/18/20 12/18/20 12/18/20 Range/Units 19:40 19:22 19:22 WBC (4.0-10.5) K/mm3 RBC (4.1-5.6) M/mm3 Hgb (12.5-18.0) gm/dl Hct (42-50) % MCV (78-100) fl MCH (26-32) pg MCHC (32-36) g/dl RDW (11.5-14.0) % Plt Count (150-450) K/mm3 MPV (7.5-11.0) fl Gran % (36.0-66.0) % Eos # (Auto) (0-0.5) Absolute Lymphs (auto) (1.0-4.6) Absolute Monos (auto) (0.0-1.3) Lymphocytes % (24.0-44.0) % Monocytes % (0.0-12.0) % Eosinophils % (0.00-5.0) % Basophils % (0.0-0.4) % Absolute Granulocytes (1.4-6.9) Basophils # (0-0.4) PT 16.1 H (8.83-12.87) SECONDS INR 1.42 (0.8-3.0) D-Dimer 1796 H* (215-500) ng/mL Sodium (137-145) mmol/L Potassium (3.5-5.1) mmol/L Chloride (98-107) mmol/L Carbon Dioxide (22-30) mmol/L Anion Gap (5-15) MEQ/L BUN (9-20) mg/dL Creatinine (0.66-1.25) mg/dL Estimated GFR ML/MIN Glucose (74-106) mg/dL Lactic Acid 2.0 (0.4-2.0) Calcium (8.4-10.2) mg/dL Total Bilirubin (0.2-1.3) mg/dL AST (17-59) U/L ALT (0-50) U/L Alkaline Phosphatase (38-126) U/L Troponin I < 0.012 (0.000-0.034) ng/mL NT-Pro-B Natriuret Pep (0-900) pg/mL Serum Total Protein (6.3-8.2) g/dL Albumin (3.5-5.0) g/dL 12/18/20 12/18/20 Range/Units 19:22 19:22 WBC 5.0 (4.0-10.5) K/mm3 RBC 3.81 L (4.1-5.6) M/mm3 Hgb 10.5 L (12.5-18.0) gm/dl Hct 34.4 L (42-50) % MCV 90.3 (78-100) fl MCH 27.6 (26-32) pg MCHC 30.5 L (32-36) g/dl RDW 19.9 H (11.5-14.0) % Plt Count 91 L (150-450) K/mm3 MPV 9.4 (7.5-11.0) fl Gran % 62.8 (36.0-66.0) % Eos # (Auto) 0.25 (0-0.5) Absolute Lymphs (auto) 0.83 L (1.0-4.6) Absolute Monos (auto) 0.74 (0.0-1.3) Lymphocytes % 16.6 L (24.0-44.0) % Monocytes % 14.8 H (0.0-12.0) % Eosinophils % 5.0 (0.00-5.0) % Basophils % 0.8 (0.0-0.4) % Absolute Granulocytes 3.14 (1.4-6.9) Basophils # 0.04 (0-0.4) PT (8.83-12.87) SECONDS INR (0.8-3.0) D-Dimer (215-500) ng/mL Sodium 138 (137-145) mmol/L Potassium 3.4 L (3.5-5.1) mmol/L Chloride 101 (98-107) mmol/L Carbon Dioxide 28 (22-30) mmol/L Anion Gap 12.2 (5-15) MEQ/L BUN 19 (9-20) mg/dL Creatinine 0.78 (0.66-1.25) mg/dL Estimated GFR > 60.0 ML/MIN Glucose 106 (74-106) mg/dL Lactic Acid (0.4-2.0) Calcium 9.0 (8.4-10.2) mg/dL Total Bilirubin 1.10 (0.2-1.3) mg/dL AST 31 (17-59) U/L ALT 17 (0-50) U/L Alkaline Phosphatase 69 (38-126) U/L Troponin I (0.000-0.034) ng/mL NT-Pro-B Natriuret Pep 4310 H (0-900) pg/mL Serum Total Protein 8.0 (6.3-8.2) g/dL Albumin 4.3 (3.5-5.0) g/dL - Progress Progress: improved Air Movement: good Progress Note: 12/18/20 19:41 Medical decision making: This patient needs to be at a tertiary center where there is a ground transportation operator implementation technician, infectious disease specialist available as well as a monitored bed. I did call [facility], where the patient had his procedure performed to replace his pacemaker. I spoke with emergency physician Dr. Welch. We are awaiting the results of the work-up. There is a monitored medical surgical bed level. I also spoke with Dr. Coffey who is covering for the patient's ground transportation operator. He told me that he wants the patient transferred to [facility] where the patient's ground transportation operator will be covering the entire weekend and the hospital has the needed specialist. I will contact [facility] emergency department once a have the work-up results. 12/18/20 20:21 Chest x-ray shows bilateral increased vascular markings. There is also cardiomegaly present. Medical decision making: This patient appears to have an infected pacemaker site. He has a normal troponin. His D-dimer is elevated over 1700. This was discussed with Dr. Welch, the emergency department DrNicole Bowser did review with him the work-up results. Because the patient is on Eliquis and he has had a negative CT scan of the chest with contrast late June 2020 prior D-dimer (over 2600) and the patient has an infection that may increase his D-dimer jennifer vides, we both opted and agreed not to perform a CTA of the chest with contrast here. Patient was given meropenem intravenously in this emergency department. I reviewed with him my discussion with Dr. Coffey. Dr. Welch now accepts the patient for transfer. Blood Culture(s) Obtained: Yes Antibiotics given: Yes Counseled pt/family regarding: lab results, diagnosis, need for follow-up, rad results - Departure Departure Disposition: Transfer Clinical Impression: CHF (congestive heart failure), Chest pain, Surgical site infection Condition: Stable Critical Care Time: No Referrals: DOCTOR,NO FAMILY [Primary Care Provider] - Instructions: Heart Failure
[2020-12-18] MEDS ORDERED: Sodium Chloride 0.9% 1000 ML 1,000 ML IV SCH (19:15)
[2020-12-18] MEDS ORDERED: Merrem 1 GM 1 G in Sodium Chloride 100ML MINI-BAG PLUS 100 ML IV ONE (19:18)
[2020-12-18] MEDS ORDERED: Sodium Chloride 100ML MINI-BAG PLUS 100 ML IV ONE (19:23)
[2020-12-18] MEDS ORDERED: Sodium Chloride 0.9% 1000 ML 1,000 ML ONE (19:23)
[2020-12-18] MEDS ORDERED: Merrem 1 GM IV ONE (19:23)
[2020-12-18 19:31] LABS: INR 1.42 (0.8-3.0); PROTIME 16.1 SECONDS (8.83-12.87)
[2020-12-18 19:43] LABS: ALBUMIN 4.3 g/dL (3.5-5.0); ALKALINE PHOSPHATASE 69 U/L (38-126); ANION GAP 12.2 MEQ/L (5-15); BLOOD UREA NITROGEN 19 mg/dL (9-20); CHLORIDE 101 mmol/L (98-107); Carbon Dioxide 28 mmol/L (22-30); Creatinine 1 0.78 mg/dL (0.66-1.25); EST GLOMERULAR FILTRATION RATE > 60.0 ML/MIN; Glucose 106 mg/dL (74-106); NT PRO BNP 4310 pg/mL (0-900); Potassium 3.4 mmol/L (3.5-5.1); SGOT/AST 31 U/L (17-59); SGPT/ALT 17 U/L (0-50); SODIUM 138 mmol/L (137-145)
[2020-12-18 19:45] LABS: Absolute Neutrophil Ct (ANC) 3.14 (1.4-6.9); BASOPHIL % 0.8 % (0.0-0.4); Basophil (Absolute #) 0.04 (0-0.4); Eosinophil (Absolute #) 0.25 (0-0.5); Hematocrit 34.4 % (42-50); Hemoglobin 10.5 gm/dl (12.5-18.0); Lymphocyte (Absolute #) 0.83 (1.0-4.6); Lymphocytes % 16.6 % (24.0-44.0); Mean Cell Volume 90.3 fl (78-100); Mean Corpuscular Hemoglobin 27.6 pg (26-32); Mean Corpuscular Hgb Concent. 30.5 g/dl (32-36); Mean Platelet Volume 9.4 fl (7.5-11.0); Monocyte (Absolute #) 0.74 (0.0-1.3); Monocytes % 14.8 % (0.0-12.0); Neutrophil % 62.8 % (36.0-66.0); Platelet Count 91 K/mm3 (150-450); Red Blood Count 3.81 M/mm3 (4.1-5.6); Red Cell Distribution Width 19.9 % (11.5-14.0)
[2020-12-18] MEDS ORDERED: Lasix 40 MG/4 ML IV ONE (20:28)
[2020-12-18] MEDS ORDERED: Zofran 4 MG/2 ML VIAL IV ONE (20:34)
[2020-12-18] MEDS ORDERED: MORPHINE SULFATE 2 MG INJ IV ONE (20:34)
[2020-12-18] MEDS ORDERED: Zofran 4 MG/2 ML VIAL ONE (20:34)
[2020-12-18] MEDS ORDERED: Lasix 40 MG/4 ML ONE (20:35)
[2020-12-18] MEDS ORDERED: MORPHINE SULFATE 2 MG INJ ONE (20:35)
[2020-12-18 21:03] VITALS: BP 136/87; PULSE 76; O2SAT 97
[2020-12-18 21:18] LABS: Slide Review 1 YES
--- NOTE | 2020-12-19 13:12 | XRAY ---
Indication: Chest pain. Status post defibrillator replacement. Comparison: November 23, 2020. Portable chest again demonstrates cardiomegaly, vascular congestion, pulmonary edema, and slight increasing small bibasilar effusions again favoring cardiac decompensation/CHF. Superimposed pneumonia not completely excluded. Again mitral valve replacement and left AICD.
== END 2020-12-18 21:00 | disposition short-term general hospital (02) ==
LOC: ED 18:51
DX: I50.9 Heart failure, unspecified (principal); R07.9 Chest pain, unspecified; I25.810 Atherosclerosis of coronary artery bypass graft(s) without angina pectoris; I10 Essential (primary) hypertension; I25.2 Old myocardial infarction; Z86.73 Personal history of transient ischemic attack (TIA), and cerebral infarction without residual deficits; J44.9 Chronic obstructive pulmonary disease, unspecified; Z95.810 Presence of automatic (implantable) cardiac defibrillator; I73.9 Peripheral vascular disease, unspecified; F15.90 Other stimulant use, unspecified, uncomplicated; Z79.899 Other long term (current) drug therapy; Z86.711 Personal history of pulmonary embolism; T82.7XXA Infection and inflammatory reaction due to other cardiac and vascular devices, implants and grafts, initial encounter; B99.9 Unspecified infectious disease
CPT/HCPCS: 36000; 36415; 71045; 80053; 83605; 83880; 84484; 85025; 85379; 85610; 93005; 94760; 96365; 96374; 96375; 99285; J1940; J2270; J2405

== ENCOUNTER 2020-12-31 16:12 | Emergency (ER) | payer MEDICARE ==
--- NOTE | 2020-12-31 16:32 | ERPHSYRPT ---
- History of Present Illness Time Seen by Provider: 12/31/20 16:25 Source: patient Exam Limitations: clinical condition Physician History: This is a 60-year-old noncompliant white male patient of recreation leader Dr. Horn who presents with pain, shortness of breath and hypoxia. Patient was seen in this emergency department on 12/18/2020 for chest pain symptoms and affec sintia pacemaker/defibrillator site in his left chest. Patient is out approximately 7 to 10 days from his replacement pacemaker defibrillator. Patient has worsening shortness of breath over the last 2 to 3 days. Patient has a history of congestive heart failure, coronary artery disease having had a CABG performed in the past, hypertension, myocardial infarction, peripheral vascular disease with a family pop bypass in the past, acute strokes in the past, TIAs COPD and pulmonary emboli as well as gastroesophageal reflux disease. Patient is on Eliquis for arrhythmia. Timing/Duration: day(s) (Worsening over the last 2 to 3 days), worse Activities at Onset: activity Severity of Dyspnea-Max: moderate Severity of Dyspnea-Current: moderate Possible Cause: occasional episodes Modifying Factors: Improves With: activity Associated Symptoms: cough, wheezing, No chest pain/discomfort Allergies/Adverse Reactions: carisoprodol [Carisoprodol] Allergy (Unknown, Verified 12/31/20 16:30) ketorolac Allergy (Unknown, Verified 12/31/20 16:30) Home Medications: Tamsulosin HCl 0.4 mg [Flomax 0.4 MG] 0.4 mg PO DAILY 05/13/13 [History] Fluticasone/Salmeterol [Advair 250-50 Diskus] 1 puff IH BID 07/11/13 [History] Aspirin [Aspirin EC] 81 mg PO DAILY 11/30/14 [History] Albuterol Common Canister [Ventolin Common Canister] 2 puff IH Q4HPRN PRN 07/20/20 [History] Atorvastatin Calcium 40 mg PO HS 07/20/20 [History] Cyclobenzaprine HCl [Flexeril] 10 mg PO HS 07/20/20 [History] Duloxetine HCl 60 mg PO DAILY 07/20/20 [History] Furosemide 40 mg [Lasix 40 MG] 40 mg PO BID 07/20/20 [History] Isosorbide Mononitrate 30 mg [Imdur 30 MG] 30 mg PO DAILY 07/20/20 [History] Lisinopril 5 mg [Zestril 5 MG] 5 mg PO DAILY 07/20/20 [History] Meclizine HCl 25 mg [Antivert 25 mg] 25 mg PO Q8H 07/20/20 [History] Nitroglycerin 0.4 mg Tablet [Nitrostat 0.4 MG Tablet] 0.4 mg SL UD PRN 07/20/20 [History] Omeprazole 40 mg PO DAILY 07/20/20 [History] Quetiapine Fumarate 25 mg [Seroquel 25 MG] 0.5 tab PO HS 07/20/20 [History] Spironolactone 25 mg [Aldactone 25 MG] 0.5 tab PO DAILY 07/20/20 [History] Thiamine HCl [B-1] 100 mg PO DAILY 07/20/20 [History] Hx Tetanus, Diphtheria Vaccination/Date Given: Yes Hx Influenza Vaccination/Date Given: No Hx Pneumococcal Vaccination/Date Given: No Travel Risk - International Travel Have you traveled outside of the country in past 3 weeks: No - Coronavirus Screening Are you exhibiting any of the following symptoms?: No Close contact with a COVID-19 positive Pt in past 14-21 Days: No - Vaccine Status Have you recieved a Covid-19 vaccination: No - Review of Systems Constitutional: No Symptoms Eyes: No Symptoms Ears, Nose, & Throat: No Symptoms Respiratory: Dyspnea Cardiac: No Symptoms Abdominal/Gastrointestinal: No Symptoms Genitourinary Symptoms: No Symptoms Musculoskeletal: No Symptoms Skin: No Symptoms Neurological: No Symptoms Psychological: No Symptoms Endocrine: No Symptoms Hematologic/Lymphatic: No Symptoms Immunological/Allergic: No Symptoms All Other Systems: Reviewed and Negative - Past Medical History Pertinent Past Medical History: Yes Neurological History: Migraines, Stroke, TIA ENT History: Cataracts Cardiac History: Arrhythmia, Congestive Heart Failure, Coronary Artery Disease, High Cholesterol, Hypertension, Myocardial Infarction (CT) Respiratory History: Asthma, Bronchitis, CHF, COPD, Pneumonia, Pulmonary Embolism Endocrine Medical History: No Pertinent History Musculoskeletal History: Arthritis GI Medical History: No Pertinent History History: No Pertinent History Psycho-Social History: Anxiety, Depression Male Reproductive Disorders: No Pertinent History Other Medical History: CABG , FEM POP IN THE LAST 10 YRS - Past Surgical History Past Surgical History: Yes Neuro Surgical History: No Pertinent History Cardiac: CABG, Cardiac Catheterization, Cardiac Stent, Internal Defibrillator, Pacemaker Respiratory: No Pertinent History Gastrointestinal: Appendectomy, Hernia Repair Genitourinary: No Pertinent History Musculoskeletal: No Pertinent History Male Surgical History: No Pertinent History Other Surgical History: bypass x 3, surgery to left leg after bite from brown recluse - Social History Smoking Status: Current every day smoker How long have you smoked: 45 years Exposure to second hand smoke: Yes Drug Use: methamphetamines Patient Lives Alone: No Significant Family History: no pertinent family hx - Nursing Vital Signs Nursing Vital Signs: Initial Vital Signs Temperature 97.5 F 12/31/20 16:20 Pulse Rate 73 12/31/20 16:20 Respiratory Rate 34 H 12/31/20 16:20 Blood Pressure 161/103 12/31/20 16:20 O2 Sat by Pulse Oximetry 91 L 12/31/20 16:20 Pain Scale Pain Intensity 2 - Physical Exam General Appearance: mild distress, alert, anxiety Eye Exam: PERRL/EOMI, eyes nml inspection Ears, Nose, Throat Exam: hearing grossly normal Neck Exam: normal inspection, non-tender, supple, full range of motion Respiratory Exam: respiratory distress, airway intact, rhonchi, No chest tenderness Cardiovascular/Chest Exam: normal heart sounds, regular rate/rhythm, normal peripheral pulses Abdominal/Gastrointestinal Exam: soft Rectal Exam: not done Extremity Exam: non-tender, normal range of motion, pelvis stable, pedal edema Neurologic Exam: alert, oriented x 3, cooperative, bartenders II-XII nml as tested, normal mood/affect, nml cerebellar function, nml station & gait, sensation nml Skin Exam: normal color, warm, dry Lymphatic Exam: No adenopathy SpO2 Interpretation: hypoxic O2 Delivery: Room Air - Course Nursing assessment & vital signs reviewed: Yes EKG Interpreted by Me: RATE (79), Sinus Rhythm, NORMAL AXIS, NORMAL INTERVALS, NORMAL QRS, Non-specific ST Changes, Other (No acute ischemic changes on today's EKG. When compared to the EKG dated 12/18/2020, the left axis deviation that was present has now resolved. Also, the prolonged QT interval has resolved. There is persistent normal sinus rhythm, persistent nonspecific T wave abnormalities.) Ordered Tests: Active Orders 24 hr Category Date Time Status Clean Catch Urine Specimen STAT Care 12/31/20 16:40 Active EKG-ER Only STAT Care 12/31/20 16:40 Active IV Insertion STAT Care 12/31/20 16:40 Active IV Insertion-2nd Peripheral STAT Care 12/31/20 17:09 Active Pulse Oximetry (ED) STAT Care 12/31/20 16:40 Active CHEST 1 VIEW (PORTABLE) Stat Exams 12/31/20 16:41 Completed ABG [ARTERIAL BLOOD GASES] Urgent Lab 12/31/20 17:30 Completed BLOOD CULTURE Stat Lab 12/31/20 16:38 Received CBC W DIFF Stat Lab 12/31/20 16:40 Completed CMP Stat Lab 12/31/20 16:30 Completed Lactic Acid Stat Lab 12/31/20 16:40 Completed NT PRO BNP Stat Lab 12/31/20 16:30 Completed TROPONIN Q3H Lab 12/31/20 19:00 Completed TROPONIN Q3H Lab 12/31/20 22:00 Completed TROPONIN Q3H Lab 01/01/21 01:00 Ordered TROPONIN Q3H Lab 01/01/21 04:00 Ordered TROPONIN Q3H Lab 01/01/21 07:00 Ordered UA W/RFX UR CULTURE Stat Lab 12/31/20 18:51 Completed Urine Triage Profile Stat Lab 12/31/20 18:51 Completed VBG [VENOUS BLOOD GAS] Stat Lab 12/31/20 16:40 Completed BiPap/CPAP STAT RT 12/31/20 16:41 Active Medication Summary Discontinued Medications Generic Name Dose Route Start Last Admin Trade Name Ludivina PRN Reason Stop Dose Admin Furosemide 40 mg 12/31/20 17:21 12/31/20 17:36 Lasix 40 Mg/4 Ml IV 12/31/20 17:22 40 mg STAT ONE Administration Furosemide Confirm 12/31/20 17:30 Lasix 40 Mg/4 Ml Administered 12/31/20 17:31 Dose 40 mg .ROUTE .STK-MED ONE Morphine Sulfate 4 mg 12/31/20 19:12 12/31/20 19:28 Morphine Sulfate 4 Mg Inj IV 12/31/20 19:13 4 mg STAT ONE Administration Morphine Sulfate Confirm 12/31/20 19:22 Morphine Sulfate 4 Mg Inj Administered 12/31/20 19:23 Dose 4 mg .ROUTE .STK-MED ONE Morphine Sulfate 2 mg 12/31/20 22:58 Morphine Sulfate 2 Mg Inj IV 12/31/20 22:59 STAT ONE Ondansetron HCl 4 mg 12/31/20 19:12 12/31/20 19:23 Zofran 4 Mg/2 Ml Vial IV 12/31/20 19:13 4 mg STAT ONE Administration Ondansetron HCl Confirm 12/31/20 19:22 Zofran 4 Mg/2 Ml Vial Administered 12/31/20 19:23 Dose 4 mg .ROUTE .STK-MED ONE Lab/Rad Data: Laboratory Result Diagrams 12/31/20 16:40 12/31/20 16:30 Laboratory Results 12/31/20 12/31/20 12/31/20 Range/Units 22:00 19:00 18:51 WBC (4.0-10.5) K/mm3 RBC (4.1-5.6) M/mm3 Hgb (12.5-18.0) gm/dl Hct (42-50) % MCV (78-100) fl MCH (26-32) pg MCHC (32-36) g/dl RDW (11.5-14.0) % Plt Count (150-450) K/mm3 MPV (7.5-11.0) fl Gran % (36.0-66.0) % Eos # (Auto) (0-0.5) Absolute Lymphs (auto) (1.0-4.6) Absolute Monos (auto) (0.0-1.3) Lymphocytes % (24.0-44.0) % Monocytes % (0.0-12.0) % Eosinophils % (0.00-5.0) % Basophils % (0.0-0.4) % Absolute Granulocytes (1.4-6.9) Basophils # (0-0.4) Puncture Site pCO2 (35-45) mmHg pO2 (75-100) mmHg pO2/FiO2 Ratio % Base Excess (-2.0-2.0) O2 Saturation (94-100) g/dF ABG pH (7.35-7.45) ABG HCO3 (22-28) ABG O2 Sat (Measured) (95-100) % Lorenzo Test VBG pH (7.32-7.42) VBG pCO2 at Pat Temp (42-55) mm/Hg VBG pO2 at Pat Temp (25-40) mm/Hg VBG HCO3 (22-28) meq/L VBG O2 Sat (Vicki) (95-100) VBG Base Excess (-2.0-2.0) VBG Hemoglobin VBG Carboxyhemoglobin (0.0-6.9) % T HGB A-a Gradient a/A Ratio Hemoglobin Carboxyhemoglobin (0.0-6.9) % THgb Methemoglobin (1.4-1.5) % POC Potassium (3.5-5.1) Temperature C POC O2 Flow Rate % Vent Mode Inspiratory BiPAP Expiratory BiPAP Sodium (137-145) mmol/L Potassium (3.5-5.1) mmol/L Chloride (98-107) mmol/L Carbon Dioxide (22-30) mmol/L Anion Gap (5-15) MEQ/L BUN (9-20) mg/dL Creatinine (0.66-1.25) mg/dL Estimated GFR ML/MIN Glucose (74-106) mg/dL Lactic Acid (0.4-2.0) Calcium (8.4-10.2) mg/dL Total Bilirubin (0.2-1.3) mg/dL AST (17-59) U/L ALT (0-50) U/L Alkaline Phosphatase (38-126) U/L Troponin I < 0.012 < 0.012 (0.000-0.034) ng/mL NT-Pro-B Natriuret Pep (0-900) pg/mL Serum Total Protein (6.3-8.2) g/dL Albumin (3.5-5.0) g/dL Urine Color (YELLOW) Urine Appearance (CLEAR) Urine pH (5-6) Ur Specific [place] (1.005-1.025) Urine Protein (Negative) Urine Ketones (NEGATIVE) Urine Blood (0-5) Jono/ul Urine Nitrite (NEGATIVE) Urine Bilirubin (NEGATIVE) Urine Urobilinogen (0-1) mg/dL Ur Leukocyte Esterase (NEGATIVE) Urine WBC (Auto) (0-5) /HPF Urine RBC (Auto) (0-2) /HPF U Epithel Cells (Auto) (FEW) /HPF Urine Bacteria (Auto) (NEGATIVE) /HPF Urine Culture Reflexed (NO) Urine Glucose (NEGATIVE) mg/dL Urine Opiates Level POSITIVE (NEGATIVE) Ur Methadone NEGATIVE (NEGATIVE) Urine Barbiturates NEGATIVE (NEGATIVE) Ur Phencyclidine (PCP) NEGATIVE (NEGATIVE) Urine Amphetamine POSITIVE (NEGATIVE) U Benzodiazepine Level NEGATIVE (NEGATIVE) Urine Cocaine NEGATIVE (NEGATIVE) Urine Marijuana (THC) NEGATIVE (NEGATIVE) 12/31/20 12/31/20 12/31/20 Range/Units 18:51 17:30 16:40 WBC 5.4 (4.0-10.5) K/mm3 RBC 4.11 (4.1-5.6) M/mm3 Hgb 11.5 L (12.5-18.0) gm/dl Hct 37.6 L (42-50) % MCV 91.5 (78-100) fl MCH 28.0 (26-32) pg MCHC 30.6 L (32-36) g/dl RDW 19.4 H (11.5-14.0) % Plt Count 112 L (150-450) K/mm3 MPV 9.9 (7.5-11.0) fl Gran % 65.2 (36.0-66.0) % Eos # (Auto) 0.35 (0-0.5) Absolute Lymphs (auto) 0.80 L (1.0-4.6) Absolute Monos (auto) 0.67 (0.0-1.3) Lymphocytes % 14.9 L (24.0-44.0) % Monocytes % 12.5 H (0.0-12.0) % Eosinophils % 6.5 H (0.00-5.0) % Basophils % 0.9 (0.0-0.4) % Absolute Granulocytes 3.50 (1.4-6.9) Basophils # 0.05 (0-0.4) Puncture Site RIGHT BRACHIAL pCO2 45 (35-45) mmHg pO2 198 H* (75-100) mmHg pO2/FiO2 Ratio % Base Excess 1.0 (-2.0-2.0) O2 Saturation 96.4 (94-100) g/dF ABG pH 7.38 (7.35-7.45) ABG HCO3 26.6 (22-28) ABG O2 Sat (Measured) 99.9 (95-100) % Lorenzo Test NOT APPLICABLE VBG pH (7.32-7.42) VBG pCO2 at Pat Temp (42-55) mm/Hg VBG pO2 at Pat Temp (25-40) mm/Hg VBG HCO3 (22-28) meq/L VBG O2 Sat (Vicki) (95-100) VBG Base Excess (-2.0-2.0) VBG Hemoglobin VBG Carboxyhemoglobin (0.0-6.9) % T HGB A-a Gradient 174 a/A Ratio 0.53 Hemoglobin 11.2 Carboxyhemoglobin 2.7 (0.0-6.9) % THgb Methemoglobin 0.9 L (1.4-1.5) % POC Potassium (3.5-5.1) Temperature 37.0 C POC O2 Flow Rate 60 % Vent Mode BiPAP Inspiratory BiPAP 16 Expiratory BiPAP 8 Sodium (137-145) mmol/L Potassium 3.9 (3.5-5.1) mmol/L Chloride (98-107) mmol/L Carbon Dioxide (22-30) mmol/L Anion Gap (5-15) MEQ/L BUN (9-20) mg/dL Creatinine (0.66-1.25) mg/dL Estimated GFR ML/MIN Glucose (74-106) mg/dL Lactic Acid (0.4-2.0) Calcium (8.4-10.2) mg/dL Total Bilirubin (0.2-1.3) mg/dL AST (17-59) U/L ALT (0-50) U/L Alkaline Phosphatase (38-126) U/L Troponin I (0.000-0.034) ng/mL NT-Pro-B Natriuret Pep (0-900) pg/mL Serum Total Protein (6.3-8.2) g/dL Albumin (3.5-5.0) g/dL Urine Color STRAW (YELLOW) Urine Appearance CLEAR (CLEAR) Urine pH 6.0 (5-6) Ur Specific [place] 1.005 (1.005-1.025) Urine Protein NEGATIVE (Negative) Urine Ketones NEGATIVE (NEGATIVE) Urine Blood NEGATIVE (0-5) Jono/ul Urine Nitrite NEGATIVE (NEGATIVE) Urine Bilirubin NEGATIVE (NEGATIVE) Urine Urobilinogen NEGATIVE (0-1) mg/dL Ur Leukocyte Esterase NEGATIVE (NEGATIVE) Urine WBC (Auto) NONE (0-5) /HPF Urine RBC (Auto) NONE (0-2) /HPF U Epithel Cells (Auto) NONE (FEW) /HPF Urine Bacteria (Auto) NONE (NEGATIVE) /HPF Urine Culture Reflexed NO (NO) Urine Glucose NEGATIVE (NEGATIVE) mg/dL Urine Opiates Level (NEGATIVE) Ur Methadone (NEGATIVE) Urine Barbiturates (NEGATIVE) Ur Phencyclidine (PCP) (NEGATIVE) Urine Amphetamine (NEGATIVE) U Benzodiazepine Level (NEGATIVE) Urine Cocaine (NEGATIVE) Urine Marijuana (THC) (NEGATIVE) 12/31/20 12/31/20 12/31/20 Range/Units 16:40 16:40 16:30 WBC (4.0-10.5) K/mm3 RBC (4.1-5.6) M/mm3 Hgb (12.5-18.0) gm/dl Hct (42-50) % MCV (78-100) fl MCH (26-32) pg MCHC (32-36) g/dl RDW (11.5-14.0) % Plt Count (150-450) K/mm3 MPV (7.5-11.0) fl Gran % (36.0-66.0) % Eos # (Auto) (0-0.5) Absolute Lymphs (auto) (1.0-4.6) Absolute Monos (auto) (0.0-1.3) Lymphocytes % (24.0-44.0) % Monocytes % (0.0-12.0) % Eosinophils % (0.00-5.0) % Basophils % (0.0-0.4) % Absolute Granulocytes (1.4-6.9) Basophils # (0-0.4) Puncture Site pCO2 (35-45) mmHg pO2 (75-100) mmHg pO2/FiO2 Ratio 40.0 % Base Excess (-2.0-2.0) O2 Saturation (94-100) g/dF ABG pH (7.35-7.45) ABG HCO3 (22-28) ABG O2 Sat (Measured) (95-100) % Lorenzo Test VBG pH 7.41 (7.32-7.42) VBG pCO2 at Pat Temp 46 (42-55) mm/Hg VBG pO2 at Pat Temp 21 L (25-40) mm/Hg VBG HCO3 29.2 H* (22-28) meq/L VBG O2 Sat (Vicki) 18.0 L (95-100) VBG Base Excess 3.8 H (-2.0-2.0) VBG Hemoglobin 11.6 VBG Carboxyhemoglobin 1.3 (0.0-6.9) % T HGB A-a Gradient a/A Ratio Hemoglobin Carboxyhemoglobin (0.0-6.9) % THgb Methemoglobin (1.4-1.5) % POC Potassium 3.9 (3.5-5.1) Temperature C POC O2 Flow Rate % Vent Mode Inspiratory BiPAP Expiratory BiPAP Sodium 138 (137-145) mmol/L Potassium 3.8 (3.5-5.1) mmol/L Chloride 100 (98-107) mmol/L Carbon Dioxide 28 (22-30) mmol/L Anion Gap 13.7 (5-15) MEQ/L BUN 12 (9-20) mg/dL Creatinine 0.79 (0.66-1.25) mg/dL Estimated GFR > 60.0 ML/MIN Glucose 96 (74-106) mg/dL Lactic Acid 1.7 (0.4-2.0) Calcium 8.9 (8.4-10.2) mg/dL Total Bilirubin 1.20 (0.2-1.3) mg/dL AST 29 (17-59) U/L ALT 13 (0-50) U/L Alkaline Phosphatase 83 (38-126) U/L Troponin I (0.000-0.034) ng/mL NT-Pro-B Natriuret Pep 4450 H (0-900) pg/mL Serum Total Protein 8.2 (6.3-8.2) g/dL Albumin 4.2 (3.5-5.0) g/dL Urine Color (YELLOW) Urine Appearance (CLEAR) Urine pH (5-6) Ur Specific [place] (1.005-1.025) Urine Protein (Negative) Urine Ketones (NEGATIVE) Urine Blood (0-5) Jono/ul Urine Nitrite (NEGATIVE) Urine Bilirubin (NEGATIVE) Urine Urobilinogen (0-1) mg/dL Ur Leukocyte Esterase (NEGATIVE) Urine WBC (Auto) (0-5) /HPF Urine RBC (Auto) (0-2) /HPF U Epithel Cells (Auto) (FEW) /HPF Urine Bacteria (Auto) (NEGATIVE) /HPF Urine Culture Reflexed (NO) Urine Glucose (NEGATIVE) mg/dL Urine Opiates Level (NEGATIVE) Ur Methadone (NEGATIVE) Urine Barbiturates (NEGATIVE) Ur Phencyclidine (PCP) (NEGATIVE) Urine Amphetamine (NEGATIVE) U Benzodiazepine Level (NEGATIVE) Urine Cocaine (NEGATIVE) Urine Marijuana (THC) (NEGATIVE) - Progress Progress: improved, re-examined Air Movement: fair Progress Note: 12/31/20 17:56 Chest x-ray reveals cardiomegaly, worsening vascular congestion, pulmonary edema, small bibasilar pleural effusions favoring congestive heart failure. 12/31/20 23:04 Medical decision making: This patient still has some mild left anterior chest pain. He states he does not feel comfortable being discharged to home. His numbers are improved from the last visit here on 12/18/2020. He is fully anticoagulated on Eliquis. He is on 2 L nasal cannula oxygen. I did review the patient with Dr. Clement and we agreed that we would attempt to find a institution where a recreation leader is readily available for him. Earlier in the day there were not any monitored beds available at [facility]. However, I contacted them again. I reviewed the patient history, condition, EKG findings, laboratory results and chest x-ray findings with Dr. Welch, the emergency room physician at [facility]. He agrees to accept the patient in transfer to their facility. Blood Culture(s) Obtained: Yes Counseled pt/family regarding: lab results, diagnosis, need for follow-up, rad results - Departure Departure Disposition: Transfer Clinical Impression: Shortness of breath, CHF (congestive heart failure), Pulmonary edema, Hypoxia, Bilateral pleural effusion, Cardiomegaly Condition: Fair Critical Care Time: Yes Critical Care Time(excluding separately billable procedures): Critical 30-74 mins Referrals: DOCTOR,NO FAMILY [Primary Care Provider] - Instructions: Heart Failure
[2020-12-31 16:53] LABS: BASOPHIL % 0.9 % (0.0-0.4); Basophil (Absolute #) 0.05 (0-0.4); Eosinophil % 6.5 % (0.00-5.0); Eosinophil (Absolute #) 0.35 (0-0.5); Hematocrit 37.6 % (42-50); Hemoglobin 11.5 gm/dl (12.5-18.0); Lymphocytes % 14.9 % (24.0-44.0); Mean Cell Volume 91.5 fl (78-100); Mean Corpuscular Hgb Concent. 30.6 g/dl (32-36); Mean Platelet Volume 9.9 fl (7.5-11.0); Monocyte (Absolute #) 0.67 (0.0-1.3); Monocytes % 12.5 % (0.0-12.0); Neutrophil % 65.2 % (36.0-66.0); Platelet Count 112 K/mm3 (150-450); Red Blood Count 4.11 M/mm3 (4.1-5.6); Red Cell Distribution Width 19.4 % (11.5-14.0); White Blood Count 5.4 K/mm3 (4.0-10.5)
[2020-12-31 17:01] LABS: VBG BASE EXCESS 3.8 (-2.0-2.0); VBG CARBOXYHEMOGLOBIN 1.3 % T HGB (0.0-6.9); VBG HCO3- 29.2 meq/L (22-28); VBG HEMOGLOBIN 11.6; VBG POTASSIUM 3.9 (3.5-5.1); VBG pH 7.41 (7.32-7.42)
--- NOTE | 2020-12-31 17:03 | XRAY ---
Indication: Short of breath. Comparison: December 18, 2020. Portable chest again demonstrates cardiomegaly with worsening vascular congestion, pulmonary edema, and small bibasilar effusions again favoring cardiac decompensation/CHF. Superimposed pneumonia not completely excluded. Again mitral valve replacement, CABG, and left AICD.
[2020-12-31 17:07] LABS: ALBUMIN 4.2 g/dL (3.5-5.0); ALKALINE PHOSPHATASE 83 U/L (38-126); ANION GAP 13.7 MEQ/L (5-15); BLOOD UREA NITROGEN 12 mg/dL (9-20); CHLORIDE 100 mmol/L (98-107); Calcium 8.9 mg/dL (8.4-10.2); Carbon Dioxide 28 mmol/L (22-30); Creatinine 1 0.79 mg/dL (0.66-1.25); EST GLOMERULAR FILTRATION RATE > 60.0 ML/MIN; Glucose 96 mg/dL (74-106); NT PRO BNP 4450 pg/mL (0-900); Potassium 3.8 mmol/L (3.5-5.1); SGOT/AST 29 U/L (17-59); SGPT/ALT 13 U/L (0-50); SODIUM 138 mmol/L (137-145); Total Protein 8.2 g/dL (6.3-8.2)
[2020-12-31] MEDS ORDERED: Lasix 40 MG/4 ML IV ONE (17:21)
[2020-12-31] MEDS ORDERED: Lasix 40 MG/4 ML ONE (17:30)
[2020-12-31 18:01] LABS: A-aADO2 174; ABG HEMOGLOBIN 11.2; ABG POTASSIUM 3.9 (3.5-5.1); ARTERIAL BLD GAS O2 SATURATION 99.9 % (95-100); ARTERIAL BLOOD GAS FIO2 60 %; ARTERIAL BLOOD GAS PCO2 45 mmHg (35-45); ARTERIAL BLOOD GAS PO2 198 mmHg (75-100); ARTERIAL BLOOD GAS VENT MODE BiPAP; ARTERIAL BLOOD GAS pH 7.38 (7.35-7.45); CARBOXYHEMOGLOBIN 2.7 % THgb (0.0-6.9); HCO3- 26.6 (22-28); HGB O2 SAT 96.4 g/dF (94-100); Methhemoglobin 0.9 % (1.4-1.5)
[2020-12-31 18:02] LABS: ABG SITE RIGHT BRACHIAL
[2020-12-31 19:10] LABS: Appearance CLEAR (CLEAR); Bilirubin NEGATIVE (NEGATIVE); Blood NEGATIVE Ery/ul (0-5); Glucose NEGATIVE (NEGATIVE); Ketones NEGATIVE (NEGATIVE); Leukocyte Esterase NEGATIVE (NEGATIVE); Nitrite NEGATIVE (NEGATIVE); Protein,Urine Dip NEGATIVE (Negative); Specific Gravity 1.005 (1.005-1.025); Urobilinogen NEGATIVE mg/dL (0-1)
[2020-12-31] MEDS ORDERED: MORPHINE SULFATE 4 MG INJ IV ONE (19:12)
[2020-12-31] MEDS ORDERED: Zofran 4 MG/2 ML VIAL IV ONE (19:12)
[2020-12-31] MEDS ORDERED: MORPHINE SULFATE 4 MG INJ ONE (19:22)
[2020-12-31] MEDS ORDERED: Zofran 4 MG/2 ML VIAL ONE (19:22)
[2020-12-31 19:23] LABS: Amphetamine,Urine POSITIVE (NEGATIVE); Barbiturate,Urine NEGATIVE (NEGATIVE); Benzodiazepine,Urine NEGATIVE (NEGATIVE); Cocaine,Urine NEGATIVE (NEGATIVE); Methadone,Urine NEGATIVE (NEGATIVE); Opiate,Urine POSITIVE (NEGATIVE); PCP,Urine NEGATIVE (NEGATIVE); THC,Urine NEGATIVE (NEGATIVE)
[2020-12-31] MEDS ORDERED: MORPHINE SULFATE 2 MG INJ IV ONE (22:58)
[2020-12-31 23:11] VITALS: PULSE 70
[2020-12-31] MEDS ORDERED: MORPHINE SULFATE 2 MG INJ ONE (23:14)
[2021-01-01 02:41] VITALS: O2SAT 97
[2021-01-01 02:43] VITALS: BP 136/92
== END 2021-01-01 02:35 | disposition short-term general hospital (02) ==
LOC: ED 16:12
DX: R06.02 Shortness of breath (principal); I50.9 Heart failure, unspecified; J81.1 Chronic pulmonary edema; R09.02 Hypoxemia; J90 Pleural effusion, not elsewhere classified; I51.7 Cardiomegaly; I25.810 Atherosclerosis of coronary artery bypass graft(s) without angina pectoris; E78.00 Pure hypercholesterolemia, unspecified; I10 Essential (primary) hypertension; I25.2 Old myocardial infarction; J44.9 Chronic obstructive pulmonary disease, unspecified; Z86.711 Personal history of pulmonary embolism; Z95.810 Presence of automatic (implantable) cardiac defibrillator; Z72.0 Tobacco use; Z79.899 Other long term (current) drug therapy
CPT/HCPCS: 36000; 36415; 36600; 71045; 80053; 80307; 81001; 82375; 82803; 82805; 83605; 83880; 84484; 85025; 87040; 93005; 94002; 94760; 96374; 96375; 96376; 99285; 99291; J1940; J2270; J2405

== ENCOUNTER 2021-04-11 19:35 | Inpatient (IN) | payer MEDICARE ==
[2021-04-11] MEDS ORDERED: solu-MEDROL 125 MG, Sterile H2O 10 ml 2 ML IV ONE ×2 (19:48)
[2021-04-11] MEDS ORDERED: Sodium Chloride 0.9% 1000 ML 1,000 ML IV STA (19:48)
[2021-04-11] MEDS ORDERED: DUONEB 0.5-3 MG/3 ml Neb IH ONE ×2 (19:48)
[2021-04-11 19:59] LABS: Absolute Neutrophil Ct (ANC) 3.65 (1.4-6.9); BASOPHIL % 0.5 % (0.0-0.4); Basophil (Absolute #) 0.03 (0-0.4); Eosinophil % 3.5 % (0.00-5.0); Hematocrit 34.2 % (42-50); Hemoglobin 10.5 gm/dl (12.5-18.0); Lymphocytes % 10.6 % (24.0-44.0); Mean Cell Volume 89.3 fl (78-100); Mean Corpuscular Hemoglobin 27.4 pg (26-32); Mean Corpuscular Hgb Concent. 30.7 g/dl (32-36); Mean Platelet Volume 8.8 fl (7.5-11.0); Monocyte (Absolute #) 1.17 (0.0-1.3); Monocytes % 20.7 % (0.0-12.0); Neutrophil % 64.7 % (36.0-66.0); Platelet Count 75 K/mm3 (150-450); Red Blood Count 3.83 M/mm3 (4.1-5.6); Red Cell Distribution Width 20.8 % (11.5-14.0); White Blood Count 5.7 K/mm3 (4.0-10.5)
[2021-04-11] MEDS ORDERED: Sodium Chloride 0.9% 1000 ML 1,000 ML ONE (20:04)
[2021-04-11 20:26] LABS: ALBUMIN 3.7 g/dL (3.5-5.0); ALKALINE PHOSPHATASE 65 U/L (38-126); BLOOD UREA NITROGEN 13 mg/dL (9-20); CHLORIDE 103 mmol/L (98-107); Calcium 8.6 mg/dL (8.4-10.2); Carbon Dioxide 26 mmol/L (22-30); Creatinine 1 0.57 mg/dL (0.66-1.25); EST GLOMERULAR FILTRATION RATE > 60.0 ML/MIN; Glucose 111 mg/dL (74-106); NT PRO BNP 7160 pg/mL (0-900); Potassium 3.7 mmol/L (3.5-5.1); SGOT/AST 28 U/L (17-59); SGPT/ALT 13 U/L (0-50); SODIUM 138 mmol/L (137-145); Total Protein 7.2 g/dL (6.3-8.2)
--- NOTE | 2021-04-11 20:29 | ERPHSYRPT ---
- History of Present Illness Time Seen by Provider: 04/11/21 20:26 Source: patient, EMS Exam Limitations: no limitations Patient Subjective Stated Complaint: pt states "I can't catch my breath." Triage Nursing Assessment: pt came into the er via ambulance; pt is axo x4; c/o sob; 2/10 pain to ribs; pt states he wears 3 L O2 at home; pt is labored breathing; use of accessory muscles; tachypnic; LLL crackles; audible wheezes; hypertensive; 2+ pitting edema to extremities; pt c/o swelling to scrotum; hx CHF, COPD; pt states he took 3 nitro prior to calling EMS; pt received no treatment from EMS enroute; Physician History: pt states "I can't catch my breath." for 1 day Patient is 60-year-old male with significant past medical history of COPD CHF hypertension started having worsening shortness of breath for last 1 week which got worse today. She is not vaccinated for coronavirus. Patient has a history of tobacco use and smoking. Patient denies any Covid positive contacts. Timing/Duration: today Activities at Onset: none Severity of Dyspnea-Max: moderate Severity of Dyspnea-Current: moderate Possible Cause: frequent episodes Associated Symptoms: cough, wheezing, weakness, productive cough, tightness Allergies/Adverse Reactions: carisoprodol [Carisoprodol] Allergy (Unknown, Verified 12/31/20 16:30) ketorolac Allergy (Unknown, Verified 12/31/20 16:30) Home Medications: Tamsulosin HCl 0.4 mg [Flomax 0.4 MG] 0.4 mg PO DAILY 05/13/13 [History] Fluticasone/Salmeterol [Advair 250-50 Diskus] 1 puff IH BID 07/11/13 [History] Aspirin [Aspirin EC] 81 mg PO DAILY 11/30/14 [History] Albuterol Common Canister [Ventolin Common Canister] 2 puff IH Q4HPRN PRN 07/20/20 [History] Atorvastatin Calcium 40 mg PO HS 07/20/20 [History] Cyclobenzaprine HCl [Flexeril] 10 mg PO HS 07/20/20 [History] Duloxetine HCl 60 mg PO DAILY 12/27/20 [History] Furosemide 40 mg [Lasix 40 MG] 40 mg PO BID 07/20/20 [History] Isosorbide Mononitrate 30 mg [Imdur 30 MG] 30 mg PO DAILY 07/20/20 [History ] Lisinopril 5 mg [Zestril 5 MG] 5 mg PO DAILY 07/20/20 [History] Meclizine HCl 25 mg [Antivert 25 mg] 25 mg PO Q8H 07/20/20 [History] Nitroglycerin 0.4 mg Tablet [Nitrostat 0.4 MG Tablet] 0.4 mg SL UD PRN 07/20/20 [History] Omeprazole 40 mg PO DAILY 07/20/20 [History] Quetiapine Fumarate 25 mg [Seroquel 25 MG] 0.5 tab PO HS 07/20/20 [History] Spironolactone 25 mg [Aldactone 25 MG] 0.5 tab PO DAILY 07/20/20 [History] Thiamine HCl [B-1] 100 mg PO DAILY 07/20/20 [History] Hx Tetanus, Diphtheria Vaccination/Date Given: Yes Hx Influenza Vaccination/Date Given: No Hx Pneumococcal Vaccination/Date Given: No Travel Risk - International Travel Have you traveled outside of the country in past 3 weeks: No - Coronavirus Screening Are you exhibiting any of the following symptoms?: Yes Symptoms: Cough: New Onset, Shortness of Breath - Vaccine Status Have you recieved a Covid-19 vaccination: No - Review of Systems Constitutional: Lethargy, Weakness, No Fever, No Chills Eyes: No Symptoms Ears, Nose, & Throat: No Symptoms Respiratory: Cough, Dyspnea, Dyspnea on Exertion (MONTOYA), Wheezing Cardiac: Orthopnea, PND, No Chest Pain, No Edema, No Syncope Abdominal/Gastrointestinal: No Abdominal Pain, No Nausea, No Vomiting, No Diarrhea Genitourinary Symptoms: No Dysuria Musculoskeletal: No Back Pain, No Neck Pain Skin: No Rash Neurological: No Dizziness, No Focal Weakness, No Sensory Changes Psychological: No Symptoms Endocrine: No Symptoms All Other Systems: Reviewed and Negative - Past Medical History Pertinent Past Medical History: Yes Neurological History: Migraines, Stroke, TIA ENT History: Cataracts Cardiac History: Arrhythmia, Congestive Heart Failure, Coronary Artery Disease, High Cholesterol, Hypertension, Myocardial Infarction ([place]) Respiratory History: Asthma, Bronchitis, CHF, COPD, Pneumonia, Pulmonary Embolism Endocrine Medical History: No Pertinent History Musculoskeletal History: Arthritis GI Medical History: No Pertinent History History: No Pertinent History Psycho-Social History: Anxiety, Depression Male Reproductive Disorders: No Pertinent History Other Medical History: CABG , FEM POP IN THE LAST 10 YRS - Past Surgical History Past Surgical History: Yes Neuro Surgical History: No Pertinent History Cardiac: CABG, Cardiac Catheterization, Cardiac Stent, Internal Defibrillator, Pacemaker Respiratory: No Pertinent History Gastrointestinal: Appendectomy, Hernia Repair Genitourinary: No Pertinent History Musculoskeletal: No Pertinent History Male Surgical History: No Pertinent History Other Surgical History: bypass x 3, surgery to left leg after bite from brown recluse - Social History Smoking Status: Current every day smoker How long have you smoked: 45 years Exposure to second hand smoke: Yes Drug Use: methamphetamines Patient Lives Alone: No Significant Family History: no pertinent family hx - Nursing Vital Signs Nursing Vital Signs: Initial Vital Signs Temperature 98.2 F 04/11/21 19:53 Pulse Rate 72 04/11/21 19:53 Respiratory Rate 34 H 04/11/21 19:53 Blood Pressure 140/85 04/11/21 19:53 O2 Sat by Pulse Oximetry 100 04/11/21 19:53 Pain Scale Pain Intensity 3 - Physical Exam General Appearance: moderate distress, alert Eye Exam: PERRL/EOMI Neck Exam: normal inspection, supple Respiratory Exam: diminished breath sounds, accessory muscle use, crackles/rales, rhonchi, wheezing Cardiovascular/Chest Exam: normal heart sounds, regular rate/rhythm Abdominal/Gastrointestinal Exam: soft, No tenderness, No distention, No mass Extremity Exam: non-tender, normal range of motion, normal inspection, no calf tenderness, no pedal edema Neurologic Exam: alert, oriented x 3, cooperative, cook chili II-XII nml as tested, sensation nml, No motor deficits Skin Exam: normal color, warm, No dry SpO2 Interpretation: borderline oxygenation SpO2: 95 O2 Delivery: Nasal Cannula - Course Nursing assessment & vital signs reviewed: Yes EKG Interpreted by Me: Non-specific ST Changes - Radiology Exams Chest X-ray Interpretation: Reviewed by me (CHF changes) Ordered Tests: Active Orders 24 hr Category Date Time Status Blindstitch [place] STAT Care 04/11/21 19:50 Active EKG-ER Only STAT Care 04/11/21 19:48 Active Oxygen-ED Only Nasal Cannula 3 lpm Care 04/11/21 19:48 Active CHEST 2 VIEWS (PA AND LAT) Stat Exams 04/11/21 19:50 Taken CBC W DIFF Stat Lab 04/11/21 19:55 Completed CMP Stat Lab 04/11/21 19:55 Completed D-DIMER QUANTITATIVE Stat Lab 04/11/21 19:55 Completed NT PRO BNP Stat Lab 04/11/21 19:55 Completed TROPONIN Q3H Lab 04/11/21 19:55 Completed TROPONIN Q3H Lab 04/11/21 23:00 Ordered TROPONIN Q3H Lab 04/12/21 02:00 Ordered TROPONIN Q3H Lab 04/12/21 05:00 Ordered TROPONIN Q3H Lab 04/12/21 08:00 Ordered Respiratory Therapy Assessment DAILY RT 04/11/21 19:54 Active Medication Summary Discontinued Medications Generic Name Dose Route Start Last Admin Trade Name Freq PRN Reason Stop Dose Admin Albuterol/Ipratropium Confirm 04/11/21 19:48 Duoneb 0.5-3 Mg/3 Ml Neb Administered 04/11/21 19:49 Dose 3 ml IH .STK-MED ONE Albuterol/Ipratropium 3 ml 04/11/21 19:48 04/11/21 19:53 Duoneb 0.5-3 Mg/3 Ml Neb IH 04/11/21 19:49 3 ml STAT ONE Administration Methylprednisolone Sodium 0 mg 04/11/21 19:48 04/11/21 20:46 Succinate 125 mg/ Sterile IV 04/11/21 19:49 125 mg Water 2 ml STAT ONE Administration Fentanyl Citrate 50 mcg 04/11/21 20:55 Sublimaze 100 Mcg/2 Ml IV 04/11/21 20:56 STAT ONE Furosemide 40 mg 04/11/21 20:58 Lasix 40 Mg/4 Ml IV 04/11/21 20:59 STAT ONE Sodium Chloride 1,000 mls @ 999 mls/hr 04/11/21 19:48 04/11/21 20:46 Sodium Chloride 0.9% 1000 Ml IV 04/11/21 20:48 100 mls/hr .Q1H1M STA Administration Sodium Chloride Confirm 04/11/21 20:04 Sodium Chloride 0.9% 1000 Ml Administered 04/11/21 20:05 Dose 1,000 mls @ ud .ROUTE .STK-MED ONE Methylprednisolone Sodium Succinate Confirm 04/11/21 20:43 Solu-Medrol Administered 04/11/21 20:44 Dose 125 mg .ROUTE .STK-MED ONE Sterile Water Confirm 04/11/21 20:43 Sterile H2o 10 Ml Administered 04/11/21 20:44 Dose 10 ml IJ .STK-MED ONE Lab/Rad Data: Laboratory Result Diagrams 04/11/21 19:55 04/11/21 19:55 Laboratory Results 04/11/21 04/11/21 04/11/21 Range/Units 19:58 19:55 19:55 WBC (4.0-10.5) K/mm3 RBC (4.1-5.6) M/mm3 Hgb (12.5-18.0) gm/dl Hct (42-50) % MCV (78-100) fl MCH (26-32) pg MCHC (32-36) g/dl RDW (11.5-14.0) % Plt Count (150-450) K/mm3 MPV (7.5-11.0) fl Gran % (36.0-66.0) % Eos # (Auto) (0-0.5) Absolute Lymphs (auto) (1.0-4.6) Absolute Monos (auto) (0.0-1.3) Lymphocytes % (24.0-44.0) % Monocytes % (0.0-12.0) % Eosinophils % (0.00-5.0) % Basophils % (0.0-0.4) % Absolute Granulocytes (1.4-6.9) Basophils # (0-0.4) D-Dimer 1888 H* (215-500) ng/mL Sodium (137-145) mmol/L Potassium (3.5-5.1) mmol/L Chloride (98-107) mmol/L Carbon Dioxide (22-30) mmol/L Anion Gap (5-15) MEQ/L BUN (9-20) mg/dL Creatinine (0.66-1.25) mg/dL Estimated GFR ML/MIN Glucose (74-106) mg/dL Calcium (8.4-10.2) mg/dL Total Bilirubin (0.2-1.3) mg/dL AST (17-59) U/L ALT (0-50) U/L Alkaline Phosphatase (38-126) U/L Troponin I 0.012 (0.000-0.034) ng/mL NT-Pro-B Natriuret Pep (0-900) pg/mL Serum Total Protein (6.3-8.2) g/dL Albumin (3.5-5.0) g/dL Influenza Type A Ag NEGATIVE (NEGATIVE) Influenza Type B Ag NEGATIVE (NEGATIVE) RSV (PCR) NEGATIVE (Negative) SARS-CoV-2 (PCR) NEGATIVE (NEGATIVE) 04/11/21 04/11/21 Range/Units 19:55 19:55 WBC 5.7 (4.0-10.5) K/mm3 RBC 3.83 L (4.1-5.6) M/mm3 Hgb 10.5 L (12.5-18.0) gm/dl Hct 34.2 L (42-50) % MCV 89.3 (78-100) fl MCH 27.4 (26-32) pg MCHC 30.7 L (32-36) g/dl RDW 20.8 H (11.5-14.0) % Plt Count 75 L (150-450) K/mm3 MPV 8.8 (7.5-11.0) fl Gran % 64.7 (36.0-66.0) % Eos # (Auto) 0.20 (0-0.5) Absolute Lymphs (auto) 0.60 L (1.0-4.6) Absolute Monos (auto) 1.17 (0.0-1.3) Lymphocytes % 10.6 L (24.0-44.0) % Monocytes % 20.7 H (0.0-12.0) % Eosinophils % 3.5 (0.00-5.0) % Basophils % 0.5 (0.0-0.4) % Absolute Granulocytes 3.65 (1.4-6.9) Basophils # 0.03 (0-0.4) D-Dimer (215-500) ng/mL Sodium 138 (137-145) mmol/L Potassium 3.7 (3.5-5.1) mmol/L Chloride 103 (98-107) mmol/L Carbon Dioxide 26 (22-30) mmol/L Anion Gap 12.0 (5-15) MEQ/L BUN 13 (9-20) mg/dL Creatinine 0.57 L (0.66-1.25) mg/dL Estimated GFR > 60.0 ML/MIN Glucose 111 H (74-106) mg/dL Calcium 8.6 (8.4-10.2) mg/dL Total Bilirubin 1.40 H (0.2-1.3) mg/dL AST 28 (17-59) U/L ALT 13 (0-50) U/L Alkaline Phosphatase 65 (38-126) U/L Troponin I (0.000-0.034) ng/mL NT-Pro-B Natriuret Pep 7160 H (0-900) pg/mL Serum Total Protein 7.2 (6.3-8.2) g/dL Albumin 3.7 (3.5-5.0) g/dL Influenza Type A Ag (NEGATIVE) Influenza Type B Ag (NEGATIVE) RSV (PCR) (Negative) SARS-CoV-2 (PCR) (NEGATIVE) - Progress Progress: unchanged Air Movement: fair Blood Culture(s) Obtained: No Antibiotics given: No Discussed with : Jeff Will see patient in: hospital (observation) Counseled pt/family regarding: lab results, diagnosis, need for follow-up, rad results, smoking cessation - Departure Departure Disposition: Observation Clinical Impression: Bilateral pleural effusion Acute exacerbation of congestive heart failure Qualifiers: Heart failure type: combined systolic and diastolic Qualified Code(s): I50.43 - Acute on chronic combined systolic (congestive) and diastolic (congestive) heart failure Chronic respiratory failure Qualifiers: Respiratory failure complication: unspecified whether with hypoxia or hyperca pnia Qualified Code(s): J96.10 - Chronic respiratory failure, unspecified w hether with hypoxia or hypercapnia Condition: Fair Critical Care Time: Yes Critical Care Time(excluding separately billable procedures): Critical 30-74 mins Referrals: DOCTOR,NO FAMILY [Primary Care Provider] - Instructions: Heart Failure
[2021-04-11] MEDS ORDERED: solu-MEDROL ONE (20:43)
[2021-04-11] MEDS ORDERED: Sterile H2O 10 ml IJ ONE (20:43)
[2021-04-11 20:44] LABS: INFLUENZA A NEGATIVE (NEGATIVE); INFLUENZA B NEGATIVE (NEGATIVE); RESPIRATORY SYNCTIAL VIRUS NEGATIVE (Negative); SARS-CoV-2 Xpert Express NEGATIVE (NEGATIVE)
[2021-04-11] MEDS ORDERED: SUBLIMAZE 100 MCG/2 ML IV ONE (20:55)
[2021-04-11] MEDS ORDERED: Lasix 40 MG/4 ML IV ONE (20:58)
[2021-04-11] MEDS ORDERED: Lasix 40 MG/4 ML ONE (21:35)
[2021-04-11] MEDS ORDERED: SUBLIMAZE 100 MCG/2 ML ONE (21:35)
[2021-04-11] MEDS ORDERED: Seroquel 25 MG PO SCH (22:00)
--- NOTE | 2021-04-11 22:14 | XRAY ---
Indication: Short of breath. Comparison: December 31, 2020. PA/lateral chest again demonstrates cardiomegaly, vascular congestion, pulmonary edema, and moderate bibasilar effusions favoring cardiac decompensation/CHF. Superimposed pneumonia not completely excluded. Again mitral valve replacement, CABG, and left AICD. Bony thorax intact.
[2021-04-11] MEDS: DUONEB 0.5-3 MG/3 ml Neb IH SCH (22:30)
[2021-04-11] MEDS: Sodium Chloride 0.9% 1000 ML 1,000 ML IV SCH (23:48)
[2021-04-12] MEDS ORDERED: Seroquel 25 MG ONE (01:02)
[2021-04-12] MEDS: Cymbalta 30 MG Capsule PO SCH ×2 (01:06→21:07)
[2021-04-12] MEDS: COREG 12.5 MG PO SCH ×2 (01:07→10:19)
[2021-04-12] MEDS: Seroquel 25 MG PO SCH ×2 (01:21→21:06)
[2021-04-12] MEDS: MORPHINE SULFATE 4 MG INJ IV PRN ×5 (01:22→22:12)
[2021-04-12] MEDS: DUONEB 0.5-3 MG/3 ml Neb IH SCH ×5 (02:20→17:18)
--- NOTE | 2021-04-12 05:12 | PCM.HP ---
History of Present Illness - Chief Complaint Chief Complaint: shortness of breath for 2-3 days History of Present Illness: is a 60 year old male with significant past medical history of COPD CHF hypertension started having worsening shortness of breath for last 1 week which got worse today. She is not vaccinated for coronavirus. Patient has a history of tobacco use and smoking. Patient denies any Covid positive contacts. Timing/Duration: today Activities at Onset: none Severity of Dyspnea-Max: moderate Severity of Dyspnea-Current: moderate Possible Cause: frequent episodes Associated Symptoms: cough, wheezing, weakness, productive cough, tightness - Review of Systems Constitutional: No Fever, No Chills Eyes: No Symptoms Ears, Nose, & Throat: No Symptoms Respiratory: Orthopnea, Short Of Breath, Wheezing, No Cough Cardiac: Edema, Palpitations, Orthopnea, PND, No Chest Pain, No Syncope Abdominal/Gastrointestinal: No Abdominal Pain, No Nausea, No Vomiting, No Diarrhea Genitourinary Symptoms: No Dysuria Musculoskeletal: No Back Pain, No Neck Pain Skin: No Rash Neurological: No Dizziness, No Focal Weakness, No Sensory Changes Psychological: No Symptoms Endocrine: No Symptoms Hematologic/Lymphatic: No Symptoms Immunological/Allergic: No Symptoms Medications & Allergies Home Medications: Home Medication List Tamsulosin HCl 0.4 mg [Flomax 0.4 MG] 0.4 mg PO DAILY 05/13/13 [History Confirmed 07/20/20] Fluticasone/Salmeterol [Advair 250-50 Diskus] 1 puff IH BID 07/11/13 [History Confirmed 07/20/20] Aspirin [Aspirin EC] 81 mg PO DAILY 11/30/14 [History Confirmed 07/20/20] Apixaban [Eliquis] 5 mg PO BID #14 tablet 09/22/18 [Rx Confirmed 07/20/20] Carvedilol 3.125 mg [Coreg 3.125 MG] 3.125 mg PO BID #14 tablet 09/22/18 [Rx Confirmed 07/20/20] Albuterol Common Canister [Ventolin Common Canister] 2 puff IH Q4HPRN PRN 07/20/20 [History Confirmed 07/20/20] Atorvastatin Calcium 40 mg PO HS 07/20/20 [History Confirmed 07/20/20] Cyclobenzaprine HCl [Flexeril] 10 mg PO HS 07/20/20 [History Confirmed 07/20/20] Duloxetine HCl 60 mg PO QHS 07/20/20 [History Confirmed 04/12/21] Furosemide 40 mg [Lasix 40 MG] 40 mg PO QAM 07/20/20 [History Confirmed 07/20/20] Isosorbide Mononitrate 30 mg [Imdur 30 MG] 30 mg PO DAILY 07/20/20 [History Confirmed 07/20/20] Lisinopril 5 mg [Zestril 5 MG] 10 mg PO DAILY 07/20/20 [History Confirmed 04/12/21] Meclizine HCl 25 mg [Antivert 25 mg] 25 mg PO Q8H 07/20/20 [History Confirmed 07/20/20] Nitroglycerin 0.4 mg Tablet [Nitrostat 0.4 MG Tablet] 0.4 mg SL UD PRN 07/20/20 [History Confirmed 07/20/20] Omeprazole 40 mg PO DAILY 07/20/20 [History Confirmed 07/20/20] Quetiapine Fumarate 25 mg [Seroquel 25 MG] 0.5 tab PO HS 07/20/20 [History Confirmed 04/11/21] Spironolactone 25 mg [Aldactone 25 MG] 0.5 tab PO DAILY 07/20/20 [History Confirmed 07/20/20] Thiamine HCl [B-1] 100 mg PO DAILY 07/20/20 [History Confirmed 07/20/20] Allergies/Adverse Reactions: Allergies Allergy/AdvReac Type Severity Reaction Status Date / Time carisoprodol [Carisoprodol] Allergy Unknown Verified 12/31/20 16:30 ketorolac Allergy Unknown Verified 12/31/20 16:30 - Past Medical History Past Medical History: Yes Neurological History: Migraines, Stroke, TIA ENT History: Cataracts Cardiac History: Arrhythmia, Congestive Heart Failure, Coronary Artery Disease, High Cholesterol, Hypertension, Myocardial Infarction ([place]) Respiratory History: Asthma, Bronchitis, CHF, COPD, Pneumonia, Pulmonary Embolism Endocrine Medical History: No Pertinent History Musculoskelatal History: Arthritis GI Medical History: No Pertinent History History: No Pertinent History Pyscho-Social History: Anxiety, Depression Male Reproductive Disorders: No Pertinent History Comment: CABG , FEM POP IN THE LAST 10 YRS - Past Surgical History Past Surgical History: Yes Neuro Surgical History: No Pertinent History Cardiac History: CABG, Cardiac Catheterization, Cardiac Stent, Internal Defibrillator, Pacemaker Respiratory Surgery: No Pertinent History GI Surgical History: Appendectomy, Hernia Repair Genitourinary Surgical Hx: No Pertinent History Musculskeletal Surgical Hx: No Pertinent History Male Surgical History: No Pertinent History Other Surgical History: bypass x 3, surgery to left leg after bite from brown recluse - Social History Smoking Status: Current every day smoker How long have you smoked: 45 years Exposure to second hand smoke: Yes Alcohol: None Drug Use: methamphetamines Significant Family History: no pertinent family hx - Physical Exam Vital Signs: Vital Signs - 24 hr Temp Pulse Resp BP Pulse Ox 04/12/21 04:00 97.5 F 70 24 137/83 98 04/12/21 02:20 69 17 95 04/11/21 22:49 97.5 F 70 28 H 125/71 98 04/11/21 22:31 69 20 92 L 04/11/21 22:02 70 26 H 134/81 96 04/11/21 21:36 95 04/11/21 21:23 71 20 134/81 98 04/11/21 19:54 72 34 H 95 04/11/21 19:53 98.2 F 72 34 H 140/85 97 General Appearance: no apparent distress, mild distress, alert Neurologic Exam: alert, oriented x 3, cooperative, normal mood/affect, sensation nml, No motor deficits, No sensory deficit Eye Exam: PERRL/EOMI, eyes nml inspection Ears, Nose, Throat Exam: normal ENT inspection, TMs normal, pharynx normal, moist mucous membranes Neck Exam: normal inspection, non-tender, supple, full range of motion Respiratory Exam: diminished breath sounds, crackles/rales, rhonchi, wheezing, No respiratory distress Cardiovascular Exam: tachycardia, capillary refill 2-3 sec Gastrointestinal/Abdomen Exam: soft, normal bowel sounds, No tenderness, No mass Back Exam: normal inspection, normal range of motion, No CVA tenderness, No vertebral tenderness Extremity Exam: normal inspection, normal range of motion, pelvis stable Skin Exam: normal color, warm, dry, No rash Wound Assessment: Skin/Wound Assessment Wound/Incision Assessment Start: 04/11/21 23:09 Text: Status: Active Freq: Q6H Protocol: Document 04/11/21 23:09 [email or web address] (Rec: 04/11/21 23:15 [email or web address] [id number]) Wound Photo Photo Taken No Lymphatic Exam: No adenopathy Results - Labs Lab/Micro Results: Lab Results-Last 24 Hours 04/11/21 04/11/21 04/11/21 Range/Units 19:55 19:55 19:55 WBC 5.7 (4.0-10.5) K/mm3 RBC 3.83 L (4.1-5.6) M/mm3 Hgb 10.5 L (12.5-18.0) gm/dl Hct 34.2 L (42-50) % MCV 89.3 (78-100) fl MCH 27.4 (26-32) pg MCHC 30.7 L (32-36) g/dl RDW 20.8 H (11.5-14.0) % Plt Count 75 L (150-450) K/mm3 MPV 8.8 (7.5-11.0) fl Gran % 64.7 (36.0-66.0) % Eos # (Auto) 0.20 (0-0.5) Absolute Lymphs (auto) 0.60 L (1.0-4.6) Absolute Monos (auto) 1.17 (0.0-1.3) Lymphocytes % 10.6 L (24.0-44.0) % Monocytes % 20.7 H (0.0-12.0) % Eosinophils % 3.5 (0.00-5.0) % Basophils % 0.5 (0.0-0.4) % Absolute Granulocytes 3.65 (1.4-6.9) Basophils # 0.03 (0-0.4) D-Dimer 1888 H* (215-500) ng/mL Sodium 138 (137-145) mmol/L Potassium 3.7 (3.5-5.1) mmol/L Chloride 103 (98-107) mmol/L Carbon Dioxide 26 (22-30) mmol/L Anion Gap 12.0 (5-15) MEQ/L BUN 13 (9-20) mg/dL Creatinine 0.57 L (0.66-1.25) mg/dL Estimated GFR > 60.0 ML/MIN Glucose 111 H (74-106) mg/dL Calcium 8.6 (8.4-10.2) mg/dL Total Bilirubin 1.40 H (0.2-1.3) mg/dL AST 28 (17-59) U/L ALT 13 (0-50) U/L Alkaline Phosphatase 65 (38-126) U/L Troponin I (0.000-0.034) ng/mL NT-Pro-B Natriuret Pep 7160 H (0-900) pg/mL Serum Total Protein 7.2 (6.3-8.2) g/dL Albumin 3.7 (3.5-5.0) g/dL Influenza Type A Ag (NEGATIVE) Influenza Type B Ag (NEGATIVE) RSV (PCR) (Negative) SARS-CoV-2 (PCR) (NEGATIVE) 04/11/21 04/11/21 04/11/21 Range/Units 19:55 19:58 23:13 WBC (4.0-10.5) K/mm3 RBC (4.1-5.6) M/mm3 Hgb (12.5-18.0) gm/dl Hct (42-50) % MCV (78-100) fl MCH (26-32) pg MCHC (32-36) g/dl RDW (11.5-14.0) % Plt Count (150-450) K/mm3 MPV (7.5-11.0) fl Gran % (36.0-66.0) % Eos # (Auto) (0-0.5) Absolute Lymphs (auto) (1.0-4.6) Absolute Monos (auto) (0.0-1.3) Lymphocytes % (24.0-44.0) % Monocytes % (0.0-12.0) % Eosinophils % (0.00-5.0) % Basophils % (0.0-0.4) % Absolute Granulocytes (1.4-6.9) Basophils # (0-0.4) D-Dimer (215-500) ng/mL Sodium (137-145) mmol/L Potassium (3.5-5.1) mmol/L Chloride (98-107) mmol/L Carbon Dioxide (22-30) mmol/L Anion Gap (5-15) MEQ/L BUN (9-20) mg/dL Creatinine (0.66-1.25) mg/dL Estimated GFR ML/MIN Glucose (74-106) mg/dL Calcium (8.4-10.2) mg/dL Total Bilirubin (0.2-1.3) mg/dL AST (17-59) U/L ALT (0-50) U/L Alkaline Phosphatase (38-126) U/L Troponin I 0.012 < 0.012 (0.000-0.034) ng/mL NT-Pro-B Natriuret Pep (0-900) pg/mL Serum Total Protein (6.3-8.2) g/dL Albumin (3.5-5.0) g/dL Influenza Type A Ag NEGATIVE (NEGATIVE) Influenza Type B Ag NEGATIVE (NEGATIVE) RSV (PCR) NEGATIVE (Negative) SARS-CoV-2 (PCR) NEGATIVE (NEGATIVE) 04/12/21 Range/Units 02:19 WBC (4.0-10.5) K/mm3 RBC (4.1-5.6) M/mm3 Hgb (12.5-18.0) gm/dl Hct (42-50) % MCV (78-100) fl MCH (26-32) pg MCHC (32-36) g/dl RDW (11.5-14.0) % Plt Count (150-450) K/mm3 MPV (7.5-11.0) fl Gran % (36.0-66.0) % Eos # (Auto) (0-0.5) Absolute Lymphs (auto) (1.0-4.6) Absolute Monos (auto) (0.0-1.3) Lymphocytes % (24.0-44.0) % Monocytes % (0.0-12.0) % Eosinophils % (0.00-5.0) % Basophils % (0.0-0.4) % Absolute Granulocytes (1.4-6.9) Basophils # (0-0.4) D-Dimer (215-500) ng/mL Sodium (137-145) mmol/L Potassium (3.5-5.1) mmol/L Chloride (98-107) mmol/L Carbon Dioxide (22-30) mmol/L Anion Gap (5-15) MEQ/L BUN (9-20) mg/dL Creatinine (0.66-1.25) mg/dL Estimated GFR ML/MIN Glucose (74-106) mg/dL Calcium (8.4-10.2) mg/dL Total Bilirubin (0.2-1.3) mg/dL AST (17-59) U/L ALT (0-50) U/L Alkaline Phosphatase (38-126) U/L Troponin I < 0.012 (0.000-0.034) ng/mL NT-Pro-B Natriuret Pep (0-900) pg/mL Serum Total Protein (6.3-8.2) g/dL Albumin (3.5-5.0) g/dL Influenza Type A Ag (NEGATIVE) Influenza Type B Ag (NEGATIVE) RSV (PCR) (Negative) SARS-CoV-2 (PCR) (NEGATIVE) - Radiology Impressions Radiology Exams & Impressions: Radiology Procedures Category Date Time Status CHEST 1 VIEW (PORTABLE) IN AM Exams 04/12/21 06:00 Ordered CHEST 2 VIEWS (PA AND LAT) Stat Exams 04/11/21 19:50 Completed ECHO W/2D AND DOPPLER [US] Routine Exams 04/11/21 22:23 Stop Req ECHO W/2D AND DOPPLER [US] Routine Exams 04/13/21 10:00 Ordered RAD/CHEST 2 VIEWS (PA AND LAT) Indication: Short of breath. Comparison: December 31, 2020. PA/lateral chest again demonstrates cardiomegaly, vascular congestion, pulmonary edema, and moderate bibasilar effusions favoring cardiac decompensation/CHF. Superimposed pneumonia not completely excluded. Again mitral valve replacement, CABG, and left AICD. Bony thorax intact. - Other Procedures and Tests Respiratory Therapy 04/11/21 19:54 Respiratory Therapy Assessment DAILY 04/11/21 22:23 Oxygen Nasal Cannula 3 lpm 04/12/21 06:00 EKG IN AM Assessment/Plan (1) Acute exacerbation of congestive heart failure Current Visit: Yes Status: Acute Qualifiers: Heart failure type: combined systolic and diastolic Qualified Code(s): I50.43 - Acute on chronic combined systolic (congestive) and diastolic (congestive) heart failure Assessment & Plan: Chief Complaint Diagnosis CHF exacerbation, bilat pleural effusions Allergies Allergy/AdvReac Type Severity Reaction Status Date / Time carisoprodol [Carisoprodol] Allergy Unknown Verified 12/31/20 16:30 ketorolac Allergy Unknown Verified 12/31/20 16:30 Vital Signs (Last 24 hours) Temp Pulse Resp BP Pulse Ox 04/12/21 04:00 97.5 F 70 24 137/83 98 04/12/21 02:20 69 17 95 04/11/21 22:49 97.5 F 70 28 H 125/71 98 04/11/21 22:31 69 20 92 L 04/11/21 22:02 70 26 H 134/81 96 04/11/21 21:36 95 04/11/21 21:23 71 20 134/81 98 04/11/21 19:54 72 34 H 95 04/11/21 19:53 98.2 F 72 34 H 140/85 97 Current Medications Generic Name Dose Route Start Last Admin Trade Name Freq PRN Reason Stop Dose Admin Albuterol/Ipratropium 3 ml 04/11/21 23:00 04/12/21 02:20 Duoneb 0.5-3 Mg/3 Ml Neb IH 05/11/21 22:59 3 ml Q4HRT OWEN Administration Carvedilol 12.5 mg 04/11/21 22:23 04/12/21 01:07 Coreg 12.5 Mg PO 05/11/21 22:22 12.5 mg BID OWEN Administration Duloxetine HCl 60 mg 04/11/21 22:00 04/12/21 01:06 Cymbalta 30 Mg Capsule PO 05/11/21 21:59 60 mg HS OWEN Administration Enoxaparin Sodium 40 mg 04/12/21 22:00 Enoxaparin Sodium SQ 05/12/21 21:59 DAILY OWEN Furosemide 40 mg 04/12/21 10:00 Lasix 40 Mg/4 Ml IV 05/12/21 09:59 BID DIURETIC OWEN Sodium Chloride 1,000 mls @ 50 mls/hr 04/11/21 22:23 04/11/21 23:48 Sodium Chloride 0.9% 1000 Ml IV 05/11/21 22:22 Not Given .Q20H OWEN Azithromycin 500 mg in 250 mls @ 250 mls/hr 04/12/21 22:00 Zithromax 500 Mg/ 250 Ml Nacl Premix IV 05/12/21 21:59 Q24H10 OWEN Ceftriaxone Sodium/Dextrose 1 g in 50 mls @ 100 mls/hr 04/12/21 22:00 Rocephin 1 Gm-D5w 50 Ml Bag IV 04/15/21 21:59 Q24H10 OWEN Lisinopril 20 mg 04/12/21 10:00 Zestril 20 Mg PO 05/12/21 09:59 DAILY OWEN Morphine Sulfate 4 mg 04/12/21 00:47 04/12/21 01:22 Morphine Sulfate 4 Mg Inj IV 04/17/21 00:46 4 mg Q4H PRN PRN Administration PAIN Quetiapine Fumarate 12.5 mg 04/11/21 22:00 04/12/21 01:21 Seroquel 25 Mg PO 05/11/21 21:59 12.5 mg QHS OWEN Administration Discontinued Medications Generic Name Dose Route Start Last Admin Trade Name Freq PRN Reason Stop Dose Admin Albuterol/Ipratropium Confirm 04/11/21 19:48 Duoneb 0.5-3 Mg/3 Ml Neb Administered 04/11/21 19:49 Dose 3 ml IH .STK-MED ONE Albuterol/Ipratropium 3 ml 04/11/21 19:48 04/11/21 19:53 Duoneb 0.5-3 Mg/3 Ml Neb IH 04/11/21 19:49 3 ml STAT ONE Administration Methylprednisolone Sodium 0 mg 04/11/21 19:48 04/11/21 20:46 Succinate 125 mg/ Sterile IV 04/11/21 19:49 125 mg Water 2 ml STAT ONE Administration Enoxaparin Sodium 40 mg 04/12/21 10:00 04/11/21 22:57 Enoxaparin Sodium SQ 05/12/21 09:59 40 mg DAILY OWEN Administration Fentanyl Citrate 50 mcg 04/11/21 20:55 04/11/21 21:36 Sublimaze 100 Mcg/2 Ml IV 04/11/21 20:56 50 mcg STAT ONE Administration Fentanyl Citrate Confirm 04/11/21 21:35 Sublimaze 100 Mcg/2 Ml Administered 04/11/21 21:36 Dose 100 mcg .ROUTE .STK-MED ONE Furosemide 40 mg 04/11/21 20:58 04/11/21 21:36 Lasix 40 Mg/4 Ml IV 04/11/21 20:59 40 mg STAT ONE Administration Furosemide Confirm 04/11/21 21:35 Lasix 40 Mg/4 Ml Administered 04/11/21 21:36 Dose 40 mg .ROUTE .STK-MED ONE Sodium Chloride 1,000 mls @ 999 mls/hr 04/11/21 19:48 04/11/21 20:46 Sodium Chloride 0.9% 1000 Ml IV 04/11/21 20:48 100 mls/hr .Q1H1M STA Administration Sodium Chloride Confirm 04/11/21 20:04 Sodium Chloride 0.9% 1000 Ml Administered 04/11/21 20:05 Dose 1,000 mls @ ud .ROUTE .STK-MED ONE Ceftriaxone Sodium/Dextrose 1 g in 50 mls @ 100 mls/hr 04/12/21 10:00 04/11/21 23:00 Rocephin 1 Gm-D5w 50 Ml Bag IV 04/15/21 09:59 100 mls/hr Q24H10 OWEN Administration Azithromycin 500 mg in 250 mls @ 250 mls/hr 04/12/21 10:00 04/11/21 23:06 Zithromax 500 Mg/ 250 Ml Nacl Premix IV 05/12/21 09:59 250 mls/hr Q24H10 OWEN Administration Methylprednisolone Sodium Succinate Confirm 04/11/21 20:43 Solu-Medrol Administered 04/11/21 20:44 Dose 125 mg .ROUTE .STK-MED ONE Quetiapine Fumarate 25 mg 04/11/21 22:00 04/12/21 01:19 Seroquel 25 Mg PO 05/11/21 21:59 Not Given QHS OWEN Quetiapine Fumarate Confirm 04/12/21 01:02 Seroquel 25 Mg Administered 04/12/21 01:03 Dose 25 mg .ROUTE .STK-MED ONE Sterile Water Confirm 04/11/21 20:43 Sterile H2o 10 Ml Administered 04/11/21 20:44 Dose 10 ml IJ .STK-MED ONE Intake & Output (Last 24 hours) 04/09/21 04/10/21 04/11/21 04/12/21 11:59 11:59 11:59 11:59 Intake Total 300 Output Total 1550 Balance -1250 Weight 85.4 kg Laboratory Results (Last 24 hours) 04/12/21 04/11/21 04/11/21 02:19 23:13 19:58 WBC RBC Hgb Hct MCV MCH MCHC RDW Plt Count MPV Gran % Eos # (Auto) Absolute Lymphs (auto) Absolute Monos (auto) Lymphocytes % Monocytes % Eosinophils % Basophils % Absolute Granulocytes Basophils # D-Dimer Sodium Potassium Chloride Carbon Dioxide Anion Gap BUN Creatinine Estimated GFR Glucose Calcium Total Bilirubin AST ALT Alkaline Phosphatase Troponin I < 0.012 < 0.012 NT-Pro-B Natriuret Pep Serum Total Protein Albumin Influenza Type A Ag NEGATIVE Influenza Type B Ag NEGATIVE RSV (PCR) NEGATIVE SARS-CoV-2 (PCR) NEGATIVE 04/11/21 04/11/21 04/11/21 19:55 19:55 19:55 WBC RBC Hgb Hct MCV MCH MCHC RDW Plt Count MPV Gran % Eos # (Auto) Absolute Lymphs (auto) Absolute Monos (auto) Lymphocytes % Monocytes % Eosinophils % Basophils % Absolute Granulocytes Basophils # D-Dimer 1888 H* Sodium 138 Potassium 3.7 Chloride 103 Carbon Dioxide 26 Anion Gap 12.0 BUN 13 Creatinine 0.57 L Estimated GFR > 60.0 Glucose 111 H Calcium 8.6 Total Bilirubin 1.40 H AST 28 ALT 13 Alkaline Phosphatase 65 Troponin I 0.012 NT-Pro-B Natriuret Pep 7160 H Serum Total Protein 7.2 Albumin 3.7 Influenza Type A Ag Influenza Type B Ag RSV (PCR) SARS-CoV-2 (PCR) 04/11/21 19:55 WBC 5.7 RBC 3.83 L Hgb 10.5 L Hct 34.2 L MCV 89.3 MCH 27.4 MCHC 30.7 L RDW 20.8 H Plt Count 75 L MPV 8.8 Gran % 64.7 Eos # (Auto) 0.20 Absolute Lymphs (auto) 0.60 L Absolute Monos (auto) 1.17 Lymphocytes % 10.6 L Monocytes % 20.7 H Eosinophils % 3.5 Basophils % 0.5 Absolute Granulocytes 3.65 Basophils # 0.03 D-Dimer Sodium Potassium Chloride Carbon Dioxide Anion Gap BUN Creatinine Estimated GFR Glucose Calcium Total Bilirubin AST ALT Alkaline Phosphatase Troponin I NT-Pro-B Natriuret Pep Serum Total Protein Albumin Influenza Type A Ag Influenza Type B Ag RSV (PCR) SARS-CoV-2 (PCR) Orders (Last 24 hours) Category Date Time Status Up Ad Bharati TOLERATED Activity 04/11/21 22:23 Active Form Setter Supervisor STAT Care 04/11/21 19:50 Completed Code Status Order ROUTINE Care 04/11/21 22:23 Active EKG-ER Only STAT Care 04/11/21 19:48 Completed IV Care Q6H Care 04/11/21 22:23 Active IV Care Q6H Care 04/11/21 22:23 Completed Implement CHF Pathway ROUTINE Care 04/11/21 22:23 Active Oxygen-ED Only Nasal Cannula 3 lpm Care 04/11/21 19:[address] in Observation ROUTINE Care 04/11/21 22:23 Active Richie Yoon, Apply ROUTINE Care 04/11/21 22:23 Active Weight,Daily 0600 Care 04/11/21 22:23 Active Cardio-Pulmonary Rehab .as ordered Cons 04/11/21 22:47 Active Low Sodium (1.5-2gram Sodium) Diet 04/11/21 Breakfast Active CHEST 1 VIEW (PORTABLE) IN AM Exams 04/12/21 06:00 Ordered CHEST 2 VIEWS (PA AND LAT) Stat Exams 04/11/21 19:50 Completed ECHO W/2D AND DOPPLER [US] Routine Exams 04/11/21 22:23 Stop Req ECHO W/2D AND DOPPLER [US] Routine Exams 04/13/21 10:00 Ordered CBC AM.LAB Lab 04/12/21 04:00 Ordered CBC W DIFF Stat Lab 04/11/21 19:55 Completed CMP AM.LAB Lab 04/13/21 04:00 Ordered CMP Stat Lab 04/11/21 19:55 Completed D-DIMER QUANTITATIVE Stat Lab 04/11/21 19:55 Completed NT PRO BNP AM.LAB Lab 04/12/21 04:00 Ordered NT PRO BNP Stat Lab 04/11/21 19:55 Completed TROPONIN Q3H Lab 04/11/21 19:55 Completed TROPONIN Q3H Lab 04/11/21 23:13 Completed TROPONIN Q3H Lab 04/12/21 02:19 Completed TROPONIN Q3H Lab 04/12/21 05:00 Ordered TROPONIN Q3H Lab 04/12/21 08:00 Ordered Albuterol/Ipratropium 3ml Neb* [DUONEB 0.5-3 MG/3 ml Med 04/11/21 19:48 Discontinued Neb] 3 ml IH .STK-MED ONE Albuterol/Ipratropium 3ml Neb* [DUONEB 0.5-3 MG/3 ml Med 04/11/21 23:00 Ordered Neb] 3 ml IH Q4HRT Albuterol/Ipratropium 3ml Neb* [DUONEB 0.5-3 MG/3 ml Med 04/11/21 19:48 Discontinued Neb] 3 ml IH STAT ONE Azithromycin 500 mg/250 ml [Zithromax 500 MG/ 250 ML Med 04/12/21 10:00 Discontinued NaCl Premix] 500 mg in 250 ml IV Q24H10 Azithromycin 500 mg/250 ml [Zithromax 500 MG/ 250 ML Med 04/12/21 22:00 Ordered NaCl Premix] 500 mg in 250 ml IV Q24H10 Carvedilol 12.5 mg [Coreg 12.5 mg] Med 04/11/21 22:23 Ordered 12.5 mg PO BID Ceftriaxone 1 GM/50 ML PREMIX* [ROCEPHIN 1 Gm-D5w 50 ml Med 04/12/21 10:00 Discontinued Bag] 1 g in 50 ml IV Q24H10 Ceftriaxone 1 GM/50 ML PREMIX* [ROCEPHIN 1 Gm-D5w 50 ml Med 04/12/21 22:00 Ordered Bag] 1 g in 50 ml IV Q24H10 Duloxetine HCl 30 mg [Cymbalta 30 MG Capsule] Med 04/11/21 22:00 Ordered 60 mg PO HS Enoxaparin Sodium [Enoxaparin Sodium] Med 04/12/21 10:00 Discontinued 40 mg SQ DAILY Enoxaparin Sodium [Enoxaparin Sodium] Med 04/12/21 22:00 Ordered 40 mg SQ DAILY Fentanyl Citrate 100 Mcg/2 ml* [Sublimaze 100 Mcg/2 ml* Med 04/11/21 21:35 Discontinued ] 100 mcg .ROUTE .STK-MED ONE Fentanyl Citrate 100 Mcg/2 ml* [Sublimaze 100 Mcg/2 ml* Med 04/11/21 20:55 Discontinued ] 50 mcg IV STAT ONE Furosemide 40 mg/4 ml [Lasix 40 MG/4 ML] Med 04/11/21 21:35 Discontinued 40 mg .ROUTE .STK-MED ONE Furosemide 40 mg/4 ml [Lasix 40 MG/4 ML] Med 04/12/21 10:00 Ordered 40 mg IV BID DIURETIC Furosemide 40 mg/4 ml [Lasix 40 MG/4 ML] Med 04/11/21 20:58 Discontinued 40 mg IV STAT ONE Lisinopril 20 mg [Zestril 20 MG] Med 04/12/21 10:00 Ordered 20 mg PO DAILY Methylprednis Sod Succ 125 mg* [solu-MEDROL] Med 04/11/21 20:43 Discontinued 125 mg .ROUTE .STK-MED ONE Methylprednis Sod Succ 125 mg* [solu-MEDROL] 125 mg Med 04/11/21 19:48 Discontinued Water For Injection,Sterile [Sterile H2O 10 ml] 2 ml IV STAT Morphine Sulfate 4 mg Inj Med 04/12/21 00:47 Ordered 4 mg IV Q4H PRN PRN NaCl 0.9% 1000 ml [Sodium Chloride 0.9% 1000 ML] 1,000 Med 04/11/21 20:04 Discontinued ml .ROUTE UD NaCl 0.9% 1000 ml [Sodium Chloride 0.9% 1000 ML] 1,000 Med 04/11/21 22:23 Ordered ml IV 50 mls/hr NaCl 0.9% 1000 ml [Sodium Chloride 0.9% 1000 ML] 1,000 Med 04/11/21 19:48 Discontinued ml IV 999 mls/hr Quetiapine Fumarate 25 mg [Seroquel 25 MG] Med 04/11/21 22:00 Ordered 12.5 mg PO QHS Quetiapine Fumarate 25 mg [Seroquel 25 MG] Med 04/12/21 01:02 Discontinued 25 mg .ROUTE .STK-MED ONE Quetiapine Fumarate 25 mg [Seroquel 25 MG] Med 04/11/21 22:00 Discontinued 25 mg PO QHS Water For Injection,Sterile [Sterile H2O 10 ml] Med 04/11/21 20:43 Discontinued 10 ml IJ .STK-[facility] ONE EKG IN AM RT 04/12/21 06:00 Active Oxygen NASAL CANNULA 2 lpm RT 04/11/21 22:23 Completed Oxygen Nasal Cannula 3 lpm RT 04/11/21 22:23 Active Pulse Oximetry .spot check RT 04/11/21 22:31 Active Respiratory Therapy Assessment DAILY RT 04/11/21 19:54 Active Code(s): I50.9 - HEART FAILURE, UNSPECIFIED (2) Bilateral pleural effusion Current Visit: Yes Status: Acute Code(s): J90 - PLEURAL EFFUSION, NOT ELSEWHERE CLASSIFIED (3) Chronic respiratory failure Current Visit: Yes Status: Acute Qualifiers: Respiratory failure complication: unspecified whether with hypoxia or hypercapnia Qualified Code(s): J96.10 - Chronic respiratory failure, unspecified whether with hypoxia or hypercapnia Code(s): J96.10 - CHRONIC RESPIRATORY FAILURE, UNSP W HYPOXIA OR HYPERCAPNIA (4) CAD (coronary artery disease) Current Visit: No Status: Acute Code(s): I25.10 - ATHSCL HEART DISEASE OF [place] CORONARY ARTERY W/O ANG PCTRS (5) COPD with exacerbation Current Visit: No Status: Acute Code(s): J44.1 - CHRONIC OBSTRUCTIVE PULMONARY DISEASE W (ACUTE) EXACERBATION (6) Elevated d-dimer Current Visit: No Status: Acute Code(s): R79.89 - OTHER SPECIFIED ABNORMAL FINDINGS OF BLOOD CHEMISTRY
[2021-04-12 06:35] LABS: Hematocrit 34.3 % (42-50); Hemoglobin 10.2 gm/dl (12.5-18.0); Mean Cell Volume 90.7 fl (78-100); Mean Corpuscular Hgb Concent. 29.7 g/dl (32-36); Mean Platelet Volume 8.8 fl (7.5-11.0); Platelet Count 61 K/mm3 (150-450); Red Blood Count 3.78 M/mm3 (4.1-5.6); Red Cell Distribution Width 20.8 % (11.5-14.0); White Blood Count 3.2 K/mm3 (4.0-10.5)
--- NOTE | 2021-04-12 07:33 | XRAY ---
Indication: CHF. Comparison: One day earlier. Portable chest unchanged again demonstrating cardiomegaly, vascular congestion, and bibasilar effusions/atelectasis favoring clinically reported CHF. Again incidental mitral valve replacement, CABG, and left AICD. No new cardiopulmonary abnormalities.
[2021-04-12 09:07] LABS: Slide Review YES
[2021-04-12] MEDS ORDERED: Lasix 40 MG/4 ML IV SCH (10:00)
[2021-04-12] MEDS ORDERED: ENOXAPARIN SODIUM SQ SCH (10:00)
[2021-04-12] MEDS ORDERED: ROCEPHIN 1 Gm-D5w 50 ml Bag** 1 G/50 ML IVPB IV SCH (10:00)
[2021-04-12] MEDS ORDERED: Zestril 20 MG PO SCH (10:00)
[2021-04-12] MEDS ORDERED: Zithromax 500 MG/ 250 ML NaCl Premix 500 MG/250 ML IVPB IV SCH (10:00)
[2021-04-12] MEDS: Neurontin 100 MG PO SCH ×2 (15:49→21:06)
[2021-04-12] MEDS: Advair Hfa 115/21 Common canister IH SCH (17:19)
[2021-04-12] MEDS: Sodium Chloride 0.9% 1000 ML 1,000 ML IV SCH (20:49)
[2021-04-12] MEDS: ELIQUIS 2.5 MG TABLET PO SCH ×2 (21:06→21:14)
[2021-04-12] MEDS: Coreg 3.125 MG PO SCH (21:06)
[2021-04-12] MEDS: ENOXAPARIN SODIUM SQ SCH (21:07)
[2021-04-12] MEDS: ROCEPHIN 1 Gm-D5w 50 ml Bag** 1 G/50 ML IVPB IV SCH (21:10)
[2021-04-12] MEDS: Zithromax 500 MG/ 250 ML NaCl Premix 500 MG/250 ML IVPB IV SCH (21:11)
[2021-04-12] MEDS ORDERED: ADVAIR/WIXELLA 250-50 DISKUS 14 DOSE IH SCH (22:00)
[2021-04-12] MEDS ORDERED: NON-FORMULARY ITEM (Apixaban [Eliquis] 5 MG) PO SCH (22:00)
[2021-04-13] MEDS: MORPHINE SULFATE 4 MG INJ IV PRN ×6 (02:17→22:24)
[2021-04-13] MEDS: Advair Hfa 115/21 Common canister IH SCH ×2 (04:45→19:13)
[2021-04-13] MEDS: DUONEB 0.5-3 MG/3 ml Neb IH SCH ×4 (04:45→19:12)
[2021-04-13 05:40] LABS: Hematocrit 34.5 % (42-50); Hemoglobin 10.1 gm/dl (12.5-18.0); Mean Cell Volume 93.5 fl (78-100); Mean Corpuscular Hemoglobin 27.4 pg (26-32); Mean Corpuscular Hgb Concent. 29.3 g/dl (32-36); Mean Platelet Volume 9.3 fl (7.5-11.0); Platelet Count 60 K/mm3 (150-450); Red Blood Count 3.69 M/mm3 (4.1-5.6); Red Cell Distribution Width 20.5 % (11.5-14.0); White Blood Count 6.5 K/mm3 (4.0-10.5)
[2021-04-13 06:16] LABS: ALBUMIN 3.8 g/dL (3.5-5.0); ALKALINE PHOSPHATASE 106 U/L (38-126); ANION GAP 17.4 MEQ/L (5-15); BLOOD UREA NITROGEN 19 mg/dL (9-20); CHLORIDE 103 mmol/L (98-107); Calcium 8.8 mg/dL (8.4-10.2); Carbon Dioxide 21 mmol/L (22-30); Creatinine 1 0.61 mg/dL (0.66-1.25); EST GLOMERULAR FILTRATION RATE > 60.0 ML/MIN; Glucose 109 mg/dL (74-106); Potassium 4.6 mmol/L (3.5-5.1); SGOT/AST 43 U/L (17-59); SGPT/ALT 12 U/L (0-50); SODIUM 136 mmol/L (137-145); Total Protein 7.3 g/dL (6.3-8.2)
[2021-04-13] MEDS: ELIQUIS 2.5 MG TABLET PO SCH ×2 (09:24→11:00)
[2021-04-13] MEDS: Zestril 10 MG PO SCH (09:24)
[2021-04-13] MEDS: Neurontin 100 MG PO SCH ×3 (09:24→21:39)
[2021-04-13] MEDS: Protonix 40MG Tablet PO SCH (09:25)
[2021-04-13] MEDS: Coreg 3.125 MG PO SCH ×2 (09:25→21:38)
[2021-04-13] MEDS: ENOXAPARIN SODIUM SQ SCH (09:25)
[2021-04-13] MEDS ORDERED: Lasix 40 MG/4 ML IV SCH (10:00)
[2021-04-13] MEDS ORDERED: Lasix 40 MG PO SCH (10:00)
[2021-04-13] MEDS ORDERED: NON-FORMULARY ITEM (Omeprazole [Omeprazole] 40 MG) PO SCH (10:00)
[2021-04-13] MEDS ORDERED: Zestril 5 MG PO SCH (10:00)
[2021-04-13 11:20] LABS: Slide Review YES
--- NOTE | 2021-04-13 13:15 | PCM.NOTE ---
Date and Time: 04/13/21 1313 Subjective Assessment: still swelling on both legs all the way up to abdomen. - Review of Systems Constitutional: No Fever, No Chills Eyes: No Symptoms Ears, Nose, & Throat: No Symptoms Respiratory: No Cough, No Short Of Breath Cardiac: Edema, No Chest Pain, No Syncope Abdominal/Gastrointestinal: No Abdominal Pain, No Nausea, No Vomiting, No Diarrhea Genitourinary Symptoms: No Dysuria Musculoskeletal: No Back Pain, No Neck Pain Skin: No Rash Neurological: No Dizziness, No Focal Weakness, No Sensory Changes Psychological: No Symptoms Endocrine: No Symptoms Hematologic/Lymphatic: No Symptoms Immunological/Allergic: No Symptoms Objective Exam General Appearance: no apparent distress, alert Neurologic Exam: alert, oriented x 3, cooperative, normal mood/affect, sensation nml, No motor deficits Skin Exam: normal color, warm, dry Eye Exam: PERRL, EOMI, eyes nml inspection Ears, Nose, Throat Exam: normal ENT inspection, pharynx normal, moist mucous membranes Neck Exam: normal inspection, non-tender, supple, full range of motion Respiratory Exam: diminished breath sounds, crackles/rales, rhonchi, wheezing, No respiratory distress Cardiovascular Exam: irregular, capillary refill >3 sec, edema Gastrointestinal/Abdomen Exam: soft, No tenderness, No mass Extremity Exam: normal inspection, normal range of motion Back Exam: normal inspection, normal range of motion, No CVA tenderness, No vertebral tenderness Male Genitalia Exam: deferred Rectal Exam: deferred OBJECTIVE DATA Vital Signs: Vital Signs - 24 hr Temp Pulse Resp BP Pulse Ox 04/13/21 11:52 97.5 F 70 12 142/93 97 04/13/21 11:09 62 24 96 04/13/21 07:59 97.5 F 72 16 128/77 95 04/13/21 04:45 69 16 97 04/13/21 04:00 97.5 F 70 18 103/68 97 04/13/21 00:00 97.7 F 70 18 98/66 90 L 04/12/21 19:59 97.6 F 70 16 131/72 95 04/12/21 19:22 93 L 04/12/21 17:19 69 22 79 L 04/12/21 16:00 98.0 F 69 18 118/56 90 L Pain Assessment - Last Documented Pain Intensity 0 Pain Scale Used FLACC Intake and Output: Intake & Output 04/11/21 04/12/21 04/13/21 04/14/21 11:59 11:59 11:59 11:59 Intake Total 1250 400 Output Total 2200 700 Balance -950 -300 Weight 85.4 kg 84.964 kg Lab Results: Lab Results-Last 24 Hours 04/13/21 04/13/21 Range/Units 04:40 04:40 WBC 6.5 (4.0-10.5) K/mm3 RBC 3.69 L (4.1-5.6) M/mm3 Hgb 10.1 L (12.5-18.0) gm/dl Hct 34.5 L (42-50) % MCV 93.5 (78-100) fl MCH 27.4 (26-32) pg MCHC 29.3 L (32-36) g/dl RDW 20.5 H (11.5-14.0) % Plt Count 60 L (150-450) K/mm3 MPV 9.3 (7.5-11.0) fl Sodium 136 L (137-145) mmol/L Potassium 4.6 D (3.5-5.1) mmol/L Chloride 103 (98-107) mmol/L Carbon Dioxide 21 L (22-30) mmol/L Anion Gap 17.4 H (5-15) MEQ/L BUN 19 (9-20) mg/dL Creatinine 0.61 L (0.66-1.25) mg/dL Estimated GFR > 60.0 ML/MIN Glucose 109 H (74-106) mg/dL Calcium 8.8 (8.4-10.2) mg/dL Total Bilirubin 1.20 (0.2-1.3) mg/dL AST 43 (17-59) U/L ALT 12 (0-50) U/L Alkaline Phosphatase 106 (38-126) U/L Serum Total Protein 7.3 (6.3-8.2) g/dL Albumin 3.8 (3.5-5.0) g/dL Slides for Path Review YES Radiology Exams: Radiology Procedures Category Date Time Status CHEST 1 VIEW (PORTABLE) IN AM Exams 04/12/21 06:00 Completed CHEST 2 VIEWS (PA AND LAT) Stat Exams 04/11/21 19:50 Completed ECHO W/2D AND DOPPLER [US] Routine Exams 04/13/21 10:00 Taken Multi-Disciplinary Progress Notes: Multi-Disciplinary Progress Notes 04/13/21 09:21 Case Management Note by Isabel Manrique PATIENT REPORTS HE HAS OXYGEN THRU [facility] BUT DOES NOT CURRENTLY HAVE PORTABILITY. S/W [facility]- PATIENT HAS ORDER FOR 3/5 L 24/7 AT HOME WITH PORTABILITY. SHE STATED IF PATIENT NEEDS PORTABLE AT TIME OF DC- OKAY TO SEND ONE HOME WITH HIM- JUST LET [facility] KNOW. Initialized on 04/13/21 09:21 - END OF NOTE Assessment/Plan (1) Acute exacerbation of congestive heart failure Current Visit: Yes Status: Acute Qualifiers: Heart failure type: combined systolic and diastolic Qualified Code(s): I50.43 - Acute on chronic combined systolic (congestive) and diastolic (congestive) heart failure Assessment & Plan: Chief Complaint Diagnosis shortness of breath for 2-3 days Allergies Allergy/AdvReac Type Severity Reaction Status Date / Time carisoprodol [Carisoprodol] Allergy Unknown Verified 12/31/20 16:30 ketorolac Allergy Unknown Verified 12/31/20 16:30 Vital Signs (Last 24 hours) Temp Pulse Resp BP Pulse Ox 04/13/21 11:52 97.5 F 70 12 142/93 97 04/13/21 11:09 62 24 96 04/13/21 07:59 97.5 F 72 16 128/77 95 04/13/21 04:45 69 16 97 04/13/21 04:00 97.5 F 70 18 103/68 97 04/13/21 00:00 97.7 F 70 18 98/66 90 L 04/12/21 19:59 97.6 F 70 16 131/72 95 04/12/21 19:22 93 L 04/12/21 17:19 69 22 79 L 04/12/21 16:00 98.0 F 69 18 118/56 90 L Home Medications Medication Instructions Recorded Confirmed Last Taken Type Gabapentin 100 mg PO TID 04/12/21 04/12/21 Unknown History Current Medications Generic Name Dose Route Start Last Admin Trade Name Freq PRN Reason Stop Dose Admin Albuterol/Ipratropium 3 ml 04/12/21 15:00 04/13/21 11:11 Duoneb 0.5-3 Mg/3 Ml Neb IH 05/12/21 14:59 3 ml QIDRT OWEN Administration Apixaban 5 mg 04/12/21 22:00 04/13/21 11:00 Eliquis 2.5 Mg Tablet PO 05/12/21 21:59 Not Given BID OWEN Carvedilol 3.125 mg 04/12/21 22:00 04/13/21 09:25 Coreg 3.125 Mg PO 05/12/21 21:59 3.125 mg BID OWEN Administration Duloxetine HCl 60 mg 04/11/21 22:00 04/12/21 21:07 Cymbalta 30 Mg Capsule PO 05/11/21 21:59 60 mg HS OWEN Administration Enoxaparin Sodium 40 mg 04/12/21 22:00 04/13/21 09:25 Enoxaparin Sodium SQ 05/12/21 21:59 40 mg DAILY OWEN Administration Furosemide 40 mg 04/13/21 18:00 Lasix 40 Mg/4 Ml IV 05/13/21 17:59 Q8H OWEN Gabapentin 100 mg 04/12/21 15:00 04/13/21 09:24 Neurontin 100 Mg PO 05/12/21 14:59 100 mg TID OWEN Administration Sodium Chloride 1,000 mls @ 50 mls/hr 04/11/21 22:23 04/12/21 20:49 Sodium Chloride 0.9% 1000 Ml IV 05/11/21 22:22 Not Given .Q20H OWEN Azithromycin 500 mg in 250 mls @ 250 mls/hr 04/12/21 22:00 04/12/21 21:11 Zithromax 500 Mg/ 250 Ml Nacl Premix IV 05/12/21 21:59 250 mls/hr HS OWEN Administration Ceftriaxone Sodium/Dextrose 1 g in 50 mls @ 100 mls/hr 04/12/21 22:00 04/12/21 21:10 Rocephin 1 Gm-D5w 50 Ml Bag IV 04/15/21 21:59 100 mls/hr HS OWEN Administration Lisinopril 10 mg 04/13/21 10:00 04/13/21 09:24 Zestril 10 Mg PO 05/13/21 09:59 10 mg DAILY OWEN Administration Metolazone 2.5 mg 04/13/21 13:00 Zaroxolyn 2.5 Mg PO 05/13/21 12:59 BID DIURETIC OWEN Morphine Sulfate 4 mg 04/12/21 00:47 04/13/21 10:03 Morphine Sulfate 4 Mg Inj IV 04/17/21 00:46 4 mg Q4H PRN PRN Administration PAIN Pantoprazole Sodium 40 mg 04/13/21 10:00 04/13/21 09:25 Protonix 40mg Tablet PO 05/13/21 09:59 40 mg DAILY OWEN Administration Potassium Chloride 10 meq 04/13/21 15:00 Klor Con 10 Meq PO 05/13/21 14:59 TID OWEN Quetiapine Fumarate 12.5 mg 04/11/21 22:00 04/12/21 21:06 Seroquel 25 Mg PO 05/11/21 21:59 12.5 mg QHS OWEN Administration Fluticasone/Salmeterol 2 puff 04/12/21 19:00 04/13/21 04:45 Advair Hfa 115/21 Common Canister* IH 05/12/21 18:59 2 puff BIDRT OWEN Administration Discontinued Medications Generic Name Dose Route Start Last Admin Trade Name Freq PRN Reason Stop Dose Admin Albuterol/Ipratropium Confirm 04/11/21 19:48 Duoneb 0.5-3 Mg/3 Ml Neb Administered 04/11/21 19:49 Dose 3 ml IH .STK-MED ONE Albuterol/Ipratropium 3 ml 04/11/21 19:48 04/11/21 19:53 Duoneb 0.5-3 Mg/3 Ml Neb IH 04/11/21 19:49 3 ml STAT ONE Administration Albuterol/Ipratropium 3 ml 04/11/21 23:00 04/12/21 11:07 Duoneb 0.5-3 Mg/3 Ml Neb IH 05/11/21 22:59 3 ml Q4HRT OWEN Administration Carvedilol 12.5 mg 04/11/21 22:23 04/12/21 10:19 Coreg 12.5 Mg PO 05/11/21 22:22 12.5 mg BID OWEN Administration Methylprednisolone Sodium 0 mg 04/11/21 19:48 04/11/21 20:46 Succinate 125 mg/ Sterile IV 04/11/21 19:49 125 mg Water 2 ml STAT ONE Administration Enoxaparin Sodium 40 mg 04/12/21 10:00 04/11/21 22:57 Enoxaparin Sodium SQ 05/12/21 09:59 40 mg DAILY OWEN Administration Fentanyl Citrate 50 mcg 04/11/21 20:55 04/11/21 21:36 Sublimaze 100 Mcg/2 Ml IV 04/11/21 20:56 50 mcg STAT ONE Administration Fentanyl Citrate Confirm 04/11/21 21:35 Sublimaze 100 Mcg/2 Ml Administered 04/11/21 21:36 Dose 100 mcg .ROUTE .STK-MED ONE Furosemide 40 mg 04/11/21 20:58 04/11/21 21:36 Lasix 40 Mg/4 Ml IV 04/11/21 20:59 40 mg STAT ONE Administration Furosemide Confirm 04/11/21 21:35 Lasix 40 Mg/4 Ml Administered 04/11/21 21:36 Dose 40 mg .ROUTE .STK-MED ONE Furosemide 40 mg 04/12/21 10:00 04/12/21 10:19 Lasix 40 Mg/4 Ml IV 05/12/21 09:59 40 mg BID DIURETIC OWEN Administration Furosemide 40 mg 04/13/21 10:00 Lasix 40 Mg PO 05/13/21 09:59 QAM OWEN Furosemide 40 mg 04/13/21 10:00 04/13/21 09:39 Lasix 40 Mg/4 Ml IV 05/13/21 09:59 40 mg BID DIURETIC OWEN Administration Sodium Chloride 1,000 mls @ 999 mls/hr 04/11/21 19:48 04/11/21 20:46 Sodium Chloride 0.9% 1000 Ml IV 04/11/21 20:48 100 mls/hr .Q1H1M STA Administration Sodium Chloride Confirm 04/11/21 20:04 Sodium Chloride 0.9% 1000 Ml Administered 04/11/21 20:05 Dose 1,000 mls @ ud .ROUTE .STK-MED ONE Ceftriaxone Sodium/Dextrose 1 g in 50 mls @ 100 mls/hr 04/12/21 10:00 04/11/21 23:00 Rocephin 1 Gm-D5w 50 Ml Bag IV 04/15/21 09:59 100 mls/hr Q24H10 OWEN Administration Azithromycin 500 mg in 250 mls @ 250 mls/hr 04/12/21 10:00 04/11/21 23:06 Zithromax 500 Mg/ 250 Ml Nacl Premix IV 05/12/21 09:59 250 mls/hr Q24H10 OWEN Administration Lisinopril 20 mg 04/12/21 10:00 04/12/21 10:19 Zestril 20 Mg PO 05/12/21 09:59 20 mg DAILY OWEN Administration Methylprednisolone Sodium Succinate Confirm 04/11/21 20:43 Solu-Medrol Administered 04/11/21 20:44 Dose 125 mg .ROUTE .STK-MED ONE Quetiapine Fumarate 25 mg 04/11/21 22:00 04/12/21 01:19 Seroquel 25 Mg PO 05/11/21 21:59 Not Given QHS OWEN Quetiapine Fumarate Confirm 04/12/21 01:02 Seroquel 25 Mg Administered 04/12/21 01:03 Dose 25 mg .ROUTE .STK-MED ONE Sterile Water Confirm 04/11/21 20:43 Sterile H2o 10 Ml Administered 04/11/21 20:44 Dose 10 ml IJ .STK-MED ONE Intake & Output (Last 24 hours) 04/11/21 04/12/21 04/13/21 04/14/21 11:59 11:59 11:59 11:59 Intake Total 1250 400 Output Total 2200 700 Balance -950 -300 Weight 85.4 kg 84.964 kg Laboratory Results (Last 24 hours) 04/13/21 04/13/21 04:40 04:40 WBC 6.5 RBC 3.69 L Hgb 10.1 L Hct 34.5 L MCV 93.5 MCH 27.4 MCHC 29.3 L RDW 20.5 H Plt Count 60 L MPV 9.3 Sodium 136 L Potassium 4.6 D Chloride 103 Carbon Dioxide 21 L Anion Gap 17.4 H BUN 19 Creatinine 0.61 L Estimated GFR > 60.0 Glucose 109 H Calcium 8.8 Total Bilirubin 1.20 AST 43 ALT 12 Alkaline Phosphatase 106 Serum Total Protein 7.3 Albumin 3.8 Slides for Path Review YES Orders (Last 24 hours) Category Date Time Status ECHO W/2D AND DOPPLER [US] Routine Exams 04/13/21 10:00 Taken BNP [NT PRO BNP] AM.LAB Lab 04/14/21 04:00 Ordered CBC Routine Lab 04/13/21 04:40 Completed CBC W DIFF AM.LAB Lab 04/14/21 04:00 Ordered CMP AM.LAB Lab 04/13/21 04:40 Completed CMP AM.LAB Lab 04/14/21 04:00 Ordered Albuterol/Ipratropium 3ml Neb* [DUONEB 0.5-3 MG/3 ml Med 04/12/21 15:00 Active Neb] 3 ml IH QIDRT Apixaban [Eliquis 2.5 mg Tablet] Med 04/12/21 22:00 Active 5 mg PO BID Azithromycin 500 mg/250 ml [Zithromax 500 MG/ 250 ML Med 04/12/21 22:00 Active NaCl Premix] 500 mg in 250 ml IV HS Carvedilol 3.125 mg [Coreg 3.125 MG] Med 04/12/21 22:00 Active 3.125 mg PO BID Ceftriaxone 1 GM/50 ML PREMIX* [ROCEPHIN 1 Gm-D5w 50 ml Med 04/12/21 22:00 Active Bag] 1 g in 50 ml IV HS Enoxaparin Sodium [Enoxaparin Sodium] Med 04/12/21 22:00 Active 40 mg SQ DAILY Fluticasone/Salmeterol 115/21 [Advair Hfa 115/21 Common Med 04/12/21 19:00 Active canister*] 2 puff IH BIDRT Furosemide 40 mg [Lasix 40 MG] Med 04/13/21 10:00 Discontinued 40 mg PO QAM Furosemide 40 mg/4 ml [Lasix 40 MG/4 ML] Med 04/13/21 10:00 Discontinued 40 mg IV BID DIURETIC Furosemide 40 mg/4 ml [Lasix 40 MG/4 ML] Med 04/13/21 18:00 Active 40 mg IV Q8H Gabapentin 100 mg [Neurontin 100 MG] Med 04/12/21 15:00 Active 100 mg PO TID Lisinopril 10 mg [Zestril 10 MG] Med 04/13/21 10:00 Active 10 mg PO DAILY Metolazone 2.5 mg [Zaroxolyn 2.5 MG] Med 04/13/21 13:00 Active 2.5 mg PO BID DIURETIC PANTOPRAZOLE 40 mg Tablet [Protonix 40MG Tablet] Med 04/13/21 10:00 Active 40 mg PO DAILY Potassium Chloride 10 Meq Tab* [Klor Con 10 MEQ] Med 04/13/21 15:00 Active 10 meq PO TID Patient Care Notes (Last 24 hours) 04/13/21 09:21 Case Management Note by Isabel Manrique PATIENT REPORTS HE HAS OXYGEN THRU [facility] BUT DOES NOT CURRENTLY HAVE PORTABILITY. S/[facility]- PATIENT HAS ORDER FOR 3/5 L 14/02 AT HOME WITH PORTABILITY. SHE STATED IF PATIENT NEEDS PORTABLE AT TIME OF DC- OKAY TO SEND ONE HOME WITH HIM- JUST LET [facility] KNOW. 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 respiratory was called. pt did appear to be working hard to breath ( using accessory muscle use noted) pulse ox was 87 % on 3L. pt was bumped up to 4L, pt O2 up to 95%. pt does appear to mouth breath while sleeping. pt encouraged to breath through nose and exhale through mouth. bp-133/63, hr-70, O2 sats 96% on 4L Initialized on 04/12/21 18:50 - END OF NOTE Code(s): I50.9 - HEART FAILURE, UNSPECIFIED (2) Bilateral pleural effusion Current Visit: Yes Status: Acute Code(s): J90 - PLEURAL EFFUSION, NOT ELSEWHERE CLASSIFIED (3) Chronic respiratory failure Current Visit: Yes Status: Acute Qualifiers: Respiratory failure complication: unspecified whether with hypoxia or hypercapnia Qualified Code(s): J96.10 - Chronic respiratory failure, unspecified whether with hypoxia or hypercapnia Code(s): J96.10 - CHRONIC RESPIRATORY FAILURE, UNSP W HYPOXIA OR HYPERCAPNIA (4) CAD (coronary artery disease) Current Visit: No Status: Acute Code(s): I25.10 - ATHSCL HEART DISEASE OF [place] CORONARY ARTERY W/O ANG PCTRS (5) COPD with exacerbation Current Visit: No Status: Acute Code(s): J44.1 - CHRONIC OBSTRUCTIVE PULMONARY DISEASE W (ACUTE) EXACERBATION (6) Elevated d-dimer Current Visit: No Status: Acute Code(s): R79.89 - OTHER SPECIFIED ABNORMAL FINDINGS OF BLOOD CHEMISTRY
[2021-04-13] MEDS: Zaroxolyn 2.5 MG PO SCH ×2 (14:11→17:12)
[2021-04-13] MEDS: Klor Con 10 MEQ PO SCH ×2 (14:11→21:39)
[2021-04-13] MEDS: Lasix 40 MG/4 ML IV SCH (17:13)
[2021-04-13] MEDS ORDERED: XARELTO 10 MG TABLET PO SCH (18:00)
[2021-04-13] MEDS: Sodium Chloride 0.9% 1000 ML 1,000 ML IV SCH (18:56)
[2021-04-13] MEDS: Cymbalta 30 MG Capsule PO SCH (21:38)
[2021-04-13] MEDS: ROCEPHIN 1 Gm-D5w 50 ml Bag** 1 G/50 ML IVPB IV SCH (21:38)
[2021-04-13] MEDS: Seroquel 25 MG PO SCH (21:40)
[2021-04-13] MEDS: Zithromax 500 MG/ 250 ML NaCl Premix 500 MG/250 ML IVPB IV SCH (22:25)
[2021-04-14] MEDS: Lasix 40 MG/4 ML IV SCH ×2 (03:46→11:03)
[2021-04-14] MEDS: MORPHINE SULFATE 4 MG INJ IV PRN (03:47)
[2021-04-14] MEDS: DUONEB 0.5-3 MG/3 ml Neb IH SCH ×3 (04:16→16:10)
[2021-04-14] MEDS: Advair Hfa 115/21 Common canister IH SCH (04:20)
[2021-04-14 05:39] LABS: Absolute Neutrophil Ct (ANC) 4.26 (1.4-6.9); BASOPHIL % 0.8 % (0.0-0.4); Basophil (Absolute #) 0.05 (0-0.4); Eosinophil % 3.3 % (0.00-5.0); Hematocrit 36.5 % (42-50); Hemoglobin 10.7 gm/dl (12.5-18.0); Lymphocyte (Absolute #) 0.78 (1.0-4.6); Lymphocytes % 12.8 % (24.0-44.0); Mean Cell Volume 92.6 fl (78-100); Mean Corpuscular Hemoglobin 27.2 pg (26-32); Mean Corpuscular Hgb Concent. 29.3 g/dl (32-36); Mean Platelet Volume 9.4 fl (7.5-11.0); Monocyte (Absolute #) 0.82 (0.0-1.3); Monocytes % 13.4 % (0.0-12.0); Neutrophil % 69.7 % (36.0-66.0); Platelet Count 77 K/mm3 (150-450); Red Blood Count 3.94 M/mm3 (4.1-5.6); Red Cell Distribution Width 20.3 % (11.5-14.0); White Blood Count 6.1 K/mm3 (4.0-10.5)
[2021-04-14] MEDS ORDERED: NARCAN 2 MG/2 ML IV ONE (06:11)
[2021-04-14 06:21] LABS: ALBUMIN 4.1 g/dL (3.5-5.0); ALKALINE PHOSPHATASE 63 U/L (38-126); ANION GAP 14.1 MEQ/L (5-15); BLOOD UREA NITROGEN 26 mg/dL (9-20); CHLORIDE 99 mmol/L (98-107); Calcium 9.1 mg/dL (8.4-10.2); Carbon Dioxide 30 mmol/L (22-30); EST GLOMERULAR FILTRATION RATE > 60.0 ML/MIN; Glucose 80 mg/dL (74-106); NT PRO BNP 2890 pg/mL (0-900); Potassium 4.4 mmol/L (3.5-5.1); SGOT/AST 21 U/L (17-59); SGPT/ALT 11 U/L (0-50); SODIUM 138 mmol/L (137-145); Total Protein 7.9 g/dL (6.3-8.2)
[2021-04-14 07:42] LABS: Slide Review 1 YES
[2021-04-14] MEDS ORDERED: ATARAX 25 MG PO ONE (07:55)
--- NOTE | 2021-04-14 10:47 | XRAY ---
Indication: Short of breath. Comparison: April 12, 2021. PA/lateral chest demonstrates diminished cardiomegaly now borderline enlarged again with mitral valve replacement, CABG, and left AICD. Also diminished vascular congestion and bibasilar effusions/atelectasis with mild residual. No new cardiopulmonary abnormalities.
[2021-04-14] MEDS: Klor Con 10 MEQ PO SCH ×2 (10:50→15:14)
[2021-04-14] MEDS: Neurontin 100 MG PO SCH ×2 (10:50→15:14)
[2021-04-14] MEDS: Zaroxolyn 2.5 MG PO SCH (10:50)
[2021-04-14] MEDS: Coreg 3.125 MG PO SCH (10:50)
[2021-04-14] MEDS: Protonix 40MG Tablet PO SCH (10:51)
[2021-04-14] MEDS: Zestril 10 MG PO SCH (10:51)
[2021-04-14 13:51] VITALS: BP 131/58
[2021-04-14 16:24] VITALS: PULSE 76; O2SAT 86
--- NOTE | 2021-04-14 17:19 | PCM.DS ---
Discharge Summary Date of Admission: 04/12/21 18:00 Admitting Physician: UDNCAN MCNEILL Primary Care Provider: NO FAMILY DOCTOR Allergies Allergies carisoprodol [Carisoprodol] Allergy (Unknown, Verified 12/31/20 16:30) ketorolac Allergy (Unknown, Verified 12/31/20 16:30) Hospital Summary - Hospital Course Hospital Course: Chief Complaint Diagnosis EXAC CHF, EXAC COPD Allergies Allergy/AdvReac Type Severity Reaction Status Date / Time carisoprodol [Carisoprodol] Allergy Unknown Verified 12/31/20 16:30 ketorolac Allergy Unknown Verified 12/31/20 16:30 Vital Signs (Last 24 hours) Temp Pulse Resp BP Pulse Ox 04/14/21 16:10 76 24 86 L 04/14/21 12:00 98.0 F 70 24 131/58 100 04/14/21 11:13 69 20 97 04/14/21 07:45 96.0 F 56 L 28 H 140/86 90 L 04/14/21 04:16 69 10 L 98 04/14/21 03:47 97.7 F 69 7 L 136/78 92 L 04/14/21 00:00 97.8 F 69 8 L 120/69 90 L 04/13/21 20:00 98 F 69 20 115/75 92 L 04/13/21 19:13 70 20 94 L Home Medications Medication Instructions Recorded Confirmed Last Taken Type Gabapentin 100 mg PO TID 04/12/21 04/12/21 Unknown History Current Medications Generic Name Dose Route Start Last Admin Trade Name Freq PRN Reason Stop Dose Admin Albuterol/Ipratropium 3 ml 04/12/21 15:00 04/14/21 16:10 Duoneb 0.5-3 Mg/3 Ml Neb IH 05/12/21 14:59 3 ml QIDRT OWEN Administration Carvedilol 3.125 mg 04/12/21 22:00 04/14/21 10:50 Coreg 3.125 Mg PO 05/12/21 21:59 3.125 mg BID OWEN Administration Duloxetine HCl 60 mg 04/11/21 22:00 04/13/21 21:38 Cymbalta 30 Mg Capsule PO 05/11/21 21:59 60 mg HS OWEN Administration Furosemide 40 mg 04/13/21 18:00 09/21/21 11:03 Lasix 40 Mg/4 Ml IV 05/13/21 17:59 40 mg Q8H OWEN Administration Gabapentin 100 mg 04/12/21 15:00 04/14/21 15:14 Neurontin 100 Mg PO 05/12/21 14:59 100 mg TID OWEN Administration Azithromycin 500 mg in 250 mls @ 250 mls/hr 04/12/21 22:00 04/13/21 22:25 Zithromax 500 Mg/ 250 Ml Nacl Premix IV 05/12/21 21:59 250 mls/hr HS OWEN Administration Ceftriaxone Sodium/Dextrose 1 g in 50 mls @ 100 mls/hr 04/12/21 22:00 04/13/21 21:38 Rocephin 1 Gm-D5w 50 Ml Bag IV 04/15/21 21:59 100 mls/hr HS OWEN Administration Lisinopril 10 mg 04/13/21 10:00 04/14/21 10:51 Zestril 10 Mg PO 05/13/21 09:59 10 mg DAILY OWEN Administration Metolazone 2.5 mg 04/13/21 13:00 04/14/21 10:50 Zaroxolyn 2.5 Mg PO 05/13/21 12:59 2.5 mg BID DIURETIC OWEN Administration Pantoprazole Sodium 40 mg 04/13/21 10:00 04/14/21 10:51 Protonix 40mg Tablet PO 05/13/21 09:59 40 mg DAILY OWEN Administration Potassium Chloride 10 meq 04/13/21 15:00 04/14/21 15:14 Klor Con 10 Meq PO 05/13/21 14:59 10 meq TID OWEN Administration Quetiapine Fumarate 12.5 mg 04/11/21 22:00 04/13/21 21:40 Seroquel 25 Mg PO 05/11/21 21:59 12.5 mg QHS OWEN Administration Rivaroxaban 20 mg 04/13/21 18:00 04/13/21 17:12 Xarelto 10 Mg Tablet PO 05/13/21 17:59 20 mg DAILY AT 1800 OWEN Administration Fluticasone/Salmeterol 2 puff 04/12/21 19:00 04/14/21 04:20 Advair Hfa 115/21 Common Canister* IH 05/12/21 18:59 2 puff BIDRT OWEN Administration Discontinued Medications Generic Name Dose Route Start Last Admin Trade Name Ludivina PRN Reason Stop Dose Admin Albuterol/Ipratropium Confirm 04/11/21 19:48 Duoneb 0.5-3 Mg/3 Ml Neb Administered 04/11/21 19:49 Dose 3 ml IH .STK-MED ONE Albuterol/Ipratropium 3 ml 04/11/21 19:48 04/11/21 19:53 Duoneb 0.5-3 Mg/3 Ml Neb IH 04/11/21 19:49 3 ml STAT ONE Administration Albuterol/Ipratropium 3 ml 04/11/21 23:00 04/12/21 11:07 Duoneb 0.5-3 Mg/3 Ml Neb IH 05/11/21 22:59 3 ml Q4HRT OWEN Administration Apixaban 5 mg 04/12/21 22:00 04/13/21 11:00 Eliquis 2.5 Mg Tablet PO 05/12/21 21:59 Not Given BID OWEN Carvedilol 12.5 mg 04/11/21 22:23 04/12/21 10:19 Coreg 12.5 Mg PO 05/11/21 22:22 12.5 mg BID OWEN Administration Methylprednisolone Sodium 0 mg 04/11/21 19:48 04/11/21 20:46 Succinate 125 mg/ Sterile IV 04/11/21 19:49 125 mg Water 2 ml STAT ONE Administration Enoxaparin Sodium 40 mg 04/12/21 10:00 04/11/21 22:57 Enoxaparin Sodium SQ 05/12/21 09:59 40 mg DAILY OWEN Administration Enoxaparin Sodium 40 mg 04/12/21 22:00 04/13/21 09:25 Enoxaparin Sodium SQ 05/12/21 21:59 40 mg DAILY OWEN Administration Fentanyl Citrate 50 mcg 04/11/21 20:55 04/11/21 21:36 Sublimaze 100 Mcg/2 Ml IV 04/11/21 20:56 50 mcg STAT ONE Administration Fentanyl Citrate Confirm 04/11/21 21:35 Sublimaze 100 Mcg/2 Ml Administered 04/11/21 21:36 Dose 100 mcg .ROUTE .STK-MED ONE Furosemide 40 mg 04/11/21 20:58 04/11/21 21:36 Lasix 40 Mg/4 Ml IV 04/11/21 20:59 40 mg STAT ONE Administration Furosemide Confirm 04/11/21 21:35 Lasix 40 Mg/4 Ml Administered 04/11/21 21:36 Dose 40 mg .ROUTE .STK-MED ONE Furosemide 40 mg 04/12/21 10:00 04/12/21 10:19 Lasix 40 Mg/4 Ml IV 05/12/21 09:59 40 mg BID DIURETIC OWEN Administration Furosemide 40 mg 04/13/21 10:00 Lasix 40 Mg PO 05/13/21 09:59 QAM OWEN Furosemide 40 mg 04/13/21 10:00 04/13/21 09:39 Lasix 40 Mg/4 Ml IV 05/13/21 09:59 40 mg BID DIURETIC OWEN Administration Hydroxyzine HCl 25 mg 04/14/21 07:55 04/14/21 08:27 Atarax 25 Mg PO 04/14/21 07:56 25 mg ONCE ONE Administration Sodium Chloride 1,000 mls @ 999 mls/hr 04/11/21 19:48 04/11/21 20:46 Sodium Chloride 0.9% 1000 Ml IV 04/11/21 20:48 100 mls/hr .Q1H1M STA Administration Sodium Chloride Confirm 04/11/21 20:04 Sodium Chloride 0.9% 1000 Ml Administered 04/11/21 20:05 Dose 1,000 mls @ ud .ROUTE .STK-MED ONE Sodium Chloride 1,000 mls @ 50 mls/hr 04/11/21 22:23 04/13/21 18:56 Sodium Chloride 0.9% 1000 Ml IV 05/11/21 22:22 Not Given .Q20H OWEN Ceftriaxone Sodium/Dextrose 1 g in 50 mls @ 100 mls/hr 04/12/21 10:00 04/11/21 23:00 Rocephin 1 Gm-D5w 50 Ml Bag IV 04/15/21 09:59 100 mls/hr Q24H10 OWEN Administration Azithromycin 500 mg in 250 mls @ 250 mls/hr 04/12/21 10:00 04/11/21 23:06 Zithromax 500 Mg/ 250 Ml Nacl Premix IV 05/12/21 09:59 250 mls/hr Q24H10 OWEN Administration Lisinopril 20 mg 04/12/21 10:00 04/12/21 10:19 Zestril 20 Mg PO 05/12/21 09:59 20 mg DAILY OWEN Administration Methylprednisolone Sodium Succinate Confirm 04/11/21 20:43 Solu-Medrol Administered 04/11/21 20:44 Dose 125 mg .ROUTE .STK-MED ONE Morphine Sulfate 4 mg 04/12/21 00:47 04/14/21 03:47 Morphine Sulfate 4 Mg Inj IV 04/17/21 00:46 2 mg Q4H PRN PRN Administration PAIN Naloxone HCl 2 mg 04/14/21 06:11 04/14/21 06:15 Narcan 2 Mg/2 Ml IV 04/14/21 06:12 2 mg STAT ONE Administration Quetiapine Fumarate 25 mg 04/11/21 22:00 04/12/21 01:19 Seroquel 25 Mg PO 05/11/21 21:59 Not Given QHS OWEN Quetiapine Fumarate Confirm 04/12/21 01:02 Seroquel 25 Mg Administered 04/12/21 01:03 Dose 25 mg .ROUTE .STK-MED ONE Sterile Water Confirm 04/11/21 20:43 Sterile H2o 10 Ml Administered 04/11/21 20:44 Dose 10 ml IJ .STK-MED ONE Intake & Output (Last 24 hours) 04/12/21 04/13/21 04/14/21 04/15/21 11:59 11:59 11:59 11:59 Intake Total 0040 571 0553 Output Total 2200 700 825 Balance -950 -300 567 Weight 85.4 kg 84.964 kg Laboratory Results (Last 24 hours) 04/14/21 04/14/21 05:10 05:10 WBC 6.1 RBC 3.94 L Hgb 10.7 L Hct 36.5 L MCV 92.6 MCH 27.2 MCHC 29.3 L RDW 20.3 H Plt Count 77 L MPV 9.4 Gran % 69.7 H Eos # (Auto) 0.20 Absolute Lymphs (auto) 0.78 L Absolute Monos (auto) 0.82 Lymphocytes % 12.8 L Monocytes % 13.4 H Eosinophils % 3.3 Basophils % 0.8 Absolute Granulocytes 4.26 Basophils # 0.05 Sodium 138 Potassium 4.4 Chloride 99 Carbon Dioxide 30 Anion Gap 14.1 BUN 26 H Creatinine 1.00 Estimated GFR > 60.0 Glucose 80 Calcium 9.1 Total Bilirubin 0.80 AST 21 ALT 11 Alkaline Phosphatase 63 NT-Pro-B Natriuret Pep 2890 H Serum Total Protein 7.9 Albumin 4.1 Slides for Path Review YES Orders (Last 24 hours) Category Date Time Status Discharge Routine Discharge 04/14/21 Ordered CHEST 2 VIEWS (PA AND LAT) Routine Exams 04/14/21 10:38 Completed BNP [NT PRO BNP] AM.LAB Lab 04/14/21 05:10 Completed CBC W DIFF AM.LAB Lab 04/14/21 05:10 Completed CMP AM.LAB Lab 04/14/21 05:10 Completed Furosemide 40 mg/4 ml [Lasix 40 MG/4 ML] Med 04/13/21 18:00 Active 40 mg IV Q8H Hydroxyzine HCl 25 mg [Atarax 25 mg] Med 04/14/21 07:55 Discontinued 25 mg PO ONCE ONE Naloxone HCl 2Mg/2 ml [Narcan 2 mg/2 ml] Med 04/14/21 06:11 Discontinued 2 mg IV STAT ONE Rivaroxaban 10 mg Tablet [Xarelto 10 mg Tablet] Med 04/13/21 18:00 Ac tive 20 mg PO DAILY AT 1800 EKG ROUTINE RT 04/13/21 18:49 Completed Patient Care Notes (Last 24 hours) 04/14/21 14:16 Nursing Note by Mariah Stoll Report called to DON (Nataliia?) at [facility]. Initialized on 04/14/21 14:16 - END OF NOTE 04/14/21 14:06 Case Management Note by Isabel Manrique HAS ACCEPTED PATIENT. THEY WILL SEND THE VAN OVER TO PICK PATIENT UP LATER. PATIENT AWARE AND AGREEABLE Initialized on 04/14/21 14:06 - END OF NOTE 04/14/21 13:29 Nursing Note by Santus,Bernice Dr Sanchez rounded states ok to DC to [facility] for rehab on o2 and to resume Eliquis at time of dc Initialized on 04/14/21 13:29 - END OF NOTE 04/14/21 11:49 Case Management Note by Isabel Manrique APPROACHES PATIENT ABOUT ARRANGING C- HE REFUSES. HE STATES HE DOES NOT FEEL LIKE HIS ROOMMATES WOULD APPRECIATE THAT. PATIENT MENTIONED GOING TO THE [facility]. DISCUSSED THIS WITH PATIENT. HE UNDERSTANDS HE WILL BE IN ISOLATION THERE D/T NO VACCINE AND THAT HE WILL HAVE TO PARTICIPATE IN THERAPY. HE VERIFIED UNDERSTANDING. HE WOULD LIKE TO GO TO [facility]. REFERRAL FAXED AT THIS TIME Initialized on 04/14/21 11:49 - END OF NOTE 04/14/21 10:01 Nursing Note by Mariah Stoll planned to D/C today on home medications. Initialized on 04/14/21 10:01 - END OF NOTE 04/14/21 06:24 Nursing Note by Polo Richards Pt having apneic episodes up to 30 seconds every few minutes in which his O2 sat would fluctuate from 98% to 78% and back to 95% on 3L oxymask. Pt would be alert and talking, then drop off to sleep with an apneic episode, then wake up. Pt c/o of trouble getting air when he was awake. Pt was arousable during these episodes. Pt had been getting morphine IV, last dose at [address] Mcneill who ordered Narcan 2mg IV. Gave Narcan, pt became more alert and apneic episodes stopped for about 15 minutes, then began again, but less frequently. Pt c/o feeling cold and shaking. O2 sat dropped to 70%. Increased O2 to 4L then 5L and repositioned in bed. O2 sat up to 100%, turned O2 back down to 4L. O2 sat varies from 82-95%. Will continue to monitor. Initialized on 04/14/21 06:24 - END OF NOTE 04/13/21 22:51 Nursing Note by Polo Richards Pt sleeping when brought evening meds at 2130, pt woke and immediately asked for pain med. Reminded him that it was not due until 5. Pt stated that he could not sleep because he has not had his pain med yet. Pt had picked at scabs on his arm which were bleeding. Pt kept falling asleep while cleaning and dressing these wounds. Pt called for pain med at 2210, told him I would bring it at 2215. Pt called again at 2215 for pain med. Gave pain med and hung zithromax. Pt still falling asleep while nurse in the room. Pt then woke and asked for a sleeping pill. Scheduled Seroquel already given, no other sleeping med ordered. Initialized on 04/13/21 22:51 - END OF NOTE 04/13/21 18:50 Nursing Note by Yenny Chinchilla patient refused for ABG's to be drawn. Said he will get them drawn if the nurse will give him an extra pain shot. PRN medication for pain is being given as ordered, Q4H PRN . Patient later states he will allow staff to draw his ABG if they will numb his arm first. Called Dr. Mcneill, no answer. Will relay to oncoming shift if no c all back Initialized on 04/13/21 18:50 - END OF NOTE - Vitals & Intake/Output Vital Signs: Vital Signs Temperature 98.0 F 04/14/21 12:00 Pulse Rate 76 04/14/21 16:10 Respiratory Rate 24 04/14/21 16:10 Blood Pressure 131/58 04/14/21 12:00 O2 Sat by Pulse Oximetry 86 L 04/14/21 16:10 Intake & Output: Intake & Output 04/12/21 04/13/21 04/14/21 04/15/21 11:59 11:59 11:59 11:59 Intake Total 9491 047 1377 Output Total 2200 700 825 Balance -950 -300 567 Weight 85.4 kg 84.964 kg - Lab Result Diagrams: 04/14/21 05:10 04/14/21 05:10 Lab Results-Last 24 Hrs: Lab Results-Last 24 Hours 04/14/21 04/14/21 Range/Units 05:10 05:10 WBC 6.1 (4.0-10.5) K/mm3 RBC 3.94 L (4.1-5.6) M/mm3 Hgb 10.7 L (12.5-18.0) gm/dl Hct 36.5 L (42-50) % MCV 92.6 (78-100) fl MCH 27.2 (26-32) pg MCHC 29.3 L (32-36) g/dl RDW 20.3 H (11.5-14.0) % Plt Count 77 L (150-450) K/mm3 MPV 9.4 (7.5-11.0) fl Gran % 69.7 H (36.0-66.0) % Eos # (Auto) 0.20 (0-0.5) Absolute Lymphs (auto) 0.78 L (1.0-4.6) Absolute Monos (auto) 0.82 (0.0-1.3) Lymphocytes % 12.8 L (24.0-44.0) % Monocytes % 13.4 H (0.0-12.0) % Eosinophils % 3.3 (0.00-5.0) % Basophils % 0.8 (0.0-0.4) % Absolute Granulocytes 4.26 (1.4-6.9) Basophils # 0.05 (0-0.4) Sodium 138 (137-145) mmol/L Potassium 4.4 (3.5-5.1) mmol/L Chloride 99 (98-107) mmol/L Carbon Dioxide 30 (22-30) mmol/L Anion Gap 14.1 (5-15) MEQ/L BUN 26 H (9-20) mg/dL Creatinine 1.00 (0.66-1.25) mg/dL Estimated GFR > 60.0 ML/MIN Glucose 80 (74-106) mg/dL Calcium 9.1 (8.4-10.2) mg/dL Total Bilirubin 0.80 (0.2-1.3) mg/dL AST 21 (17-59) U/L ALT 11 (0-50) U/L Alkaline Phosphatase 63 (38-126) U/L NT-Pro-B Natriuret Pep 2890 H (0-900) pg/mL Serum Total Protein 7.9 (6.3-8.2) g/dL Albumin 4.1 (3.5-5.0) g/dL Slides for Path Review YES - Radiology Exams Ordered Rad Exams-Entire Visit: Radiology Procedures Category Date Time Status CHEST 2 VIEWS (PA AND LAT) Routine Exams 04/14/21 10:38 Completed ECHO W/2D AND DOPPLER [US] Routine Exams 04/13/21 10:00 Taken - Procedures and Test Procedures and Tests throughout Hospitalization: Therapy Orders & Screens 04/11/21 19:54 Respiratory Therapy Assessment DAILY Comment: 04/11/21 22:23 Oxygen NASAL CANNULA 2 lpm Comment: Diagnosis: CHF Oxygen Nasal Cannula 3 lpm Comment: 04/12/21 06:00 EKG IN AM Comment: 04/13/21 18:49 EKG ROUTINE Comment: Diagnosis: EXAC CHF, EXAC COPD Discharge Exam General Appearance: no apparent distress, alert Neurologic Exam: alert, oriented x 3, cooperative, normal mood/affect, nml c erebellar function, sensation nml, No motor deficits Eye Exam: PERRL, EOMI, eyes nml inspection Ears, Nose, Throat Exam: normal ENT inspection, pharynx normal, moist mucous membranes Neck Exam: normal inspection, non-tender, supple, full range of motion Respiratory Exam: normal breath sounds, lungs clear, No respiratory distress Cardiovascular Exam: regular rate/rhythm, normal heart sounds Gastrointestinal/Abdomen Exam: soft, No tenderness, No mass Male Genitalia Exam: deferred Rectal Exam: deferred Back Exam: normal inspection, normal range of motion, No CVA tenderness, No vertebral tenderness Extremity Exam: normal inspection, normal range of motion Skin Exam: normal color, warm, dry Final Diagnosis/Problem List - Final Discharge Diagnosis/Problem (1) Acute exacerbation of congestive heart failure Current Visit: Yes Status: Acute Code(s): I50.9 - HEART FAILURE, UNSPECIFIED (2) Bilateral pleural effusion Current Visit: Yes Status: Acute Code(s): J90 - PLEURAL EFFUSION, NOT ELSEWHERE CLASSIFIED (3) Chronic respiratory failure Current Visit: Yes Status: Acute Code(s): J96.10 - CHRONIC RESPIRATORY FAILURE, UNSP W HYPOXIA OR HYPERCAPNIA (4) CAD (coronary artery disease) Current Visit: No Status: Acute Code(s): I25.10 - ATHSCL HEART DISEASE OF [place] CORONARY ARTERY W/O ANG PCTRS (5) COPD with exacerbation Current Visit: No Status: Acute Code(s): J44.1 - CHRONIC OBSTRUCTIVE PULMONARY DISEASE W (ACUTE) EXACERBATION (6) Elevated d-dimer Current Visit: No Status: Acute Code(s): R79.89 - OTHER SPECIFIED ABNORMAL FINDINGS OF BLOOD CHEMISTRY - Discharge Discharge Date: 04/14/21 Disposition: Skilled Care @ [facility] Condition: Stable Prescriptions: Continue Fluticasone/Salmeterol [Advair 250-50 Diskus] 1 puff IH BID Apixaban [Eliquis] 5 mg PO BID #14 tablet Carvedilol 3.125 mg [Coreg 3.125 MG] 3.125 mg PO BID #14 tablet Quetiapine Fumarate 25 mg [Seroquel 25 MG] 0.5 tab PO HS Lisinopril 5 mg [Zestril 5 MG] 10 mg PO DAILY Omeprazole 40 mg PO DAILY Furosemide 40 mg [Lasix 40 MG] 40 mg PO QAM Gabapentin 100 mg PO TID Instructions: Heart Failure, Adult (DC), Exacerbation of COPD (DC) Additional Instructions: [facility] ORDERS: LOW SODIUM DIET PT/OT EVAL AND TREAT OXYGEN AT 3.5L/NC SEE ATTACHED MED LIST Follow up with: HELIO SALGUERO [CONSULTING PHYSICIAN] - 04/21/21 1:15 pm ([facility]) DUNCAN MCNEILL MD [Emergency Provider] - 04/21/21 2:45 pm ([facility]) Forms: Transfer Record Long-Term
--- NOTE | 2021-04-16 13:11 | ECHO ---
DATE OF PROCEDURE: 04/13/2021 CLINICAL INFORMATION: Congestive heart failure. The M-mode 2D, and Doppler echocardiogram including color flow Doppler shows the left ventricle is normal in size at 4.8 cm. There is no thrombus present. The septal wall thickness is normal at 0.8 cm. The left ventricular posterior wall thickness is normal at 0.9 cm. There is a moderate severe decrease in left ventricular systolic function. The ejection fraction is calculated to be 25%. The right ventricle is remarkable for the presence of an electrode. The left atrium is moderately dilated with a dimension of 5.3 cm. The interatrial septum is intact. The right atrium is dilated. The aortic valve opens well. It is trileaflet. There is no aortic regurgitation. There mitral valve leaflet calcification without any significant stenosis or regurgitation. There is mild tricuspid regurgitation. The right ventricular systolic pressure is calculated to be elevated at 45 mm of [place]. The pulmonic valve is not well visualized. The aortic root is normal at 3.4 cm. The ascending aorta is moderately dilated at 4.0 cm. There is no pericardial effusion present. IMPRESSION: 1) MODERATELY SEVERE DECREASE IN LEFT VENTRICULAR SYSTOLIC FUNCTION. 2) MODERATE LEFT ATRIAL DILATATION. 3) MITRAL VALVE CALCIFICATION. 4) RIGHT VENTRICULAR ELECTRODE. 5) MILD TRICUSPID REGURGITATION. 6) MODERATE PULMONARY HYPERTENSION.
== END 2021-04-14 17:01 | DRG 292 ==
LOC: ED 19:35 → MED SURG 22:22 → OBSVTOIN 04-12 18:00
PROVIDERS: ADMIT General Practice; ATTEND General Practice
DX: I11.0 Hypertensive heart disease with heart failure (principal); J90 Pleural effusion, not elsewhere classified; J96.10 Chronic respiratory failure, unspecified whether with hypoxia or hypercapnia; J44.1 Chronic obstructive pulmonary disease with (acute) exacerbation; I50.9 Heart failure, unspecified; I25.10 Atherosclerotic heart disease of native coronary artery without angina pectoris; R79.89 Other specified abnormal findings of blood chemistry; M79.89 Other specified soft tissue disorders; Z79.899 Other long term (current) drug therapy; Z95.1 Presence of aortocoronary bypass graft; Z86.711 Personal history of pulmonary embolism; Z79.01 Long term (current) use of anticoagulants; R06.2 Wheezing
CPT/HCPCS: 0241U; 36415; 71045; 71046; 80053; 83880; 84484; 85025; 85027; 85379; 93005; 93041; 93268; 93306; 94640; 94760; 94762; 96374; 96375; 99285; 99291; G0378; J0456; J0696; J1650; J1940; J2270; J2310; J2930; J3010; A9270-GY

== ENCOUNTER 2021-05-28 20:33 | Inpatient (IN) | payer MEDICARE ==
[2021-05-28] MEDS ORDERED: DUONEB 0.5-3 MG/3 ml Neb IH ONE ×2 (20:46→20:48)
[2021-05-28] MEDS ORDERED: solu-MEDROL 125 MG, Sterile H2O 10 ml 2 ML IV ONE ×2 (20:48)
[2021-05-28] MEDS ORDERED: Lasix 20 MG/2 ML IV STA (20:50)
[2021-05-28 21:10] LABS: Absolute Neutrophil Ct (ANC) 4.21 (1.4-6.9); BASOPHIL % 0.2 % (0.0-0.4); Basophil (Absolute #) 0.01 (0-0.4); Eosinophil % 2.6 % (0.00-5.0); Eosinophil (Absolute #) 0.16 (0-0.5); Hematocrit 40.6 % (42-50); Hemoglobin 12.2 gm/dl (12.5-18.0); Lymphocyte (Absolute #) 0.48 (1.0-4.6); Lymphocytes % 7.8 % (24.0-44.0); Mean Cell Volume 94.4 fl (78-100); Mean Corpuscular Hemoglobin 28.4 pg (26-32); Mean Platelet Volume 9.7 fl (7.5-11.0); Monocyte (Absolute #) 1.26 (0.0-1.3); Monocytes % 20.6 % (0.0-12.0); Neutrophil % 68.8 % (36.0-66.0); Platelet Count 85 K/mm3 (150-450); Red Cell Distribution Width 19.1 % (11.5-14.0); White Blood Count 6.1 K/mm3 (4.0-10.5)
[2021-05-28 21:19] LABS: A-aADO2 125; ABG HEMOGLOBIN 12.5; ABG POTASSIUM 4.4 (3.5-5.1); ABG SITE LEFT BRACHIAL; ARTERIAL BLD GAS O2 SATURATION 97.1 % (95-100); ARTERIAL BLOOD GAS BASE EXCESS 1.3 (-2.0-2.0); ARTERIAL BLOOD GAS FIO2 36 %; ARTERIAL BLOOD GAS PCO2 40 mmHg (35-45); ARTERIAL BLOOD GAS PO2 82 mmHg (75-100); ARTERIAL BLOOD GAS pH 7.42 (7.35-7.45); CARBOXYHEMOGLOBIN 3.5 % THgb (0.0-6.9); HCO3- 25.9 (22-28); HGB O2 SAT 93.1 g/dF (94-100); Methhemoglobin 0.6 % (1.4-1.5)
[2021-05-28] MEDS ORDERED: Sterile H2O 10 ml IJ ONE (21:22)
[2021-05-28] MEDS ORDERED: Lasix 40 MG/4 ML ONE (21:22)
[2021-05-28] MEDS ORDERED: solu-MEDROL ONE (21:22)
[2021-05-28 21:30] LABS: ALBUMIN 4.2 g/dL (3.5-5.0); ALKALINE PHOSPHATASE 90 U/L (38-126); ANION GAP 17.4 MEQ/L (5-15); BLOOD UREA NITROGEN 20 mg/dL (9-20); CHLORIDE 96 mmol/L (98-107); Carbon Dioxide 28 mmol/L (22-30); Creatinine 1 0.63 mg/dL (0.66-1.25); EST GLOMERULAR FILTRATION RATE > 60.0 ML/MIN; Glucose 113 mg/dL (74-106); NT PRO BNP 4800 pg/mL (0-900); Potassium 4.6 mmol/L (3.5-5.1); SGOT/AST 87 U/L (17-59); SGPT/ALT 136 U/L (0-50); SODIUM 137 mmol/L (137-145)
--- NOTE | 2021-05-28 21:42 | ERPHSYRPT ---
- History of Present Illness Time Seen by Provider: 05/28/21 20:40 Source: patient Exam Limitations: no limitations Patient Subjective Stated Complaint: pt states he has been increasingly short of breath for last several days. states has been worse tonight Triage Nursing Assessment: pt alert and oriented, answers questions. pt unable to speak in full sentences. pt back to room per wheelchair and transfers to stretcher with minimal assist. pt restless in bed. extremties cool and dusky. pt short of breath at rest. frequent moist, nonproductive cough noted. Physician History: Patient is a 60-year-old male with a history of COPD and CHF presents to our ED for evaluation of progressive shortness of breath over the past 3 to 4 days. Patient states that shortness of breath has been particularly worse at night. Patient admits to a ongoing cough. Patient symptoms are progressive and now moderate in intensity. Activity worsens symptoms. Patient requires oxygen 24 hours/day. Upon arrival to our ED nursing staff observed patient's tank to be empty. Patient admits to generalized body aches. He also has nonspecific chest pain. No nausea vomiting or diaphoresis. No diarrhea. Patient currently afebrile. He voices no other complaints concerns at this time. Timing/Duration: day(s) (3 to 4 days ago) Severity: moderate Modifying Factors: Improves With: movement Associated Symptoms: cough, chest pain, No nausea, No vomiting, No chills, No fever, No seizure, No weakness Allergies/Adverse Reactions: carisoprodol [Carisoprodol] Allergy (Unknown, Verified 12/31/20 16:30) ketorolac Allergy (Unknown, Verified 12/31/20 16:30) Home Medications: Fluticasone/Salmeterol [Advair 250-50 Diskus] 1 puff IH BID 07/11/13 [History] Furosemide 40 mg [Lasix 40 MG] 40 mg PO QAM 07/20/20 [History] Lisinopril 5 mg [Zestril 5 MG] 10 mg PO DAILY 07/20/20 [History] Omeprazole 40 mg PO DAILY 07/20/20 [History] Quetiapine Fumarate 25 mg [Seroquel 25 MG] 0.5 tab PO HS 07/20/20 [History] Gabapentin 100 mg PO TID 04/12/21 [History] Hx Tetanus, Diphtheria Vaccination/Date Given: Yes Hx Influenza Vaccination/Date Given: No Hx Pneumococcal Vaccination/Date Given: No Immunizations Up to Date: Yes Travel Risk - International Travel Have you traveled outside of the country in past 3 weeks: No - Coronavirus Screening Are you exhibiting any of the following symptoms?: No Close contact with a COVID-19 positive Pt in past 14-21 Days: No - Vaccine Status Have you recieved a Covid-19 vaccination: No - Review of Systems Constitutional: No Symptoms, No Fever, No Chills Eyes: No Symptoms Ears, Nose, & Throat: No Symptoms Respiratory: No Symptoms, No Cough, No Dyspnea Cardiac: No Symptoms, No Chest Pain, No Edema, No Syncope Abdominal/Gastrointestinal: No Symptoms, No Abdominal Pain, No Nausea, No Vomiting, No Diarrhea Genitourinary Symptoms: No Symptoms, No Dysuria Musculoskeletal: No Symptoms, No Back Pain, No Neck Pain Skin: No Symptoms, No Rash Neurological: No Symptoms, No Dizziness, No Focal Weakness, No Sensory Changes Psychological: No Symptoms Endocrine: No Symptoms Hematologic/Lymphatic: No Symptoms Immunological/Allergic: No Symptoms All Other Systems: Reviewed and Negative - Past Medical History Pertinent Past Medical History: Yes Neurological History: Migraines, Stroke, TIA ENT History: Cataracts Cardiac History: Arrhythmia, Congestive Heart Failure, Coronary Artery Disease, High Cholesterol, Hypertension, Myocardial Infarction ([place]) Respiratory History: Asthma, Bronchitis, CHF, COPD, Pneumonia, Pulmonary Embolism Endocrine Medical History: No Pertinent History Musculoskeletal History: Arthritis GI Medical History: No Pertinent History History: No Pertinent History Psycho-Social History: Anxiety, Depression Male Reproductive Disorders: No Pertinent History Other Medical History: CABG , FEM POP IN THE LAST 10 YRS - Past Surgical History Past Surgical History: Yes Neuro Surgical History: No Pertinent History Cardiac: CABG, Cardiac Catheterization, Cardiac Stent, Internal Defibrillator, Pacemaker Respiratory: No Pertinent History Gastrointestinal: Appendectomy, Hernia Repair Genitourinary: No Pertinent History Musculoskeletal: No Pertinent History Male Surgical History: No Pertinent History Other Surgical History: bypass x 3, surgery to left leg after bite from brown recluse - Social History Smoking Status: Current every day smoker How long have you smoked: 45 years Exposure to second hand smoke: Yes Drug Use: methamphetamines Patient Lives Alone: No Significant Family History: no pertinent family hx - Nursing Vital Signs Nursing Vital Signs: Initial Vital Signs Temperature 99.0 F 05/28/21 20:34 Pulse Rate 95 H 05/28/21 20:34 Respiratory Rate 24 05/28/21 20:34 Blood Pressure 156/112 05/28/21 20:34 O2 Sat by Pulse Oximetry 97 05/28/21 20:34 Pain Scale Pain Intensity 2 - Physical Exam General Appearance: mild distress, alert Eye Exam: PERRL/EOMI, eyes nml inspection Ears, Nose, Throat Exam: normal ENT inspection, TMs normal, pharynx normal, moist mucous membranes Neck Exam: normal inspection, non-tender, supple, full range of motion Respiratory Exam: lungs clear, respiratory distress (Hypoxic mild tachypnea), airway intact, diminished breath sounds Cardiovascular Exam: regular rate/rhythm, normal heart sounds, normal peripheral pulses, other (Cold mottled extremities) Gastrointestinal/Abdomen Exam: soft, normal bowel sounds, No tenderness, No mass Back Exam: normal inspection, normal range of motion, No CVA tenderness, No vertebral tenderness Extremity Exam: normal inspection, normal range of motion, pelvis stable Neurologic Exam: alert, oriented x 3, cooperative, normal mood/affect, nml cerebellar function, nml station & gait, sensation nml, No motor deficits Skin Exam: normal color, warm, dry, No rash Lymphatic Exam: No adenopathy SpO2 Interpretation: normal SpO2: 97 O2 Delivery: Room Air - Course Nursing assessment & vital signs reviewed: Yes EKG Interpreted by Me: RATE (Atrial flutter nonspecific abnormal T waves lateral leads) - Radiology Exams Chest X-ray Interpretation: Interpreted by me (Study limited due to AICD placement. Right lower lobe haziness. Cardiomegaly. Blunting of costophrenic angles. Evidence of previous CABG.) Ordered Tests: Active Orders 24 hr Category Date Time Status Guard Manager STAT Care 05/28/21 20:45 Active EKG-ER Only STAT Care 05/28/21 20:44 Active IV Insertion STAT Care 05/28/21 20:44 Active Pulse Oximetry (ED) STAT Care 05/28/21 20:44 Active CHEST 1 VIEW (PORTABLE) Stat Exams 05/28/21 20:45 Taken ARTERIAL BLOOD GASES Stat Lab 05/28/21 21:15 Completed BLOOD CULTURE Stat Lab 05/28/21 21:00 Received CBC W DIFF Stat Lab 05/28/21 21:06 Completed CMP Stat Lab 05/28/21 21:06 Completed NT PRO BNP Stat Lab 05/28/21 21:06 Completed TROPONIN Q3H Lab 05/28/21 21:06 Completed TROPONIN Q3H Lab 05/28/21 23:45 Completed TROPONIN Q3H Lab 05/29/21 02:45 Ordered TROPONIN Q3H Lab 05/29/21 05:45 Ordered TROPONIN Q3H Lab 05/29/21 08:45 Ordered BiPap/CPAP ROUTINE RT 05/28/21 21:33 Active Respiratory Therapy Assessment DAILY RT 05/28/21 21:33 Active Medication Summary Discontinued Medications Generic Name Dose Route Start Last Admin Trade Name Freq PRN Reason Stop Dose Admin Albuterol/Ipratropium 3 ml 05/28/21 20:46 05/28/21 21:14 Ipratropium/Albuterol Sulfate 3 Ml Ampul.Neb IH 05/28/21 20:47 3 ml STAT ONE Administration Albuterol/Ipratropium Confirm 05/28/21 20:48 Ipratropium/Albuterol Sulfate 3 Ml Ampul.Neb Administered 05/28/21 20:49 Dose 3 ml IH .STK-MED ONE Methylprednisolone Sodium 0 mg 05/28/21 20:48 05/28/21 21:25 Succinate 125 mg/ Sterile IV 05/28/21 20:49 125 mg Water 2 ml STAT ONE Administration Furosemide 20 mg 05/28/21 20:50 05/28/21 21:26 Furosemide 20 Mg/Vial IV 05/28/21 20:51 20 mg ONCE STA Administration Furosemide Confirm 05/28/21 21:22 Furosemide 40 Mg/4 Ml Vial Administered 05/28/21 21:23 Dose 40 mg .ROUTE .STK-MED ONE Ceftriaxone Sodium/Dextrose 2 g in 50 mls @ 100 mls/hr 05/28/21 22:49 05/28/21 23:22 Rocephin 2 Gm-D5w 50ml Bag IV 05/28/21 23:18 100 ml/hr STAT STA 100 mls/hr Administration Azithromycin 500 mg in 250 mls @ 250 mls/hr 05/28/21 22:50 05/29/21 00:05 Zithromax 500 Mg/ 250 Ml Nacl Premix IV 05/28/21 23:49 250 ml/hr STAT STA 250 mls/hr Administration Remdesivir 200 mg/ Sodium 250 mls @ 125 mls/hr 05/28/21 23:06 Chloride IV 05/29/21 01:05 ONCE ONE Ceftriaxone Sodium/Dextrose Confirm 05/28/21 23:19 Rocephin 2 Gm-D5w 50ml Bag Administered 05/28/21 23:20 Dose 2 g in 50 mls @ ud IV .STK-MED ONE Methylprednisolone Sodium Succinate Confirm 05/28/21 21:22 Methylprednis Sod Succ 125 Mg/2 Ml Vial Administered 05/28/21 21:23 Dose 125 mg .ROUTE .STK-MED ONE Morphine Sulfate 2 mg 05/28/21 22:53 05/28/21 23:21 Morphine Sulfate 2 Mg/Ml Inj IV 05/28/21 22:54 2 mg STAT ONE Administration Morphine Sulfate Confirm 05/28/21 23:19 Morphine Sulfate 2 Mg/Ml Inj Administered 05/28/21 23:20 Dose 2 mg .ROUTE .STK-MED ONE Nitroglycerin 1 gm 05/28/21 22:51 05/28/21 23:21 Nitroglycerin 1 Gm Packet TOP 05/28/21 22:52 1 gm STAT ONE Administration Nitroglycerin Confirm 05/28/21 23:19 Nitroglycerin 1 Gm Packet Administered 05/28/21 23:20 Dose 1 gm .ROUTE .STK-MED ONE Sterile Water Confirm 05/28/21 21:22 Water For Injection,Sterile 10 Ml Vial Administered 05/28/21 21:23 Dose 10 ml IJ .STK-MED ONE Lab/Rad Data: Laboratory Result Diagrams 05/28/21 21:06 05/28/21 21:06 Laboratory Results 05/28/21 05/28/21 05/28/21 Range/Units 23:45 21:15 21:08 WBC (4.0-10.5) K/mm3 RBC (4.1-5.6) M/mm3 Hgb (12.5-18.0) gm/dl Hct (42-50) % MCV (78-100) fl MCH (26-32) pg MCHC (32-36) g/dl RDW (11.5-14.0) % Plt Count (150-450) K/mm3 MPV (7.5-11.0) fl Gran % (36.0-66.0) % Eos # (Auto) (0-0.5) Absolute Lymphs (auto) (1.0-4.6) Absolute Monos (auto) (0.0-1.3) Lymphocytes % (24.0-44.0) % Monocytes % (0.0-12.0) % Eosinophils % (0.00-5.0) % Basophils % (0.0-0.4) % Absolute Granulocytes (1.4-6.9) Basophils # (0-0.4) Puncture Site LEFT BRACHIAL pCO2 40 (35-45) mmHg pO2 82 (75-100) mmHg Base Excess 1.3 (-2.0-2.0) O2 Saturation 93.1 L (94-100) g/dF ABG pH 7.42 (7.35-7.45) ABG HCO3 25.9 (22-28) ABG O2 Sat (Measured) 97.1 (95-100) % Lorenzo Test NOT APPLICABLE A-a Gradient 125 a/A Ratio 0.40 Hemoglobin 12.5 Carboxyhemoglobin 3.5 (0.0-6.9) % THgb Methemoglobin 0.6 L (1.4-1.5) % Temperature 37.0 C POC O2 Flow Rate 36 % Sodium (137-145) mmol/L Potassium 4.4 (3.5-5.1) mmol/L Chloride (98-107) mmol/L Carbon Dioxide (22-30) mmol/L Anion Gap (5-15) MEQ/L BUN (9-20) mg/dL Creatinine (0.66-1.25) mg/dL Estimated GFR ML/MIN Glucose (74-106) mg/dL Calcium (8.4-10.2) mg/dL Total Bilirubin (0.2-1.3) mg/dL AST (17-59) U/L ALT (0-50) U/L Alkaline Phosphatase (38-126) U/L Troponin I < 0.012 (0.000-0.034) ng/mL NT-Pro-B Natriuret Pep (0-900) pg/mL Serum Total Protein (6.3-8.2) g/dL Albumin (3.5-5.0) g/dL Influenza Type A Ag NEGATIVE (NEGATIVE) Influenza Type B Ag NEGATIVE (NEGATIVE) RSV (PCR) NEGATIVE (Negative) SARS-CoV-2 (PCR) POSITIVE A (NEGATIVE) 05/28/21 05/28/21 05/28/21 Range/Units 21:06 21:06 21:06 WBC 6.1 (4.0-10.5) K/mm3 RBC 4.30 (4.1-5.6) M/mm3 Hgb 12.2 L (12.5-18.0) gm/dl Hct 40.6 L (42-50) % MCV 94.4 (78-100) fl MCH 28.4 (26-32) pg MCHC 30.0 L (32-36) g/dl RDW 19.1 H (11.5-14.0) % Plt Count 85 L (150-450) K/mm3 MPV 9.7 (7.5-11.0) fl Gran % 68.8 H (36.0-66.0) % Eos # (Auto) 0.16 (0-0.5) Absolute Lymphs (auto) 0.48 L (1.0-4.6) Absolute Monos (auto) 1.26 (0.0-1.3) Lymphocytes % 7.8 L (24.0-44.0) % Monocytes % 20.6 H (0.0-12.0) % Eosinophils % 2.6 (0.00-5.0) % Basophils % 0.2 (0.0-0.4) % Absolute Granulocytes 4.21 (1.4-6.9) Basophils # 0.01 (0-0.4) Puncture Site pCO2 (35-45) mmHg pO2 (75-100) mmHg Base Excess (-2.0-2.0) O2 Saturation (94-100) g/dF ABG pH (7.35-7.45) ABG HCO3 (22-28) ABG O2 Sat (Measured) (95-100) % Lorenzo Test A-a Gradient a/A Ratio Hemoglobin Carboxyhemoglobin (0.0-6.9) % THgb Methemoglobin (1.4-1.5) % Temperature C POC O2 Flow Rate % Sodium 137 (137-145) mmol/L Potassium 4.6 (3.5-5.1) mmol/L Chloride 96 L (98-107) mmol/L Carbon Dioxide 28 (22-30) mmol/L Anion Gap 17.4 H (5-15) MEQ/L BUN 20 (9-20) mg/dL Creatinine 0.63 L (0.66-1.25) mg/dL Estimated GFR > 60.0 ML/MIN Glucose 113 H (74-106) mg/dL Calcium 9.0 (8.4-10.2) mg/dL Total Bilirubin 2.80 H (0.2-1.3) mg/dL AST 87 H (17-59) U/L ALT 136 H (0-50) U/L Alkaline Phosphatase 90 (38-126) U/L Troponin I 0.012 (0.000-0.034) ng/mL NT-Pro-B Natriuret Pep 4800 H (0-900) pg/mL Serum Total Protein 8.0 (6.3-8.2) g/dL Albumin 4.2 (3.5-5.0) g/dL Influenza Type A Ag (NEGATIVE) Influenza Type B Ag (NEGATIVE) RSV (PCR) (Negative) SARS-CoV-2 (PCR) (NEGATIVE) - Progress Progress: improved Progress Note: Patient reassessed. He feels better. Oxygenation improved. Tachycardia resolved. Work-up reveals patient to be Covid positive. Chest x-ray consistent with Covid pneumonia. Thrombocytopenia observed. There is a elevated total bili with a mild transaminitis. BNP elevated. Patient received Lasix and nitro glycerin paste. Breathing treatment administered. Solu-Medrol administered. Blood cultures obtained. IV antibiotics infused. Plan of care discussed with patient. Patient agrees to admission [facility] for further evaluation and treatment. 05/28/21 22:52 Patient voiced that he is experiencing some pain across his chest and back. Morphine ordered. 05/28/21 22:54 Both of patient's EKGs were forwarded to Dr. Quintero. He does not believe it is a junctional tachycardia. He believes that is the patient is hemodynamically stable the patient may be sent to the floor and have the pacemaker interrogated in the morning. Patient is currently on Eliquis. Patient's device is a [employer] product we will attempt to interrogate the pacemaker while in the ED. 05/29/21 02:16 - Departure Clinical Impression: COVID-19, Thrombocytopenia, Total bilirubin, elevated, Transaminitis, Elevated brain natriuretic peptide (BNP) level, CHF (congestive heart failure), COPD exacerbation, Hypoxia Condition: Stable Critical Care Time: No Referrals: DOCTOR,NO FAMILY [Primary Care Provider] - Follow up/PCP as directed Instructions: Heart Failure, Chronic Obstructive Pulmonary Disease
[2021-05-28 21:47] LABS: INFLUENZA A NEGATIVE (NEGATIVE); INFLUENZA B NEGATIVE (NEGATIVE); RESPIRATORY SYNCTIAL VIRUS NEGATIVE (Negative)
[2021-05-28 21:54] LABS: SARS-CoV-2 Xpert Express POSITIVE (NEGATIVE)
[2021-05-28] MEDS ORDERED: ROCEPHIN 2 Gm-D5w 50ML BAG** 2 G/50 ML IVPB IV STA (22:49)
[2021-05-28] MEDS ORDERED: Zithromax 500 MG/ 250 ML NaCl Premix 500 MG/250 ML IVPB IV STA (22:50)
[2021-05-28] MEDS ORDERED: NITRO-BID 2% UD PACKETS TOP ONE (22:51)
[2021-05-28] MEDS ORDERED: MORPHINE SULFATE 2 MG INJ IV ONE (22:53)
[2021-05-28] MEDS ORDERED: REMDESIVIR 200 MG in Sodium Chloride 0.9% 250 ML 250 ML IV ONE (23:06)
[2021-05-28] MEDS ORDERED: ROCEPHIN 2 Gm-D5w 50ML BAG** 2 G/50 ML IVPB IV ONE (23:19)
[2021-05-28] MEDS ORDERED: MORPHINE SULFATE 2 MG INJ ONE (23:19)
[2021-05-28] MEDS ORDERED: NITRO-BID 2% UD PACKETS ONE (23:19)
[2021-05-29] MEDS ORDERED: MORPHINE SULFATE 4 MG INJ IV PRN (03:42)
[2021-05-29] MEDS ORDERED: VENTOLIN COMMON CANISTER IH PRN (03:42)
[2021-05-29 05:25] LABS: Absolute Neutrophil Ct (ANC) 4.36 (1.4-6.9); Basophil (Absolute #) 0 (0-0.4); Eosinophil % 0.2 % (0.00-5.0); Eosinophil (Absolute #) 0.01 (0-0.5); Hematocrit 39.4 % (42-50); Hemoglobin 12.1 gm/dl (12.5-18.0); Lymphocyte (Absolute #) 0.17 (1.0-4.6); Lymphocytes % 3.6 % (24.0-44.0); Mean Cell Volume 92.7 fl (78-100); Mean Corpuscular Hemoglobin 28.5 pg (26-32); Mean Corpuscular Hgb Concent. 30.7 g/dl (32-36); Mean Platelet Volume 9.4 fl (7.5-11.0); Monocyte (Absolute #) 0.14 (0.0-1.3); Neutrophil % 93.2 % (36.0-66.0); Platelet Count 64 K/mm3 (150-450); Red Blood Count 4.25 M/mm3 (4.1-5.6); Red Cell Distribution Width 18.8 % (11.5-14.0); White Blood Count 4.7 K/mm3 (4.0-10.5)
[2021-05-29 05:50] LABS: ALBUMIN 3.9 g/dL (3.5-5.0); ALKALINE PHOSPHATASE 90 U/L (38-126); ANION GAP 14.8 MEQ/L (5-15); BLOOD UREA NITROGEN 21 mg/dL (9-20); CHLORIDE 99 mmol/L (98-107); Calcium 8.8 mg/dL (8.4-10.2); Carbon Dioxide 25 mmol/L (22-30); Creatinine 1 0.61 mg/dL (0.66-1.25); EST GLOMERULAR FILTRATION RATE > 60.0 ML/MIN; Glucose 181 mg/dL (74-106); NT PRO BNP 6220 pg/mL (0-900); SGOT/AST 78 U/L (17-59); SGPT/ALT 112 U/L (0-50); SODIUM 134 mmol/L (137-145); Total Protein 7.3 g/dL (6.3-8.2)
[2021-05-29 06:29] LABS: INR 1.53 (0.8-3.0)
[2021-05-29] MEDS: solu-MEDROL 60 MG, Sterile H2O 10 ml 2 ML IV SCH ×6 (08:29→18:41)
--- NOTE | 2021-05-29 08:51 | XRAY ---
Indication: Cough and short of breath. Comparison: April 14, 2021. Portable chest demonstrates interval worsening cardiomegaly, central vascular congestion, and moderate bibasilar infiltrates/atelectasis/effusions favoring worsening cardiac decompensation/CHF. Superimposed pneumonia not completely excluded. Again incidental cardiothoracic surgery and left AICD.
[2021-05-29] MEDS ORDERED: TYLENOL 325 MG PO PRN (09:23)
[2021-05-29] MEDS: HYDROCODONE-CHLORPHEN ER SUSP PO PRN (10:25)
[2021-05-29] MEDS: MORPHINE SULFATE 4 MG INJ IV PRN (10:26)
[2021-05-29] MEDS: Lasix 40 MG PO SCH (10:52)
[2021-05-29] MEDS: Coreg 3.125 MG PO SCH ×2 (10:52→22:50)
[2021-05-29] MEDS: ZOCOR 20MG PO SCH (10:52)
[2021-05-29] MEDS: Protonix 40MG Tablet PO SCH (10:52)
[2021-05-29] MEDS: Imdur 30 MG PO SCH (10:52)
--- NOTE | 2021-05-29 11:03 | HP ---
CHIEF COMPLAINT: Shortness of breath, cough, chest pain. HISTORY OF PRESENT ILLNESS: The patient is a well-known 60 -year-old white male who came into the emergency room in the middle of the night because of increasing shortness of breath, cough and pain with coughing. He tested positive for COVID. He has a long history of congestive heart failure, atrial fibrillation and chronic obstructive pulmonary disease. He is on Disability. He said he does not know where he got it from. He said he has been trying to avoid all people. He normally takes oxygen at 3 liters every day. In the emergency room he was told that his tank was empty. He was aching and hurting all over. Chest hurts when he coughs but no heaviness or pressure. No nausea or vomiting. No diarrhea. No loss of taste. He said it has been going on for three days. TRAVEL RISK: No travel out of town really. CORONAVIRUS SCREENING: He tested positive for COVID. MEDICATIONS: Advair Diskus 250-50 one puff b.i.d., Lasix 40 q.a.m., Zestril 5 q.d., Prilosec 40 q.d., Seroquel 25 mg 0.5 tab h.s., gabapentin 100 mg t.i.d., ALLERGIES: SOMA. KETOROLAC. PAST MEDICAL HISTORY: Chronic obstructive pulmonary disease, peripheral vascular disease, pneumonia, hypertension, atrial fibrillation, high cholesterol. PAST SURGICAL HISTORY: Coronary artery bypass graft 1997. Fem pop in the last ten years. Stent placement. Internal defibrillator with a pacemaker. Appendectomy. Umbilical hernia repair. Bypass x3. Left leg surgery after bite from brown recluse spider. REVIEW OF SYSTEMS: CONSTITUTIONAL: HEENT: No problems hearing or seeing. CHEST: Short of breath at rest this is chronic but worse for the last several days, nonproductive cough. GI: He has an umbilical hernia which hurts at times. It has been repaired once but has reoccurred. He has no real severe pain, nausea or vomiting. No diarrhea. NEUROLOGIC: He has burning and tingling in his feet from peripheral neuropathy. PSYCHOLOGIC: Apparently has not been treated for depression, schizophrenia or any severe problems. CVS: Heart failure, coronary artery disease, high cholesterol, myocardial infarction, hypertension, atrial fibrillation. RESPIRATORY: He has chronic obstructive pulmonary disease, pneumonia and actually a pulmonary embolus several years ago. ENDOCRINE: No diabetes mellitus. He has hypertension. MUSCULOSKELETAL: Sore knees, legs and feet. : No problems urinating. PSYCHOSOCIAL: He does complain when I talk to him more that he is anxious a lot of times because he cannot breath and just feels depressed because he has deteriorated this bad. SOCIAL HISTORY: He smokes five cigarettes a day for 45 years. Drug use: Used amphetamines in the past when he was working. He does live with somebody. PHYSICAL EXAMINATION: VITAL SIGNS: Temperature 98F, pulse 110, respirations 24, blood pressure 140/70. O2 saturation right now is in the high 90's. GENERAL APPEARANCE: The patient has frequent cough. He is alert, feels uncomfortable. HEENT: Pupils equal and reactive to light. NECK: Supple without adenopathy. CHEST: Few wheezes bilateral. CVS: Irregular-regular, tachycardic. ABDOMEN: Soft. Umbilical hernia which easily reduces. EXTREMITIES: Chronically blue and reddish from peripheral vascular disease, decreased sensation. IMPRESSION: The patient does have COVID which exacerbated his problems with chronic obstructive pulmonary disease and heart failure. Chest x-ray shows more heart failure than COVID. PLAN: The patient will be treated with his usual medications plus the COVID medicines of Decadron, Remdesivir and antibodies. Give him some pain medication, anxiety medication, watch carefully. He will be anticoagulated due to his atrial fibrillation and COVID. PROGNOSIS: Fair.
[2021-05-29] MEDS: Neurontin 100 MG PO SCH ×3 (11:04→22:51)
[2021-05-29] MEDS: ELIQUIS 2.5 MG TABLET PO SCH ×2 (11:05→22:50)
[2021-05-29] MEDS: Aldactone 25 MG PO SCH (11:05)
[2021-05-29] MEDS ORDERED: Zofran 4 MG/2 ML VIAL IV PRN (11:14)
[2021-05-29] MEDS: ENTRESTO 49 MG-51 MG TABLET PO SCH ×2 (11:15→22:50)
[2021-05-29] MEDS ORDERED: Sodium Chloride 0.9% 10 ML FLUSH Syringe IV PRN (11:15)
[2021-05-29] MEDS: Ativan 1 MG PO PRN (11:33)
[2021-05-29] MEDS: ADVAIR/WIXELLA 250-50 DISKUS 14 DOSE IH SCH ×2 (11:53→19:48)
[2021-05-29] MEDS: OLUMIANT PO SCH (12:32)
[2021-05-29] MEDS: Sodium Chloride 0.9% 10 ML FLUSH Syringe IV SCH ×2 (13:01→23:08)
[2021-05-29 15:29] VITALS: O2SAT 91
[2021-05-29] MEDS ORDERED: Zithromax 500 MG/ 250 ML NaCl Premix 500 MG/250 ML IVPB IV SCH (22:00)
[2021-05-29] MEDS ORDERED: NON-FORMULARY ITEM (Apixaban [Eliquis] 5 MG Tablet) PO SCH (22:00)
[2021-05-29] MEDS ORDERED: ROCEPHIN 1 Gm-D5w 50 ml Bag** 1 G/50 ML IVPB IV SCH (22:00)
[2021-05-29] MEDS: Seroquel 25 MG PO SCH (22:51)
[2021-05-30] MEDS: solu-MEDROL 60 MG, Sterile H2O 10 ml 2 ML IV SCH ×10 (00:36→23:30)
[2021-05-30] MEDS: MORPHINE SULFATE 4 MG INJ IV PRN ×3 (00:37→20:30)
[2021-05-30] MEDS: Sodium Chloride 0.9% 10 ML FLUSH Syringe IV SCH ×3 (05:50→21:53)
[2021-05-30 07:04] LABS: ALKALINE PHOSPHATASE 61 U/L (38-126); BLOOD UREA NITROGEN 28 mg/dL (9-20); CHLORIDE 101 mmol/L (98-107); Calcium 8.1 mg/dL (8.4-10.2); Carbon Dioxide 27 mmol/L (22-30); Creatinine 1 0.69 mg/dL (0.66-1.25); EST GLOMERULAR FILTRATION RATE > 60.0 ML/MIN; Glucose 121 mg/dL (74-106); Potassium 5.2 mmol/L (3.5-5.1); SGOT/AST 43 U/L (17-59); SGPT/ALT 78 U/L (0-50); SODIUM 134 mmol/L (137-145)
[2021-05-30] MEDS: ADVAIR/WIXELLA 250-50 DISKUS 14 DOSE IH SCH ×2 (08:00→20:14)
[2021-05-30] MEDS: Imdur 30 MG PO SCH (08:24)
[2021-05-30] MEDS: ZOCOR 20MG PO SCH (08:24)
[2021-05-30] MEDS: Protonix 40MG Tablet PO SCH (08:24)
[2021-05-30] MEDS: Coreg 3.125 MG PO SCH ×2 (08:24→21:51)
[2021-05-30] MEDS: Lasix 40 MG PO SCH (08:24)
[2021-05-30] MEDS: OLUMIANT PO SCH (08:25)
[2021-05-30] MEDS: TYLENOL EXTRA STRENGTH 500 MG PO PRN (08:25)
[2021-05-30] MEDS: Aldactone 25 MG PO SCH (08:26)
[2021-05-30] MEDS: ENTRESTO 49 MG-51 MG TABLET PO SCH ×3 (08:26→22:11)
[2021-05-30] MEDS: ELIQUIS 2.5 MG TABLET PO SCH ×2 (08:26→21:51)
[2021-05-30] MEDS: Neurontin 100 MG PO SCH ×3 (08:27→21:51)
[2021-05-30] MEDS: REMDESIVIR 100 MG in Sodium Chloride 0.9% 100 ML BAG 100 ML IV SCH (09:23)
[2021-05-30] MEDS ORDERED: NON-FORMULARY ITEM (Empagliflozin [Jardiance] 10 MG Tablet) PO SCH (10:00)
[2021-05-30] MEDS ORDERED: NON-FORMULARY ITEM (Omeprazole [Omeprazole] 40 MG Capsule.Dr) PO SCH (10:00)
[2021-05-30] MEDS ORDERED: NON-FORMULARY ITEM (Pravastatin Sodium [Pravastatin Sodium] 40 MG Tablet) PO SCH (10:00)
[2021-05-30] MEDS ORDERED: BENADRYL 50 MG/ML IV ONE (14:38)
[2021-05-30 16:24] LABS: Absolute Neutrophil Ct (ANC) 7.15 (1.4-6.9); Basophil (Absolute #) 0 (0-0.4); Eosinophil (Absolute #) 0 (0-0.5); Hematocrit 35.8 % (42-50); Hemoglobin 10.6 gm/dl (12.5-18.0); Lymphocytes % 2.6 % (24.0-44.0); Mean Cell Volume 95.7 fl (78-100); Mean Corpuscular Hemoglobin 28.3 pg (26-32); Mean Corpuscular Hgb Concent. 29.6 g/dl (32-36); Mean Platelet Volume 10.1 fl (7.5-11.0); Monocyte (Absolute #) 0.37 (0.0-1.3); Monocytes % 4.8 % (0.0-12.0); Neutrophil % 92.6 % (36.0-66.0); Platelet Count 54 K/mm3 (150-450); Red Blood Count 3.74 M/mm3 (4.1-5.6); Red Cell Distribution Width 18.1 % (11.5-14.0); White Blood Count 7.7 K/mm3 (4.0-10.5)
[2021-05-30 16:39] LABS: ALBUMIN 3.4 g/dL (3.5-5.0); ALKALINE PHOSPHATASE 66 U/L (38-126); ANION GAP 12.7 MEQ/L (5-15); BLOOD UREA NITROGEN 32 mg/dL (9-20); CHLORIDE 101 mmol/L (98-107); Calcium 8.3 mg/dL (8.4-10.2); Carbon Dioxide 27 mmol/L (22-30); Creatinine 1 0.77 mg/dL (0.66-1.25); EST GLOMERULAR FILTRATION RATE > 60.0 ML/MIN; Glucose 177 mg/dL (74-106); Potassium 5.2 mmol/L (3.5-5.1); SGOT/AST 38 U/L (17-59); SGPT/ALT 73 U/L (0-50); SODIUM 136 mmol/L (137-145); Total Protein 6.4 g/dL (6.3-8.2)
[2021-05-30 18:12] LABS: Slide Review 1 YES
[2021-05-30] MEDS ORDERED: BENADRYL 50 MG/ML IV PRN (20:00)
[2021-05-30] MEDS: Seroquel 25 MG PO SCH (21:51)
[2021-05-31] MEDS: MORPHINE SULFATE 4 MG INJ IV PRN (01:04)
[2021-05-31] MEDS: TYLENOL EXTRA STRENGTH 500 MG PO PRN (04:00)
[2021-05-31] MEDS ORDERED: TORAdol 30 mg Injection IV PRN (05:10)
[2021-05-31] MEDS ORDERED: Haldol 5 MG IM PRN (05:17)
[2021-05-31] MEDS: solu-MEDROL 60 MG, Sterile H2O 10 ml 2 ML IV SCH ×8 (05:29→23:29)
[2021-05-31] MEDS: Sodium Chloride 0.9% 10 ML FLUSH Syringe IV SCH ×3 (05:46→21:03)
[2021-05-31 06:45] LABS: ALBUMIN 3.2 g/dL (3.5-5.0); ALKALINE PHOSPHATASE 65 U/L (38-126); ANION GAP 13.1 MEQ/L (5-15); BLOOD UREA NITROGEN 32 mg/dL (9-20); CHLORIDE 100 mmol/L (98-107); Calcium 8.3 mg/dL (8.4-10.2); Carbon Dioxide 29 mmol/L (22-30); Creatinine 1 0.71 mg/dL (0.66-1.25); EST GLOMERULAR FILTRATION RATE > 60.0 ML/MIN; Glucose 169 mg/dL (74-106); Potassium 5.1 mmol/L (3.5-5.1); SGOT/AST 31 U/L (17-59); SGPT/ALT 64 U/L (0-50); SODIUM 137 mmol/L (137-145); Total Protein 6.3 g/dL (6.3-8.2)
[2021-05-31] MEDS: ADVAIR/WIXELLA 250-50 DISKUS 14 DOSE IH SCH ×2 (07:55→21:38)
[2021-05-31] MEDS: Imdur 30 MG PO SCH (09:40)
[2021-05-31] MEDS: Lasix 40 MG PO SCH (09:40)
[2021-05-31] MEDS: REMDESIVIR 100 MG in Sodium Chloride 0.9% 100 ML BAG 100 ML IV SCH (09:40)
[2021-05-31] MEDS: Coreg 3.125 MG PO SCH ×2 (09:40→21:12)
[2021-05-31] MEDS: Protonix 40MG Tablet PO SCH (09:40)
[2021-05-31] MEDS: ZOCOR 20MG PO SCH (09:40)
[2021-05-31] MEDS: Aldactone 25 MG PO SCH (09:41)
[2021-05-31] MEDS: Neurontin 100 MG PO SCH ×3 (09:41→21:02)
[2021-05-31] MEDS: ELIQUIS 2.5 MG TABLET PO SCH ×2 (09:41→21:01)
[2021-05-31] MEDS: HYDROCODONE-ACETAMIN 10-325 MG PO PRN ×2 (09:48→22:20)
[2021-05-31] MEDS ORDERED: Seroquel 100 MG PO SCH (10:00)
[2021-05-31] MEDS: OLUMIANT PO SCH (10:10)
[2021-05-31] MEDS: ENTRESTO 49 MG-51 MG TABLET PO SCH ×2 (10:10→21:02)
[2021-05-31] MEDS: Seroquel 100 MG PO SCH (21:02)
[2021-06-01] MEDS: HYDROCODONE-CHLORPHEN ER SUSP PO PRN (01:31)
[2021-06-01] MEDS: solu-MEDROL 60 MG, Sterile H2O 10 ml 2 ML IV SCH ×6 (05:37→16:56)
[2021-06-01] MEDS: Sodium Chloride 0.9% 10 ML FLUSH Syringe IV SCH ×3 (05:37→20:23)
[2021-06-01 06:43] LABS: ALBUMIN 2.9 g/dL (3.5-5.0); ALKALINE PHOSPHATASE 52 U/L (38-126); ANION GAP 11.4 MEQ/L (5-15); BLOOD UREA NITROGEN 28 mg/dL (9-20); CHLORIDE 101 mmol/L (98-107); Calcium 8.1 mg/dL (8.4-10.2); Carbon Dioxide 30 mmol/L (22-30); Creatinine 1 0.63 mg/dL (0.66-1.25); EST GLOMERULAR FILTRATION RATE > 60.0 ML/MIN; Glucose 135 mg/dL (74-106); Potassium 4.7 mmol/L (3.5-5.1); SGOT/AST 24 U/L (17-59); SGPT/ALT 52 U/L (0-50); SODIUM 138 mmol/L (137-145); Total Protein 5.8 g/dL (6.3-8.2)
[2021-06-01] MEDS: ADVAIR/WIXELLA 250-50 DISKUS 14 DOSE IH SCH ×2 (07:40→19:15)
[2021-06-01] MEDS: Protonix 40MG Tablet PO SCH (09:57)
[2021-06-01] MEDS: Imdur 30 MG PO SCH (09:57)
[2021-06-01] MEDS: OLUMIANT PO SCH (09:57)
[2021-06-01] MEDS: Coreg 3.125 MG PO SCH ×2 (09:58→20:23)
[2021-06-01] MEDS: REMDESIVIR 100 MG in Sodium Chloride 0.9% 100 ML BAG 100 ML IV SCH (09:58)
[2021-06-01] MEDS: Seroquel 100 MG PO SCH (09:58)
[2021-06-01] MEDS: ZOCOR 20MG PO SCH (09:58)
[2021-06-01] MEDS: Lasix 40 MG PO SCH (09:58)
[2021-06-01] MEDS: ENTRESTO 49 MG-51 MG TABLET PO SCH ×2 (09:59→20:21)
[2021-06-01] MEDS: Aldactone 25 MG PO SCH (09:59)
[2021-06-01] MEDS: ELIQUIS 2.5 MG TABLET PO SCH ×2 (09:59→20:21)
[2021-06-01] MEDS: Neurontin 100 MG PO SCH ×3 (09:59→20:23)
[2021-06-01] MEDS: HYDROCODONE-ACETAMIN 10-325 MG PO PRN (12:29)
--- NOTE | 2021-06-01 14:59 | PROG NOTE ---
CHIEF COMPLAINT: He is hungry. HISTORY: Yesterday, the patient continued demands for narcotics on a half hour basis, more food over and over again. He threw some pudding off of his bed supposedly at an aide. This patient is well known to us. He was in here before and overdosed on narcotics apparently his last admission. He has had addiction problems before. I have known him from before when I was in practice. Yesterday I had a talk with him that we would have to transfer him if he did not improve his courtesy and the fact that he cannot have narcotics constantly. It is probably best that he does not get any. We cut back on his morphine. He is on Seroquel for behavior problems and I doubled that and he did sleep most of the day. In fact, he got up and ate two breakfasts and he when back to sleep this morning. He has been on 4 liters but his O2 is 95%, will cut that down to 3. He is normally on 3 liters at home. His extremities have no edema or chronic changes. Chest few crackles. Heart sounds regular. Blood sugar was 169 on admission and will follow up on that. In the past he did want any treatment for his diabetes. Repeat chest x-ray and D-dimer. Hopefully send him on 3 liters which is what he is normally on apparently. Cut back on his Seroquel. IMPRESSION: The patient has: 1) COVID pneumonitis. 2) Behavior disorder. PROGNOSIS: Fair.
[2021-06-01] MEDS: Ativan 1 MG PO PRN (19:11)
[2021-06-01] MEDS ORDERED: Ativan 2 MG/1 ML VIAL IV ONE (19:58)
[2021-06-01] MEDS ORDERED: Lasix 20 MG/2 ML ONE (20:08)
[2021-06-01] MEDS ORDERED: Seroquel 100 MG PO SCH (22:00)
[2021-06-02] MEDS: solu-MEDROL 60 MG, Sterile H2O 10 ml 2 ML IV SCH ×6 (00:14→09:15)
[2021-06-02 06:05] LABS: ALBUMIN 3.3 g/dL (3.5-5.0); ALKALINE PHOSPHATASE 72 U/L (38-126); ANION GAP 10.4 MEQ/L (5-15); BLOOD UREA NITROGEN 25 mg/dL (9-20); CHLORIDE 98 mmol/L (98-107); Calcium 8.3 mg/dL (8.4-10.2); Carbon Dioxide 35 mmol/L (22-30); Creatinine 1 0.54 mg/dL (0.66-1.25); EST GLOMERULAR FILTRATION RATE > 60.0 ML/MIN; Glucose 192 mg/dL (74-106); SGOT/AST 23 U/L (17-59); SGPT/ALT 49 U/L (0-50); SODIUM 140 mmol/L (137-145); Total Protein 6.1 g/dL (6.3-8.2)
[2021-06-02] MEDS: Sodium Chloride 0.9% 10 ML FLUSH Syringe IV SCH (06:11)
--- NOTE | 2021-06-02 08:41 | XRAY ---
Indication: Positive Covid 19. Comparison: May 28, 2021. Portable chest demonstrates grossly stable cardiomegaly with small bibasilar effusions, scattered tiny calcified granulomas, cardiothoracic surgery, and left AICD. Interval worsening diffuse bilateral hazy interstitial alveolar opacities.
[2021-06-02] MEDS: ADVAIR/WIXELLA 250-50 DISKUS 14 DOSE IH SCH (08:52)
[2021-06-02] MEDS: REMDESIVIR 100 MG in Sodium Chloride 0.9% 100 ML BAG 100 ML IV SCH (09:15)
[2021-06-02] MEDS: Aldactone 25 MG PO SCH (09:23)
[2021-06-02] MEDS: Neurontin 100 MG PO SCH (09:23)
[2021-06-02] MEDS: ENTRESTO 49 MG-51 MG TABLET PO SCH (09:24)
[2021-06-02] MEDS: ELIQUIS 2.5 MG TABLET PO SCH (09:24)
[2021-06-02] MEDS: OLUMIANT PO SCH (09:27)
[2021-06-02] MEDS: ZOCOR 20MG PO SCH (09:27)
[2021-06-02] MEDS: Coreg 3.125 MG PO SCH (09:28)
[2021-06-02] MEDS: Imdur 30 MG PO SCH (09:28)
[2021-06-02] MEDS: HYDROCODONE-ACETAMIN 10-325 MG PO PRN (09:28)
[2021-06-02] MEDS: Protonix 40MG Tablet PO SCH (09:28)
[2021-06-02] MEDS: Ativan 1 MG PO PRN (09:28)
[2021-06-02] MEDS: Lasix 40 MG PO SCH (09:28)
[2021-06-02] MEDS ORDERED: Lasix 20 MG/2 ML IV ONE (20:00)
[2021-06-15 16:01] VITALS: BP 125/72; PULSE 81
--- NOTE | 2021-07-01 09:55 | DS ---
ADMISSION DIAGNOSIS: COVID pneumonia. DISCHARGE DIAGNOSIS: COVID PNEUMONIA. HOSPITAL COURSE: The patient had been asymptomatic for three days before presenting to the emergency room and having a positive test. He is having breathing, coughing nonstop. His D-dimer was 2322 which is markedly elevated. His O2 saturation in the emergency room went down to 80% and required putting him on 5 liters initially to keep it above 90%. He was having some chest achiness, hurting all over, coughing nonstop. He does not know exactly where he got it. His comorbidities include history of deep vein thrombosis, hypertension, gastroesophageal reflux disease and hyperlipidemia. He looked pretty stable on the second day. He was having trouble with his memory though. His platelet counts were low. His bilirubin was minimally elevated. BNP was elevated due to heart failure which is acute and he did receive some IV Lasix. He was sent home on Furosemide 40, prednisone 10 two for 7 days, one for seven days along with his medicines he had been taking before. He was still having trouble walking. He was discharged. He is 60 years of age. We discontinued his morphine due to confusion from it and became more confused when we increased the Seroquel to 100 mg and we did add antibodies 4 mg q.d. and Entresto on 06/30/2021. Portable chest x-ray showed about the same on 07/01/2021 and was discharged that night on the medicines as above. Much improved, about back to his normal condition. Follow up with his home physician in two weeks, stay isolated for another seven days. Finish up his prednisone. PROGNOSIS: Good.
== END 2021-06-02 10:15 | disposition home or self-care (01) | DRG 177 ==
LOC: ED 20:33 → MED SURG 05-29 03:32 → OBSVTOIN 05-30 09:23
PROVIDERS: ADMIT Family Medicine; ATTEND Family Medicine
DX: U07.1 COVID-19 (principal); J12.82 Pneumonia due to coronavirus disease 2019; J44.1 Chronic obstructive pulmonary disease with (acute) exacerbation; I50.9 Heart failure, unspecified; D69.6 Thrombocytopenia, unspecified; R09.02 Hypoxemia; R07.9 Chest pain, unspecified; R74.01 Elevation of levels of liver transaminase levels; R79.89 Other specified abnormal findings of blood chemistry; I48.91 Unspecified atrial fibrillation; I10 Essential (primary) hypertension; I25.2 Old myocardial infarction; E78.00 Pure hypercholesterolemia, unspecified; R00.0 Tachycardia, unspecified; F17.200 Nicotine dependence, unspecified, uncomplicated; Z79.01 Long term (current) use of anticoagulants; Z79.899 Other long term (current) drug therapy; Z99.81 Dependence on supplemental oxygen; Z20.828 Contact with and (suspected) exposure to other viral communicable diseases; F91.9 Conduct disorder, unspecified
CPT/HCPCS: 0241U; 36000; 36415; 36600; 71045; 80053; 82375; 82803; 83036; 83880; 84484; 85025; 85379; 85610; 87040; 93005; 93041; 93268; 94002; 94640; 94760; 94762; 96374; 96375; 99285; G0378; J0456; J0696; J1200; J1940; J2060; J2270; J2930; A9270-GY